=== PATIENT | female | born 1950 | race Caucasian/White ===

== ENCOUNTER 2019-10-03 18:13 | Emergency (ER) | payer MEDICARE, OTHER ==
[~2019-10-03] VITALS: Ht 167.6 cm; Wt 104.3 kg
--- NOTE | 2019-10-04 12:09 | EKG ---
[facility] [address] [facility] [place], [place] [address] Signed Normal sinus rhythm with sinus arrhythmia Septal infarct , age undetermined Abnormal ECG No previous ECGs available Confirmed by YANE TENORIO DO ([id number]) on 10/04/2019 12:08:55 PM Electronically Signed By: YANE TENORIO DO 10/04/19 1209 PATIENT NAME: JAYA MORTON IRAM Electrocardiogram DATE OF : 52 PHYSICIAN: YANE TENORIO DO REPORT #: [id number] REPORT IS CONFIDENTIAL AND NOT TO BE RELEASED WITHOUT AUTHORIZATION
== END 2019-10-03 21:18 | disposition short-term general hospital (02) ==
LOC: ED 18:13
DX: I21.4 Non-ST elevation (NSTEMI) myocardial infarction (principal); I10 Essential (primary) hypertension; E78.00 Pure hypercholesterolemia, unspecified; Z88.5 Allergy status to narcotic agent; Z88.1 Allergy status to other antibiotic agents
CPT/HCPCS: 71045; 80053; 83735; 84484; 85025; 93005; 93010; 96374; 96375; 99285-25; J1650

== ENCOUNTER 2019-10-08 04:16 | Observation (INO) | payer MEDICARE, OTHER ==
[~2019-10-08] VITALS: Ht 167.6 cm; Wt 103.9 kg
--- OUTSIDE RECORDS SUMMARY | ~2019-10-08 | XMS | Encounter Summary ---
Demographics + + + | Address | [address] | | | [place] [address] | + + + | Home Phone | | + + + | Preferred Language | Unknown | + + + | Marital Status | | + + + | Methodist Affiliation | 1077 | + + + | Race | Unknown | + + + | Ethnic Group | Unknown | + + + Author + + + | Author | [facility] | | | and [place] | + + + | Organization | [facility] | | | and [place] | + + + | Address | Unknown | + + + | Phone | Unavailable | + + + Support + + +---------+ + | Name | Relationship | Address | Phone | + + +---------+ + | David Harper | ECON | Unknown | | + + +---------+ + | Nusrat Bowles | ECON | Unknown | | + + +---------+ + Care Team Providers + +------+ + | Care Data Examination Clerk Name | Role | Phone | + +------+ + | Jacob Rodríguez DO | PCP | | + +------+ + Encounter Details +--------+--------+ + + + | Date | Type | Department | Care Team | Description | +--------+--------+ + + + | 10/02/ | Intake | [facility] | | N/A | | 2019 | | [place] [address] | | | | | | [place] | | | | | | [place] | | | | | | [phone] | | | | | | [phone] | | | +--------+--------+ + + + Social History + +-------+ +--------+------+ | Tobacco Use | Types | Packs/Day | Years | Date | | | | | Used | | + +-------+ +--------+------+ | Never Assessed | | | | | + +-------+ +--------+------+ + + + | Sex Assigned at | Date Recorded | | | | + + + | Not on file | | + + + + + + + | Job Start Date | Occupation | Industry | + + + + | Not on file | Not on file | Not on file | + + + + + + + + | Travel History | Travel Start | Travel End | + + + + + + | No recent travel history available. | + + documented as of this encounter Plan of Treatment +--------+---------+ + + + | Date | Type | Specialty | Care Team | Description | +--------+---------+ + + + | 11/07/ | Office | Cardiology | Lj Barker MD | | | 2020 | Visit | | [address] | | | | | | [place] | | | | | | [id number] | | | | | | | | +--------+---------+ + + + documented as of this encounter Visit Diagnoses Not on filedocumented in this encounter"
--- OUTSIDE RECORDS SUMMARY | ~2019-10-08 | XMS | Encounter Summary ---
Demographics + + + | Address | [address] | | | [place] [address] | + + + | Home Phone | | + + + | Preferred Language | Unknown | + + + | Marital Status | | + + + | Hoahaoism Affiliation | 1077 | + + + | Race | Unknown | + + + | Ethnic Group | Unknown | + + + Author + + + | Author | [facility] | | | and [place] | + + + | Organization | [facility] | | | and [place] | [...] Team Providers + +------+ + | Care Laborer Bituminous Paving Name | Role | Phone | + +------+ + | Jacob Rodríguez DO | PCP | | + +------+ + Encounter Details +--------+ + + + + | Date | Type | Department | Care Team | Description | +--------+ + + + + | 10/03/ | Imaging | [facility] | Provider, | | | 2020 | Exam | [facility] | [address] | | | | | IMAGING [address] | [address] | | | | | [place] | [place] [address] | | | | | [place] [address] | | | | | | [phone] | | | +--------+ + + + + Social History + +-------+ [...] | Lj Barker MD | | | 2019 | Visit | | [address] | | | | | | [place] | | | | | | [phone] | | | | | | | | +--------+---------+ + + + documented as of this encounter Procedures + +--------+ + + + | Procedure Name | Priori | Date/Time | Associated Diagnosis | Comments | | | ty | | | | + +--------+ + + + | XR CHEST 2 VIEWS | Routin | 10/07/2011 | | Results for this | | | e | 2:10 PM | | procedure are in the | | | | PDT | | results section. | + +--------+ + + + documented in this encounter Results XR Chest 2 Vws (10/07/2011 2:10 PM PDT) + + | Specimen | + + | | + + + + + | Narrative | Performed At | + + + | External films for comparison only | [facility] | | | | | No results will be in the chart. | | + + + + +---------+ + + | Performing | Address | City/State/Zipcode | Phone Number | | Organization | | | | + +---------+ + + | [facility] | | | | + +---------+ + + documented in this encounter Visit Diagnoses Not on filedocumented in this encounter"
--- OUTSIDE RECORDS SUMMARY | ~2019-10-08 | XMS | Encounter Summary ---
Demographics + + + | Address | [address] | | | [place] [address] | + + + | Home Phone | | + + + | Preferred Language | Unknown | + + + | Marital Status | | + + + | Buddhism Affiliation | 1077 | + + + | Race | Unknown | + + + | Ethnic Group | Unknown | + + + Author + + + | Author | [facility] | | | and Jasana | + + + | Organization | [facility] | | | and Jasana | [...] Team Providers + +------+ + | Care Business Technology Teacher Name | Role | Phone | + +------+ + | Jacob Rodríguez DO | PCP | | + +------+ + Reason for Visit Auth/Cert +--------+--------+ + + + + | Status | Reason | Specialty | Diagnoses / | Referred By | Referred To | | | | | Procedures | Contact | Contact | +--------+--------+ + + + + | | | | Diagnoses | | | | | | | NSTEMI | | | +--------+--------+ + + + + Encounter Details +--------+---------+ + + + | Date | Type | Department | Care Team | Description | +--------+---------+ + + + | 10/04/ | Surgery | [facility] | Lj Barker MD | CV [facility] ANGIO | | 2019 | | MED CTR CV INTRA OP | [address] | | | | | [address] | [place] | | | | | [place] | [phone] | | | | | [id number] | | | | | | [phone] | | | +--------+---------+ + + + Social History + +-------+ +--------+------+ | Tobacco Use | Types | Packs/Day | Years | Date | | | | | Used | | + +-------+ +--------+------+ | Never Smoker | | | | | + +-------+ +--------+------+ + +---+---+---+ | Smokeless Tobacco: | | | | | Never Used | | | | + +---+---+---+ + + +---------+ + | Alcohol Use | Drinks/Week | oz/Week | Comments | + + +---------+ + | Yes | | | rarely, only liquer. | | | | | | + + +---------+ + + + + | Sex Assigned at [...] + + documented as of this encounter Last Filed Vital Signs + + + + + | Vital Sign | Reading | Time Taken | Comments | + + + + + | Blood Pressure | 152/58 | 10/07/2019 11:11 AM | | | | | PDT | | + + + + + | Pulse | 60 | 10/07/2019 11:11 AM | | | | | PDT | | + + + + + | Temperature | 37.1 C (98.8 F) | 10/07/2019 11:11 AM | | | | | PDT | | + + + + + | Respiratory Rate | 15 | 10/07/2019 11:11 AM | | | | | PDT | | + + + + + | Oxygen Saturation | 96% | 10/07/2019 11:11 AM | | | | | PDT | | + + + + + | Inhaled Oxygen | - | - | | | Concentration | | | | + + + + + | Weight | 102.6 kg (226 lb 3.1 | 10/07/2019 4:07 AM | | | | oz) | PDT | | + + + + + | Height | 167.6 cm (5' 6") | 10/03/2019 10:37 PM | | | | | PDT | | + + + + + | Body Mass Index | 36.51 | 10/03/2019 10:37 PM | | | | | PDT | | + + + + + documented in this encounter Discharge Instructions Instructions Kayla Regan PharmD - . Apply heating pad(low setting) to left arm at least 1 hour 3 times daily; more if desired is OK 2. For temperature of 101 degrees return to ER or call Dr Fuentes 3. May call Dr Fuentes for questions at [phone] from 7 am to 7 pm until 10/09 at 7 pm fo r questions Medication Costs: Fill your medications at [facility], they have the lowest [place]ance [place] if insurance does not co eleanor the medications. amLODIPine -- $9 for 30-day supply atorvaSTATin --$15 for 30-day supply clopidogrel --$15 for 30-day supply labetalol --$20.49 for 30-day supply (with GoodRx coupon) nitroglycerin --$10.95 for 25 tablets (with GoodRx coupon) Aspirin 81 mg-- available [id number]; around $4 for 100 tablets Sodium chloride nasal spray--Equate ([facility] brand) available [id number], around $4 for one bottle documented in this encounter Medications at Time of Discharge + + + +---------+ + + | Medication | Sig | Dispensed | Refills | Start | End Date | | | | | | Date | | + + + +---------+ + + | amLODIPine | Take 1 tablet by | 30 | 0 | 10/08/19 | | | (NORVASC) 5 mg | mouth Daily. | tablet | | 20 | | | tablet | | | | | | + + + +---------+ + + | aspirin 81 mg | Chew and swallow 1 | 30 | 0 | 10/08/19 | | | chewable tablet | tablet Daily. | tablet | | 20 | | + + + +---------+ + + | atorvaSTATin | Take 1 tablet by | 30 | 0 | 10/07/19 | | | (LIPITOR) 40 mg | mouth nightly. | tablet | | 20 | | | tablet | | | | | | + + + +---------+ + + | clopidogrel | Take 1 tablet by | 90 | 0 | 10/07/19 | | | (PLAVIX) 75 mg | mouth Daily. | tablet | | 20 | | | tablet | | | | | | + + + +---------+ + + | labetalol | Take 1 tablet by | 60 | 0 | 10/07/19 | | | (NORMODYNE) 300 MG | mouth 2 times daily. | tablet | | 20 | | | tablet | | | | | | + + + +---------+ + + | nitroglycerin | Place 1 tablet under | 25 | 0 | 10/07/19 | | | (NITROSTAT) 0.4 mg | the tongue every 5 | tablet | | 20 | | | SL tablet | minutes as needed | | | | | | | for Chest pain. | | | | | + + + +---------+ + + | sodium chloride | 2 sprays by Each | | 0 | 10/07/19 | | | (OCEAN) 0.65% nasal | Nare route 4 times | | | 20 | | | spray | daily. | | | | | + + + +---------+ + + documented as of this encounter Progress Notes Kayla Regan PharmBeatrice - 10/07/2019 2:31 PM Josh Harper was admitted for NSTEMI and hypertensive emergency and discharged home today (10/07/2019) Taught AVS education to patient. Education was focused on new medications and/or changed me dications. I explained indication, how to take, possible side effects, when to contact physi shivam, and monitor parameters. The patient was reminded of follow-up appointment with ground support agent and encouraged to make a follow-up appointment with PCP. The patient verbalized understanding of the above and all questions were answered. Pharmaci st or PCP office will follow-up with patient in one to two business days. Patient was provid ed with a reconciled discharge medication list as part of their AVS instructions. Encouraged patient to share medication list with healthcare providers and keep list current. Kayla Regan PharmD 10/07/2019 2:30 PM Manoj Wesley M D - 10/06/2019 8:38 AM PDT [facility] Hospitalist Progress Note Hyun Harper is a 68 y.o. female ASSESSMENT and PLAN: Active Hospital Problems Hypertensive emergency Unclear as to whether myocardial ischemia history of not blood pressure as a result of bloo d pressure. known history of hypertension but no medications taken at time of admission. Urine unremarkable with no blood or protein. Patient still receiving PRN's of labetalol and will increase to 300 mg p.o. twice daily NSTEMI Patient presented with severe hypertension with systolic blood pressure of 220 with chest p ain starting yesterday morning. In the emergency room at [facility] she received 5 mg of IV metoprolol, 324 mg of aspirin, and a dose of Lovenox transferred here. On presentatio n she had a CTA which was negative for aortic dissection. Troponin has progressively risen and currently plateauing at 26. Patient was taken to the [facility] 10/04 with multivessel disease including RCA, circumflex, and first OM. Received PCI to the first OM and distal circumflex lesion with a stent placed in the mid circumflex artery and proximal RCA. She currently is pain-free and feeling impr jono. She is on heparin and Brilinta. She does report relatively frequent nosebleeds and h as not had one for some time but this a.m. had a little bleed. She denies other obvious blo od loss. She does have a normochromic normocytic anemia. Hyperglycemia Blood sugar suggestive of mild type 2 diabetes mellitus with blood sugars of 154-165. Will request a diabetic education with the plan of diabetic diet and metformin therapy. Will ch dora a HA1c. Blood sugars have been in the 130-160 range. Recommend metformin starting in 2 to 3 days. Asymptomatic urinary tract infection Currently does not require antibiotic therapy until organism is isolated. Still no growth. Normochromic, normocytic anemia Iron, B12, folate, and reticulocyte count sent. Stool Hemoccult will be obtained. She was advised that at a appropriate interval (at least 3 months given her recent stenting) she s hould undergo colonoscopy screening. SUBJECTIVE: Patient feeling better this a.m.. Denies chest pain or shortness of breath. VITALS: Temp: 37.3 C (99.1 F), Pulse: 72, Resp: 13, BP: 144/76, SpO2 96 % on room air at flow r ate 2L/min Temp Min: 36.1 C (97 F) Max: 37.3 C (99.1 F) Weight: 101.5 kg (223 lb 12.3 oz) Intake/Output Summary (Last 24 hours) at 10/06/2019 0838 Last data filed at 10/06/2019 0500 Gross per 24 hour Intake 2595 ml Output 1925 ml Net 670 ml PHYSICAL EXAM: General: Comfortable appearing Cardiovascular: Regular rate and rhythm without murmur/gallop Respiratory: Clear bilaterally Abdomen: Soft without. Bowel sounds hypoactive but present DIAGNOSTIC STUDIES: Available data and images were reviewed personally. Significant results and findings are a ddressed here or in the Assessment and Plan. Lab Results Component Value Date HGB 9.5 (L) 10/06/2019 HCT 28.8 (L) 10/06/2019 PLT 206 10/06/2019 WBC 8.5 10/06/2019 Lab Results Component Value Date NA 140 10/06/2019 K 4.0 10/06/2019 CL 108 (H) 10/06/2019 CO2 26 10/06/2019 CREA 1.12 (H) 10/06/2019 BUN 16 10/06/2019 Glucose, POC Date/Time Value Ref Range Status 10/06/2019 07:01 AM 142 (H) 70 - 109 mg/dL Final 10/05/2019 08:52 PM 156 (H) 70 - 109 mg/dL Final 10/05/2019 05:22 PM 132 (H) 70 - 109 mg/dL Final Glucose, POC Date/Time Value Ref Range Status 10/06/2019 07:01 AM 142 (H) 70 - 109 mg/dL Final 10/05/2019 08:52 PM 156 (H) 70 - 109 mg/dL Final 10/05/2019 05:22 PM 132 (H) 70 - 109 mg/dL Final No results found. Total time of approximately 30 minutes was spent with the patient and/or patient's family, and/or on the patient's floor/unit, of which more than 50% was spent counseling and/or coord ination the patient's care as outlined above. Manoj Fuentes MD 10/06/2019 8:38 AM [facility] Portions of this chart may have been created with [employer] voice recognition software. Occasi onal wrong-word or sound-alike substitutions may have occurred due to the inherent solitario itations of voice recognition software. Please read the chart carefully and recognize, using context, where these substitutions have occurred Manoj Wesley MD - 0 10/05/2019 7:34 AM PDT [facility] Hospitalist Progress Note Hyun Harper is a 68 y.o. female ASSESSMENT and PLAN: Active Hospital Problems Hypertensive emergency Unclear as to whether myocardial ischemia history of not blood pressure as a result of bloo d pressure. known history of hypertension but no medications taken at time of admission. Urine unremarkable with no blood or protein. Increase labetalol today to 200 mg twice daily. NSTEMI Patient presented with severe hypertension with systolic blood pressure of 220 with chest p ain starting yesterday morning. In the emergency room at [facility] she received 5 mg of IV metoprolol, 324 mg of aspirin, and a dose of Lovenox transferred here. On presentatio n she had a CTA which was negative for aortic dissection. Troponin has progressively risen and currently plateauing at 26. EKG did not show ST segment changes yesterday. Echo showed LVEF of 0.6 with some inferior basilar hypokinesis. Plan for heart catheterization today. We will give a 250 cc saline bolus this a.m. and sta rt 75 cc/h prior to procedure noting that her oral intake documented his been subpar since a dmission creatinine rising from 1.03-1.12. Hyperglycemia Blood sugar suggestive of mild type 2 diabetes mellitus with blood sugars of 154-165. Will request a diabetic education with the plan of diabetic diet and metformin therapy. Will ch dora a HA1c. Asymptomatic urinary tract infection Currently does not require antibiotic therapy until organism is isolated. SUBJECTIVE: Patient feeling better this a.m.. Denies chest pain or shortness of breath. She has some anxiousness about her procedure planned. Her oral intake overnight has been subpar and I am going to give some IV fluids prior to heart catheterization. VITALS: Temp: 36.4 C (97.5 F), Pulse: 73, Resp: 17, BP: 145/62, SpO2 97 % on room air at flow r ate L/min Temp Min: 36.3 C (97.4 F) Max: 37.6 C (99.7 F) Weight: 101.5 kg (223 lb 12.3 oz) Intake/Output Summary (Last 24 hours) at 10/05/2019 0734 Last data filed at 10/05/2019 0416 Gross per 24 hour Intake 774 ml Output 925 ml Net -151 ml PHYSICAL EXAM: General: Comfortable appearing Cardiovascular: Regular rate and rhythm without murmur/gallop Respiratory: Clear bilaterally Abdomen: Soft without. Bowel sounds hypoactive but present Extremities: without edema Neurological: nonfocal DIAGNOSTIC STUDIES: Available data and images were reviewed personally. Significant results and findings are a ddressed here or in the Assessment and Plan. Lab Results Component Value Date HGB 9.6 (L) 10/05/2019 HCT 28.8 (L) 10/05/2019 PLT 214 10/05/2019 WBC 9.6 10/05/2019 Lab Results Component Value Date NA 137 10/05/2019 K 4.1 10/05/2019 CL 104 10/05/2019 CO2 26 10/05/2019 CREA 1.12 (H) 10/05/2019 BUN 17 10/05/2019 Glucose, POC Date/Time Value Ref Range Status 10/04/2019 08:03 PM 163 (H) 70 - 109 mg/dL Final 10/04/2019 04:24 PM 154 (H) 70 - 109 mg/dL Final 10/04/2019 11:16 AM 160 (H) 70 - 109 mg/dL Final Glucose, POC Date/Time Value Ref Range Status 10/04/2019 08:03 PM 163 (H) 70 - 109 mg/dL Final 10/04/2019 04:24 PM 154 (H) 70 - 109 mg/dL Final 10/04/2019 11:16 AM 160 (H) 70 - 109 mg/dL Final Ct Angiogram Chest W Contrast Result Date: 10/04/2019 UNENHANCED AND ENHANCED CTA CHEST WITH MULTIPLANAR REFORMATIONS AND 3-D VASCULAR RECONSTRUC TIONS 10/04/2019 3:50 AM CLINICAL HISTORY: Hypertension and chest pain radiating to back, T horacic aortic aneurysm suspected, initial exam COMPARISON: None available TECHNIQUE: A xial images are performed through the chest both before and after the uneventful intravenous administration of 100 mL Omnipaque-350 contrast, with timing of the contrast bolus optimize d for opacification of the pulmonary arterial tree. Multiplanar reformations and 3-D vascula r reconstructions are also performed. FINDINGS: There is mild partially calcified plaque s cattered throughout the aorta, and coronary arterial calcification is also present. There i s minimal dilation of the ascending aorta to a diameter of 3.3 cm. No aortic aneurysm, sten osis or dissection is apparent. There is variant origin of the left vertebral artery direct ly from the arch, proximal to the left subclavian artery origin. Common origin of the brach iocephalic and left common carotid arteries is also noted. The great vessels appear widely patent in their imaged portions along with the imaged visceral abdominal aortic branches. W hile the study is not optimized for evaluation of the pulmonary arterial tree, no filling de fect is visible to suggest the presence of thromboembolic disease. The mediastinum is other wylie unremarkable. No pathologic lymph node enlargement is evident. There is no pleural or pericardial effusion or pneumothorax. Minimal dependent atelectasis is suggested in the lung s. No nodule, consolidation or airway abnormality is evident. Schmorl's nodes are present w ithin lower thoracic and upper lumbar vertebral endplates. There are degenerative changes i nvolving the imaged lower cervical spine. Vertebral height and alignment are maintained. A tiny calcified gallstone is suggested in the gallbladder fundus. No conclusive gallbladder wall thickening, adjacent inflammation or biliary ductal dilation is evident. There is loca lized heavy calcification in the left adrenal gland, likely related to previous trauma or in fection/inflammation. Imaged upper abdomen is otherwise unremarkable. 1. ATHEROSCLEROSIS AND CORONARY ARTERIAL CALCIFICATION WITHOUT AORTIC ANEURYSM, DISSECTION OR OTHER ACUTE INTRATHORACIC DISEASE. 2. CHOLELITHIASIS. Preliminary results of this study were reported by the [facility] radiologist on October 04, 2019 at 0404 hours. Dictate d and Signed by: Haris Lucero MD Electronically signed: 10/04/2019 8:13 AM Xr Chest 1 Vw Result Date: 10/04/2019 External films for comparison only No results will be in the chart. Total time of approximately 30 minutes was spent with the patient and/or patient's family, and/or on the patient's floor/unit, of which more than 50% was spent counseling and/or coord ination the patient's care as outlined above. Manoj Fuentes MD 10/05/2019 7:34 AM [facility] Portions of this chart may have been created with [employer] voice recognition software. Occasi onal wrong-word or sound-alike substitutions may have occurred due to the inherent solitario itations of voice recognition software. Please read the chart carefully and recognize, using context, where these substitutions have occurred Kayla Chen, Pharm D - 10/04/2019 3:58 PM PDT PHARMACY SERVICES: ADMISSION MEDICATION REVIEW Hyun Harper is a 68 y.o. female admitted on 10/03/2019. Patient is a reliable historian. Location of Patient when reviewed: MEDICAL FLOOR Patient s prior to admit medication and over the counter (OTC) medications/herbal supplem ents list obtained from: X Verbal interview with patient who was ABLE TO RECALL ALL name, strength, and directions Vaccines up to date? Influenza No Pneumococcal No Tdap No Shingles No Noted medications discrepancies or medication-related issues: Medication added: Medication: Prior to Admission Sig: Patient taking differently as: Ibuprofen 200 mg tab 200 mg by mouth every 6 hours as needed for pain 2 tabs by mouth ever y 2-3 hours. Patient states she took this for chest and back pain that radiated to her right arm on October 01 and only. She does not take this regularly. Recreational Substances, Tobacco & Alcohol use/frequency: X Alcohol: 1 shot of liquor every 3 months, 1 beer yearly Best possible MACHINE BILLER medication list after pharmacy review: PT REPORTED TAKING NOT TAKING Medication Sig Last Dose Dispense Doc. Provider ibuprofen (ADVIL, MOTRIN) 200 mg tablet Take 200 mg by mouth every 6 hours as needed for P ain. Taking Differently Historical Provider, Medication review performed and electronically signed by Magda Lucia, Reinforcement Maker 2019 3:50 PM Reviewed by Kayla Regan, PharmD 10/04/2019 3:58 PM arManoj lewis M D - 10/04/2019 7:28 AM PDT [facility] Hospitalist Progress Note Hyun Harper is a 68 y.o. female ASSESSMENT and PLAN: Active Hospital Problems Hypertensive emergency Unclear as to whether myocardial ischemia history of not blood pressure as a result of bloo d pressure. No baseline known with history of hypertension but no medications currently giv en. Check a urine and forego retinal exam with Covid. NSTEMI Patient presented with severe hypertension with systolic blood pressure of 220 with chest p ain starting yesterday morning. In the emergency room at [facility] she received 5 mg of IV metoprolol, 324 mg of aspirin, and a dose of Lovenox transferred here. On presentatio n she had a CTA which was negative for aortic dissection. Troponin has risen from 0.4 to 9. 4 on presentation here and this a.m. at 16.3. EKG with a troponin of [address] segm ent elevation. On assessment this morning the patient has a blood pressure of 170/60 with a heart rate of 77 on 80 mcg/min of nitroglycerin. No evidence of heart failure on exam with the patient re porting nausea ( typical when not eating by report) and some vague chest discomfort. Plan will be to add IV labetalol to NTG With goal of heart rate less than 70 and systolic blood pressure at least less than 150 consistently. Hyperglycemia Blood sugar this a.m. was [address]. [address] patient on 4 times daily glucoscans/average. SUBJECTIVE: Patient reports mild nausea and some vague discomfort but denies true chest pains/ tightnes s. She is n.p.o. and states that whenever her stomach is empty she has easy GI upset. VITALS: Temp: 36.4 C (97.5 F), Pulse: 64, Resp: 16, BP: 177/79, SpO2 95 % on room air at flow r ate L/min Temp Min: 36.4 C (97.5 F) Max: 37 C (98.6 F) Weight: 101.5 kg (223 lb 12.3 oz) Intake/Output Summary (Last 24 hours) at 10/04/2019 0728 Last data filed at 10/04/2019 0300 Gross per 24 hour Intake Output 375 ml Net -375 ml PHYSICAL EXAM: General: Appropriate female with generalized discomfort Cardiovascular: Regular rate and rhythm without murmur/gallop Respiratory: Clear bilaterally Abdomen: Soft with minimal midepigastric discomfort. Bowel sounds hypoactive but present Extremities: without edema Neurological: nonfocal DIAGNOSTIC STUDIES: Available data and images were reviewed personally. Significant results and findings are a ddressed here or in the Assessment and Plan. Lab Results Component Value Date HGB 10.5 (L) 10/04/2019 HCT 30.6 (L) 10/04/2019 PLT 237 10/04/2019 WBC 7.6 10/04/2019 Lab Results Component Value Date NA 138 10/04/2019 K 4.1 10/04/2019 CL 107 10/04/2019 CO2 25 10/04/2019 CREA 1.03 (H) 10/04/2019 BUN 15 10/04/2019 No results found for: POCGLU No results found for: POCGLU Ct Angiogram Chest W Contrast Result Date: 10/04/2019 CT ANGIOGRAPHY CHEST CLINICAL INFORMATION: Hypertension and chest pain, radiating to the b ack COMPARISON: CHEST TWO VIEWS (10/07/2011); CHEST TWO VIEWS (09/18/2011); PROCEDURE: Thin-sec tion images of the entire chest after the administration of 100 ml Omnipaque 350intravenous contrast. 3D MIP thin slab images and 2D multiplanar reconstructions performed. At least one of the following CT dose optimization techniques were used: Automated exposure control; Adj ustment of mA and/or kV according to patient size; Use of iterative reconstruction technique . FINDINGS: See below. Report sent:10/04/2019 4:04:35 AM Preliminary report: Study negative for pulmonary embolism or other acute process in the [facility] st. Signed by: Michel Raymond Robin Sign Date/Time: 10/04/2019 4:04 AM Total time of approximately 40 minutes was spent with the patient and/or patient's family, and/or on the patient's floor/unit, of which more than 50% was spent counseling and/or coord ination the patient's care as outlined above. Manoj Fuentes MD 10/04/2019 7:28 AM [facility] Portions of this chart may have been created with [employer] voice recognition software. Occasi onal wrong-word or sound-alike substitutions may have occurred due to the inherent solitario itations of voice recognition software. Please read the chart carefully and recognize, using context, where these substitutions have occurred documented in this enc ounter Plan of Treatment +--------+---------+ + + + | Date | Type | Specialty | Care Team | Description | +--------+---------+ + + + | 11/07/ | Office | Cardiology | Lj Barker MD | | 2019 | Visit | | [address] | | | | | | [place] | | | | | | [id number] | | | | | | | | +--------+---------+ + + + documented as of this encounter Procedures + +--------+ + + + | Procedure Name | Priori | Date/Time | Associated Diagnosis | Comments | | | ty | | | | + +--------+ + + + | POC GLUCOSE | Routin | 10/07/2019 | | Results for this | | | e | 11:37 AM | | procedure are in the | | | | PDT | | results section. | + +--------+ + + + | POC GLUCOSE | Routin | 10/07/2019 | | Results for this | | | e | 7:00 AM | | procedure are in the | | | | PDT | | results section. | + +--------+ + + + | PATH HEMATOLOGY | Routin | 10/07/2019 | | Results for this | | REQUEST | e | 3:52 AM | | procedure are in the | | | | PDT | | results section. | + +--------+ + + + | CBC NO DIFFERENTIAL | Routin | 10/07/2019 | | Results for this | | | e | 3:52 AM | | procedure are in the | | | | PDT | | results section. | + +--------+ + + + | LACTATE | Add-On | 10/07/2019 | | Results for this | | DEHYDROGENASE | | 3:52 AM | | procedure are in the | | | | PDT | | results section. | + +--------+ + + + | CK TOTAL | Add-On | 10/07/2019 | | Results for this | | | | 3:52 AM | | procedure are in the | | | | PDT | | results section. | + +--------+ + + + | BASIC METABOLIC | Routin | 10/07/2019 | | Results for this | | PANEL | e | 3:52 AM | | procedure are in the | | | | PDT | | results section. | + +--------+ + + + | POC GLUCOSE | Routin | 10/06/2019 | | Results for this | | | e | 8:38 PM | | procedure are in the | | | | PDT | | results section. | + +--------+ + + + | POC GLUCOSE | Routin | 10/06/2019 | | Results for this | | | e | 4:19 PM | | procedure are in the | | | | PDT | | results section. | + +--------+ + + + | POC GLUCOSE | Routin | 10/06/2019 | | Results for this | | | e | 12:01 PM | | procedure are in the | | | | PDT | | results section. | + +--------+ + + + | OCCULT BLOOD, STOOL, | Routin | 10/06/2019 | | Results for this | | SPECIMEN 1 | e | 10:13 AM | | procedure are in the | | | | PDT | | results section. | + +--------+ + + + | POC GLUCOSE | Routin | 10/06/2019 | | Results for this | | | e | 7:01 AM | | procedure are in the | | | | PDT | | results section. | + +--------+ + + + | VITAMIN B-12 | Add-On | 10/06/2019 | | Results for this | | | | 3:54 AM | | procedure are in the | | | | PDT | | results section. | + +--------+ + + + | IRON AND TRANSFERRIN | Add-On | 10/06/2019 | | Results for this | | | | 3:54 AM | | procedure are in the | | | | PDT | | results section. | + +--------+ + + + | RETIC COUNT | Add-On | 10/06/2019 | | Results for this | | | | 3:54 AM | | procedure are in the | | | | PDT | | results section. | + +--------+ + + + | CBC NO DIFFERENTIAL | Routin | 10/06/2019 | | Results for this | | | e | 3:54 AM | | procedure are in the | | | | PDT | | results section. | + +--------+ + + + | HEMOGLOBIN A1C | Add-On | 10/06/2019 | | Results for this | | | | 3:54 AM | | procedure are in the | | | | PDT | | results section. | + +--------+ + + + | FOLATE | Add-On | 10/06/2019 | | Results for this | | | | 3:54 AM | | procedure are in the | | | | PDT | | results section. | + +--------+ + + + | FERRITIN | Add-On | 10/06/2019 | | Results for this | | | | 3:54 AM | | procedure are in the | | | | PDT | | results section. | + +--------+ + + + | BASIC METABOLIC | Routin | 10/06/2019 | | Results for this | | PANEL | e | 3:54 AM | | procedure are in the | | | | PDT | | results section. | + +--------+ + + + | ECG 12 LEAD | Routin | 10/06/2019 | | Results for this | | | e | 12:30 AM | | procedure are in the | | | | PDT | | results section. | + +--------+ + + + | POC GLUCOSE | Routin | 10/05/2019 | | Results for this | | | e | 8:52 PM | | procedure are in the | | | | PDT | | results section. | + +--------+ + + + | POC GLUCOSE | Routin | 10/05/2019 | | Results for this | | | e | 5:22 PM | | procedure are in the | | | | PDT | | results section. | + +--------+ + + + | POC GLUCOSE | Routin | 10/05/2019 | | Results for this | | | e | 11:20 AM | | procedure are in the | | | | PDT | | results section. | + +--------+ + + + | CV CARDIAC PROCEDURE | Routin | 10/05/2019 | | Results for this | | | e | 10:42 AM | | procedure are in the | | | | PDT | | results section. | + +--------+ + + + | CV CARDIAC PROCEDURE | Routin | 10/05/2019 | | Results for this | | | e | 10:42 AM | | procedure are in the | | | | PDT | | results section. | + +--------+ + + + | CV CARDIAC PROCEDURE | Routin | 10/05/2019 | | Results for this | | | e | 10:42 AM | | procedure are in the | | | | PDT | | results section. | + +--------+ + + + | CV CARDIAC PROCEDURE | Routin | 10/05/2019 | | Results for this | | | e | 10:42 AM | | procedure are in the | | | | PDT | | results section. | + +--------+ + + + | CV CARDIAC PROCEDURE | Routin | 10/05/2019 | | Results for this | | | e | 10:42 AM | | procedure are in the | | | | PDT | | results section. | + +--------+ + + + | POC ACTIVATED | Routin | 10/05/2019 | | Results for this | | CLOTTING TIME ISTAT | e | 10:24 AM | | procedure are in the | | | | PDT | | results section. | + +--------+ + + + | POC ACTIVATED | Routin | 10/05/2019 | | Results for this | | CLOTTING TIME ISTAT | e | 9:45 AM | | procedure are in the | | | | PDT | | results section. | + +--------+ + + + | POC GLUCOSE | Routin | 10/05/2019 | | Results for this | | | e | 7:59 AM | | procedure are in the | | | | PDT | | results section. | + +--------+ + + + | PROTIME INR | Routin | 10/05/2019 | | Results for this | | | e | 7:53 AM | | procedure are in the | | | | PDT | | results section. | + +--------+ + + + | BASIC METABOLIC | Routin | 10/05/2019 | | Results for this | | PANEL | e | 7:53 AM | | procedure are in the | | | | PDT | | results section. | + +--------+ + + + | LIPID PANEL | Routin | 10/05/2019 | | Results for this | | | e | 4:09 AM | | procedure are in the | | | | PDT | | results section. | + +--------+ + + + | TROPONIN I | Routin | 10/05/2019 | | Results for this | | | e | 4:09 AM | | procedure are in the | | | | PDT | | results section. | + +--------+ + + + | CBC WITH | Routin | 10/05/2019 | | Results for this | | DIFFERENTIAL | e | 4:09 AM | | procedure are in the | | | | PDT | | results section. | + +--------+ + + + | BASIC METABOLIC | Routin | 10/05/2019 | | Results for this | | PANEL | e | 4:09 AM | | procedure are in the | | | | PDT | | results section. | + +--------+ + + + | POC GLUCOSE | Routin | 10/04/2019 | | Results for this | | | e | 8:03 PM | | procedure are in the | | | | PDT | | results section. | + +--------+ + + + | URINALYSIS WITH | Routin | 10/04/2019 | | Results for this | | MICROSCOPIC WITH | e | 7:37 PM | | procedure are in the | | CULTURE IF INDICATED | | PDT | | results section. | + +--------+ + + + | CULTURE, URINE | Routin | 10/04/2019 | | Results for this | | | e | 7:37 PM | | procedure are in the | | | | PDT | | results section. | + +--------+ + + + | TROPONIN I | Routin | 10/04/2019 | | Results for this | | | e | 6:40 PM | | procedure are in the | | | | PDT | | results section. | + +--------+ + + + | POC GLUCOSE | Routin | 10/04/2019 | | Results for this | | | e | 4:24 PM | | procedure are in the | | | | PDT | | results section. | + +--------+ + + + | ECHO COMPLETE W | Routin | 10/04/2019 | | Results for this | | CONTRAST | e | 12:41 PM | | procedure are in the | | | | PDT | | results section. | + +--------+ + + + | POC GLUCOSE | Routin | 10/04/2019 | | Results for this | | | e | 11:16 AM | | procedure are in the | | | | PDT | | results section. | + +--------+ + + + | POC GLUCOSE | Routin | 10/04/2019 | | Results for this | | | e | 8:46 AM | | procedure are in the | | | | PDT | | results section. | + +--------+ + + + | ECG 12 LEAD | Routin | 10/04/2019 | | Results for this | | | e | 7:39 AM | | procedure are in the | | | | PDT | | results section. | + +--------+ + + + | LIPID PANEL | Add-On | 10/04/2019 | | Results for this | | | | 4:09 AM | | procedure are in the | | | | PDT | | results section. | + +--------+ + + + | TROPONIN I | Routin | 10/04/2019 | | Results for this | | | e | 4:09 AM | | procedure are in the | | | | PDT | | results section. | + +--------+ + + + | CBC WITH | Routin | 10/04/2019 | | Results for this | | DIFFERENTIAL | e | 4:09 AM | | procedure are in the | | | | PDT | | results section. | + +--------+ + + + | BASIC METABOLIC | Routin | 10/04/2019 | | Results for this | | PANEL | e | 4:09 AM | | procedure are in the | | | | PDT | | results section. | + +--------+ + + + | CT ANGIOGRAM CHEST W | STAT | 10/04/2019 | | Results for this | | CONTRAST | | 3:52 AM | | procedure are in the | | | | PDT | | results section. | + +--------+ + + + | CORONAVIRUS | Routin | 10/04/2019 | | Results for this | | (COVID-19) NAAT | e | 1:48 AM | | procedure are in the | | | | PDT | | results section. | + +--------+ + + + | ECG 12 LEAD | STAT | 10/03/2019 | | Results for this | | | | 11:08 PM | | procedure are in the | | | | PDT | | results section. | + +--------+ + + + | CULTURE, MRSA | Routin | 10/03/2019 | | Results for this | | | e | 10:47 PM | | procedure are in the | | | | PDT | | results section. | + +--------+ + + + | TROPONIN I | Routin | 10/03/2019 | | Results for this | | | e | 10:44 PM | | procedure are in the | | | | PDT | | results section. | + +--------+ + + + | XR CHEST 1 VIEW | Routin | 10/03/2019 | | Results for this | | | e | 6:35 PM | | procedure are in the | | | | PDT | | results section. | + +--------+ + + + | XR CHEST 2 VIEWS | Routin | 10/07/2011 | | Results for this | | | e | 2:10 PM | | procedure are in the | | | | PDT | | results section. | + +--------+ + + + documented in this encounter Results POC Glucose (10/07/2019 11:37 AM PDT) + +---------+ + + + | Component | Value | Ref Range | Performed | Pathologist | | | | | At | Signature | + +---------+ + + + | Glucose, | 115 (H) | 70 - 109 mg/dL | [facility] | | | POC | | | [facility] | | | | | | [facility] | | | | | | CENTER - | | | | | | LABORATORY | | + +---------+ + + + + + | Specimen | + + | Blood | + + + + + + + | Performing | Address | City/State/Zipcode | Phone Number | | Organization | | | | + + + + + | [facility] | [address] | [place] | [phone] | | [facility] | | [address] | | | - LABORATORY | | | | + + + + + POC Glucose (10/07/2019 7:00 AM PDT) + +---------+ + + + | Component | Value | Ref Range | Performed | Pathologist | | | | | At | Signature | + +---------+ + + + | Glucose, | 134 (H) | 70 - 109 mg/dL | [facility] | | | POC | | | [facility] | | | | | | MEDICAL | | | | | | CENTER - | | | | | | LABORATORY | | + +---------+ + + + + + | Specimen | + + | Blood | + + + + + + + | Performing | Address | City/State/Zipcode | Phone Number | | Organization | | | | + + + + + | [facility] | [address] | [place] | [phone] | | [facility] | | [address] | | | - LABORATORY | | | | + + + + + Path Hematology Request (10/07/2019 3:52 AM PDT) + + + + + + | Component | Value | Ref Range | Performed | Pathologist | | | | | At | Signature | + + + + + + | Peripheral | Comment: Review of CBC | | [facility] | | | Smear | collected: 07 Oct 2019 @ | | [facility] | | | | [id number] agree with the | | MEDICAL | | | | automated cell count, | | CENTER - | | | | and the Tech's | | LABORATORY | | | | assessment.The slide | | | | | | stain is of good | | | | | | quality.The presence of | | | | | | mild anemia is | | | | | | confirmed. The features | | | | | | are most consistent with | | | | | | a chronic process | | | | | | rather than acute blood | | | | | | loss.There are no | | | | | | schistocytes or other | | | | | | evidence of peripheral | | | | | | destruction.There is a | | | | | | moderate reticulocyte | | | | | | response, given the | | | | | | degree of anemia. | | | | | | Morphologically there is | | | | | | no evidence of | | | | | | mechanical hemolysis, | | | | | | but it doesn't exclude a | | | | | | hemolytic process. | | | | | | Suggest a haptoglobin | | | | | | level to assess for | | | | | | hemolysis. Please | | | | | | correlate clinically. | | | | | | Parris Perdomo | | | | | | Date: 07 Oct 2019 | | | | | | Time: 1212 | | | | + + + + + + + + | Specimen | + + | Blood | + + + + + | Narrative | Performed At | + + + | | | + + + + + + + + | Performing | Address | City/State/Zipcode | Phone Number | | Organization | | | | + + + + + | [facility] | [address] | [place] | [phone] | | [facility] | | [address] | | | - LABORATORY | | | | + + + + + CK Total (10/07/2019 3:52 AM PDT) + +---------+ + + + | Component | Value | Ref Range | Performed | Pathologist | | | | | At | Signature | + +---------+ + + + | CK TOTAL | 278 (H) | 34 - 145 U/L | [facility] | | | | | | [facility] | | | | | | MEDICAL | | | | | | CENTER - | | | | | | LABORATORY | | + +---------+ + + + + + | Specimen | + + | Blood | + + + + + + + | Performing | Address | City/State/Zipcode | Phone Number | | Organization | | | | + + + + + | [facility] | [address] | [place] | [phone] | | [facility] | | [address] | | | - LABORATORY | | | | + + + + + Lactate Dehydrogenase (10/07/2019 3:52 AM PDT) + + + + + + | Component | Value | Ref Range | Performed | Pathologist | | | | | At | Signature | + + + + + + | LDH TOTAL | 529 (H)Comment: New | 120 - 246 U/L | [facility] | | | | method in use as of | | [facility] | | | | July 14, 2018. Check | | MEDICAL | | | | reference range for | | CENTER - | | | | changes.Some analytes | | LABORATORY | | | | show significant | | | | | | variation from the | | | | | | previous method.It may | | | | | | be necessary to set a | | | | | | new baseline for this | | | | | | analyte. | | | | + + + + + + + + | Specimen | + + | Blood | + + + + + + + | Performing | Address | City/State/Zipcode | Phone Number | | Organization | | | | + + + + + | [facility] | [address] | [place] | [phone] | | [facility] | | [address] | | | - LABORATORY | | | | + + + + + Basic Metabolic Panel (10/07/2019 3:52 AM PDT) + + + + + + | Component | Value | Ref Range | Performed | Pathologist | | | | | At | Signature | + + + + + + | Na | 140 | 136 - 145 | [facility] | | | | | mmol/L | [facility] | | | | | | MEDICAL | | | | | | CENTER - | | | | | | LABORATORY | | + + + + + + | K | 4.3 | 3.4 - 5.1 | [facility] | | | | | mmol/L | [facility] | | | | | | MEDICAL | | | | | | CENTER - | | | | | | LABORATORY | | + + + + + + | Cl | 108 (H) | 98 - 107 mmol/L | [facility] | | | | | | [facility] | | | | | | MEDICAL | | | | | | CENTER - | | | | | | LABORATORY | | + + + + + + | CO2 | 27 | 20 - 31 mmol/L | [facility] | | | | | | [facility] | | | | | | MEDICAL | | | | | | CENTER - | | | | | | LABORATORY | | + + + + + + | Anion Gap | 5 | 3 - 16 mmol/L | [facility] | | | | | | [facility] | | | | | | MEDICAL | | | | | | CENTER - | | | | | | LABORATORY | | + + + + + + | Glucose | 130 (H) | 60 - 106 mg/dL | [facility] | | | | | | [facility] | | | | | | MEDICAL | | | | | | CENTER - | | | | | | LABORATORY | | + + + + + + | BUN | 17 | 9 - 23 mg/dL | [facility] | | | | | | [facility] | | | | | | MEDICAL | | | | | | CENTER - | | | | | | LABORATORY | | + + + + + + | Creatinine | 1.15 (H) | 0.55 - 1.02 | [facility] | | | | | mg/dL | [facility] | | | | | | MEDICAL | | | | | | CENTER - | | | | | | LABORATORY | | + + + + + + | eGFR if not | 47 (L)Comment: | >=60 | [facility] | | | | GLOMERULAR FILTRATION | mL/min/1.73m2 | [facility] | | | MALTESE | RATE,ESTIMATED | | MEDICAL | | | | mL/min/1.64t2Xycz than | | CENTER - | | | | 60 Chronic kidney | | LABORATORY | | | | disease,if found over a | | | | | | 3-month period.Less than | | | | | | 15 Kidney failureFor | | | | | | | | | | | | Americans,multiply the | | | | | | calculated GFR by 1.21. | | | | | | | | | | + + + + + + | Calcium | 9.3 | 8.7 - 10.4 | [facility] | | | | | mg/dL | [facility] | | | | | | MEDICAL | | | | | | CENTER - | | | | | | LABORATORY | | + + + + + + | BUN/Creatin | 14.8 | | [facility] | | | ine Ratio | | | [facility] | | | | | | [facility]ICAL | | | | | | CENTER - | | | | | | LABORATORY | | + + + + + + + + | Specimen | + + | Blood | + + + + + + + | Performing | Address | City/State/Zipcode | Phone Number | | Organization | | | | + + + + + | [facility] | [address] | [place], [place] | [phone] | | [facility] | | [address] | | | - LABORATORY | | | | + + + + + CBC no Differential (10/07/2019 3:52 AM PDT) + + + + + + | Component | Value | Ref Range | Performed | Pathologist | | | | | At | Signature | + + + + + + | WBC | 8.4 | 4.0 - 11.0 K/uL | [facility] | | | | | | [facility] | | | | | | MEDICAL | | | | | | CENTER - | | | | | | LABORATORY | | + + + + + + | RBC | 2.98 (L) | 3.70 - 5.20 | [facility] | | | | | M/uL | [facility] | | | | | | MEDICAL | | | | | | CENTER - | | | | | | LABORATORY | | + + + + + + | Hemoglobin | 9.5 (L) | 11.5 - 16.0 | [facility] | | | | | g/dL | [facility] | | | | | | MEDICAL | | | | | | CENTER - | | | | | | LABORATORY | | + + + + + + | Hematocrit | 29.0 (L) | 34.0 - 47.0 % | [facility] | | | | | | [facility] | | | | | | MEDICAL | | | | | | CENTER - | | | | | | LABORATORY | | + + + + + + | MCV | 97.3 | 83.0 - 101.0 fL | [facility] | | | | | | [facility] | | | | | | MEDICAL | | | | | | CENTER - | | | | | | LABORATORY | | + + + + + + | MCH | 31.9 | 28.0 - 35.0 pg | [facility] | | | | | | [facility] | | | | | | MEDICAL | | | | | | CENTER - | | | | | | LABORATORY | | + + + + + + | MCHC | 32.8 | 32.0 - 36.0 | [facility] | | | | | g/dL | [facility] | | | | | | MEDICAL | | | | | | CENTER - | | | | | | LABORATORY | | + + + + + + | RDW-CV | 13.3 | <15.0 % | [facility] | | | | | | [facility] | | | | | | MEDICAL | | | | | | CENTER - | | | | | | LABORATORY | | + + + + + + | RDW-SD | 47.0 (H) | 35.1 - 46.3 fL | [facility] | | | | | | [facility] | | | | | | MEDICAL | | | | | | CENTER - | | | | | | LABORATORY | | + + + + + + | Platelet | 206 | 140 - 440 K/uL | [facility] | | | Count | | | [facility] | | | | | | MEDICAL | | | | | | CENTER - | | | | | | LABORATORY | | + + + + + + | MPV | 9.4 | 6.5 - 12.4 fL | [facility] | | | | | | [facility] | | | | | | MEDICAL | | | | | | CENTER - | | | | | | LABORATORY | | + + + + + + | % nRBC | 0 | 0 - 2 per 100 | [facility] | | | | | WBCs | [facility] | | | | | | MEDICAL | | | | | | CENTER - | | | | | | LABORATORY | | + + + + + + | Absolute | 0.00 | 0.00 - 0.01 | [facility] | | | nRBC | | K/uL | [facility] | | | | | | MEDICAL | | | | | | CENTER - | | | | | | LABORATORY | | + + + + + + + + | Specimen | + + | Blood | + + + + + + + | Performing | Address | City/State/Zipcode | Phone Number | | Organization | | | | + + + + + | [facility] | [address] | [place] | [phone] | | [facility] | | [address] | | | - LABORATORY | | | | + + + + + POC Glucose (10/06/2019 8:38 PM PDT) + +---------+ + + + | Component | Value | Ref Range | Performed | Pathologist | | | | | At | Signature | + +---------+ + + + | Glucose, | 155 (H) | 70 - 109 mg/dL | [facility] | | | POC | | | [facility] | | | | | | MEDICAL | | | | | | CENTER - | | | | | | LABORATORY | | + +---------+ + + + + + | Specimen | + + | Blood | + + + + + + + | Performing | Address | City/State/Zipcode | Phone Number | | Organization | | | | + + + + + | [facility] | [address] | [place] | [phone] | | [facility] | | [address] | | | - LABORATORY | | | | + + + + + POC Glucose (10/06/2019 4:19 PM PDT) + +---------+ + + + | Component | Value | Ref Range | Performed | Pathologist | | | | | At | Signature | + +---------+ + + + | Glucose, | 137 (H) | 70 - 109 mg/dL | [facility] | | | POC | | | [facility] | | | | | | MEDICAL | | | | | | CENTER - | | | | | | LABORATORY | | + +---------+ + + + + + | Specimen | + + | Blood | + + + + + + + | Performing | Address | City/State/Zipcode | Phone Number | | Organization | | | | + + + + + | [facility] | [address] | [place], [place] | [phone] | | [facility] | | [address] | | | - LABORATORY | | | | + + + + + POC Glucose (10/06/2019 12:01 PM PDT) + +---------+ + + + | Component | Value | Ref Range | Performed | Pathologist | | | | | At | Signature | + +---------+ + + + | Glucose, | 117 (H) | 70 - 109 mg/dL | [facility] | | | POC | | | [facility] | | | | | | MEDICAL | | | | | | CENTER - | | | | | | LABORATORY | | + +---------+ + + + + + | Specimen | + + | Blood | + + + + + + + | Performing | Address | City/State/Zipcode | Phone Number | | Organization | | | | + + + + + | [facility] | [address] | [place] | [phone] | | [facility] | | [address] | | | - LABORATORY | | | | + + + + + Occult Blood, Stool, Specimen 1 (10/06/2019 10:13 AM PDT) + + + + + + | Component | Value | Ref Range | Performed | Pathologist | | | | | At | Signature | + + + + + + | Occult | Negative | | [facility] | | | Blood in | | | [facility] | | | [facility]st | | | MEDICAL | | | Specimen, | | | CENTER - | | | Stool | | | LABORATORY | | + + + + + + + + | Specimen | + + | Stool - Stool | | specimen (specimen) | + + + + + + + | Performing | Address | City/State/Zipcode | Phone Number | | Organization | | | | + + + + + | [facility] | [address] | [place] | [phone] | | [facility] | | [address] | | | - LABORATORY | | | | + + + + + POC Glucose (10/06/2019 7:01 AM PDT) + +---------+ + + + | Component | Value | Ref Range | Performed | Pathologist | | | | | At | Signature | + +---------+ + + + | Glucose, | 142 (H) | 70 - 109 mg/dL | [facility] | | | POC | | | [facility] | | | | | | MEDICAL | | | | | | CENTER - | | | | | | LABORATORY | | + +---------+ + + + + + | Specimen | + + | Blood | + + + + + + + | Performing | Address | City/State/Zipcode | Phone Number | | Organization | | | | + + + + + | [facility] | [address] | [place] | [phone] | | [facility] | | [address] | | | - LABORATORY | | | | + + + + + Ferritin (10/06/2019 3:54 AM PDT) + +-------+ + + + | Component | Value | Ref Range | Performed | Pathologist | | | | | At | Signature | + +-------+ + + + | FERRITIN | 246 | 7 - 271 ng/mL | [facility] | | | | | | [facility] | | | | | | MEDICAL | | | | | | CENTER - | | | | | | LABORATORY | | + +-------+ + + + + + | Specimen | + + | Blood | + + + + + + + | Performing | Address | City/State/Zipcode | Phone Number | | Organization | | | | + + + + + | [facility] | [address] | [place] | [phone] | | [facility] | | [address] | | | - LABORATORY | | | | + + + + + Hemoglobin A1C (10/06/2019 3:54 AM PDT) + +-------+ + + + | Component | Value | Ref Range | Performed | Pathologist | | | | | At | Signature | + +-------+ + + + | Hemoglobin | 5.3 | 4.3 - 6.0 % | [facility] | | | A1c | | | [facility] | | | | | | MEDICAL | | | | | | CENTER - | | | | | | LABORATORY | | + +-------+ + + + | Estimated | 105 | mg/dL | [facility] | | | Average | | | [facility] | | | Glucose | | | MEDICAL | | | | | | CENTER - | | | | | | LABORATORY | | + +-------+ + + + + + | Specimen | + + | Blood | + + + + + + + | Performing | Address | City/State/Zipcode | Phone Number | | Organization | | | | + + + + + | [facility] | [address] | [place] | [phone] | | [facility] | | [address] | | | - LABORATORY | | | | + + + + + Retic Count (10/06/2019 3:54 AM PDT) + + + + + + | Component | Value | Ref Range | Performed | Pathologist | | | | | At | Signature | + + + + + + | % | 2.6 (H) | 0.5 - 1.5 % | [facility] | | | Reticulocyt | | | [facility] | | | e Count | | | MEDICAL | | | | | | CENTER - | | | | | | LABORATORY | | + + + + + + | Absolute | 0.0689 | 0.0164 - 0.0776 | [facility] | | | Reticulocyt | | M/uL | [facility] | | | e Count | | | MEDICAL | | | | | | CENTER - | | | | | | LABORATORY | | + + + + + + | Immature | 24.1 (H)Comment: Values | 2.3 - 15.9 % | [facility] | | | Reticulocyt | above normal range | | [facility] | | | e Fraction | indicate an increase in | | MEDICAL | | | | RBC production in the | | CENTER - | | | | bone marrow. | | LABORATORY | | + + + + + + | Reticulocyt | 32.2Comment: Values | 29.0 - 38.0 pg | [facility] | | | e | below 29 pg are an early | | [facility] | | | Hemoglobin | indicator of iron | | MEDICAL | | | Content | deficiency. | | CENTER - | | | | | | LABORATORY | | + + + + + + + + | Specimen | + + | Blood | + + + + + + + | Performing | Address | City/State/Zipcode | Phone Number | | Organization | | | | + + + + + | [facility] | [address] | [place] | [phone] | | [facility] | | [address] | | | - LABORATORY | | | | + + + + + Folate (10/06/2019 3:54 AM PDT) + +-------+ + + + | Component | Value | Ref Range | Performed | Pathologist | | | | | At | Signature | + +-------+ + + + | FOLATE | 13.9 | >5.4 ng/mL | [facility] | | | | | | [facility] | | | | | | MEDICAL | | | | | | CENTER - | | | | | | LABORATORY | | + +-------+ + + + + + | Specimen | + + | Blood | + + + + + + + | Performing | Address | City/State/Zipcode | Phone Number | | Organization | | | | + + + + + | [facility] | [address] | [place] | [phone] | | [facility] | | [address] | | | - LABORATORY | | | | + + + + + Vitamin B-12 (10/06/2019 3:54 AM PDT) + + + + + + | Component | Value | Ref Range | Performed | Pathologist | | | | | At | Signature | + + + + + + | VITAMIN | 506Comment: DEFICIENT: | 156 - 672 pg/mL | [facility] | | | B-12 | <145 | | [facility] | | | | pg/mLINDETERMINATE: | | MEDICAL | | | | 145-180 pg/mL | | CENTER - | | | | | | LABORATORY | | + + + + + + + + | Specimen | + + | Blood | + + + + + + + | Performing | Address | City/State/Zipcode | Phone Number | | Organization | | | | + + + + + | [facility] | [address] | [place] | [phone] | | [facility] | | [address] | | | - LABORATORY | | | | + + + + + Iron and Transferrin (10/06/2019 3:54 AM PDT) + + + + + + | Component | Value | Ref Range | Performed | Pathologist | | | | | At | Signature | + + + + + + | Iron | 18 (L) | 50 - 170 ug/dL | [facility] | | | | | | [facility] | | | | | | [facility] | | | | | [facility] - | | | | | | LABORATORY | | + + + + + + | TRANSFERRIN | 161.0 (L) | 250.0 - 380.0 | [facility] | | | | | mg/dL | [facility] | | | | | | [facility] | | | | | | CENTER - | | | | | | LABORATORY | | + + + + + + | TIBC | 225 (L) | 235 - 425 ug/dL | [facility] | | | | | | [facility] | | | | | | [facility] | | | | | | CENTER - | | | | | | LABORATORY | | + + + + + + | % | 8.0 (L) | 15.0 - 50.0 % | [facility] | | | SATURATION | | | [facility] | | | | | | [facility] | | | | | | CENTER - | | | | | | LABORATORY | | + + + + + + + + | Specimen | + + | Blood | + + + + + + + | Performing | Address | City/State/Zipcode | Phone Number | | Organization | | | | + + + + + | [facility] | [address] | [place], [place] | [phone] | | [facility] | | [address] | | | - LABORATORY | | | | + + + + + CBC no Differential (10/06/2019 3:54 AM PDT) + + + + + + | Component | Value | Ref Range | Performed | Pathologist | | | | | At | Signature | + + + + + + | WBC | 8.5 | 4.0 - 11.0 K/uL | [facility] | | | | | | [facility] | | | | | | [facility] | | | | | | CENTER - | | | | | | LABORATORY | | + + + + + + | RBC | 2.98 (L) | 3.70 - 5.20 | [facility] | | | | | M/uL | [facility] | | | | | | [facility] | | | | | | CENTER - | | | | | | LABORATORY | | + + + + + + | Hemoglobin | 9.5 (L) | 11.5 - 16.0 | [facility] | | | | | g/dL | [facility] | | | | | | [facility] | | | | | | CENTER - | | | | | | LABORATORY | | + + + + + + | Hematocrit | 28.8 (L) | 34.0 - 47.0 % | [facility] | | | | | | [facility] | | | | | | [facility] | | | | | | C[facility] - | | | | | | LABORATORY | | + + + + + + | MCV | 96.6 | 83.0 - 101.0 fL | [facility] | | | | | | [facility] | | | [facility] | | [facility] | | | | | | [facility] - | | | | | | LABORATORY | | + + + + + + | MCH | 31.9 | 28.0 - 35.0 pg | [facility] | | | | | | [facility] | | | | | | [facility] | | | | | | CENTER - | | | | | | LABORATORY | | + + + + + + | MCHC | 33.0 | 32.0 - 36.0 | [facility] | | | | | g/dL | [facility] | | | | | | [facility]ICAL | | | | | | CENTER - | | | | | | LABORATORY | | + + + + + + | RDW-CV | 13.2 | <15.0 % | [facility] | | | | | | [facility] | | | | | | [facility] | | | | | | CENTER - | | | | | | LABORATORY | | + + + + + + | RDW-SD | 46.4 (H) | 35.1 - 46.3 fL | [facility] | | | | | | [facility] | | | | | | [facility] | | | | | | CENTER - | | | | | | LABORATORY | | + + + + + + | Platelet | 206 | 140 - 440 K/uL | [facility] | | | Count | | | [facility] | | | | | | [facility] | | | | | | CENTER - | | | | | | LABORATORY | | + + + + + + | MPV | 9.3 | 6.5 - 12.4 fL | [facility] | | | | | | [facility] | | | | | | [facility] | | | | | | CENTER - | | | | | | LABORATORY | | + + + + + + | % nRBC | 0 | 0 - 2 per 100 | [facility] | | | | | WBCs | [facility] | | | | | | [facility] | | | | | | CENTER - | | | | | | LABORATORY | | + + + + + + | Absolute | 0.00 | 0.00 - 0.01 | [facility] | | | nRBC | | K/uL | [facility] | | | | | | [facility]ICAL | | | | | | CENTER - | | | | | | LABORATORY | | + + + + + + + + | Specimen | + + | Blood | + + + + + + + | Performing | Address | City/State/Zipcode | Phone Number | | Organization | | | | + + + + + | [facility] | [address] | [place] | [phone] | | [facility] | | [address] | | | - LABORATORY | | | | + + + + + Basic Metabolic Panel (10/06/2019 3:54 AM PDT) + + + + + + | Component | Value | Ref Range | Performed | Pathologist | | | | | At | Signature | + + + + + + | Na | 140 | 136 - 145 | [facility] | | | | | mmol/L | [facility] | | | | | | MEDICAL | | | | | | CENTER - | | | | | | LABORATORY | | + + + + + + | K | 4.0 | 3.4 - 5.1 | [facility] | | | | | mmol/L | [facility] | | | | | | MEDICAL | | | | | | CENTER - | | | | | | LABORATORY | | + + + + + + | Cl | 108 (H) | 98 - 107 mmol/L | [facility] | | | | | | [facility] | | | | | | MEDICAL | | | | | | CENTER - | | | | | | LABORATORY | | + + + + + + | CO2 | 26 | 20 - 31 mmol/L | [facility] | | | | | | [facility] | | | | | | MEDICAL | | | | | | CENTER - | | | | | | LABORATORY | | + + + + + + | Anion Gap | 6 | 3 - 16 mmol/L | [facility] | | | | | | [facility] | | | | | | MEDICAL | | | | | | CENTER - | | | | | | LABORATORY | | + + + + + + | Glucose | 132 (H) | 60 - 106 mg/dL | [facility] | | | | | | [facility] | | | | | | [facility]ICAL | | | | | | CENTER - | | | | | | LABORATORY | | + + + + + + | BUN | 16 | 9 - 23 mg/dL | [facility] | | | [facility] | | | | | | [facility] - | | | | | | LABORATORY | | + + + + + + | Creatinine | 1.12 (H) | 0.55 - 1.02 | [facility] | | | | | mg/dL | [facility] | | | | | | MEDICAL | | | | | | CENTER - | | | | | | LABORATORY | | + + + + + + | eGFR if not | 49 (L)Comment: | >=60 | [facility] | | | | GLOMERULAR FILTRATION | mL/min/1.73m2 | [facility] | | | MALTESE | RATE,ESTIMATED | | MEDICAL | | | | mL/min/1.37d8Wpgm than | | CENTER - | | | | 60 Chronic kidney | | LABORATORY | | | | disease,if found over a | | | | | | 3-month period.Less than | | | | | | 15 Kidney failureFor | | | | | | | | | | | | Americans,multiply the | | | | | | calculated GFR by 1.21. | | | | | | | | | | + + + + + + | Calcium | 9.0 | 8.7 - 10.4 | [facility] | | | | | mg/dL | [facility] | | | | | | MEDICAL | | | | | | CENTER - | | | | | | LABORATORY | | + + + + + + | BUN/Creatin | 14.3 | | [facility] | | | ine Ratio | | | [facility] | | | | | | MEDICAL | | | | | | CENTER - | | | | | | LABORATORY | | + + + + + + + + | Specimen | + + | Blood | + + + + + + + | Performing | Address | City/State/Zipcode | Phone Number | | Organization | | | | + + + + + | [facility] | [address] | [place] | [phone] | | [facility] | | [address] | | | - LABORATORY | | | | + + + + + ECG 12 lead (10/06/2019 12:30 AM PDT) + + + + + + | Component | Value | Ref Range | Performed | Pathologist | | | | | At | Signature | + + + + + + | VENTRICULAR | 71 | BPM | [facility] | | | RATE EKG | | | | | + + + + + + | ATRIAL RATE | 71 | BPM | [facility] | | + + + + + + | P-R | 186 | ms | [facility] | | | INTERVAL | | | | | + + + + + + | QRS | 88 | ms | [facility] | | | DURATION | | | | | + + + + + + | Q-T | 414 | ms | [facility] | | | INTERVAL | | | | | + + + + + + | Q-T | 449 | ms | [facility] | | | INTERVAL | | | | | | (CORRECTED) | | | | | + + + + + + | P WAVE AXIS | 45 | degrees | [facility] | | + + + + + + | QRS AXIS | 30 | degrees | [facility] | | + + + + + + | T AXIS | 5 | degrees | [facility] | | + + + + + + | INTERPRETAT | Normal sinus | | [facility] | | | ION TEXT | rhythmNonspecific T wave | | | | | | abnormality Inferior | | | | | | leadsWhen compared with | | | | | | ECG of 04-OCT-2019 | | | | | | 07:39,Nonspecific T wave | | | | | | abnormality now evident | | | | | | in Inferior leadsT | | | | | | waves are now upright in | | | | | | aVLConfirmed by JADON | | | | | | BINH ESQUIVEL ([id number]) on | | | | | | 10/06/2019 7:46:56 AM | | | | + + + + + + + + | Specimen | + + | | + + + + + | Narrative | Performed At | + + + | | | + + + + +---------+ + + | Performing | Address | City/State/Zipcode | Phone Number | | Organization | | | | + +---------+ + + | [facility] | | | | + +---------+ + + POC Glucose (10/05/2019 8:52 PM PDT) + +---------+ + + + | Component | Value | Ref Range | Performed | Pathologist | | | | | At | Signature | + +---------+ + + + | Glucose, | 156 (H) | 70 - 109 mg/dL | [facility] | | | POC | | | [facility] | | | | | | MEDICAL | | | | | | CENTER - | | | | | | LABORATORY | | + +---------+ + + + + + | Specimen | + + | Blood | + + + + + + + | Performing | Address | City/State/Zipcode | Phone Number | | Organization | | | | + + + + + | [facility] | [address] | [place] | [phone] | | [facility] | | [address] | | | - LABORATORY | | | | + + + + + POC Glucose (10/05/2019 5:22 PM PDT) + +---------+ + + + | Component | Value | Ref Range | Performed | Pathologist | | | | | At | Signature | + +---------+ + + + | Glucose, | 132 (H) | 70 - 109 mg/dL | [facility] | | | POC | | | [facility] | | | | | | MEDICAL | | | | | | CENTER - | | | | | | LABORATORY | | + +---------+ + + + + + | Specimen | + + | Blood | + + + + + + + | Performing | Address | City/State/Zipcode | Phone Number | | Organization | | | | + + + + + | [facility] | [address] | [place] | [phone] | | [facility] | | [address] | | | - LABORATORY | | | | + + + + + POC Glucose (10/05/2019 11:20 AM PDT) + +---------+ + + + | Component | Value | Ref Range | Performed | Pathologist | | | | | At | Signature | + +---------+ + + + | Glucose, | 139 (H) | 70 - 109 mg/dL | [facility] | | | POC | | | [facility] | | | | | | MEDICAL | | | | | | CENTER - | | | | | | LABORATORY | | + +---------+ + + + + + | Specimen | + + | Blood | + + + + + + + | Performing | Address | City/State/Zipcode | Phone Number | | Organization | | | | + + + + + | [facility] | [address] | [place] | [phone] | | [facility] | | [address] | | | - LABORATORY | | | | + + + + + CV CARDIAC PROCEDURE (10/05/2019 10:42 AM PDT) + +-------+ + + + | Component | Value | Ref Range | Performed | Pathologist | | | | | At | Signature | + +-------+ + + + | LVEF-LVGRAM | 50 | % | [facility] | | | CARDIAC | | | | | | CATH | | | | | + +-------+ + + + + + | Specimen | + + | | + + + + + | Narrative | Performed At | + + + | Presented with | [facility] | | an end STEMI. Patient brought the cardiac catheterization for | | | radial approach. Angiography demonstrated several lesions in the | | | proximal RCA and mild irregularity of the LAD. The circumflex had | | | total occlusion of the first OM in the mid segment and the | | | continuation had a high-grade stenosis in the midportion and distally. | | | Left ventriculogram showed inferior apical lateral hypokinesis with | | | ejection fraction of 50%. Interventions performed with stenting of | | | the RCA with a 3.0 by 32 Synergy postdilated to 3.5. The occluded OM | | | was treated with a 2.5 balloon with no stenting because of a | | | bifurcation with the superior branch intermittently seen. The mid | | | circumflex lesion was treated with a 2.5 x 12 Synergy stent and the | | | distal circumflex was treated only with 2.5 balloon angioplasty. | | | Patient had conscious sedation achieved with medications administered | | | by the Shipping Lead Person nurse under my supervision. Patient tolerated | | | procedure well and there were no complications. Band used for | | | hemostasis. For additional detail as to the procedures performed and | | | the equipment that was utilized, please refer to the Procedure Log. | | | | | | | | |For additional detail as to the procedures performed and the equipment | | |that was utilized, please refer to the Procedure Log. | | | | | | | | | | | | | | | | | | | | | | | | | | | | | | | | | | | | | | | | | | | | | | | | | | | | | + + + + +---------+ + + | Performing | Address | City/State/Zipcode | Phone Number | | Organization | | | | + +---------+ + + | [facility] | | | | + +---------+ + + POC ACT (10/05/2019 10:24 AM PDT) + +---------+ + + + | Component | Value | Ref Range | Performed | Pathologist | | | | | At | Signature | + +---------+ + + + | Activated | 221 (H) | 125 - 175 | [facility] | | | Clotting | | second(s) | [facility] | | | Time, POC | | | MEDICAL | | | | | | CENTER - | | | | | | LABORATORY | | + +---------+ + + + + + | Specimen | + + | | + + + + + + + | Performing | Address | City/State/Zipcode | Phone Number | | Organization | | | | + + + + + | [facility] | [address] | [place] | [phone] | | [facility] | | [address] | | | - LABORATORY | | | | + + + + + POC ACT (10/05/2019 9:45 AM PDT) + +---------+ + + + | Component | Value | Ref Range | Performed | Pathologist | | | | | At | Signature | + +---------+ + + + | Activated | 289 (H) | 125 - 175 | [facility] | | | Clotting | | second(s) | [facility] | | | Time, POC | | | MEDICAL | | | | | | CENTER - | | | | | | LABORATORY | | + +---------+ + + + + + | Specimen | + + | | + + + + + + + | Performing | Address | City/State/Zipcode | Phone Number | | Organization | | | | + + + + + | [facility] | [address] | [place] | [phone] | | [facility] | | [address] | | | - LABORATORY | | | | + + + + + POC Glucose (10/05/2019 7:59 AM PDT) + +---------+ + + + | Component | Value | Ref Range | Performed | Pathologist | | | | | At | Signature | + +---------+ + + + | Glucose, | 144 (H) | 70 - 109 mg/dL | [facility] | | | POC | | | [facility] | | | | | | MEDICAL | | | | | | CENTER - | | | | | | LABORATORY | | + +---------+ + + + + + | Specimen | + + | Blood | + + + + + + + | Performing | Address | City/State/Zipcode | Phone Number | | Organization | | | | + + + + + | [facility] | [address] | [place] | [phone] | | [facility] | | [address] | | | - LABORATORY | | | | + + + + + Basic Metabolic Panel (10/05/2019 7:53 AM PDT) + + + + + + | Component | Value | Ref Range | Performed | Pathologist | | | | | At | Signature | + + + + + + | Na | 136 | 136 - 145 | [facility] | | | | | mmol/L | [facility] | | | | | | MEDICAL | | | | | | CENTER - | | | | | | LABORATORY | | + + + + + + | K | 3.9 | 3.4 - 5.1 | [facility] | | | | | mmol/L | [facility] | | | | | | MEDICAL | | | | | | CENTER - | | | | | | LABORATORY | | + + + + + + | Cl | 103 | 98 - 107 mmol/L | [facility] | | | | | | [facility] | | | | | | MEDICAL | | | | | | CENTER - | | | | | | LABORATORY | | + + + + + + | CO2 | 27 | 20 - 31 mmol/L | [facility] | | | | | | [facility] | | | | | | MEDICAL | | | | | | CENTER - | | | | | | LABORATORY | | + + + + + + | Anion Gap | 6 | 3 - 16 mmol/L | [facility] | | | | | | [facility] | | | | | | MEDICAL | | | | | | CENTER - | | | | | | LABORATORY | | + + + + + + | Glucose | 139 (H) | 60 - 106 mg/dL | [facility] | | | | | | [facility] | | | | | [facility] | | | | | | CENTER - | | | | | | LABORATORY | | + + + + + + | BUN | 16 | 9 - 23 mg/dL | [facility] | | | | | | [facility] | | | | | | MEDICAL | | | | | | CENTER - | | | | | | LABORATORY | | + + + + + + | Creatinine | 1.08 (H) | 0.55 - 1.02 | [facility] | | | | | mg/dL | [facility] | | | | | | MEDICAL | | | | | | CENTER - | | | | | | LABORATORY | | + + + + + + | eGFR if not | 51 (L)Comment: | >=60 | [facility] | | | | GLOMERULAR FILTRATION | mL/min/1.73m2 | [facility] | | | MALTESE | RATE,ESTIMATED | | MEDICAL | | | | mL/min/1.56u9Eblb than | | CENTER - | | | | 60 Chronic kidney | | LABORATORY | | | | disease,if found over a | | | | | | 3-month period.Less than | | | | | | 15 Kidney failureFor | | | | | | | | | | | | Americans,multiply the | | | | | | calculated GFR by 1.21. | | | | | | | | | | + + + + + + | Calcium | 9.0 | 8.7 - 10.4 | [facility] | | | | | mg/dL | [facility] | | | | | | MEDICAL | | | | | | CENTER - | | | | | | LABORATORY | | + + + + + + | BUN/Creatin | 14.8 | | [facility] | | | ine Ratio | | | [facility] | | | | | | MEDICAL | | | | | | CENTER - | | | | | | LABORATORY | | + + + + + + + + | Specimen | + + | Blood | + + + + + + + | Performing | Address | City/State/Zipcode | Phone Number | | Organization | | | | + + + + + | [facility] | [address] | [place] | [phone] | | [facility] | | [address] | | | - LABORATORY | | | | + + + + + Ally PÉREZ (10/05/2019 7:53 AM PDT) + + + + + + | Component | Value | Ref Range | Performed | Pathologist | | | | | At | Signature | + + + + + + | Prothrombin | 14.3 (H) | 11.3 - 13.9 | [facility] | | | Time | | seconds | [facility] | | | | | | MEDICAL | | | | | | CENTER - | | | | | | LABORATORY | | + + + + + + | INR | 1.1Comment: Usual Oral | 0.9 - 1.1 | [facility] | | | | Anticoagulation Range: | | [facility] | | | | 2.0 - 3.0High | | MEDICAL | | | | Level Oral | | CENTER - | | | | Anticoagulation Range: | | LABORATORY | | | | 2.5 - 3.5 | | | | + + + + + + + + | Specimen | + + | Blood | + + + + + + + | Performing | Address | City/State/Zipcode | Phone Number | | Organization | | | | + + + + + | [facility] | [address] | [place] | [phone] | | [facility] | | [address] | | | - LABORATORY | | | | + + + + + Troponin I (10/05/2019 4:09 AM PDT) + + + + + + | Component | Value | Ref Range | Performed | Pathologist | | | | | At | Signature | + + + + + + | Troponin I | 26.41 ()Comment: | <0.06 ng/mL | [facility] | | | | Comment:Reference | | [facility] | | | | Ranges: 0.00-0.06 = | | MEDICAL | | | | NORMAL >0.06 = | | CENTER - | | | | SUSPICIOUS FOR | | LABORATORY | | | | MYOCARDIAL DAMAGE NOTE: | | | | | | Values greater than | | | | | | 0.78 ng/mL have been | | | | | | shown to be strongly | | | | | | associated with acute | | | | | | myocardial infarction. | | | | | | The [employer] | | | | | | Cardiology (ACC) | | | | | | recommends a decision | | | | | | limit of 0.06 ng/mL for | | | | | | this assay. Results | | | | | | greater than 0.06 can | | | | | | reflect a pre-infarct | | | | | | acute coronary syndrome, | | | | | | but can also reflect | | | | | | myocardial necrosis or | | | | | | injury that is not due | | | | | | to coronary artery | | | | | | disease. Some of these | | | | | | causes are sepsis, | | | | | | hypocolemia, atrial | | | | | | fibrillation, heart | | | | | | failure, pulmonary | | | | | | embolism, myocarditis, | | | | | | myocardial contusion, | | | | | | and renal failure. The | | | | | | diagnosis of myocardial | | | | | | infarction should be | | | | | | based on a combination | | | | | | of the patient's | | | | | | clinical presentation | | | | | | and the clinical | | | | | | laboratory test results | | | | | | (especially serial | | | | | | troponin levels). | | | | | | Consistent with previous | | | | | | results. | | | | + + + + + + + + | Specimen | + + | Blood | + + + + + + + | Performing | Address | City/State/Zipcode | Phone Number | | Organization | | | | + + + + + | [facility] | [address] | [place], [place] | [phone] | | [facility] | | [address] | | | - LABORATORY | | | | + + + + + CBC with Differential (10/05/2019 4:09 AM PDT) + + + + + + | Component | Value | Ref Range | Performed | Pathologist | | | | | At | Signature | + + + + + + | WBC | 9.6 | 4.0 - 11.0 K/uL | [facility] | | | | | | [facility] | | | | | | MEDICAL | | | | | | CENTER - | | | | | | LABORATORY | | + + + + + + | RBC | 2.93 (L) | 3.70 - 5.20 | [facility] | | | | | M/uL | [facility] | | | | | | MEDICAL | | | | | | CENTER - | | | | | | LABORATORY | | + + + + + + | Hemoglobin | 9.6 (L) | 11.5 - 16.0 | [facility] | | | | | g/dL | [facility] | | | | | | MEDICAL | | | | | | CENTER - | | | | | | LABORATORY | | + + + + + + | Hematocrit | 28.8 (L) | 34.0 - 47.0 % | [facility] | | | | | | [facility] | | | | | | MEDICAL | | | | | | CENTER - | | | | | | LABORATORY | | + + + + + + | MCV | 98.3 | 83.0 - 101.0 fL | [facility] | | | | | | [facility] | | | | | | MEDICAL | | | | | | CENTER - | | | | | | LABORATORY | | + + + + + + | MCH | 32.8 | 28.0 - 35.0 pg | [facility] | | | | | | [facility] | | | | | | MEDICAL | | | | | | CENTER - | | | | | | LABORATORY | | + + + + + + | MCHC | 33.3 | 32.0 - 36.0 | [facility] | | | | | g/dL | [facility] | | | | | | MEDICAL | | | | | | CENTER - | | | | | | LABORATORY | | + + + + + + | RDW-CV | 13.4 | <15.0 % | [facility] | | | | | | [facility] | | | | | | MEDICAL | | | | | | CENTER - | | | | | | LABORATORY | | + + + + + + | RDW-SD | 47.2 (H) | 35.1 - 46.3 fL | [facility] | | | | | | [facility] | | | | | | MEDICAL | | | | | | CENTER - | | | | | | LABORATORY | | + + + + + + | Platelet | 214 | 140 - 440 K/uL | [facility] | | | Count | | | [facility] | | | | | | MEDICAL | | | | | | CENTER - | | | | | | LABORATORY | | + + + + + + | MPV | 9.2 | 6.5 - 12.4 fL | [facility] | | | | | | [facility] | | | | | | MEDICAL | | | | | | CENTER - | | | | | | LABORATORY | | + + + + + + | % | 77.1 | 45.0 - 82.0 % | [facility] | | | Neutrophils | | | [facility] | [facility] | [facility] | | | | | | [facility] - | | | | | | LABORATORY | | + + + + + + | % | 11.7 (L) | 20.0 - 45.0 % | [facility] | | | Lymphocytes | | | [facility] | | | | | | MEDICAL | | | | | | CENTER - | | | | | | LABORATORY | | + + + + + + | % Monocytes | 10.5 | 4.0 - 12.0 % | [facility] | | | | | | [facility] | | | | | | MEDICAL | | | | | | CENTER - | | | | | | LABORATORY | | + + + + + + | % | 0.1 | 0.0 - 5.0 % | [facility] | | | Eosinophils | | | [facility] | | | | | | MEDICAL | | | | | | CENTER - | | | | | | LABORATORY | | + + + + + + | % Basophils | 0.2 | 0.0 - 1.0 % | [facility] | | | | | | [facility] | | | | | | [facility] | | | | | | [facility] - | | | | | | LABORATORY | | + + + + + + | % Immature | 0.4 | 0.0 - 0.4 % | [facility] | | | Granulocyte | | | [facility] | | | s | | | [facility]ICAL | | | | | | CENTER - | | | | | | LABORATORY | | + + + + + + | Absolute | 7.38 | 1.80 - 8.50 | [facility] | | | Neutrophils | | K/uL | [facility] | | | | | | [facility] | | | | | | [facility] - | | | | | | LABORATORY | | + + + + + + | Absolute | 1.12 | 0.60 - 3.20 | [facility] | | | Lymphocytes | | K/uL | [facility] | | | | | | [facility] | | | | | | [facility] - | | | | | | LABORATORY | | + + + + + + | Absolute | 1.01 (H) | 0.00 - 1.00 | [facility] | | | Monocytes | | K/uL | [facility] | | | | | | [facility] | | | | | | [facility] - | | | | | | LABORATORY | | + + + + + + | Absolute | 0.01 | 0.00 - 0.40 | [facility] | | | Eosinophils | | K/uL | [facility] | | | | | | [facility] | | | | | | CENTER - | | | | | | LABORATORY | | + + + + + + | Absolute | 0.02 | 0.00 - 0.10 | [facility] | | | Basophils | | K/uL | [facility] | | | | | | [facility] | | | | | | CENTER - | | | | | | LABORATORY | | + + + + + + | Absolute | 0.04 (H) | 0.00 - 0.03 | [facility] | | | Immature | | K/uL | [facility] | | | Granul[facility] | | | MEDICAL | | | s | | | CENTER - | | | | | | LABORATORY | | + + + + + + | % nRBC | 0 | 0 - 2 per 100 | [facility] | | | | | WBCs | [facility] | | | | | | [facility] | | | | | | [facility] - | | | | | | LABORATORY | | + + + + + + | Absolute | 0.00 | 0.00 - 0.01 | [facility] | | | nRBC | | K/uL | [facility] | | | | | | [facility]ICAL | | | | | | CENTER - | | | | | | LABORATORY | | + + + + + + + + | Specimen | + + | Blood | + + + + + + + | Performing | Address | City/State/Zipcode | Phone Number | | Organization | | | | + + + + + | [facility] | [address] | [place] | [phone] | | [facility] | | [id number] | | | - LABORATORY | | | | + + + + + Basic Metabolic Panel (10/05/2019 4:09 AM PDT) + + + + + + | Component | Value | Ref Range | Performed | Pathologist | | | | | At | Signature | + + + + + + | Na | 137 | 136 - 145 | [facility] | | | | | mmol/L | [facility] | | | | | | [facility]ICAL | | | | | | CENTER - | | | | | | LABORATORY | | + + + + + + | K | 4.1 | 3.4 - 5.1 | [facility] | | | | | mmol/L | [facility] | | | | | | [facility] | | | | | | CENTER - | | | | | | LABORATORY | | + + + + + + | Cl | 104 | 98 - 107 mmol/L | [facility] | | | | | | [facility] | | [facility] | | | [facility] | | | | | | [facility] - | | | | | | LABORATORY | | + + + + + + | CO2 | 26 | 20 - 31 mmol/L | [facility] | | | | | | [facility] | | | | | | [facility] | | | | | | [facility] - | | | | | | LABORATORY | | + + + + + + | Anion Gap | 7 | 3 - 16 mmol/L | [facility] | | | | | | [facility] | | | | | | [facility] | | | | | | [facility] - | | | | | | LABORATORY | | + + + + + + | Glucose | 155 (H) | 60 - 106 mg/dL | [facility] | | | | | | [facility] | | | | | | [facility] | | | | | | [facility] - | | | | | | LABORATORY | | + + + + + + | BUN | 17 | 9 - 23 mg/dL | [facility] | | | | | | [facility] | | | | | | MEDICAL | | | | | | CENTER - | | | | | | LABORATORY | | + + + + + + | Creatinine | 1.12 (H) | 0.55 - 1.02 | [facility] | | | | | mg/dL | [facility] | | | | | | MEDICAL | | | | | | CENTER - | | | | | | LABORATORY | | + + + + + + | eGFR if not | 49 (L)Comment: | >=60 | [facility] | | | | GLOMERULAR FILTRATION | mL/min/1.73m2 | [facility] | | | MALTESE | RATE,ESTIMATED | | MEDICAL | | | | mL/min/1.65q4Okmg than | | CENTER - | | | | 60 Chronic kidney | | LABORATORY | | | | disease,if found over a | | | | | | 3-month period.Less than | | | | | | 15 Kidney failureFor | | | | | | | | | | | | Americans,multiply the | | | | | | calculated GFR by 1.21. | | | | | | | | | | + + + + + + | Calcium | 8.9 | 8.7 - 10.4 | [facility] | | | | | mg/dL | [facility] | | | | | | MEDICAL | | | | | | CENTER - | | | | | | LABORATORY | | + + + + + + | BUN/Creatin | 15.2 | | [facility] | | | ine Ratio | | | [facility] | | | | | | MEDICAL | | | | | | CENTER - | | | | | | LABORATORY | | + + + + + + + + | Specimen | + + | Blood | + + + + + + + | Performing | Address | City/State/Zipcode | Phone Number | | Organization | | | | + + + + + | [facility] | [address] | [place] | [phone] | | [facility] | | [address] | | | - LABORATORY | | | | + + + + + Lipid Panel (10/05/2019 4:09 AM PDT) + +-------+ + + + | Component | Value | Ref Range | Performed | Pathologist | | | | | At | Signature | + +-------+ + + + | Triglycerid | 74 | <=150 mg/dL | [facility] | | | es | | | [facility] | | | | | | MEDICAL | | | | | | CENTER - | | | | | | LABORATORY | | + +-------+ + + + | Cholesterol | 181 | <=200 mg/dL | [facility] | | | | | | [facility] | | | | | | MEDICAL | | | | | | CENTER - | | | | | | LABORATORY | | + +-------+ + + + | HDL | 41 | 40 - 60 mg/dL | [facility] | | | | | | [facility] | | | | | | MEDICAL | | | | | | CENTER - | | | | | | LABORATORY | | + +-------+ + + + | Chol/HDL | 4.4 | | [facility] | | | Ratio | | | [facility] | | | | | | MEDICAL | | | | | | CENTER - | | | | | | LABORATORY | | + +-------+ + + + | LDL, | 125 | <=130 mg/dL | [facility] | | | Calculated | | | [facility] | | | | | | MEDICAL | | | | | | CENTER - | | | | | | LABORATORY | | + +-------+ + + + + + | Specimen | + + | Blood | + + + + + + + | Performing | Address | City/State/Zipcode | Phone Number | | Organization | | | | + + + + + | [facility] | [address] | [place], [place] | [phone] | | [facility] | | [address] | | | - LABORATORY | | | | + + + + + POC Glucose (10/04/2019 8:03 PM PDT) + +---------+ + + + | Component | Value | Ref Range | Performed | Pathologist | | | | | At | Signature | + +---------+ + + + | Glucose, | 163 (H) | 70 - 109 mg/dL | [facility] | | | POC | | | [facility] | | | | | | MEDICAL | | | | | | CENTER - | | | | | | LABORATORY | | + +---------+ + + + + + | Specimen | + + | Blood | + + + + + + + | Performing | Address | City/State/Zipcode | Phone Number | | Organization | | | | + + + + + | [facility] | [address] | [place] | [phone] | | [facility] | | [address] | | | - LABORATORY | | | | + + + + + Culture, Urine (10/04/2019 7:37 PM PDT) + + + + + + | Component | Value | Ref Range | Performed | Pathologist | | | | | At | Signature | + + + + + + | Culture | 100,000 CFU/ml Mixed | | [facility] | | | | Gram Positive | | [facility] | | | | FloraComment: Suggests | | MEDICAL | | | | contamination with | | CENTER - | | | | urogenital or skin | | LABORATORY | | | | miroslava.No further work-up | | | | | | to follow. | | | | + + + + + + + + | Specimen | + + | Urine - Urine | | specimen obtained by | | clean catch | | procedure (specimen) | + + + + + + + | Performing | Address | City/State/Zipcode | Phone Number | | Organization | | | | + + + + + | [facility] | [address] | [place] | [phone] | | [facility] | | [address] | | | - LABORATORY | | | | + + + + + Urinalysis with Microscopic with Culture if Indicated (10/04/2019 7:37 PM PDT) + + + + + + | Component | Value | Ref Range | Performed | Pathologist | | | | | At | Signature | + + + + + + | Color, | Yellow | Light Yellow, | [facility] | | | Urine | | Yellow, Straw | [facility] | | | | | | MEDICAL | | | | | | CENTER - | | | | | | LABORATORY | | + + + + + + | Clarity | Clear | Clear | [facility] | | | | | | [facility] | | | | | | MEDICAL | | | | | | CENTER - | | | | | | LABORATORY | | + + + + + + | pH, Urine | 5.0 | 5.0 - 8.0 | [facility] | | | | | | [facility] | | | | | | MEDICAL | | | | | | CENTER - | | | | | | LABORATORY | | + + + + + + | Specific | 1.041 (H) | 1.001 - 1.030 | [facility] | | | [place], | | | [facility] | | | Urine | | | MEDICAL | | | | | | CENTER - | | | | | | LABORATORY | | + + + + + + | Protein, | Negative | Negative | [facility] | | | Urine | | | [facility] | | | | | | MEDICAL | | | | | | CENTER - | | | | | | LABORATORY | | + + + + + + | Blood, | Negative | Negative | [facility] | | | Urine | | | [facility] | | | | | | MEDICAL | | | | | | CENTER - | | | | | | LABORATORY | | + + + + + + | Glucose, | Negative | Negative | [facility] | | | Urine | | | [facility] | | | | | | MEDICAL | | | | | | CENTER - | | | | | | LABORATORY | | + + + + + + | Ketones, | Negative | Negative | [facility] | | | Urine | | | [facility] | | | | | | MEDICAL | | | | | | CENTER - | | | | | | LABORATORY | | + + + + + + | Bilirubin, | Negative | Negative | [facility] | | | Urine | | | [facility] | | | | | | MEDICAL | | | | | | CENTER - | | | | | | LABORATORY | | + + + + + + | Nitrite, | Negative | Negative | [facility] | | | Urine | | | [facility] | | | | | | MEDICAL | | | | | | CENTER - | | | | | | LABORATORY | | + + + + + + | Leukocyte | Large (A) | Negative | [facility] | | | Esterase, | | | [facility] | | | Urine | | | MEDICAL | | | | | | CENTER - | | | | | | LABORATORY | | + + + + + + | Urobilinoge | 2.0 mg/dL (A) | 0.2 mg/dL, 1.0 | [facility] | | | n, Urine | | mg/dL, Negative | [facility] | | | | | | MEDICAL | | | | | | CENTER - | | | | | | LABORATORY | | + + + + + + | White Blood | 50-100 (A) | 0 - 2 /HPF | [facility] | | | Cells, | | | [facility] | | | Urine | | | MEDICAL | | | | | | CENTER - | | | | | | LABORATORY | | + + + + + + | Red Blood | 2-5 (A) | 0 - 2 /HPF | [facility] | | | Cells, | | | [facility] | | | Urine | | | MEDICAL | | | | | | CENTER - | | | | | | LABORATORY | | + + + + + + | Squamous | 10-15 (A) | 0 - 2 /LPF | [facility] | | | Epithelial | | | [facility] | | | Cells, | | | MEDICAL | | | Urine | | | CENTER - | | | | | | LABORATORY | | + + + + + + | Bacteria, | 1+ (A) | Negative /HPF | [facility] | | | Urine | | | [facility] | | | | | | MEDICAL | | | | | | CENTER - | | | | | | LABORATORY | | + + + + + + | Mucus, | Present (A) | Negative /LPF | [facility] | | | Urine | | | [facility] | | | | | | MEDICAL | | | | | | CENTER - | | | | | | LABORATORY | | + + + + + + | Budding | Few (A) | Negative /HPF | [facility] | | | Yeast, | | | [facility] | | | Urine | | | MEDICAL | | | | | | CENTER - | | | | | | LABORATORY | | + + + + + + | Urine | Urine Culture Set Up | | [facility] | | | Comment | | | [facility] | | | | | | MEDICAL | | | | | | CENTER - | | | | | | LABORATORY | | + + + + + + + + | Specimen | + + | Urine - Urine | | specimen obtained by | | clean catch | | procedure (specimen) | + + + + + + + | Performing | Address | City/State/Zipcode | Phone Number | | Organization | | | | + + + + + | [facility] | [address] | [place] | [phone] | | [facility] | | [address] | | | - LABORATORY | | | | + + + + + Troponin I (10/04/2019 6:40 PM PDT) + + + + + + | Component | Value | Ref Range | Performed | Pathologist | | | | | At | Signature | + + + + + + | Troponin I | 24.64 ()Comment: | <0.06 ng/mL | [facility] | | | | Comment:Reference | | [facility] | | | | Ranges: 0.00-0.06 = | | MEDICAL | | | | NORMAL >0.06 = | | CENTER - | | | | SUSPICIOUS FOR | | LABORATORY | | | | MYOCARDIAL DAMAGE NOTE: | | | | | | Values greater than | | | | | | 0.78 ng/mL have been | | | | | | shown to be strongly | | | | | | associated with acute | | | | | | myocardial infarction. | | | | | | The [employer] | | | | | | [employer]iology ([employer]) | | | | | | recommends a decision | | | | | | limit of 0.06 ng/mL for | | | | | | this assay. Results | | | | | | greater than 0.06 can | | | | | | reflect a pre-infarct | | | | | | acute coronary syndrome, | | | | | | but can also reflect | | | | | | myocardial necrosis or | | | | | | injury that is not due | | | | | | to coronary artery | | | | | | disease. Some of these | | | | | | causes are sepsis, | | | | | | hypocolemia, atrial | | | | | | fibrillation, heart | | | | | | failure, pulmonary | | | | | | embolism, myocarditis, | | | | | | myocardial contusion, | | | | | | and renal failure. The | | | | | | diagnosis of myocardial | | | | | | infarction should be | | | | | | based on a combination | | | | | | of the patient's | | | | | | clinical presentation | | | | | | and the clinical | | | | | | laboratory test results | | | | | | (especially serial | | | | | | troponin levels). | | | | | | Critical Result called | | | | | | to and read back by | | | | | | Sujatha Vargas RN on | | | | | | 10/04/2019 at 7:28 PM by | | | | | | Romina Zambrano MT | | | | + + + + + + + + | Specimen | + + | Blood | + + + + + + + | Performing | Address | City/State/Zipcode | Phone Number | | Organization | | | | + + + + + | [facility] | [address] | [place] | [phone] | | [facility] | | [address] | | | - LABORATORY | | | | + + + + + POC Glucose (10/04/2019 4:24 PM PDT) + +---------+ + + + | Component | Value | Ref Range | Performed | Pathologist | | | | | At | Signature | + +---------+ + + + | Glucose, | 154 (H) | 70 - 109 mg/dL | [facility] | | | POC | | | [facility] | | | | | | MEDICAL | | | | | | CENTER - | | | | | | LABORATORY | | + +---------+ + + + + + | Specimen | + + | Blood | + + + + + + + | Performing | Address | City/State/Zipcode | Phone Number | | Organization | | | | + + + + + | [facility] | [address] | [place] | [phone] | | [facility] | | [address] | | | - LABORATORY | | | | + + + + + ECHO Complete w Contrast (10/04/2019 12:41 PM PDT) + +--------+ + + + | Component | Value | Ref Range | Performed | Pathologist | | | | | At | Signature | + +--------+ + + + | Inferior | 2.13 | cm | [facility] | | | Vena Cava | | | | | | Diameter at | | | | | | Expiration | | | | | + +--------+ + + + | LVIDd | 4.47 | cm | [facility] | | + +--------+ + + + | FS | 34 | % | [facility] | | + +--------+ + + + | LA volume | 107.64 | mL | [facility] | | + +--------+ + + + | Ascending | 3.07 | cm | [facility] | | | aorta | | | | | + +--------+ + + + | MV Area by | 2.46 | cm2 | [facility] | | | P 1/2 | | | | | | method | | | | | + +--------+ + + + | LVOT | 2.04 | cm | [facility] | | | diameter | | | | | + +--------+ + + + | LVOT peak | 97.78 | cm/s | [facility] | | | lia | | | | | + +--------+ + + + | AV peak lia | 148 | cm/s | [facility] | | + +--------+ + + + | AV peak | 8.76 | mmHg | [facility] | | | gradient | | | | | + +--------+ + + + | MV Pressure | 89.49 | msec | [facility] | | | 1/2 time | | | | | + +--------+ + + + | LA Volume | 51 | mL/m2 | [facility] | | | Index | | | | | + +--------+ + + + | AV LVOT | 3.82 | mmHg | [facility] | | | Peak | | | | | | Gradient | | | | | + +--------+ + + + | TR Peak | 12 | mmHg | [facility] | | | Gradient | | | | | + +--------+ + + + | RV Free | 14 | cm/s | [facility] | | | Wall Peak | | | | | | S' | | | | | + +--------+ + + + | TR Velocity | 176 | cm/s | [facility] | | + +--------+ + + + | LV | 8.2 | cm | [facility] | | | Diastolic | | | | | | Length 4C | | | | | + +--------+ + + + | LV Systolic | 15.19 | cm2 | [facility] | | | Area PSAX | | | | | + +--------+ + + + | RV | 3.07 | cm | [facility] | | | Diastolic | | | | | | Basal | | | | | | Diameter | | | | | + +--------+ + + + | LV | 65 | % | [facility] | | | Zayas's | | | | | | Biplane EF | | | | | + +--------+ + + + | LV ED | 124.94 | ml | [facility] | | | Volume | | | | | | (Zayas's) | | | | | + +--------+ + + + | LV ED | 59 | ml/m2 | [facility] | | | Volume | | | | | | Index | | | | | + +--------+ + + + | LV ES | 38.24 | ml | [facility] | | | Volume | | | | | + +--------+ + + + | MV E' | 6.75 | cm/s | [facility] | | | Lateral | | | | | | Velocity | | | | | + +--------+ + + + | MV E' | 6.26 | cm/s | [facility] | | | Septal | | | | | | Velocity | | | | | + +--------+ + + + | MV | 251.9 | cm/s2 | [facility] | | | Deceleratio | | | | | | n [place] | | | | | + +--------+ + + + | MV | 308.59 | msec | [facility] | | | Deceleratio | | | | | | n Time | | | | | + +--------+ + + + | MV E/A | 0.82 | | [facility] | | | Ratio | | | | | + +--------+ + + + | MV Peak | 94.84 | cm/s | [facility] | | | A-Wave | | | | | + +--------+ + + + | MV Peak | 77.73 | cm/s | [facility] | | | E-Wave | | | | | + +--------+ + + + | RA Area | 16 | cm2 | [facility] | | + +--------+ + + + | LA/Aorta | 1.35 | | [facility] | | | Ratio | | | | | + +--------+ + + + | LA Area | 27.56 | cm2 | [facility] | | + +--------+ + + + | LA Systolic | 16.39 | mmHg | [facility] | | | Pressure | | | | | + +--------+ + + + | MV E/E | 12.42 | | [facility] | | | SEPTAL | | | | | + +--------+ + + + | MV E/E | 11.52 | | [facility] | | | LATERAL | | | | | + +--------+ + + + | LV ES | 18 | ml/m2 | [facility] | | | Volume | | | | | | Index | | | | | + +--------+ + + + | LV Area | 31.49 | cm2 | [facility] | | | Diastolic | | | | | + +--------+ + + + | Vitals | 61 | | [facility] | | | Heart Rate | | | | | | Rest | | | | | + +--------+ + + + | Vitals BP | 155 | | [facility] | | | Systolic | | | | | + +--------+ + + + | Vitals BP | 71 | | [facility] | | | Diastolic | | | | | + +--------+ + + + | Vitals | 167.6 | | [facility] | | | Height | | | | | + +--------+ + + + | Vitals | 102.20 | | [facility] | | | Weight | | | | | + +--------+ + + + | Vitals BSA | 2.10 | | [facility] | | + +--------+ + + + | Vitals BMI | 36.37 | | [facility] | | + +--------+ + + + | Aortic Root | 2.94 | cm | [facility] | | | Diameter | | | | | + +--------+ + + + | IVS | 1.33 | cm | [facility] | | | Diastolic | | | | | | Thickness | | | | | | MM | | | | | + +--------+ + + + | LVPW | 1.12 | cm | [facility] | | | Diastolic | | | | | | Thickness | | | | | | MM | | | | | + +--------+ + + + | IVS | 1.3 | cm | [facility] | | | Systolic | | | | | | Thickness | | | | | | MM | | | | | + +--------+ + + + | LV Systolic | 2.93 | cm | [facility] | | | Diameter | | | | | | MM | | | | | + +--------+ + + + | LVPW | 1.28 | cm | [facility] | | | Systolic | | | | | | Thickness | | | | | | MM | | | | | + +--------+ + + + | LA Systolic | 3.96 | cm | [facility] | | | Diameter | | | | | | MM | | | | | + +--------+ + + + | TAPSE | 3 | cm | [facility] | | + +--------+ + + + | LVEF-TTE | 60 | % | [facility] | | | TRANSTHORAC | | | | | | IC ECHO | | | | | + +--------+ + + + + + | Specimen | + + | | + + + + + | Narrative | Performed At | + + + | Summary: | [facility] | | | | | 1. Ventricular size and function. Ejection fraction 60% | | | 2. Inferior basilar hypokinesis. | | | 3. Normal aortic and mitral valve. | | | 4. Normal left atrium | | | 5. Normal right heart valves and chambers. | | | 6. Echo with mild wall motion abnormalities noted. | | + + + + +---------+ + + | Performing | Address | City/State/Zipcode | Phone Number | | Organization | | | | + +---------+ + + | [facility] | | | | + +---------+ + + POC Glucose (10/04/2019 11:16 AM PDT) + +---------+ + + + | Component | Value | Ref Range | Performed | Pathologist | | | | | At | Signature | + +---------+ + + + | Glucose, | 160 (H) | 70 - 109 mg/dL | [facility] | | | POC | | | [facility] | | | | | | MEDICAL | | | | | | CENTER - | | | | | | LABORATORY | | + +---------+ + + + + + | Specimen | + + | Blood | + + + + + + + | Performing | Address | City/State/Zipcode | Phone Number | | Organization | | | | + + + + + | [facility] | [address] | [place] | [phone] | | [facility] | | [address] | | | - LABORATORY | | | | + + + + + POC Glucose (10/04/2019 8:46 AM PDT) + +---------+ + + + | Component | Value | Ref Range | Performed | Pathologist | | | | | At | Signature | + +---------+ + + + | Glucose, | 165 (H) | 70 - 109 mg/dL | [facility] | | | POC | | | [facility] | | | | | | MEDICAL | | | | | | CENTER - | | | | | | LABORATORY | | + +---------+ + + + + + | Specimen | + + | Blood | + + + + + + + | Performing | Address | City/State/Zipcode | Phone Number | | Organization | | | | + + + + + | [facility] | [address] | [place] | [phone] | | [facility] | | [address] | | | - LABORATORY | | | | + + + + + ECG 12 lead (10/04/2019 7:39 AM PDT) + + + + + + | Component | Value | Ref Range | Performed | Pathologist | | | | | At | Signature | + + + + + + | VENTRICULAR | 63 | BPM | [facility] | | | RATE EKG | | | | | + + + + + + | ATRIAL RATE | 63 | BPM | [facility] | | + + + + + + | P-R | 192 | ms | [facility] | | | INTERVAL | | | | | + + + + + + | QRS | 80 | ms | [facility] | | | DURATION | | | | | + + + + + + | Q-T | 442 | ms | [facility] | | | INTERVAL | | | | | + + + + + + | Q-T | 452 | ms | [facility] | | | INTERVAL | | | | | | (CORRECTED) | | | | | + + + + + + | P WAVE AXIS | 42 | degrees | [facility] | | + + + + + + | QRS AXIS | 40 | degrees | [facility] | | + + + + + + | T AXIS | 65 | degrees | [facility] | | + + + + + + | INTERPRETAT | Normal sinus | | [facility] | | | ION TEXT | rhythmNormal ECGWhen | | | | | | compared with ECG of | | | | | | 03-OCT-2019 23:08,No | | | | | | significant change was | | | | | | foundConfirmed by | | | | | | BINH DIOP MD ([id number]) | | | | | | on 10/05/2019 6:01:32 AM | | | | + + + + + + + + | Specimen | + + | | + + + + + | Narrative | Performed At | + + + | | | + + + + +---------+ + + | Performing | Address | City/State/Zipcode | Phone Number | | Organization | | | | + +---------+ + + | [facility] | | | | + +---------+ + + Lipid Panel (10/04/2019 4:09 AM PDT) + +---------+ + + + | Component | Value | Ref Range | Performed | Pathologist | | | | | At | Signature | + +---------+ + + + | Triglycerid | 62 | <=150 mg/dL | [facility] | | | es | | | [facility] | | | | | | MEDICAL | | | | | | CENTER - | | | | | | LABORATORY | | + +---------+ + + + | Cholesterol | 197 | <=200 mg/dL | [facility] | | | | | | [facility] | | | | | | MEDICAL | | | | | | CENTER - | | | | | | LABORATORY | | + +---------+ + + + | HDL | 45 | 40 - 60 mg/dL | [facility] | | | | | | [facility] | | | | | | MEDICAL | | | | | | CENTER - | | | | | | LABORATORY | | + +---------+ + + + | Chol/HDL | 4.4 | | [facility] | | | Ratio | | | [facility] | | | | | | MEDICAL | | | | | | CENTER - | | | | | | LABORATORY | | + +---------+ + + + | LDL, | 140 (H) | <=130 mg/dL | [facility] | | | Calculated | | | [facility] | | | | | | MEDICAL | | | | | | CENTER - | | | | | | LABORATORY | | + +---------+ + + + + + | Specimen | + + | Blood | + + + + + + + | Performing | Address | City/State/Zipcode | Phone Number | | Organization | | | | + + + + + | [facility] | [address] | [place] | [phone] | | [facility] | | [address] | | | - LABORATORY | | | | + + + + + CBC with Differential (10/04/2019 4:09 AM PDT) + + + + + + | Component | Value | Ref Range | Performed | Pathologist | | | | | At | Signature | + + + + + + | WBC | 7.6 | 4.0 - 11.0 K/uL | [facility] | | | | | | [facility] | | | | | | MEDICAL | | | | | | CENTER - | | | | | | LABORATORY | | + + + + + + | RBC | 3.24 (L) | 3.70 - 5.20 | [facility] | | | | | M/uL | [facility] | | | | | | MEDICAL | | | | | | CENTER - | | | | | | LABORATORY | | + + + + + + | Hemoglobin | 10.5 (L) | 11.5 - 16.0 | [facility] | | | | | g/dL | [facility] | | | | | | MEDICAL | | | | | | CENTER - | | | | | | LABORATORY | | + + + + + + | Hematocrit | 30.6 (L) | 34.0 - 47.0 % | [facility] | | | | | | [facility] | | | | | | MEDICAL | | | | | | CENTER - | | | | | | LABORATORY | | + + + + + + | MCV | 94.4 | 83.0 - 101.0 fL | [facility] | | | | | | [facility] | | | | | | MEDICAL | | | | | | CENTER - | | | | | | LABORATORY | | + + + + + + | MCH | 32.4 | 28.0 - 35.0 pg | [facility] | | | | | | [facility] | | | | | | MEDICAL | | | | | | CENTER - | | | | | | LABORATORY | | + + + + + + | MCHC | 34.3 | 32.0 - 36.0 | [facility] | | | | | g/dL | [facility] | | | | | | MEDICAL | | | | | | CENTER - | | | | | | LABORATORY | | + + + + + + | RDW-CV | 13.2 | <15.0 % | [facility] | | | | | | [facility] | | | | | | MEDICAL | | | | | | CENTER - | | | | | | LABORATORY | | + + + + + + | RDW-SD | 45.4 | 35.1 - 46.3 fL | [facility] | | | | | | [facility] | | | | | | MEDICAL | | | | | | CENTER - | | | | | | LABORATORY | | + + + + + + | Platelet | 237 | 140 - 440 K/uL | [facility] | | | Count | | | [facility] | | | | | | [facility] | | | | | | [facility] - | | | | | | LABORATORY | | + + + + + + | MPV | 8.9 | 6.5 - 12.4 fL | [facility] | | | | | | [facility] | | | | | | [facility] | | | | [facility] - | | | | | | LAB[facility]ATORY | | + + + + + + | % | 82.1 (H) | 45.0 - 82.0 % | [facility] | | | Neutrophils | | | [facility] | | | | | | [facility] | | | | | | [facility] - | | | | | | LABORATORY | | + + + + + + | % | 11.9 (L) | 20.0 - 45.0 % | [facility] | | | Lymphocytes | | | [facility] | | | | | | [facility] | | | | | | [facility] - | | | | | | LABORATORY | | + + + + + + | % Monocytes | 5.2 | 4.0 - 12.0 % | [facility] | | | | | | [facility] | | | | | | [facility] | | | | | | [facility] - | | | | | | LAB[facility]ATORY | | + + + + + + | % | 0.0 | 0.0 - 5.0 % | [facility] | | | Eosinophils | | | [facility] | | | | | | [facility] | | | | | | [facility] - | | | | | | LABORATORY | | + + + + + + | % Basophils | 0.4 | 0.0 - 1.0 % | [facility] | | | | | | [facility] | | | | | | [facility] | | | | | | [facility] - | | | | | | LAB[facility]ATORY | | + + + + + + | % Immature | 0.4 | 0.0 - 0.4 % | [facility] | | | Granulocyte | | | [facility] | | | s | | | [facility] | | | | | | [facility] - | | | | | | LABORATORY | | + + + + + + | Absolute | 6.25 | 1.80 - 8.50 | [facility] | | | Neutrophils | | K/uL | [facility] | | | | | | [facility] | | | | | | [facility] - | | | | | | LABORATORY | | + + + + + + | Absolute | 0.91 | 0.60 - 3.20 | [facility] | | | Lymphocytes | | K/uL | [facility] | | | | | | [facility] | | | | | | [facility] - | | | | | | LABORATORY | | + + + + + + | Absolute | 0.40 | 0.00 - 1.00 | [facility] | | | Monocytes | | K/uL | [facility] | | | | | | [facility] | | | | | | [facility] - | | | | | | LABORATORY | | + + + + + + | Absolute | 0.00 | 0.00 - 0.40 | [facility] | | | Eosinophils | | K/uL | [facility] | | | | | | [facility] | | | | | | [facility] - | | | | | | LABORATORY | | + + + + + + | Absolute | 0.03 | 0.00 - 0.10 | [facility] | | | Basophils | | K/uL | [facility] | | | | | | [facility] | | | | | | [facility] - | | | | | | LABORATORY | | + + + + + + | Absolute | 0.03 | 0.00 - 0.03 | [facility] | | | Immature | | K/uL | [facility] | | | Granulocyte | | | MEDICAL | | | s | | | CENTER - | | | | | | LABORATORY | | + + + + + + | % nRBC | 0 | 0 - 2 per 100 | [facility] | | | | | WBCs | [facility] | | | | | | [facility] | | | | | | [facility] - | | | | | | LABORATORY | | + + + + + + | Absolute | 0.00 | 0.00 - 0.01 | [facility] | | | nRBC | | K/uL | [facility] | | | | | | [facility] | | | | | | [facility] - | | | | | | LABORATORY | | + + + + + + + + | Specimen | + + | Blood | + + + + + + + | Performing | Address | City/State/Zipcode | Phone Number | | Organization | | | | + + + + + | [facility] | [address] | [place] | [phone] | | [facility] | | [address] | | | - LABORATORY | | | | + + + + + Basic Metabolic Panel (10/04/2019 4:09 AM PDT) + + + + + + | Component | Value | Ref Range | Performed | Pathologist | | | | | At | Signature | + + + + + + | Na | 138 | 136 - 145 | [facility] | | | | | mmol/L | [facility] | | | | | | [facility] | | | | | | CENTER - | | | | | | LABORATORY | | + + + + + + | K | 4.1 | 3.4 - 5.1 | [facility] | | | | | mmol/L | [facility] | | | | | | [facility] | | [facility] | | | [facility] - | | | | | | LABORATORY | | + + + + + + | Cl | 107 | 98 - 107 mmol/L | [facility] | | | | | | [facility] | | | | | | [facility] | | | | | | [facility] - | | | | | | LABORATORY | | + + + + + + | CO2 | 25 | 20 - 31 mmol/L | [facility] | | | | | | [facility] | | | [facility] | [facility] | | | | | | [facility] - | | | | | | LABORATORY | | + + + + + + | Anion Gap | 6 | 3 - 16 mmol/L | [facility] | | | | | | [facility] | [facility] | [facility] | [facility] | | | | | | [facility] - | | | | | | LABORATORY | | + + + + + + | Glucose | 200 (H) | 60 - 106 mg/dL | [facility] | | | | | | [facility] | | [facility] | [facility] | | | | | | [facility] - | | | | | | LABORATORY | | + + + + + + | BUN | 15 | 9 - 23 mg/dL | [facility] | | | | | | [facility] | [facility] | [facility] | | | | | | [facility] - | | | | | | LABORATORY | | + + + + + + | Creatinine | 1.03 (H) | 0.55 - 1.02 | [facility] | | | | | mg/dL | [facility] | | | | | | [facility] | | | | | | CENTER - | | | | | | LABORATORY | | + + + + + + | eGFR if not | 53 (L)Comment: | >=60 | [facility] | | | | GLOMERULAR FILTRATION | mL/min/1.73m2 | [facility] | | | MALTESE | RATE,ESTIMATED | | MEDICAL | | | | mL/min/1.60s8Leol than | | CENTER - | | | | 60 Chronic kidney | | LABORATORY | | | | disease,if found over a | | | | | | 3-month period.Less than | | | | | | 15 Kidney failureFor | | | | | | | | | | | | Americans,multiply the | | | | | | calculated GFR by 1.21. | | | | | | | | | | + + + + + + | Calcium | 8.8 | 8.7 - 10.4 | [facility] | | | | | mg/dL | [facility] | | | | | | MEDICAL | | | | | | CENTER - | | | | | | LABORATORY | | + + + + + + | BUN/Creatin | 14.6 | | [facility] | | | ine Ratio | | | [facility] | [facility] | [facility] | | | | | | CENTER - | | | | | | LABORATORY | | + + + + + + + + | Specimen | + + | Blood | + + + + + + + | Performing | Address | City/State/Zipcode | Phone Number | | Organization | | | | + + + + + | [facility] | [address] | [place] | [phone] | | [facility] | | [address] | | | - LABORATORY | | | | + + + + + Troponin I (10/04/2019 4:09 AM PDT) + + + + + + | Component | Value | Ref Range | Performed | Pathologist | | | | | At | Signature | + + + + + + | Troponin I | 16.27 ()Comment: | <0.06 ng/mL | [facility] | | | | Comment:Reference | | [facility] | | | | Ranges: 0.00-0.06 = | | MEDICAL | | | | NORMAL >0.06 = | | CENTER - | | | | SUSPICIOUS FOR | | LABORATORY | | | | MYOCARDIAL DAMAGE NOTE: | | | | | | Values greater than | | | | | | 0.78 ng/mL have been | | | | | | shown to be strongly | | | | | | associated with acute | | | | | | myocardial infarction. | | | | | | The [employer] | | | | | | Cardiology (ACC) | | | | | | recommends a decision | | | | | | limit of 0.06 ng/mL for | | | | | | this assay. Results | | | | | | greater than 0.06 can | | | | | | reflect a pre-infarct | | | | | | acute coronary syndrome, | | | | | | but can also reflect | | | | | | myocardial necrosis or | | | | | | injury that is not due | | | | | | to coronary artery | | | | | | disease. Some of these | | | | | | causes are sepsis, | | | | | | hypocolemia, atrial | | | | | | fibrillation, heart | | | | | | failure, pulmonary | | | | | | embolism, myocarditis, | | | | | | myocardial contusion, | | | | | | and renal failure. The | | | | | | diagnosis of myocardial | | | | | | infarction should be | | | | | | based on a combination | | | | | | of the patient's | | | | | | clinical presentation | | | | | | and the clinical | | | | | | laboratory test results | | | | | | (especially serial | | | | | | troponin levels). | | | | | | Critical Result called | | | | | | to and read back by | | | | | | Gail Macedo RN on | | | | | | 10/04/2019 at 4:45 AM by | | | | | | Jacob Avelar | | | | + + + + + + + + | Specimen | + + | Blood | + + + + + + + | Performing | Address | City/State/Zipcode | Phone Number | | Organization | | | | + + + + + | [facility] | [address] | [place] | [phone] | | [facility] | | [address] | | | - LABORATORY | | | | + + + + + CT Angiogram Chest W Contrast (10/04/2019 3:52 AM PDT) + + | Specimen | + + | | + + + + + | Impressions | Performed At | + + + | 1. ATHEROSCLEROSIS AND CORONARY ARTERIAL CALCIFICATION WITHOUT | [facility] | | AORTIC ANEURYSM, DISSECTION OR OTHER ACUTE INTRATHORACIC DISEASE. | | | 2. CHOLELITHIASIS. Preliminary results of this study were | | | reported by the [facility]ologist on October 04, 2019 at | | | 0404 hours. Dictated and Signed by: Haris Lucero MD | | | Electronically signed: 10/04/2019 8:13 AM | | + + + + + + | Narrative | Performed At | + + + | UNENHANCED AND ENHANCED CTA CHEST WITH MULTIPLANAR REFORMATIONS AND | [facility] | | 3-D VASCULAR RECONSTRUCTIONS 10/04/2019 3:50 AM CLINICAL HISTORY: | | | Hypertension and chest pain radiating to back, Thoracic aortic | | | aneurysm suspected, initial exam COMPARISON: None available | | | TECHNIQUE: Axial images are performed through the chest both | | | before and after the uneventful intravenous administration of 100 mL | | | Omnipaque-350 contrast, with timing of the contrast bolus optimized | | | for opacification of the pulmonary arterial tree. Multiplanar | | | reformations and 3-D vascular reconstructions are also performed. | | | FINDINGS: There is mild partially calcified plaque scattered | | | throughout the aorta, and coronary arterial calcification is also | | | present. There is minimal dilation of the ascending aorta to a | | | diameter of 3.3 cm. No aortic aneurysm, stenosis or dissection is | | | apparent. There is variant origin of the left vertebral artery | | | directly from the arch, proximal to the left subclavian artery | | | origin. Common origin of the brachiocephalic and left common carotid | | | arteries is also noted. The great vessels appear widely patent in | | | their imaged portions along with the imaged visceral abdominal aortic | | | branches. While the study is not optimized for evaluation of the | | | pulmonary arterial tree, no filling defect is visible to suggest the | | | presence of thromboembolic disease. The mediastinum is otherwise | | | unremarkable. No pathologic lymph node enlargement is evident. | | | There is no pleural or pericardial effusion or pneumothorax. | | | Minimal dependent atelectasis is suggested in the lungs. No nodule, | | | consolidation or airway abnormality is evident. Schmorl's nodes | | | are present within lower thoracic and upper lumbar vertebral | | | endplates. There are degenerative changes involving the imaged lower | | | cervical spine. Vertebral height and alignment are maintained. A | | | tiny calcified gallstone is suggested in the gallbladder fundus. | | | No conclusive gallbladder wall thickening, adjacent inflammation or | | | biliary ductal dilation is evident. There is localized heavy | | | calcification in the left adrenal gland, likely related to previous | | | trauma or infection/inflammation. Imaged upper abdomen is otherwise | | | unremarkable. | | + + + + + | Procedure Note | + + | Tr, Rad Results In - 10/04/2019 8:16 AM PDT UNENHANCED AND ENHANCED CTA CHEST WITH | | MULTIPLANAR REFORMATIONS AND 3-D VASCULARRECONSTRUCTIONS 10/04/2019 3:50 AM CLINICAL | | HISTORY: Hypertension and chest pain radiating to back, Thoracicaortic aneurysm | | suspected, initial exam COMPARISON: None available TECHNIQUE: Axial images are | | performed through the chest both before and afterthe uneventful intravenous | | administration of 100 mL Omnipaque-350 contrast, withtiming of the contrast bolus | | optimized for opacification of the pulmonaryarterial tree. Multiplanar reformations and | | 3-D vascular reconstructions arealso performed. FINDINGS: There is mild partially | | calcified plaque scattered throughout theaorta, and coronary arterial calcification is | | also present. There is minimaldilation of the ascending aorta to a diameter of 3.3 cm. | | No aortic aneurysm,stenosis or dissection is apparent. There is variant origin of the | | leftvertebral artery directly from the arch, proximal to the left subclavian | | arteryorigin. Common origin of the brachiocephalic and left common carotid arteriesis | | also noted. The great vessels appear widely patent in their imaged portionsalong with | | the imaged visceral abdominal aortic branches. While the study isnot optimized for | | evaluation of the pulmonary arterial tree, no filling defectis visible to suggest the | | presence of thromboembolic disease. The mediastinumis otherwise unremarkable. No | | pathologic lymph node enlargement is evident. There is no pleural or pericardial | | effusion or pneumothorax.Minimal dependent atelectasis is suggested in the lungs. No | | nodule,consolidation or airway abnormality is evident.Schmorl's nodes are present within | | lower thoracic and upper lumbar vertebralendplates. There are degenerative changes | | involving the imaged lower cervicalspine. Vertebral height and alignment are | | maintained. A tiny calcifiedgallstone is suggested in the gallbladder fundus. No | | conclusive gallbladderwall thickening, adjacent inflammation or biliary ductal dilation | | is evident. There is localized heavy calcification in the left adrenal gland, likely | | relatedto previous trauma or infection/inflammation. Imaged upper abdomen is | | otherwiseunremarkable. IMPRESSION: 1. ATHEROSCLEROSIS AND CORONARY ARTERIAL | | CALCIFICATION WITHOUT AORTIC ANEURYSM,DISSECTION OR OTHER ACUTE INTRATHORACIC DISEASE.2. | | CHOLELITHIASIS.Preliminary results of this study were reported by the [facility] | | Imagingradiologist on October 04, 2019 at 0404 hours.Dictated and Signed by: Haris Lucero MD | | Electronically signed: 10/04/2019 8:13 AM | |endplates. There are degenerative changes involving the imaged lower cervical | |spine. Vertebral height and alignment are maintained. A tiny calcified | |gallstone is suggested in the gallbladder fundus. No conclusive gallbladder | |wall thickening, adjacent inflammation or biliary ductal dilation is evident. | |There is localized heavy calcification in the left adrenal gland, likely related | |to previous trauma or infection/inflammation. Imaged upper abdomen is otherwise | |unremarkable. | | | |IMPRESSION: | |1. ATHEROSCLEROSIS AND CORONARY ARTERIAL CALCIFICATION WITHOUT AORTIC ANEURYSM, | |DISSECTION OR OTHER ACUTE INTRATHORACIC DISEASE. | | | |2. CHOLELITHIASIS. | | | |Preliminary results of this study were reported by the [facility] | |radiologist on October 04, 2019 at 0404 hours. | | | |Dictated and Signed by: Haris Lucero MD | | Electronically signed: 10/04/2019 8:13 AM | + + + +---------+ + + | Performing | Address | City/State/Zipcode | Phone Number | | Organization | | | | + +---------+ + + | [facility] | | | | + +---------+ + + Coronavirus (COVID-19) NAAT (10/04/2019 1:48 AM PDT) + + + + + + | Component | Value | Ref Range | Performed | Pathologist | | | | | At | Signature | + + + + + + | SARS | NegativeComment: Result | Negative | [facility] | | | coronavirus | called to and read back | | [facility] | | | 2 NAAT | by Gail Macedo on | | MEDICAL | | | | 10/04/2019 at 2:11 AM by | | CENTER - | | | | Jacob Ireland. | | LABORATORY | | | | SARS-CoV-2, RNA | | | | | | (COVID-19) EUA This | | | | | | assay has been cleared | | | | | | for use under an FDA | | | | | | Emergency Use | | | | | | Authorization. This test | | | | | | is used for clinical | | | | | | purposes. It should not | | | | | | be regarded as | | | | | | investigational or for | | | | | | research. This | | | | | | laboratory is certified | | | | | | under the Clinical | | | | | | Laboratory Improvement | | | | | | Amendments (CLIA) as | | | | | | qualified to perform | | | | | | high and moderate | | | | | | complexity testing. | | | | | | Other authorized testing | | | | | | locations include | | | | | | patient care settings | | | | | | using the ID Now | | | | | | Instrument. This test | | | | | | has been validated in | | | | | | accordance with the | | | | | | FDA's Guidance Document | | | | | | "Policy for Diagnostics | | | | | | Testing in Laboratories | | | | | | Certified to Perform | | | | | | High and Moderate | | | | | | Complexity Testing and | | | | | | patient care testing | | | | | | areas where ID NOW is | | | | | | being used, under CLIA | | | | | | prior to Emergency Use | | | | | | Authorization for | | | | | | Coronavirus Disease-2019 | | | | | | during the Public | | | | | | Health Emergency" issued | | | | | | on August 01, 2019. FDA | | | | | | independent review of | | | | | | this validation is | | | | | | pending. This test is | | | | | | only authorized for the | | | | | | duration of time the | | | | | | declaration that | | | | | | circumstances exist | | | | | | justifying the | | | | | | authorization of the | | | | | | emergency use of in | | | | | | vitro diagnostic tests | | | | | | for detection of | | | | | | SARS-CoV-2 virus and/or | | | | | | diagnosis of COVID-19 | | | | | | infection under section | | | | | | 564(b)(1) of the Act, 21 | | | | | | U.S.C. 360bbb-3(b)(1), | | | | | | unless the authorization | | | | | | is terminated or | | | | | | revoked sooner. | | | | + + + + + + + + | Specimen | + + | Tissue - Entire | | nasopharynx (body | | structure) | + + + + + + + | Performing | Address | City/State/Zipcode | Phone Number | | Organization | | | | + + + + + | [facility] | [address] | [place] | [phone] | | [facility] | | [address] | | | - LABORATORY | | | | + + + + + ECG 12 lead (10/03/2019 11:08 PM PDT) + + + + + + | Component | Value | Ref Range | Performed | Pathologist | | | | | At | Signature | + + + + + + | VENTRICULAR | 65 | BPM | [facility] | | | RATE EKG | | | | | + + + + + + | ATRIAL RATE | 65 | BPM | [facility] | | + + + + + + | P-R | 188 | ms | [facility] | | | INTERVAL | | | | | + + + + + + | QRS | 82 | ms | [facility] | | | DURATION | | | | | + + + + + + | Q-T | 436 | ms | [facility] | | | INTERVAL | | | | | + + + + + + | Q-T | 453 | ms | [facility] | | | INTERVAL | | | | | | (CORRECTED) | | | | | + + + + + + | P WAVE AXIS | 44 | degrees | [facility] | | + + + + + + | QRS AXIS | 36 | degrees | [facility] | | + + + + + + | T AXIS | 61 | degrees | [facility] | | + + + + + + | INTERPRETAT | Normal sinus | | [facility] | | | ION TEXT | rhythmNormal ECGNo | | | | | | previous ECGs | | | | | | availableConfirmed by | | | | | | BINH DIOP MD ([id number]) | | | | | | on 10/04/2019 6:45:00 AM | | | | + + + + + + + + | Specimen | + + | | + + + + + | Narrative | Performed At | + + + | | | + + + + +---------+ + + | Performing | Address | City/State/Zipcode | Phone Number | | Organization | | | | + +---------+ + + | [facility] | | | | + +---------+ + + Culture, MRSA (10/03/2019 10:47 PM PDT) + + + + + + | Component | Value | Ref Range | Performed | Pathologist | | | | | At | Signature | + + + + + + | Culture | Negative for MRSA by | | [facility] | | | | chromogenic agar method. | | [facility] | | | | | | MEDICAL | | | | | | CENTER - | | | | | | LABORATORY | | + + + + + + + + | Specimen | + + | Tissue - Both | | anterior nares (body | | structure) | + + + + + + + | Performing | Address | City/State/Zipcode | Phone Number | | Organization | | | | + + + + + | [facility] | [address] | [place] | [phone] | | [facility] | | [address] | | | - LABORATORY | | | | + + + + + Troponin I (10/03/2019 10:44 PM PDT) + + + + + + | Component | Value | Ref Range | Performed | Pathologist | | | | | At | Signature | + + + + + + | Troponin I | 9.40 ()Comment: | <0.06 ng/mL | [facility] | | | | Comment:Reference | | [facility] | | | | Ranges: 0.00-0.06 = | | MEDICAL | | | | NORMAL >0.06 = | | CENTER - | | | | SUSPICIOUS FOR | | LABORATORY | | | | MYOCARDIAL DAMAGE NOTE: | | | | | | Values greater than | | | | | | 0.78 ng/mL have been | | | | | | shown to be strongly | | | | | | associated with acute | | | | | | myocardial infarction. | | | | | | The [employer] | | | | | | Cardiology ([employer]) | | | | | | recommends a decision | | | | | | limit of 0.06 ng/mL for | | | | | | this assay. Results | | | | | | greater than 0.06 can | | | | | | reflect a pre-infarct | | | | | | acute coronary syndrome, | | | | | | but can also reflect | | | | | | myocardial necrosis or | | | | | | injury that is not due | | | | | | to coronary artery | | | | | | disease. Some of these | | | | | | causes are sepsis, | | | | | | hypocolemia, atrial | | | | | | fibrillation, heart | | | | | | failure, pulmonary | | | | | | embolism, myocarditis, | | | | | | myocardial contusion, | | | | | | and renal failure. The | | | | | | diagnosis of myocardial | | | | | | infarction should be | | | | | | based on a combination | | | | | | of the patient's | | | | | | clinical presentation | | | | | | and the clinical | | | | | | laboratory test results | | | | | | (especially serial | | | | | | troponin levels). | | | | | | Critical Result called | | | | | | to and read back by Gail | | | | | | Hellen on 10/03/2019 at | | | | | | 11:29 PM by Jacob Tavares | | | | | | Shu. | | | | + + + + + + + + | Specimen | + + | Blood | + + + + + + + | Performing | Address | City/State/Zipcode | Phone Number | | Organization | | | | + + + + + | [facility] | [address] | [place] | [phone] | | [facility] | | [address] | | | - LABORATORY | | | | + + + + + XR Chest 1 Vw (10/03/2019 6:35 PM PDT) + + | Specimen | [...] | | | + +---------+ + + XR Chest 2 Vws (10/07/2011 2:10 PM [...] + documented in this encounter Visit Diagnoses + + | Diagnosis | + + | NSTEMI (non-ST elevated myocardial infarction) (HCC) Acute myocardial infarction, | | subendocardial infarction, episode of care unspecified | + + documented in this encounter Administered Medications + +--------+ +--------+------+------+ | Medication Order | MAR | Action | Dose | Rate | Site | | | Action | Date | | | | + +--------+ +--------+------+------+ | acetaminophen (TYLENOL) tablet | Given | 10/05/19 | 650 mg | | | | 650 mg 650 mg, Oral, EVERY 4 | | 20 11:56 | | | | | HOURS PRN, Pain, or fever >= 38.6 | | AM PDT | | | | | C (101.5 F), Starting Mon | | | | | | | 10/03/19 at 2229 | | | | | | + +--------+ +--------+------+------+ +---+---+ | | | +---+---+ + +-------+ +------+---+---+ | amLODIPine (NORVASC) tablet 5 | Given | 10/07/19 | 5 mg | | | | mg 5 mg, Oral, DAILY, First dose | | 20 8:38 | | | | | on Tracee 10/06/19 at 1600 | | AM PDT | | | | + +-------+ +------+---+---+ +-------+ +------+---+---+ | Given | 10/06/19 | 5 mg | | | | | 20 4:15 | | | | | | PM PDT | | | | +-------+ +------+---+---+ +---+---+ | | | +---+---+ + +-------+ +-------+---+---+ | aspirin chewable tablet 81 mg | Given | 10/07/19 | 81 mg | | | | 81 mg, Oral, DAILY, First dose on | | 20 8:38 | | | | | 10/04/19 at 0900 | | AM PDT | | | | + +-------+ +-------+---+---+ +-------+ +-------+---+---+ | Given | 10/06/19 | 81 mg | | | | | 20 9:41 | | | | | | AM PDT | | | | +-------+ +-------+---+---+ | Given | 10/05/19 | 81 mg | | | | | 20 7:53 | | | | | | AM PDT | | | | +-------+ +-------+---+---+ +---+---+ | | | +---+---+ + +-------+ +-------+---+---+ | atorvaSTATin (LIPITOR) tablet | Given | 10/06/19 | 40 mg | | | | 40 mg 40 mg, Oral, NIGHTLY, | | 20 8:39 | | | | | First dose on Thu10/04/19 at 2100 | | PM PDT | | | | + +-------+ +-------+---+---+ +-------+ +-------+---+---+ | Given | 10/05/19 | 40 mg | | | | | 20 8:52 | | | | | | PM PDT | | | | +-------+ +-------+---+---+ | Given | 10/04/19 | 40 mg | | | | | 20 8:05 | | | | | | PM PDT | | | | +-------+ +-------+---+---+ + +---+ | | | + +---+ | dextrose 50% injection 12.5-25 | | | g 12.5-25 g, Intravenous, PRN, | | | Low Blood Sugar, Starting Tue | | | 10/04/19 at 0807, For blood | | | glucose 50-69 mg/dl - give 12.5 g | | | For blood glucose less than 50 | | | mg/dl - give 25 g, | | + +---+ | | | + +---+ + +-------+ +---------+---+---+ | eptifibatide (INTEGRILIN) 2 | Given | 10/05/19 | 18,450 | | | | mg/mL injection ONCE PRN, | | 20 10:26 | mcg | | | | Starting 10/05/19 at 1016, | | AM PDT | | | | | Intra-op | | | | | | + +-------+ +---------+---+---+ +-------+ +---------+---+---+ | Given | 10/05/19 | 18,450 | | | | | 20 10:16 | mcg | | | | | AM PDT | | | | +-------+ +---------+---+---+ +---+---+ | | | +---+---+ + +-------+ +--------+---+---+ | fentaNYL (PF) injection ONCE | Given | 10/05/19 | 25 mcg | | | | PRN, Starting 10/05/19 at | | 20 10:07 | | | | | 0932, Intra-op | | AM PDT | | | | + +-------+ +--------+---+---+ +-------+ +--------+---+---+ | Given | 10/05/19 | 25 mcg | | | | | 20 9:32 | | | | | | AM PDT | | | | +-------+ +--------+---+---+ +---+---+ | | | +---+---+ + +---------+ +--------+-------+---+ | ferric gluconate (FERRLECIT) | New Bag | 10/06/19 | 125 mg | 110 | | | 125 mg in sodium chloride 0.9% | | 20 9:08 | | mL/hr | | | 100 mL IVPB 125 mg, Intravenous, | | PM PDT | | | | | Administer over 1 Hours, DAILY, | | | | | | | First dose on [facility] 10/06/19 at | | | | | | | 2100, For 5 doses | | | | | | + +---------+ +--------+-------+---+ +---+---+ | | | +---+---+ + +-------+ +--------+---+---+ | heparin 1,000 units/mL | Given | 10/05/19 | 5,000 | | | | injection ONCE PRN, Starting Wed | | 20 9:32 | Units | | | | 10/05/19 at 0920, Intra-op | | AM PDT | | | | + +-------+ +--------+---+---+ +-------+ +--------+---+---+ | Given | 10/05/19 | 5,000 | | | | | 20 9:20 | Units | | | | | AM PDT | | | | +-------+ +--------+---+---+ +---+---+ | | | +---+---+ + +-------+ +---------+---+ + | insulin lispro (humaLOG | Given | 10/04/19 | 2 Units | | Arm-Left | | KWIKPEN) injection (pen) 0-12 | | 20 4:25 | | | Upper | | Units 0-12 Units, Subcutaneous, | | PM PDT | | | | | 4 TIMES DAILY WITH MEALS & | | | | | | | NIGHTLY, First dose on Thu | | | | | | | 10/04/19 at 0830, CORRECTION | | | | | | | SCALE: Blood Glucose (BG) < | | | | | | | 150: None BG | | | | | | | 150-200: DAY: 2 units. NIGHT: | | | | | | | 0 units BG 201-250: DAY: 4 | | | | | | | units. NIGHT: 2 units BG | | | | | | | 251-300: DAY: 6 units. NIGHT: | | | | | | | 4 units BG 301-350: DAY: 8 | | | | | | | units. NIGHT: 6 units BG | | | | | | | 351-400: DAY: 10 units. NIGHT: 8 | | | | | | | units BG > 400 : DAY: 12 | | | | | | | units. NIGHT: 10 units | | | | | | | AND CALL PROVIDER | | | | | | | , Use DAY DOSE for doses | | | | | | | scheduled: AC, NPO, Daytime | | | | | | | [phone] Use NIGHT DOSE for | | | | | | | doses scheduled: HS, | | | | | | | Nighttime [phone] If the BG is | | | | | | | not checked before the patient | | | | | | | starts eating, do not give | | | | | | | correction insulin., | | | | | | + +-------+ +---------+---+ + +-------+ +---------+---+ + | Given | 10/04/19 | 2 Units | | Arm-Righ | | | 20 11:21 | | | t Upper | | | AM PDT | | | | +-------+ +---------+---+ + +---+---+ | | | +---+---+ + +-------+ +---------+---+---+ | iohexol (OMNIPAQUE 350) 350 | Given | 10/05/19 | 185 mLs | | | | mg/mL injection ONCE PRN, | | 20 10:30 | | | | | Starting 10/05/19 at 1030, | | AM PDT | | | | | Intra-op | | | | | | + +-------+ +---------+---+---+ +---+---+ | | | +---+---+ + +-------+ +--------+---+---+ | labetalol (NORMODYNE) tablet | Given | 10/07/19 | 300 mg | | | | 300 mg 300 mg, Oral, 2 TIMES | | 20 8:38 | | | | | DAILY, First dose (after last | | AM PDT | | | | | modification) on [facility] 10/06/19 at | | | | | | | 0900 | | | | | | + +-------+ +--------+---+---+ +-------+ +--------+---+---+ | Given | 10/06/19 | 300 mg | | | | | 20 8:38 | | | | | | PM PDT | | | | +-------+ +--------+---+---+ | Given | 10/06/19 | 300 mg | | | | | 20 9:40 | | | | | | AM PDT | | | | +-------+ +--------+---+---+ +---+---+ | | | +---+---+ + +-------+ +-------+---+---+ | labetalol (TRANDATE) 5 mg/mL | Given | 10/05/19 | 20 mg | | | | injection 10-20 mg 10-20 mg, | | 20 9:24 | | | | | Intravenous, EVERY 15 MIN PRN, | | PM PDT | | | | | SBP>150 or DBP>90, Starting Tue | | | | | | | 5/19/20 at 0723 | | | | | | + +-------+ +-------+---+---+ +-------+ +-------+---+---+ | Given | 05/20/20 | 20 mg | | | | | 20 6:03 | | | | | | PM PDT | | | | +-------+ +-------+---+---+ | Given | //20 | 20 mg | | | | | 20 5:24 | | | | | | PM PDT | | | | +-------+ +-------+---+---+ +---+---+ | | | +---+---+ + +-------+ +------+---+---+ | lidocaine buffered 0.9% | Given | 20 | 1 mL | | | | injection ONCE PRN, Starting Wed | | 20 9:16 | | | | | 20/20 at 0916, Intra-op | | AM PDT | | | | + +-------+ +------+---+---+ +---+---+ | | | +---+---+ + +-------+ +--------+---+---+ | midazolam (VERSED) 1 mg/mL | Given | 10/05/19 | 0.5 mg | | | | injection ONCE PRN, Starting Wed | | 20 10:24 | | | | | 10/05/19 at 0904, Intra-op | | AM PDT | | | | + +-------+ +--------+---+---+ +-------+ +--------+---+---+ | Given | 10/05/19 | 0.5 mg | | | | | 20 10:06 | | | | | | AM PDT | | | | +-------+ +--------+---+---+ | Given | 10/05/19 | 0.5 mg | | | | | 20 9:41 | | | | | | AM PDT | | | | +-------+ +--------+---+---+ +---+---+ | | | +---+---+ + +-------+ +-------+---+---+ | niCARdipine in saline (CARDENE) | Given | 20 | 3 mLs | | | | 100 mcg/mL syringe ONCE PRN, | | 20 10:22 | | | | | Starting 10/05/19 at 0918, | | AM PDT | | | | | Intra-op | | | | | | + +-------+ +-------+---+---+ +-------+ +-------+---+---+ | Given | 10/05/19 | 3 mLs | | | | | 20 9:54 | | | | | | AM PDT | | | | +-------+ +-------+---+---+ | Given | 10/05/19 | 2 mLs | | | | | 20 9:18 | | | | | | AM PDT | | | | +-------+ +-------+---+---+ +---+---+ | | | +---+---+ + +-------+ +---------+---+---+ | nitroglycerin 100 mcg/mL | Given | 10/05/19 | 300 mcg | | | | syringe ONCE PRN, Starting Wed | | 20 10:26 | | | | | 10/05/19 at 0919, Intra-op | | AM PDT | | | | + +-------+ +---------+---+---+ +-------+ +---------+---+---+ | Given | 10/05/19 | 300 mcg | | | | | 20 10:22 | | | | | | AM PDT | | | | +-------+ +---------+---+---+ | Given | 10/05/19 | 300 mcg | | | | | 20 9:55 | | | | | | AM PDT | | | | +-------+ +---------+---+---+ +---+---+ | | | +---+---+ + +-------+ +------+---+---+ | ondansetron (ZOFRAN) injection | Given | 10/04/19 | 4 mg | | | | 4 mg 4 mg, Intravenous, EVERY 4 | | 20 7:25 | | | | | HOURS PRN, Nausea, Vomiting, | | AM PDT | | | | | Starting 10/04/19 at 0720 | | | | | | + +-------+ +------+---+---+ +---+---+ | | | +---+---+ + +-------+ +------+---+---+ | ondansetron (ZOFRAN) injection | Given | 10/05/19 | 4 mg | | | | ONCE PRN, Starting 10/05/19 | | 20 9:00 | | | | | at 0900, Intra-op | | AM PDT | | | | + +-------+ +------+---+---+ +---+---+ | | | +---+---+ + +-------+ +-------+---+---+ | pantoprazole (PROTONIX) | Given | 10/07/19 | 40 mg | | | | injection 40 mg 40 mg, | | 20 8:38 | | | | | Intravenous, DAILY, First dose on | | AM PDT | | | | | 10/04/19 at 0900, Indication: | | | | | | | Stress ulcer prophylaxis (ICU | | | | | | | only), Indication - Stress Ulcer | | | | | | | Prophylaxis: Other | | | | | | + +-------+ +-------+---+---+ +-------+ +-------+---+---+ | Given | 10/06/19 | 40 mg | | | | | 20 9:41 | | | | | | AM PDT | | | | +-------+ +-------+---+---+ | Given | 10/05/19 | 40 mg | | | | | 20 7:53 | | | | | | AM PDT | | | | +-------+ +-------+---+---+ +---+---+ | | | +---+---+ + +-------+ + +---+---+ | sodium chloride (OCEAN) 0.65% | Given | 10/07/19 | 2 sprays | | | | nasal spray 2 spray 2 spray, | | 20 8:38 | | | | | Each Nare, 4 TIMES DAILY, First | | AM PDT | | | | | dose on [facility] 10/06/19 at 0900 | | | | | | + +-------+ + +---+---+ +-------+ + +---+---+ | Given | 10/06/19 | 2 sprays | | | | | 20 8:41 | | | | | | PM PDT | | | | +-------+ + +---+---+ | Given | 10/06/19 | 2 sprays | | | | | 20 12:03 | | | | | | PM PDT | | | | +-------+ + +---+---+ +---+---+ | | | +---+---+ + +-------+ +--------+---+---+ | ticagrelor (BRILINTA) tablet | Given | 10/05/19 | 180 mg | | | | ONCE PRN, Starting 10/05/19 at | | 20 10:34 | | | | | 1034, Intra-op | | AM PDT | | | | + +-------+ +--------+---+---+ +---+---+ | | | +---+---+ documented in this encounter
--- OUTSIDE RECORDS SUMMARY | ~2019-10-08 | XMS | Encounter Summary ---
Demographics + + + | Address | [address] | | | [place] [address] | + + + | Home Phone | | + + + | Preferred Language | Unknown | + + + | Marital Status | | + + + | Muslim Affiliation | 1077 | + + + | Race | Unknown | + + + | Ethnic Group | Unknown | + + + Author + + + | Author | [facility] | | | and Jasana | + + + | Organization | [facility] | | | and Jasana [...] Team Providers + +------+ + | Care Clinical Analyst Name | Role | Phone | + [...] + + | 10/04/ | Surgery | [facility] | Lj Barker MD | CV COR ANGIO | | 2019 | | MED CTR CV INTRA OP | [address] | | | | | [address] | [place] | | | | | [place] | [id number] | | | | | [address] | | | | | | [phone] | | | +--------+---------+ + + + [...] May call Dr Fuentes for questions at [phone] from 7 am to 7 pm until 10/09 at 7 pm fo r questions Medication Costs: Fill your medications at [facility], they have the lowest lance carolina if insurance does not co eleanor the medications. amLODIPine -- $9 for 30-day supply atorvaSTATin --$15 for 30-day supply clopidogrel --$15 for 30-day supply labetalol --$20.49 for 30-day supply (with GoodRx coupon) nitroglycerin --$10.95 for 25 tablets (with GoodRx coupon) Aspirin 81 mg-- available [id number]; around $4 for 100 tablets Sodium chloride nasal spray--Equate ([facility] brand) available dlrr-eou-ujvozep, around $4 for one bottle documented in [...] patient was reminded of follow-up appointment with clinical research scientist and encouraged to make a follow-up appointment [...] M D - 10/06/2019 8:38 AM PDT [facility] Hospitalist Progress Note Hyun Harper [...] yesterday morning. In the emergency room at [facility] she received 5 mg of IV metoprolol, 324 mg of aspirin, and a dose of Lovenox transferred here. On presentatio n she had a CTA which was negative for aortic dissection. Troponin has progressively risen and currently plateauing at 26. Patient was taken to the [facility] 10/04 with multivessel disease including RCA, circumflex, [...] above. Manoj Fuentes MD 10/06/2019 8:38 AM [facility] Portions of this chart may have been created with [employer] voice recognition software. Occasi onal wrong-word or sound-alike substitutions may have occurred due to the inherent solitario itations of voice recognition software. Please read the chart carefully and recognize, using context, where these substitutions have occurred Manoj Wesley MD - 0 10/05/2019 7:34 AM PDT [facility]G Hospitalist Progress Note Hyun Harper [...] yesterday morning. In the emergency room at [facility] she received 5 mg of IV [...] above. Manoj Fuentes MD 10/05/2019 7:34 AM [facility] Portions of this chart may have been created with [employer] voice recognition software. Occasi onal wrong-word or [...] 3 months, 1 beer yearly Best possible [employer] medication list after pharmacy review: PT REPORTED TAKING NOT TAKING Medication Sig Last Dose Dispense Doc. Provider ibuprofen (ADVIL, MOTRIN) 200 mg tablet Take 200 mg by mouth every 6 hours as needed for P ain. Taking Differently Historical Provider, Medication review performed and electronically signed by Magda Lucia, Assistant Curator 2019 3:50 PM Reviewed by Kayla Regan, PharmD 10/04/2019 3:58 PM arManoj lewis M D - 10/04/2019 7:28 AM PDT [facility] Hospitalist Progress Note Hyun Harper [...] yesterday morning. In the emergency room at [facility] she received 5 mg of IV [...] embolism or other acute process in the [facility] st. Signed by: Michel Raymond Robin Sign Date/Time: 10/04/2019 4:04 AM Total time of approximately 40 minutes was spent with the patient and/or patient's family, and/or on the patient's floor/unit, of which more than 50% was spent counseling and/or coord ination the patient's care as outlined above. Manoj Fuentes MD 10/04/2019 7:28 AM [facility] Portions of this chart may have been created with [employer] voice recognition software. Occasi onal wrong-word or [...] [place] | | | | | | [id number] | | | | | | | [...] ST. | [address] | [place] | [phone] | | [facility] | | [address] | | | - LABORATORY | | [...] [address] | [place] | [phone] | | [facility] | | [address] | | | - LABORATORY | | [...] [address] | [place] | [phone] | | [facility] | | [address] | | | - LABORATORY | | [...] + | [facility] | [address] | [place] | [phone] | | [facility] | | [address] | | | - LABORATORY | | [...] New | 120 - 246 U/L | [facility] | | | | method in use [...] + | [facility] | [address] | [place] | [phone] | | [facility] | | [address] | | | - LABORATORY | | [...] | mL/min/1.73m2 | [facility] | | | CROATIAN | RATE,ESTIMATED | | MEDICAL | | | | mL/min/1.72p4Bmcs than | | CENTER - | | [...] ST. | [address] | [place], [place] | [phone] | | [facility] | | [address] | | | - LABORATORY | | [...] [address] | [place] | [phone] | | [facility] | | [address] | | | - LABORATORY | | [...] + | [facility] | [address] | [place] | [phone] | | [facility] | | [address] | | | - LABORATORY | | [...] | | POC | | | [facility] | | | | | [...] ST. | [address] | [place], [place] | [phone] | | [facility] | | [address] | | | - LABORATORY | | [...] [address] | [place] | [phone] | | [facility] | | [address] | | | - LABORATORY | | [...] + | [facility] | [address] | [place] | [phone] | | [facility] | | [address] | | | - LABORATORY | | [...] [address] | [place] | [phone] | | [facility] | | [address] | | | - LABORATORY | | [...] [address] | [place] | [phone] | | [facility] | | [address] | | | - LABORATORY | | [...] + | [facility] | [address] | [place] | [phone] | | [facility] | | [address] | | | - LABORATORY | | [...] [address] | [place] | [phone] | | [facility] | | [address] | | | - LABORATORY | | [...] [address] | [place] | [phone] | | [facility] | | [address] | | | - LABORATORY | | [...] + | [facility] | [address] | [place] | [phone] | | [facility] | | [address] | | | - LABORATORY | | [...] ST. | [address] | [place], [place] | [phone] | | [facility] | | [address] | | | - LABORATORY | | [...] [address] | [place] | [phone] | | [facility] | | [address] | | | - LABORATORY | | [...] 1.12 (H) | 0.55 - 1.02 | [facility] | | | | | mg/dL | [...] mL/min/1.73m2 | [facility] | | | CROATIAN | RATE,ESTIMATED | | MEDICAL | | | | mL/min/1.24u2Xtil than | | CENTER - | | [...] + | [facility] | [address] | [place] | [phone] | | [facility] | | [address] | | | - LABORATORY | | [...] | | | | | BINH ESQUIVEL ([address]) on | | | | | | [...] [address] | [place] | [phone] | | [facility] | | [address] | | | - LABORATORY | | [...] [address] | [place] | [phone] | | [facility] | | [address] | | | - LABORATORY | | [...] [address] | [place] | [phone] | | [facility] | | [address] | | | - LABORATORY | | [...] medications administered | | | by the [facility] nurse under my supervision. Patient tolerated | [...] [address] | [place] | [phone] | | [facility] | | [address] | | | - LABORATORY | | [...] [address] | [place] | [phone] | | [facility] | | [address] | | | - LABORATORY | | [...] + | [facility] | [address] | [place] | [phone] | | [facility] | | [address] | | | - LABORATORY | | [...] mL/min/1.73m2 | [facility] | | | CROATIAN | RATE,ESTIMATED | | MEDICAL | | | | mL/min/1.43w4Hsgo than | | CENTER - | | [...] | | ine Ratio | | | [facility] | | | | | | MEDICAL [...] [address] | [place] | [phone] | | [facility] | | [address] | | | - LABORATORY | | [...] + | [facility] | [address] | [place] | [phone] | | [facility] | | [address] | | | - LABORATORY | | [...] | | | | | | [employer] | | | | | [...] + | [facility] | [address] | [place], [place] | [phone] | | [facility] | | [address] | | | - LABORATORY | | [...] [address] | [place] | [phone] | | [facility] | | [address] | | | - LABORATORY | | [...] 1.12 (H) | 0.55 - 1.02 | [facility] | | | | | mg/dL | [...] mL/min/1.73m2 | [facility] | | | CROATIAN | RATE,ESTIMATED | | MEDICAL | | | | mL/min/1.58b3Mlww than | | CENTER - | | [...] + | [facility] | [address] | [place] | [phone] | | [facility] | | [address] | | | - LABORATORY | | [...] ST. | [address] | [place], [place] | [phone] | | [facility] | | [address] | | | - LABORATORY | | [...] [address] | [place] | [phone] | | [facility] | | [address] | | | - LABORATORY | | [...] [address] | [place] | [phone] | | [facility] | | [address] | | | - LABORATORY | | [...] - 1.030 | [facility] | | | [place], | | | [facility] | | [...] [address] | [place] | [phone] | | [facility] | | [address] | | | - LABORATORY | | [...] | | | | | | [employer] | | | | | [...] [address] | [place] | [phone] | | [facility] | | [address] | | | - LABORATORY | | [...] + | [facility] | [address] | [place] | [phone] | | [facility] | | [address] | | | - LABORATORY | | [...] | | | | | | n [place] | | | | | + +--------+ [...] [address] | [place] | [phone] | | [facility] | | [address] | | | - LABORATORY | | [...] [address] | [place] | [phone] | | [facility] | | [address] | | | - LABORATORY | | [...] | | | | BINH DIOP MD ([id number]) | | | | | | on [...] [address] | [place] | [phone] | | [facility] | | [address] | | | - LABORATORY | | [...] [facility] | | | | | | [facility] | | | | | | MEDICAL | | | | | | CENTER - | | | | | | LABORATORY | | + + + + + + | RBC | 3.24 (L) | 3.70 - 5.20 | [facility] | | | | | M/uL | [facility] | | | | | | MEDICAL [...] + | [facility] | [address] | [place] | [phone] | | [facility] | | [address] | | | - LABORATORY | | [...] mL/min/1.73m2 | [facility] | | | CROATIAN | RATE,ESTIMATED | | MEDICAL | | | | mL/min/1.46j8Kfrd than | | CENTER - | | [...] [address] | [place] | [phone] | | [facility] | | [address] | | | - LABORATORY | | [...] | | | | | | [employer] | | | | | [...] [address] | [place] | [phone] | | [facility] | | [address] | | | - LABORATORY | | [...] were | | | [facility] on October 04, 2019 [...] of this study were reported by the [facility] | | Imagingradiologist on October 04, 2019 [...] of this study were reported by the [facility] | |radiologist on October 04, [...] [address] | [place] | [phone] | | [facility] | | [address] | | | - LABORATORY | | [...] | | | | BINH DIOP MD ([id number]) | | | | | | on [...] [address] | [place] | [phone] | | [facility] | | [address] | | | - LABORATORY | | [...] | | | | | | [employer] | | | | | [...] [address] | [place] | [phone] | | [facility] | | [address] | | | - LABORATORY | | [...] | | | | First dose on [facility] 10/06/19 at | | | | | [...] | | | | | | | 4743-6538 Use NIGHT DOSE for | | | | | | | doses scheduled: HS, | | | | | | | Nighttime 6584-2809 If the BG is | | | [...] | | | | | modification) on [facility] 10/06/19 at | | | | | [...] | | | | | dose on [facility] 10/06/19 at 0900 | | | | [...]
--- OUTSIDE RECORDS SUMMARY | ~2019-10-08 | XMS | Clinical Summary ---
Demographics + + + | Address | [address] | | | [place] [address] | + + + | Home Phone | | + + + | Preferred Language | Unknown | + + + | Marital Status | | + + + | Mandaeism Affiliation | 1077 | + + + | Race | Unknown | + + + | Ethnic Group | Unknown | + + + Author + + + | Author | and [facility] | | | and Jasana | + + + | Organization | and [facility] | | | and Jasana | [...] Team Providers + +------+ + | Care Communication Coordinator Name | Role | Phone | + +------+ + | Jacob Rodríguez DO | PCP | | + +------+ + Allergies + + + + + + | Active Allergy | Reactions | Severity | Noted | Comments | | | | | Date | | + + + + + + | Codeine | Nausea And Vomiting | | 10/03/19 | | | | | | 20 | | + + + + + + | Erythromycin | Nausea And Vomiting | | 10/03/19 | | | | | | 20 | | + + + + + + | Adhesive & Tape | Rash | Low | 10/03/19 | | | | | | 20 | | + + + + + + Medications + + + +---------+------+------+-------+ | Medication | Sig | Dispensed | Refills | Star | End | Statu | | | | | | t | Date | s | | | | | | Date | | | + + + +---------+------+------+-------+ | amLODIPine | Take 1 tablet by | 30 | 0 | 05/2 | | Activ | | (NORVASC) 5 mg | mouth Daily. | tablet | | 3/20 | | e | | tablet | | | | 20 | | | + + + +---------+------+------+-------+ | aspirin 81 mg | Chew and swallow 1 | 30 | 0 | 05/2 | | Activ | | chewable tablet | tablet Daily. | tablet | | 3/20 | | e | | | | | | 20 | | | + + + +---------+------+------+-------+ | atorvaSTATin | Take 1 tablet by | 30 | 0 | 05/2 | | Activ | | (LIPITOR) 40 mg | mouth nightly. | tablet | | 2/20 | | e | | tablet | | | | 20 | | | + + + +---------+------+------+-------+ | clopidogrel | Take 1 tablet by | 90 | 0 | 05/2 | | Activ | | (PLAVIX) 75 mg | mouth Daily. | tablet | | 2/20 | | e | | tablet | | | | 20 | | | + + + +---------+------+------+-------+ | labetalol | Take 1 tablet by | 60 | 0 | 05/2 | | Activ | | (NORMODYNE) 300 MG | mouth 2 times daily. | tablet | | 2/20 | | e | | tablet | | | | 20 | | | + + + +---------+------+------+-------+ | nitroglycerin | Place 1 tablet under | 25 | 0 | 05/2 | | Activ | | (NITROSTAT) 0.4 mg | the tongue every 5 | tablet | | 2/20 | | e | | SL tablet | minutes as needed | | | 20 | | | | | for Chest pain. | | | | | | + + + +---------+------+------+-------+ | sodium chloride | 2 sprays by Each | | 0 | 05/2 | | Activ | | (OCEAN) 0.65% nasal | Nare route 4 times | | | 2/20 | | e | | spray | daily. | | | 20 | | | + + + +---------+------+------+-------+ | ibuprofen (ADVIL, | Take 200 mg by mouth | | 0 | | 05/2 | Disco | | MOTRIN) 200 mg | every 6 hours as | | | | 2/20 | ntinu | | tablet | needed for Pain. | | | | 20 | ed | + + + +---------+------+------+-------+ Active Problems + + + | Problem | Noted Date | + + + | Hypertensive emergency | 10/03/2019 | + + + Encounters +--------+ + + + + | Date | Type | Specialty | Care Team | Description | +--------+ + + + + | 10/04/ | Surgery | Radiology | Lj Barker MD | CV COR ANGIO | | 2019 | | | | | +--------+ + + + + | 10/03/ | Imaging | Radiology | Provider, | | | 2019 | Exam | | MD Zeb | | +--------+ + + + + | 10/02/ | Hospital | Critical Care | Tal Bailey MD | Hypertensive | | 2019 - | Encounter | Medicine | Manoj Fuentes MD | emergency; NSTEMI | | | | | | (non-ST elevated | | 10/06/ | | | | myocardial | | 2019 | | | | infarction) (HCC) | +--------+ + + + + | 10/02/ | Intake | | | N/A | | 2019 | | | | | +--------+ + + + + from Last 3 Months Immunizations + + + + | Name | Administration Dates | Next Due | + + + + | INFLUENZA TRIV | 03/19/2011 | | | W/PRES(PED/ADOL/ADUL | | | | T),MULTIDOSE | | | + + + + | INFLUENZA, [id number], | 05/05/2009 | | | UNSPECIFIED | | | + + + + | INFLUENZA, | 02/13/2009 | | | UNSPECIFIED | | | | FORMULATION | | | + + + + Social History + [...] recent travel history available. | + + Last Filed Vital Signs + + + [...] | | + + + + + Plan of Treatment +--------+---------+ + + + | Date | Type | Specialty | Care Team | Description | +--------+---------+ + + + | 11/07/ | Office | Cardiology | Lj Barker MD | | | 2019 | Visit | | [address] | | | | | | [place] | | | | | | [address] | | | | | | | | +--------+---------+ + + + + + + + + | Health Maintenance | Due Date | Last Done | Comments | + + + + + | Hepatitis C | | | | | Screening | 2 | | | + + + + + | Vaccine: | | | | | Dtap/Tdap/Td (1 - | 3 | | | | Tdap) | | | | + + + + + | Breast Cancer | | | | | Screening | 7 | | | + + + + + | Vaccine: Zoster (1 | | | | | of 2) | 0 | | | + + + + + | Vaccine: | | | | | Pneumococcal 65+ (1 | 7 | | | | of 2 - PCV13) | | | | + + + + + | Adult Annual | | | | | Wellness Visit | 0 | | | + + + + + | Vaccine: Influenza | | 03/19/2011, 05/05/2009, | | | (Season Ended) | 0 | 02/13/2009 | | + + + + + | Colorectal Cancer | | 10/06/2019 | | | Screening (FIT) | 1 | | | + + + + + Implants + +-------+------+ +--------+--------+--------+ | Implanted | Type | Area | Manufacture | Device | Shelf | Model | | | | | r | | Expira | / | | | | | | Identi | tion | Serial | | | | | | fier | Date | / Lot | + +-------+------+ +--------+--------+--------+ | Stent Carroll Synergy Mr 2.5 X 8 | Stent | | [place] | [id number] | 10/28/ | [id number] | | - [id number]: Qty: 1 | | | SCIENTIFIC | [id number] | 2019 | [id number] | | on 10/05/2019 by Lj Barker | | | PATO - BSCI | 72 | | 50 / | | MD Miguel at [facility] | | | | | | /[id number] | | [facility] | | | | | | 767 | + +-------+------+ +--------+--------+--------+ + + | Description:cx | + + + +-------+---+ +--------+--------+--------+ | Stent Carroll Synergy Mr 3.0 X 32 | Stent | | [place] | [id number] | 12/27/ | [id number] | | - [id number]: Qty: | | | SCIENTIFIC | [id number] | 2019 | [id number] | | 1 on 10/05/2019 by Mj, | | | PATO - BSCI | 50 | | 00 / | | Lj Rivera MD at [facility] | | | | | | /[id number] | | [facility] | | | | | | 921 | | CENTER | | | | | | | + +-------+---+ +--------+--------+--------+ + + | Description:rca | + + Procedures + +--------+ + + + | [...] section. | + +--------+ + + + from Last 3 Months Results POC Glucose (10/07/2019 11:37 AM PDT)Only the most recent of 14 results within the time per iod is included. + +---------+ + + + | Component [...] [address] | [place] | [phone] | | [facility] | | [address] | | | - LABORATORY | | [...] + | [facility] | [address] | [place], [place] | [phone] | | [facility] | | [address] | | | - LABORATORY | | | | + + + + + CBC no Differential (10/07/2019 3:52 AM PDT)Only the most recent of 2 results within the period is included. + + + + + + | [...] | | | | | M/uL | [facility] | | | | [...] | 0.00 | 0.00 - 0.01 | [facility] | | | nRBC | | K/uL [...] [address] | [place] | [phone] | | [facility] | | [address] | | | - LABORATORY | | [...] New | 120 - 246 U/L | [place] | | | | method in use as of | | [facility] | | | | July 14, 2018. [...] + + | [facility] | [address] | [place] | [phone] | | [facility] | | [address] | | | - LABORATORY | | | | + + + + + CK Total (10/07/2019 3:52 AM PDT) + +---------+ + + + | Component | Value | Ref Range | Performed | Pathologist | | | | | At | Signature | + +---------+ + + + | CK TOTAL | 278 (H) | 34 - 145 U/L | [facility] | | | | | [...] [address] | [place] | [phone] | | [facility] | | [address] | | | - LABORATORY | | | | + + + + + Basic Metabolic Panel (10/07/2019 3:52 AM PDT)Only the most recent of 5 results within the time period is included. + + + + + + | Component | Value | Ref Range | Performed | Pathologist | | | | | At | Signature | + + + + + + | Na | 140 | 136 - 145 | [facility] | | | | | mmol/L | [facility] | | | | | | MEDICAL [...] 17 | 9 - 23 mg/dL | [facility] | | | | | | [facility] | | | | | | MEDICAL | | | | | | CENTER - | | | | | | LABORATORY | | + + + + + + | Creatinine | 1.15 (H) | 0.55 - 1.02 | [place] | | | | | mg/dL | [facility] | | | | | | MEDICAL | | | | | | CENTER - | | | | | | LABORATORY | | + + + + + + | eGFR if not | 47 (L)Comment: | >=60 | [facility] | | | | GLOMERULAR FILTRATION | mL/min/1.73m2 | [facility] | | | [place] | RATE,ESTIMATED | | MEDICAL | | | | mL/min/1.78r3Ohdx than | | CENTER - | | [...] | ine Ratio | | | [facility] | [...] + | [facility] | [address] | [place] | [phone] | | [facility] | | [address] | | | - LABORATORY | | [...] ST. | [address] | [place] | [phone] | | [facility] | | [address] | | | - LABORATORY | | | | + + + + + Vitamin B-12 10/06/2019 3:54 AM PDT) + + + + [...] [address] | [place] | [phone] | | [facility] | | [address] | | | - LABORATORY | | [...] + | [facility] | [address] | [place] | [phone] | | [facility] | | [address] | | | - LABORATORY | | [...] | Reticulocyt | | M/uL | [facility] | | | e Count | | | MEDICAL | | | | | | CENTER - | | | | | | LABORATORY | | + + + + + + | Immature | 24.1 (H)Comment: Values | 2.3 - 15.9 % | [facility] | | | Reticulocyt | above normal range | | [facility] | | | e Fraction | indicate [...] [address] | [place] | [phone] | | [facility] | | [address] | | | - LABORATORY | | [...] [address] | [place] | [phone] | | [facility] | | [address] | | | - LABORATORY | | | | + + + + + Folate (10/06/2019 3:54 AM PDT) + +-------+ + + + | Component | Value | Ref Range | Performed | Pathologist | | | | | At | Signature | + +-------+ + + + | FOLATE | 13.9 | >5.4 ng/mL | [facility] | | | | | | ST. [...] [address] | [place] | [phone] | | [facility] | | [address] | | | - LABORATORY | | | | + + + + + Ferritin (10/06/2019 3:54 AM PDT) + +-------+ + + + | Component | Value | Ref Range | Performed | Pathologist | | | | | At | Signature | + +-------+ + + + | FERRITIN | 246 | 7 - 271 ng/mL | [facility] | | | | | [...] ST. | [address] | [place] | [phone] | | [facility] | | [address] | | | - LABORATORY | | | | + + + + + ECG 12 lead (10/06/2019 12:30 AM PDT)Only the most recent of 3 results within the time deisi od is included. + + + + + + | [...] | | | | | BINH ESQUIVEL ([address]) on | | | | | | [...] | | | + +---------+ + + CV CARDIAC PROCEDURE (10/05/2019 10:42 [...] medications administered | | | by the Software Testing Specialist nurse under my supervision. Patient tolerated | [...] + + POC ACT (10/05/2019 10:24 AM PDT)Only the most recent of 2 results within the time period i s included. + +---------+ + + + | Component | Value | Ref Range | Performed | Pathologist | | | | | At | Signature | + +---------+ + + + | Activated | 221 (H) | 125 - 175 | [facility] | | | Clotting | | second(s) | [facility] | | | Time, POC | | [...] [address] | [place] | [phone] | | [facility] | | [address] | | | - LABORATORY | | | | + + + + + Protime INR (10/05/2019 7:53 AM PDT) + + + + + + | Component | Value | Ref Range | Performed | Pathologist | | | | | At | Signature | + + + + + + | Prothrombin | 14.3 (H) | 11.3 - 13.9 | [facility] | | | Time | | seconds | [facility] | | | | [...] [address] | [place] | [phone] | | [facility] | | [address] | | | - LABORATORY | | | | + + + + + Lipid Panel (10/05/2019 4:09 AM PDT)Only the most recent of 2 results within the time deisi od is included. + +-------+ + + + | Component | Value | Ref Range | Performed | Pathologist | | | | | At | Signature | + +-------+ + + + | Triglycerid | 74 | <=150 mg/dL | [facility] | | [...] LDL, | 125 | <=130 mg/dL | [facility] | | | Calculated | | | [...] [address] | [place] | [phone] | | [facility] | | [address] | | | - LABORATORY | | | | + + + + + Troponin I (10/05/2019 4:09 AM PDT)Only the most recent of 4 results within the time perio d is included. + + + + + + | Component | Value | Ref Range | Performed | Pathologist | | | | | At | Signature | + + + + + + | Troponin I | 26.41 ()Comment: | <0.06 ng/mL | [facility] | [...] | | | | | | [employer] | | | | | [...] + + | Performing | Address | City[facility]State[facility] | Phone Number | | Organization | | | | + + + + + | [facility] | [address] | [place] | [phone] | | [facility] | | [address] | | | - LABORATORY | | | | + + + + + CBC with Differential (10/05/2019 4:09 AM PDT)Only the most recent of 2 results within the time period is included. + + + + + + | [...] [address] | [place] | [phone] | | [facility] | | [address] | | | - LABORATORY | | [...] - 1.030 | [facility] | | | [place], | | | [facility] | | [...] | | | Comment | | | [facility] | | [...] [address] | [place] | [phone] | | [facility] | | [address] | | | - LABORATORY | | [...] | | | Gram Positive | | [facility] | | | | FloraComment: Suggests | [...] ST. | [address] | [place], [place] | [phone] | | [facility] | | [address] | | | - LABORATORY | | [...] | | | | | | n [place] | | | | | + +--------+ [...] | | | + +---------+ + + CT Angiogram Chest W Contrast [...] were | | | [facility], [facility] at [...] this study were reported by the [facility] | | Imagingradiologist on October 04, 2019 [...] study were reported by the [facility] | |radiologist on October 04, 2019 [...] to and read back | | [facility] | | | 2 NAAT | by [...] + | [facility] | [address] | [place] | [phone] | | [facility] | | [address] | | | - LABORATORY | | | | + + + + + Culture, MRSA (10/03/2019 10:47 PM PDT) + + + + + + | Component | Value | Ref Range | Performed | Pathologist | | | | | At | Signature | + + + + + + | Culture | Negative for MRSA by | | [facility] | | | | chromogenic agar method. | | [facility] | | | [...] [address] | [place] | [phone] | | [facility] | | [address] | | | - LABORATORY | | [...] | | | + +---------+ + + from Last 3 Months Insurance + +--------+ +--------+ +---------+--------+ | Payer | Benefi | Subscriber | Effect | Phone | Address | Type | | | t Plan | ID | richie | | | | | | / | | Dates | | | | | | Group | | | | | | + +--------+ +--------+ +---------+--------+ | MEDICARE | MEDICA | [id number] | 11/16/19 | [phone] | | Medica | | | RE | | 17-Pre | 5 | | re | | | PART A | | sent | | | | | | AND B | | | | | | + +--------+ +--------+ +---------+--------+ | [employer] | M[employer]UAL | [id number] | 11/16/19 | [phone] | | Indemn | | | AND | | 17-Pre | 0 | | ity | | | [place] | | sent | | | | | | [place] | | | | | | | | MDCR | | | | | | | | SUPPL | | | | | | + +--------+ +--------+ +---------+--------+ + +--------+ +--------+ + + | Guarantor Name | Accoun | Relation to | Date | Phone | Billing Address | | | t Type | Patient | of | | | | | | | | | | + +--------+ +--------+ + + | Hyun Harper | Person | Self [birth year] | [address] | | | al/Fam | | 1951 | [phone] | [place] [address] | | | madelyn | | | 9 (Home) | | + +--------+ +--------+ + + Advance Directives + + + + + | Type | Date Recorded | Patient | Explanation | | | | Reception | | + + + + + | Power of | | | | | Car Pincher | | | | + + + + + | Advance | 10/04/2019 3:28 | | | | Directive | PM | | | + + + + + + + + + + | Code Status | Date | Date | Comments | | | Activated | Inactivated | | + + + + + | Full Code | 10/03/2019 | 10/07/2019 | | | | 10:29 PM | 3:28 PM | | + + + + +
--- OUTSIDE RECORDS SUMMARY | ~2019-10-08 | XMS | Encounter Summary ---
Demographics + + + | Address | [address] | | | [place] [address] | + + + | Home Phone | | + + + | Preferred Language | Unknown | + + + | Marital Status | | + + + | Congregational Affiliation | 1077 | + + + | Race | Unknown | + + + | Ethnic Group | Unknown | + + + Author + + + | Author | [facility] | | | and Jasana | + + + | Organization | [facility] | | | and Jasana [...] Team Providers + +------+ + | Care Sleeping Car Conductor Name | Role | Phone | + [...] | | | PAULO [address]AR [address] | [place] [address] | | | | | [place] [address] | | | | | | [phone] | | | +--------+ + + + [...] | | | | | | [place] | | | | | | [address] | | | | | | | [...]
--- OUTSIDE RECORDS SUMMARY | ~2019-10-08 | XMS | Encounter Summary ---
Demographics + + + | Address | [address] | | | [place] [address] | + + + | Home Phone | | + + + | Preferred Language | Unknown | + + + | Marital Status | | + + + | Catholic Affiliation | 1077 | + + + | Race | Unknown | + + + | Ethnic Group | Unknown | + + + Author + + + | Author | [facility] | | | and Jasana | + + + | Organization | [facility] | | | and Jasana [...] Team Providers + +------+ + | Care General Operations Agent Name | Role | Phone | + [...] +--------+--------+ + + + + Encounter Details +--------+ + + + + | Date | Type | Department | Care Team | Description | +--------+ + + + + | 10/02/ | Hospital | [facility] | Tal Bailey MD | Hypertensive | | 2020 - | Encounter | MED CTR ICU [address] | [address] | emergency; NSTEMI | | | | [place], | [place] | (non-ST elevated | | 10/06/ | | [place] [address] | [address] | myocardial | | 2019 | | [phone] | | infarction) (HCC) | | | | | Manoj Fuentes MD | | | | | | [address] | | | | | | [place], [place] | | | | | | [address] | | | | | | | | +--------+ + [...] in this encounter Discharge Instructions Instructions Kayla Regan, PharmD - . Apply heating pad(low setting) to left arm at least 1 hour 3 times daily; more if desired is OK 2. For temperature of 101 degrees return to ER or call Dr Feuntes 3. May call Dr Fuentes for questions at [phone] from 7 am to 7 pm until 10/09 at 7 pm fo r questions Medication Costs: Fill your medications at [facility] they have the lowest lance carolina if insurance does not co eleanor the medications. amLODIPine -- $9 for 30-day supply atorvaSTATin --$15 for 30-day supply clopidogrel --$15 for 30-day supply labetalol --$20.49 for 30-day supply (with GoodRx coupon) nitroglycerin --$10.95 for 25 tablets (with GoodRx coupon) Aspirin 81 mg-- available fxdc-lpy-duwhyzs; around $4 for 100 tablets Sodium chloride nasal spray--Equate ([facility] brand) available [id number]-[id number], around $4 for one bottle documented in [...] tablet by | 90 | 0 | 05/22/20 | | | (PLAVIX) 75 mg | [...] as of this encounter Progress Notes Kayla Regan, PharmD - 10/07/2019 2:31 PM PDTHyun Harper was admitted for NSTEMI and hypertensive emergency and discharged home today (10/07/2019) Taught AVS education to patient. Education was focused on new medications and/or changed me dications. I explained indication, how to take, possible side effects, when to contact physi shivam, and monitor parameters. The patient was reminded of follow-up appointment with methods specialist engineer and encouraged to make a follow-up appointment [...] healthcare providers and keep list current. Kayla Regan, PharmBeatrice 10/07/2019 2:30 PM Manoj Wesley M D - 10/06/2019 8:38 AM PDT [facility] Hospitalist Progress Note Hyun Harper is [...] yesterday morning. In the emergency room at [facility] she received 5 mg of IV metoprolol, 324 mg of aspirin, and a dose of Lovenox transferred here. On presentatio n she had a CTA which was negative for aortic dissection. Troponin has progressively risen and currently plateauing at 26. Patient was taken to the Press Supervisor 10/04 with multivessel disease including RCA, circumflex, [...] above. Manoj Fuentes MD 10/06/2019 8:38 AM [facility] Portions of this chart may have been created with Webcollage voice recognition software. Occasi onal wrong-word or sound-alike substitutions may have occurred due to the inherent solitario itations of voice recognition software. Please read the chart carefully and recognize, using context, where these substitutions have occurred arManoj lewis MD - 0 10/05/2019 7:34 AM PDT [facility] Hospitalist Progress Note Hyun Harper is [...] yesterday morning. In the emergency room at [facility] she received 5 mg of IV metoprolol, [...] Intake/Output Summary (Last 24 hours) at 10/05/2019 1177 Last data filed at 10/05/2019 0416 Gross [...] above. Manoj Fuentes MD 10/05/2019 7:34 AM [facility] Portions of this chart may have been created with [employer]coll[employer] voice recognition software. Occasi onal wrong-word or [...] 3 months, 1 beer yearly Best possible [employer] medication list after pharmacy review: PT REPORTED TAKING NOT TAKING Medication Sig Last Dose Dispense Doc. Provider ibuprofen (ADVIL, MOTRIN) 200 mg tablet Take 200 mg by mouth every 6 hours as needed for P ain. Taking Differently Historical Provider, Medication review performed and electronically signed by Magda Lucia, Statement Distribution Clerk 2019 3:50 PM Reviewed by Kayla Regan, PharmD 10/04/2019 3:58 PM Manoj Wesley M D - 10/04/2019 7:28 AM PDT [facility] Hospitalist Progress Note Hyun Harper is [...] yesterday morning. In the emergency room at [facility] she received 5 mg of IV metoprolol, [...] embolism or other acute process in the [facility]. Signed by: Michel Raymond Robin Sign Date/Time: 10/04/2019 4:04 AM Total time of approximately 40 minutes was spent with the patient and/or patient's family, and/or on the patient's floor/unit, of which more than 50% was spent counseling and/or coord ination the patient's care as outlined above. Manoj Fuentes MD 10/04/2019 7:28 AM [facility] Portions of this chart may have been created with Webcollage voice recognition software. Occasi onal wrong-word or [...] | +--------+---------+ + + + | 11/07/ Office | Cardiology | Lj Barker MD | | | 2019 | Visit | | [address] | | | | | | [place] | | | | | | [address] | | | | | | | [...] | | POC | | | [facility] | | | | | | [...] [address] | [place] | [phone] | | [facility] | | [address] | | | - LABORATORY | | [...] + | [facility] | [address] | [place] | [phone] | | [facility] | | [address] | | | - LABORATORY | | [...] collected: 07 Oct 2019 @ | | [facility] | | | | [id number] agree with [...] clinically. | | | | | | Conor Pathologist | | | | | | Date: [...] [address] | [place] | [phone] | | [facility] | | [address] | | | - LABORATORY | | [...] [address] | [place] | [phone] | | [facility] | | [address] | | | - LABORATORY | | [...] New | 120 - 246 U/L | [facility] [employer] | | | | method in use as of | | [facility] | | | | July 14, [...] + | [facility] | [address] | [place] | [phone] | | [facility] | | [address] | | | - LABORATORY | | [...] | | | | | mmol/L | [facility] | | | | | | [...] 17 | 9 - 23 mg/dL | [facility] | | | | | [facility] | | | | | | MEDICAL | | | | | | CENTER - | | | | | | LABORATORY | | + + + + + + | Creatinine | 1.15 (H) | 0.55 - 1.02 | [facility] | | | | | mg/dL | [facility] | | | | | | MEDICAL | | | | | | CENTER - | | | | | | LABORATORY | | + + + + + + | eGFR if not | 47 (L)Comment: | >=60 | [facility] | | | | GLOMERULAR FILTRATION | mL/min/1.73m2 | [facility] | | | [place] | RATE,ESTIMATED | | MEDICAL | | | | mL/min/1.79z7Xnjl than | | CENTER - | | [...] [address] | [place] | [phone] | | [facility] | | [address] | | | - LABORATORY | | [...] + | [facility] | [address] | [place] | [phone] | | [facility] | | [address] | | | - LABORATORY | | | | + + + + + POC Glucose (10/06/2019 8:38 PM PDT) + +---------+ + + + | Component | Value | Ref Range | Performed | Pathologist | | | | | At | Signature | + +---------+ + + + | Glucose, | 155 (H) | 70 - 109 mg/dL | [facility] | | | POC | | | [...] + | [facility] | [address] | [place] | [phone] | | [facility] | | [address] | | | - LABORATORY | | [...] | | POC | | | [facility] | | | | | | [...] [address] | [place] | [phone] | | [facility] | | [address] | | | - LABORATORY | | [...] + | [facility] | [address] | [place] | [phone] | | [facility] | | [address] | | | - LABORATORY | | [...] | | Blood in | | | [facility] | | | 1st | | | [...] + | [facility] | [address] | [place] | [phone] | | [facility] | | [address] | | | - LABORATORY | | [...] | | | POC | | | [facility] | | | | | [...] [address] | [place] | [phone] | | [facility] | | [address] | | | - LABORATORY | | [...] [address] | [place] | [phone] | | [facility] | | [address] | | | - LABORATORY | | [...] | | | A1c | | | [facility] | | | | | | MEDICAL | | | | | | CENTER - | | | | | | LABORATORY | | + +-------+ + + + | Estimated | 105 | mg/dL | [facility] | | | Average | | | [facility] | | | Glucose | | [...] [address] | [place] | [phone] | | [facility] | | [address] | | | - LABORATORY | | [...] 29 pg are an early | | [facility] | | | Hemoglobin | indicator [...] [address] | [place] | [phone] | | [facility] | | [address] | | | - LABORATORY | | | | + + + + + Folate (10/06/2019 3:54 AM PDT) + +-------+ + + + | Component | Value | Ref Range | Performed | Pathologist | | | | | At | Signature | + +-------+ + + + | FOLATE | 13.9 | >5.4 ng/mL | [facility] | | | | [...] + | [facility] | [address] | [place] | [phone] | | [facility] | | [address] | | | - LABORATORY | | [...] ST. | [address] | [place] | [phone] | | [facility] | | [address] | | | - LABORATORY | | [...] [address] | [place] | [phone] | | [facility] | | [address] | | | - LABORATORY | | [...] [facility] | | | | | | . [facility] | | | | | | [...] + | [facility] | [address] | [place] | [phone] | | [facility] | | [address] | | | - LABORATORY | | [...] | mL/min/1.73m2 | [facility] | | | [place] | RATE,ESTIMATED | | MEDICAL | | | | mL/min/1.94f5Pkpe than | | CENTER - | | [...] [address] | [place] | [phone] | | [facility] | | [address] | | | - LABORATORY | | [...] | | | | | BINH ESQUIVEL ([address]) on | | | | | | [...] [address] | [place] | [phone] | | [facility] | | [address] | | | - LABORATORY | | [...] [address] | [place] | [phone] | | [facility] | | [address] | | | - LABORATORY | | [...] [address] | [place] | [phone] | | [facility] | | [address] | | | - LABORATORY | | [...] medications administered | | | by the Press Supervisor nurse under my supervision. Patient tolerated | [...] | | Clotting | | second(s) | [facility] | | | Time, POC | [...] ST. | [address] | [place] | [phone] | | [facility] | | [address] | | | - LABORATORY | | | | + + + + + POC ACT (10/05/2019 9:45 AM PDT) + +---------+ + + + | Component | Value | Ref Range | Performed | Pathologist | | | | | At | Signature | + +---------+ + + + | Activated | 289 (H) | 125 - 175 | [facility] | | | Clotting | | second(s) | [facility] | | | Time, POC | [...] [address] | [place] | [phone] | | [facility] | | [address] | | | - LABORATORY | | [...] + | [facility] | [address] | [place] | [phone] | | [facility] | | [address] | | | - LABORATORY | | [...] | | | | mmol/L | [facility] | | | | [...] not | 51 (L)Comment: | >=60 | [facility] | | | | GLOMERULAR FILTRATION | mL/min/1.73m2 | [facility] | | | [place] | RATE,ESTIMATED | | MEDICAL | | | | mL/min/1.57b5Jtvz than | | CENTER - | | [...] [address] | [place] | [phone] | | [facility] | | [address] | | | - LABORATORY | | [...] | Time | | seconds | [facility] | | | | | | [...] [address] | [place] | [phone] | | [facility] | | [address] | | | - LABORATORY | | [...] | | | | | | [employer] | | | | | [...] ST. | [address] | [place], [place] | [phone] | | [facility] | | [address] | | | - LABORATORY | | [...] | | | Granulocyte | | | [facility] | | | s | | | MEDICAL | | | | | | CENTER - | | | | | | LABORATORY | | + + + + + + | Absolute | 7.38 | 1.80 - 8.50 | [facility] | | | Neutrophils | | K/uL | [facility] | [...] | | | | | WBCs | [facility] | | | | [...] + | [facility] | [address] | [place] | [phone] | | [facility] | | [address] | | | - LABORATORY | | [...] (H) | 60 - 106 mg/dL | [facility] | | | | [...] mL/min/1.73m2 | [facility] | | | [place] | RATE,ESTIMATED | | MEDICAL | | | | mL/min/1.69h3Iebk than | | CENTER - | | [...] | 8.9 | 8.7 - 10.4 | [facility] | | | | | mg/dL | [facility] | | | | | | MEDICAL | | | | | | CENTER - | | | | | | LABORATORY | | + + + + + + | BUN/Creatin | 15.2 | | [facility] | | | ine Ratio | | [...] ST. | [address] | [place], [place] | [phone] | | [facility] | | [address] | | | - LABORATORY | | [...] | | es | | | [facility] | | [...] | | Calculated | | | [facility] | | | | | | MEDICAL | | | | | | CENTER - | | | | | | LABORATORY | | + +-------+ + + + + + | Specimen | + + | Blood | + + + + + + + | Performing | Address | City/State/[facility] | Phone Number | | Organization | | | | + + + + + | [facility] | [address] | [place] | [phone] | | [facility] | | [address] | | | - LABORATORY | | [...] | | POC | | | [facility] | | | | | | [...] [address] | [place] | [phone] | | [facility] | | [address] | | | - LABORATORY | | | | + + + + + Culture, Urine (10/04/2019 7:37 PM PDT) + + + + + + | Component | Value | Ref Range | Performed | Pathologist | | | | | At | Signature | + + + + + + | Culture | 100,000 CFU/ml Mixed | | [facility] | | | | Gram Positive | | [facility] | | | | FloraComment: Suggests | [...] ST. | [address] | [place], [place] | [phone] | | [facility] | | [address] | | | - LABORATORY | | [...] - 1.030 | [facility] | | | [place], | | | [facility] | | [...] [address] | [place] | [phone] | | [facility] | | [address] | | | - LABORATORY | | [...] | | | | Comment:Reference | | [facility] | | | | Ranges: 0.00-0.06 = [...] | | | | | | [employer] | | | | | [...] + | [facility] | [address] | [place] | [phone] | | [facility] | | [address] | | | - LABORATORY | | [...] [address] | [place] | [phone] | | [facility] | | [address] | | | - LABORATORY | | [...] | | | | | | [place] | | | | | + +--------+ [...] | | POC | | | [facility] | | | | | | [...] [address] | [place] | [phone] | | [facility] | | [address] | | | - LABORATORY | | [...] + | [facility] | [address] | [place] | [phone] | | [facility] | | [address] | | | - LABORATORY | | [...] | | | | BINH DIOP MD ([address]) | | | | | | on [...] | | es | | | [facility] | | | | | | MEDICAL | | | | | | CENTER - | | | | | | LABORATORY | | + +---------+ + + + | Cholesterol | 197 | <=200 mg/dL | [facility] | | [...] | 140 (H) | <=130 mg/dL | [facility] | | [...] + | [facility] | [address] | [place] | [phone] | | [facility] | | [address] | | | - LABORATORY | | | | + + + + + CBC with Differential (10/04/2019 4:09 AM PDT) + + + + + + | Component | Value | Ref Range | Performed | Pathologist | | | | | At | Signature | + + + + + + | WBC | 7.6 | 4.0 - 11.0 K/uL | [facility] | | | | | | [facility] | | | | | | MEDICAL | | | | | | CENTER - | | | | | | LABORATORY | | + + + + + + | RBC | 3.24 (L) | 3.70 - 5.20 | [facility] | | | | | M/uL | [facility] | | | | | | MEDICAL [...] [address] | [place] | [phone] | | [facility] | | [address] | | | - LABORATORY | | [...] | | | | mmol/L | [facility] | | | | | | [...] 1.03 (H) | 0.55 - 1.02 | [facility] | | | | | mg/dL | [...] mL/min/1.73m2 | [facility] | | | [place] | RATE,ESTIMATED | | MEDICAL | | | | mL/min/1.38e4Pexi than | | CENTER - | | [...] | | | | | mg/dL | [facility] | | | | [...] ST. | [address] | [place], [place] | [phone] | | [facility] | | [address] | | | - LABORATORY | | | | + + + + + Troponin I (10/04/2019 4:09 AM PDT) + + + + + + | Component | Value | Ref Range | Performed | Pathologist | | | | | At | Signature | + + + + + + | Troponin I | 16.27 ()Comment: | <0.06 ng/mL | [facility] | | | | Comment:Reference | | [...] | | | | | | [employer] | | | | | [...] | | | | | | [place]. | | | | + + + + + + + + | Specimen | + + | Blood | + + + + + + + | Performing | Address | City/State/Zipcode | Phone Number | | Organization | | | | + + + + + | [facility] | [address] | [place] | [phone] | | [facility] | | [address] | | | - LABORATORY | | [...] were | | | reported by the [facility] Imaging radiologist on October 04, 2019 at [...] of this study were reported by the [facility] | | Imagingradiologist on October 04, 2019 [...] of this study were reported by the [facility] | |radiologist on October 04, 2019 [...] CENTER - | | | | Jacob Avelar | | LABORATORY | | | | [...] | | | | | | Coronavirus Disease-2018 | | | | | | during [...] [address] | [place] | [phone] | | [facility] | | [address] | | | - LABORATORY | | [...] | | | | BINH DIOP MD ([address]) | | | | | | on [...] [address] | [place] | [phone] | | [facility] | | [address] | | | - LABORATORY | | [...] | | | | Comment:Reference | | [facility] | | | | Ranges: 0.00-0.06 = [...] | | | | | | [employer] | | | | | [...] + | [facility] | [address] | [place] | [phone] | | [facility] | | [address] | | | - LABORATORY | | [...] + | Diagnosis | + + | Hypertensive emergency - Primary Unspecified essential hypertension | + + | NSTEMI (non-ST elevated [...] | | +---+---+ + +-------+ +--------+---+---+ | clopidogrel (PLAVIX) tablet 300 | Given | 10/07/19 | 300 mg | | | | mg 300 mg, Oral, ONCE, Fri | | 20 12:28 | | | | | 10/07/19 at 1115, For 1 dose | | PM PDT | | | | + +-------+ +--------+---+---+ + +---+ | | | + +---+ [...] | | | + +---+ + +-------+ +------+---+---+ | diazePAM (VALIUM) tablet 5 mg | Given | 10/05/19 | 5 mg | | | | 5 mg, Oral, DIRECTOR SUPPLY, Starting Wed | | 20 7:53 | | | | | 10/05/19 at 0729, For 1 dose, | | AM PDT | | | | | Pre-op | | | | | | + +-------+ +------+---+---+ +---+---+ | | | +---+---+ + +---------+ [...] | | | | First dose on [facility] 10/06/19 at | | | | [...] | | | | | | | [phone] Use NIGHT DOSE for | | | | | | | doses scheduled: HS, | | | | | | | Nighttime 6937-1692 If the BG is | | | [...] iohexol (OMNIPAQUE 350) 350 | Given | 10/04/19 | 100 mLs | | | | mg/mL injection 100 mL 100 mL, | | 20 3:51 | | | | | Intravenous, ONCE PRN, Other, | | AM PDT | | | | | Starting Thu10/04/19 at 0351, For | | | | | | | 1 dose, Cat Scanner | | | | | | + +-------+ +---------+---+---+ +---+---+ | | | +---+---+ + +-------+ +--------+---+---+ | labetalol (NORMODYNE) tablet | Given | 10/04/19 | 100 mg | | | | 100 mg 100 mg, Oral, 2 TIMES | | 20 8:04 | | | | | DAILY, First dose on Thu10/04/19 | | PM PDT | | | | | at 1315 | | | | | | + +-------+ +--------+---+---+ +-------+ +--------+---+---+ | Given | 10/04/19 | 100 mg | | | | | 20 2:09 | | | | | | PM PDT | | | | +-------+ +--------+---+---+ +---+---+ | | | +---+---+ + +-------+ +--------+---+---+ | labetalol (NORMODYNE) tablet | Given | 10/05/19 | 200 mg | | | | 200 mg 200 mg, Oral, 2 TIMES | | 20 11:15 | | | | | DAILY, First dose (after last | | PM PDT | | | | | modification) on [facility] 10/05/19 at | | | | | | | 0900 | | | | | | + +-------+ +--------+---+---+ +-------+ +--------+---+---+ | Given | 10/05/19 | 200 mg | | | | | 20 6:38 | | | | | | PM [...] | | | | | modification) on [facility] 10/06/19 at | | | | [...] | | | | | 10/04/19 at 0723 | | | | | | + +-------+ +-------+---+---+ +-------+ +-------+---+---+ | Given | 10/05/19 | 20 mg | | | | | 20 6:03 | | | | | | PM PDT | | | | +-------+ +-------+---+---+ | Given | 10/05/19 | 20 mg | | | | | 20 5:24 | | | | | | PM PDT | | | | +-------+ +-------+---+---+ + +---+ | | | + +---+ | labetalol (TRANDATE) 5 mg/mL | | | injection Starting 10/04/19 | | | at 0728, For 1 dose, Hellen, | | | Gail: kimberly edwards, | | + +---+ | | | + +---+ + + + +---------+ +---+ | nitroglycerin in dextrose 200 | Rate/Dos | 10/04/19 | 90 | 27 mL/hr | | | mcg/mL infusion 0-200 mcg/min | e Change | 20 7:13 | mcg/min | | | | (0-60 mL/hr), at 0-60 mL/hr, | | AM PDT | | | | | Intravenous, TITRATED, Starting | | | | | | | 10/03/19 at 2345, Titration | | | | | | | Instruction: See below, Goal: SBP | | | | | | | less than 160, Initial dose: 5 | | | | | | | mcg/min, Increase rate by: 5 | | | | | | | mcg/min every 5 minutes until 20 | | | | | | | mcg/min achieved, then increase | | | | | | | by 10 mcg/min every 5 minutes., | | | | | | | Decrease rate by: 10 mcg/min | | | | | | | every 5 minutes., *: Titrate drug | | | | | | | per order as tolerated. | | | | | | | Titration may vary based on the | | | | | | | patient | | | | | | | | | | | | | | s critical condition. | | | | | | + + + +---------+ +---+ + + +---------+ +---+ | Rate/Dose Change | 10/04/19 | 80 | 24 mL/hr | | | | 20 5:00 | mcg/min | | | | | AM PDT | | | | + + +---------+ +---+ | Rate/Dose Change | 10/04/19 | 70 | 21 mL/hr | | | | 20 4:00 | mcg/min | | | | | AM PDT | | | | + + +---------+ +---+ +---+---+ | | | +---+---+ + + + +---------+ +---+ | nitroglycerin in dextrose 200 | Rate/Dos | 10/04/ | 50 | 15 mL/hr | | | mcg/mL infusion 0-200 mcg/min | e Change | 20 4:55 | mcg/min | | | | (0-60 mL/hr), at 0-60 mL/hr, | | AM PDT | | | | | Intravenous, TITRATED, Starting | | | | | | | 10/04/19 at 0800, Titration | | | | | | | Instruction: See below, Goal: | | | | | | | Other, Other goal: SBP<150, | | | | | | | Initial dose: 5 mcg/min, Increase | | | | | | | rate by: 5 mcg/min every 5 | | | | | | | minutes until 20 mcg/min | | | | | | | achieved, then increase by 10 | | | | | | | mcg/min every 5 minutes., | | | | | | | Decrease rate by: 10 mcg/min | | | | | | | every 5 minutes., *: Titrate drug | | | | | | | per order as tolerated. | | | | | | | Titration may vary based on the | | | | | | | patient | | | | | | | | | | | | | | s critical condition. | | | | | | + + + +---------+ +---+ + + +---------+ +---+ | Rate/Dose Change | 10/04/ | 60 | 18 mL/hr | | | | 20 3:12 | mcg/min | | | | | AM PDT | | | | + + +---------+ +---+ | Rate/Dose Change | 10/05/19 | 70 | 21 mL/hr | | | | 20 12:01 | mcg/min | | | | | AM PDT | | | | + + +---------+ +---+ + +---+ | | | + +---+ | ondansetron (ZOFRAN) 2 mg/mL | | | injection Starting 10/04/19 | | | at 0720, For 1 dose, Hellen, | | | Gail: kimberly edwards, | | + +---+ | | | + +---+ + +-------+ +------+---+---+ | ondansetron (ZOFRAN) injection | Given | 10/04/19 | 4 mg | | | | 4 mg 4 mg, Intravenous, EVERY 4 | | 20 7:25 | | | | | HOURS PRN, Nausea, Vomiting, | | AM PDT | | | | | Starting Tu10/04/19 at 0720 | | | | | [...] | | +---+---+ + +-------+ +-------+---+---+ | perflutren lipid microspheres | Given | 10/04/19 | 2 mLs | | | | (DEFINITY) injection 2 mL 2 mL, | | 20 12:41 | | | | | Intravenous, ONCE PRN, Other, | | PM PDT | | | | | Starting 10/04/19 at 1241, For | | | | | | | 1 dose, Echo | | | | | | + +-------+ +-------+---+---+ +---+---+ | | | +---+---+ + +-------+ + +---+---+ | sodium chloride (OCEAN) 0.65% | Given | 10/07/19 | 2 sprays | | | | nasal spray 2 spray 2 spray, | | 20 8:38 | | | | | Each Nare, 4 TIMES DAILY, First | | AM PDT | | | | | dose on [facility] 10/06/19 at 0900 | | | [...] +---+---+ +---+---+ | | | +---+---+ + +---------+ +---------+-------+---+ | sodium chloride 0.9% (NS) bolus | New Bag | 10/05/19 | 250 mLs | 250 | | | 250 mL 250 mL, Intravenous, | | 20 7:55 | | mL/hr | | | Administer over 1 Hours, ONCE, | | AM PDT | | | | | 10/05/19 at 0800, For 1 dose | | | | | | + +---------+ +---------+-------+---+ +---+---+ | | | +---+---+ + +---------+ +---------+--------+---+ | sodium chloride 0.9% (NS) bolus | New Bag | 10/05/19 | 615 mLs | 102.5 | | | 615 mL 615 mL (6 mL/kg | | 20 11:16 | | mL/hr | | | 102.5 kg), Intravenous, | | AM PDT | | | | | Administer over 6 Hours, ONCE, | | | | | | | 10/05/19 at 1130, For 1 dose, | | | | | | | 1 ml/kg/hr x 6 hours, | | | | | | | Post-op/Phase II | | | | | | + +---------+ +---------+--------+---+ +---+---+ | | | +---+---+ + +-------+ +-------+---+---+ | ticagrelor (BRILINTA) tablet 90 | Given | 10/07/19 | 90 mg | | | | mg 90 mg, Oral, 2 TIMES DAILY, | | 20 8:38 | | | | | First dose on Thu10/05/19 at | | AM PDT | | | | | 2315, Start about 12 hours after | | | | | | | loading dose., Post-op/Phase II | | | | | | + +-------+ +-------+---+---+ +-------+ +-------+---+---+ | Given | 10/06/19 | 90 mg | | | | | 20 8:39 | | | | | | PM PDT | | | | +-------+ +-------+---+---+ | Given | 10/06/19 | 90 mg | | | | | 20 9:41 | | | | | | AM PDT | | | | +-------+ +-------+---+---+ +---+---+ | | | +---+---+ documented in this encounter
--- OUTSIDE RECORDS SUMMARY | ~2019-10-08 | XMS | Encounter Summary ---
Demographics + + + | Address | [address] | | | [place] [address] | + + + | Home Phone | | + + + | Preferred Language | Unknown | + + + | Marital Status | | + + + | Quaker Affiliation | 1077 | + + + | Race | Unknown | + + + | Ethnic Group | Unknown | + + + Author + + + | Author | [facility] | | | and Jasana | + + + | Organization | [facility] | | | and [...] Team Providers + +------+ + | Care Assistant Business Manager Name | Role | Phone | + +------+ + | Jacob Rodríguez DO | PCP | | + +------+ + Encounter Details +--------+--------+ + + + | Date | Type | Department | Care Team | Description | +--------+--------+ + + + | 10/02/ | Intake | [facility] | | N/A | | 2019 | | [place] [address] | | | | | | Renan Solis | | | | | | [place] | | | | | | [id number] | | | | | | [phone] | | | +--------+--------+ + + + [...] AHN | | | | | | [id number] | | | | | | | | +--------+---------+ + + + documented as of this encounter Visit Diagnoses Not on filedocumented in this encounter"
--- OUTSIDE RECORDS SUMMARY | ~2019-10-08 | XMS | Clinical Summary ---
Demographics + + + | Address | [address] | | | [place] [address] | + + + | Home Phone | | + + + | Preferred Language | Unknown | + + + | Marital Status | | + + + | Hoahaoism Affiliation | 1077 | + + + | Race | Unknown | + + + | Ethnic Group | Unknown | + + + Author + + + | Author | [facility] | | | and Jasana | + + + | Organization | [facility] | | | and Jasana [...] Team Providers + +------+ + | Care Material Planner Name | Role | Phone | + [...] | + + + + | INFLUENZA, [id number], | 05/05/2009 | | | UNSPECIFIED | [...] [place] | | | | | | [address] | | | | | | | [...] 8 | Stent | | [place] | [id number] | 10/28/ | [id number] | | - [id number]: Qty: 1 | | | SCIENTIFIC | [id number] | 2019 | [id number] | | on 10/05/2019 by Lj Barker | | | PATO - BSCI | 72 | | 50 / | | MD Miguel at [facility] | | | | | | /[id number] | | [facility] | | | | | | 767 | + +-------+------+ +--------+--------+--------+ + + | Description:cx | + + + +-------+---+ +--------+--------+--------+ | Stent Carroll Synergy Mr 3.0 X 32 | Stent | | [place] | 112125 | 12/27/ | [id number] | | - [id number]: Qty: | | | SCIENTIFIC | [id number] | 2019 | [id number] | | 1 on 10/05/2019 by Mj, | | | PATO - BSCI | 50 | | 00 / | | Lj Rivera MD at [facility] | | | | | | /[id number] | | [facility] | | | | | | 9[address] [...] [address] | [place] | [phone] | | [facility] | | [address] | | | - LABORATORY | | [...] + | [facility] | [address] | [place], [place] | [phone] | | [facility] | | [address] | | | - LABORATORY | | [...] [address] | [place] | [phone] | | [facility] | | [address] | | | - LABORATORY | | [...] New | 120 - 246 U/L | [place] | | | | method in use as of | | [facility] | | | | July 14, 2018. [...] [address] | [place] | [phone] | | [facility] | | [address] | | | - LABORATORY | | [...] [address] | [place] | [phone] | | [facility] | | [address] | | | - LABORATORY | | [...] 1.15 (H) | 0.55 - 1.02 | [place] | | | | | mg/dL | [facility] | | | | | | MEDICAL | | | | | | CENTER - | | | | | | LABORATORY | | + + + + + + | eGFR if not | 47 (L)Comment: | >=60 | [facility] | | | | GLOMERULAR FILTRATION | mL/min/1.73m2 | [facility] | | | [place] | RATE,ESTIMATED | | MEDICAL | | | | mL/min/1.49z9Jvro than | | CENTER - | | [...] + | [facility] | [address] | [place] | [phone] | | [facility] | | [address] | | | - LABORATORY | | [...] ST. | [address] | [place] | [phone] | | [facility] | | [address] | | | - LABORATORY | | [...] [address] | [place] | [phone] | | [facility] | | [address] | | | - LABORATORY | | [...] + | [facility] | [address] | [place] | [phone] | | [facility] | | [address] | | | - LABORATORY | | [...] | Reticulocyt | | M/uL | [facility] | | | e Count | | | MEDICAL | | | | | | CENTER - | | | | | | LABORATORY | | + + + + + + | Immature | 24.1 (H)Comment: Values | 2.3 - 15.9 % | [facility] | | | Reticulocyt | above normal range | | [facility] | | | e Fraction | indicate [...] [address] | [place] | [phone] | | [facility] | | [address] | | | - LABORATORY | | [...] [address] | [place] | [phone] | | [facility] | | [address] | | | - LABORATORY | | [...] [address] | [place] | [phone] | | [facility] | | [address] | | | - LABORATORY | | [...] ST. | [address] | [place] | [phone] | | [facility] | | [address] | | | - LABORATORY | | [...] | | | | | BINH ESQUIVEL (43185) on | | | | | | [...] medications administered | | | by the Mine Development Engineer nurse under my supervision. Patient tolerated | [...] [address] | [place] | [phone] | | [facility] | | [address] | | | - LABORATORY | | [...] [address] | [place] | [phone] | | [facility] | | [address] | | | - LABORATORY | | [...] [address] | [place] | [phone] | | [facility] | | [address] | | | - LABORATORY | | [...] | | | | | | [employer] | | | | | [...] + + | Performing | Address | City/State/[facility] | Phone Number | | Organization | | | | + + + + + | [facility] | [address] | [place] | [phone] | | [facility] | | [address] | | | - LABORATORY | | [...] [address] | [place] | [phone] | | [facility] | | [address] | | | - LABORATORY | | [...] - 1.030 | [facility] | | | [place], | | | [facility] | | [...] [address] | [place] | [phone] | | [facility] | | [address] | | | - LABORATORY | | [...] | | | Gram Positive | | [facility] | | | | FloraComment: Suggests | [...] ST. | [address] | [place], [place] | [phone] | | [facility] | | [address] | | | - LABORATORY | | [...] | | | | | | n [place] | | | | | + +--------+ [...] [address] | [place] | [phone] | | [facility] | | [address] | | | - LABORATORY | | [...] [address] | [place] | [phone] | | [facility] | | [address] | | | - LABORATORY | | [...] +--------+ +---------+--------+ | MEDICARE | MEDICA | [id number] | 11/16/19 | [phone] | | Medica | | | RE | | 17-Pre | 5 | | re | | | PART A | | sent | | | | | | AND B | | | | | | + +--------+ +--------+ +---------+--------+ | [employer] | MUTUAL | [id number] | 11/16/19 | [phone] | | Indemn | | | AND | | 17-Pre | 0 | | ity | | | UNITED | | sent | | | | | | [place] | | | | | | | [...] | 1951 | [phone] | [place] [address] | | | madelyn | | | 9 (Home) | | + +--------+ +--------+ + + Advance Directives + + + + + | Type | Date Recorded | Patient | Explanation | | | | Emergency Management Program Specialist | | + + + + + | Power of | | | | | Coffee Bar Attendant | | | | + + + [...]
--- OUTSIDE RECORDS SUMMARY | ~2019-10-08 | XMS | Encounter Summary ---
Demographics + + + | Address | [address] | | | [place] [address] | + + + | Home Phone | | + + + | Preferred Language | Unknown | + + + | Marital Status | | + + + | Latter-Day Affiliation | 1077 | + + + | Race | Unknown | + + + | Ethnic Group | Unknown | + + + Author + + + | Author | [facility] | | | and Jasana | + + + | Organization | [facility] | | | and [...] Team Providers + +------+ + | Care Colorist Formulator Name | Role | Phone | + [...] + + | 10/02/ | Hospital | [facility] | Tal Bailey MD | Hypertensive | | 2020 - | Encounter | MED CTR ICU [address] | [address] | emergency; NSTEMI | | | | [place], | [place] | (non-ST elevated | | 10/06/ | | [place] [address] | [address] | myocardial | | 2019 | | [phone] | | infarction) (HCC) | | | | | Manoj Fuentes MD | | | | | | [address] | | | | | | [place], [place] | | | | | | [address] | | | | | | | [...] May call Dr Fuentes for questions at [phone] from 7 am to 7 pm until 10/09 at 7 pm fo r questions Medication Costs: Fill your medications at [facility], they have the lowest lance [place]ol[place] if insurance does not co eleanor the medications. amLODIPine -- $9 for 30-day supply atorvaSTATin --$15 for 30-day supply clopidogrel --$15 for 30-day supply labetalol --$20.49 for 30-day supply (with GoodRx coupon) nitroglycerin --$10.95 for 25 tablets (with GoodRx coupon) Aspirin 81 mg-- available [id number]; around $4 for 100 tablets Sodium chloride nasal spray--Equate ([facility] brand) available [id number]-[id number], around $4 for one bottle documented in [...] patient was reminded of follow-up appointment with micromatic hone operator and encouraged to make a follow-up appointment [...] M D - 10/06/2019 8:38 AM PDT [facility] Hospitalist Progress Note Hyun Harper [...] yesterday morning. In the emergency room at [facility] she received 5 mg of IV metoprolol, 324 mg of aspirin, and a dose of Lovenox transferred here. On presentatio n she had a CTA which was negative for aortic dissection. Troponin has progressively risen and currently plateauing at 26. Patient was taken to the Social Work Administrator 10/04 with multivessel disease including RCA, circumflex, [...] above. Manoj Fuentes MD 10/06/2019 8:38 AM [facility] Portions of this chart may have been created with Duable Chinese voice recognition software. Occasi onal wrong-word or sound-alike substitutions may have occurred due to the inherent solitario itations of voice recognition software. Please read the chart carefully and recognize, using context, where these substitutions have occurred arManoj lewis MD - 0 10/05/2019 7:34 AM PDT [facility] PMG Hospitalist Progress Note Hyun Harper [...] yesterday morning. In the emergency room at [facility] she received 5 mg of IV metoprolol, [...] Intake/Output Summary (Last 24 hours) at 10/05/2019 0870 Last data filed at 10/05/2019 0416 Gross [...] above. Manoj Fuentes MD 10/05/2019 7:34 AM [facility] Portions of this chart may have been created with Duable Chinese voice recognition software. Occasi onal wrong-word or sound-alike substitutions may have occurred due to the inherent soiltario itations of voice recognition software. 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 Provider ibuprofen (ADVIL, MOTRIN) 200 mg tablet Take 200 mg by mouth every 6 hours as needed for P ain. Taking Differently Historical Provider, Medication review performed and electronically signed by Magda Lucia, Director Of Acquisitions 2019 3:50 PM Reviewed by Kayla Regan, PharmD 10/04/2019 3:58 PM Manoj Wesley M D - 10/04/2019 7:28 AM PDT [facility] PMG Hospitalist Progress Note Hyun Harper [...] yesterday morning. In the emergency room at [facility] she received 5 mg of IV metoprolol, [...] embolism or other acute process in the [facility]. Signed by: Michel Raymond Robin Sign Date/Time: 10/04/2019 4:04 AM Total time of approximately 40 minutes was spent with the patient and/or patient's family, and/or on the patient's floor/unit, of which more than 50% was spent counseling and/or coord ination the patient's care as outlined above. Manoj Fuentes MD 10/04/2019 7:28 AM [facility] Portions of this chart may have been created with Duable Chinese voice recognition software. Occasi onal wrong-word or [...] | | | | | [place] | | | | | | [address] | | | | | | | [...] | | POC | | | [facility] | | | | | [...] [address] | [place] | [phone] | | [facility] | | [address] | | | - LABORATORY | | [...] + | [facility] | [address] | [place] | [phone] | | [facility] | | [address] | | | - LABORATORY | | [...] collected: 07 Oct 2019 @ | | [facility] | | | | [address]I agree with [...] [address] | [place] | [phone] | | [facility] | | [address] | | | - LABORATORY | | [...] [address] | [place] | [phone] | | [facility] | | [address] | | | - LABORATORY | | [...] New | 120 - 246 U/L | [facility] | | | | method in use [...] + | [facility] | [address] | [place] | [phone] | | [facility] | | [address] | | | - LABORATORY | | [...] mL/min/1.73m2 | [facility] | | | [place] | RATE,ESTIMATED | | MEDICAL | | | | mL/min/1.68f7Ypsb than | | CENTER - | | [...] [address] | [place] | [phone] | | [facility] | | [address] | | | - LABORATORY | | [...] + | [facility] | [address] | [place] | [phone] | | [facility] | | [address] | | | - LABORATORY | | [...] + | [facility] | [address] | [place] | [phone] | | [facility] | | [address] | | | - LABORATORY | | [...] | | POC | | | [facility] | | | | | [...] [address] | [place] | [phone] | | [facility] | | [address] | | | - LABORATORY | | [...] + | [facility] | [address] | [place] | [phone] | | [facility] | | [address] | | | - LABORATORY | | [...] | | Blood in | | | [facility] | | | 1st | | | [...] + | [facility] | [address] | [place] | [phone] | | [facility] | | [address] | | | - LABORATORY | | [...] | | | POC | | | [facility] | | | | | | MEDICAL [...] [address] | [place] | [phone] | | [facility] | | [address] | | | - LABORATORY | | [...] [address] | [place] | [phone] | | [facility] | | [address] | | | - LABORATORY | | [...] [address] | [place] | [phone] | | [facility] | | [address] | | | - LABORATORY | | [...] [address] | [place] | [phone] | | [facility] | | [address] | | | - LABORATORY | | [...] + | [facility] | [address] | [place] | [phone] | | [facility] | | [address] | | | - LABORATORY | | [...] ST. | [address] | [place] | [phone] | | [facility] | | [address] | | | - LABORATORY | | [...] [address] | [place] | [phone] | | [facility] | | [address] | | | - LABORATORY | | [...] + | [facility] | [address] | [place] | [phone] | | [facility] | | [address] | | | - LABORATORY | | [...] | mL/min/1.73m2 | [facility] | | | [place] | RATE,ESTIMATED | | MEDICAL | | | | mL/min/1.72u4Xsdy than | | CENTER - | | [...] [address] | [place] | [phone] | | [facility] | | [address] | | | - LABORATORY | | [...] | | | | | BINH ESQUIVEL ([address]) on | | | | | | [...] [address] | [place] | [phone] | | [facility] | | [address] | | | - LABORATORY | | [...] [address] | [place] | [phone] | | [facility] | | [address] | | | - LABORATORY | | [...] [address] | [place] | [phone] | | [facility] | | [address] | | | - LABORATORY | | [...] medications administered | | | by the Social Work Administrator nurse under my supervision. Patient tolerated | [...] ST. | [address] | [place] | [phone] | | [facility] | | [address] | | | - LABORATORY | | [...] [address] | [place] | [phone] | | [facility] | | [address] | | | - LABORATORY | | [...] + | [facility] | [address] | [place] | [phone] | | [facility] | | [address] | | | - LABORATORY | | [...] | mL/min/1.73m2 | [facility] | | | [place] | RATE,ESTIMATED | | MEDICAL | | | | mL/min/1.85q7Wsej than | | CENTER - | | [...] [address] | [place] | [phone] | | [facility] | | [address] | | | - LABORATORY | | [...] [address] | [place] | [phone] | | [facility] | | [address] | | | - LABORATORY | | [...] | | | | | | [employer] | | | | | [...] ST. | [address] | [place], [place] | [phone] | | [facility] | | [address] | | | - LABORATORY | | [...] + | [facility] | [address] | [place] | [phone] | | [facility] | | [address] | | | - LABORATORY | | [...] mL/min/1.73m2 | [facility] | | | [place] | RATE,ESTIMATED | | MEDICAL | | | | mL/min/1.55p5Uwzw than | | CENTER - | | [...] ST. | [address] | [place], [place] | [phone] | | [facility] | | [address] | | | - LABORATORY | | [...] + + | Performing | Address | City/State/[facility] | Phone Number | | Organization | | | | + + + + + | [facility] | [address] | [place] | [phone] | | [facility] | | [address] | | | - LABORATORY | | [...] [address] | [place] | [phone] | | [facility] | | [address] | | | - LABORATORY | | [...] | | | Gram Positive | | [facility] | | | | FloraComment: Suggests [...] ST. | [address] | [place], [place] | [phone] | | [facility] | | [address] | | | - LABORATORY | | [...] - 1.030 | [facility] | | | [place], | | | [facility] | | [...] [address] | [place] | [phone] | | [facility] | | [address] | | | - LABORATORY | | [...] | | | | Comment:Reference | | [facility] | | | | Ranges: 0.00-0.06 = [...] | | | | | | [employer] | | | | | [...] + | [facility] | [address] | [place] | [phone] | | [facility] | | [address] | | | - LABORATORY | | [...] [address] | [place] | [phone] | | [facility] | | [address] | | | - LABORATORY | | [...] Volume | | | | | | (Zaays's) | | | | | + +--------+ [...] | | | | | | n [place] | | | | | + +--------+ [...] [address] | [place] | [phone] | | [facility] | | [address] | | | - LABORATORY | | [...] + | [facility] | [address] | [place] | [phone] | | [facility] | | [address] | | | - LABORATORY | | [...] | | | | BINH DIOP MD ([id number]) | | | | | | on [...] + | [facility] | [address] | [place] | [phone] | | [facility] | | [address] | | | - LABORATORY | | [...] [address] | [place] | [phone] | | [facility] | | [address] | | | - LABORATORY | | [...] 0.55 - 1.02 | [facility] | | | | | mg/dL | [...] mL/min/1.73m2 | [facility] | | | [place] | RATE,ESTIMATED | | MEDICAL | | | | mL/min/1.76y4Fgos than | | CENTER - | | [...] ST. | [address] | [place], [place] | [phone] | | [facility] | | [address] | | | - LABORATORY | | | | + + + + + Troponin I (10/04/2019 4:09 AM PDT) + + + + + + | Component | Value | Ref Range | Performed | Pathologist | | | | | At | Signature | + + + + + + | Troponin I | 16.27 ()Comment: | <0.06 ng/mL | [facility] | | | | Comment:Reference | | [...] | | | | | | [employer] | | | | | [...] [address] | [place] | [phone] | | [facility] | | [address] | | | - LABORATORY | | [...] were | | | reported by the [facility] Imaging radiologist on October 04, 2019 at [...] of this study were [facility] | | Imagingradiologist on October 04, 2019 [...] of this study were reported by the [facility] | |radiologist on October 04, [...] [address] | [place] | [phone] | | [facility] | | [address] | | | - LABORATORY | | [...] | | | | BINH DIOP MD ([id number]) | | | | | | on [...] [address] | [place] | [phone] | | [facility] | | [address] | | | - LABORATORY | | [...] | | | | Comment:Reference | | [facility] | | | | Ranges: 0.00-0.06 = [...] | | | | | | [employer] | | | | | [...] + | [facility] | [address] | [place] | [phone] | | [facility] | | [address] | | | - LABORATORY | | [...] | | | | 5 mg, Oral, PROPOSAL DIRECTOR, Starting Wed | | 20 7:53 | [...] | | | | First dose on [facility] 10/06/19 at | | | | [...] | | | | | | | [id number] Use NIGHT DOSE for | | | | | | | doses scheduled: HS, | | | | | | | Nighttime [id number] If the BG is | | | [...] | | | | | modification) on [facility] 10/05/19 at | | | | [...] | | | | | modification) on [facility] 10/06/19 at | | | | [...] | | | | | dose on [facility] 10/06/19 at 0900 | | | [...]
--- OUTSIDE RECORDS SUMMARY | ~2019-10-08 | XMS | Encounter Summary ---
Demographics + + + | Address | [address] | | | [place] [address] | + + + | Home Phone | | + + + | Preferred Language | Unknown | + + + | Marital Status | | + + + | Hinduism Affiliation | 1077 | + + + | Race | Unknown | + + + | Ethnic Group | Unknown | + + + Author + + + | Author | [facility] | | | and Jasana | + + + | Organization | [facility] | | | and Jasana [...] Team Providers + +------+ + | Care Registrar [employer] Name | Role | Phone | + [...] + + | 10/02/ | Hospital | [facility] | Tal Bailey MD | Hypertensive | | 2020 - | Encounter | MED CTR ICU [address] | emergency; NSTEMI | | | | [place], | [place] | (non-ST elevated | | 10/06/ | | [place] [address] | [address] | myocardial | | 2019 | | [phone] | | infarction) (HCC) | | | | | Manoj Fuentes MD | | | | | | [address] | | | | | | [place], [place] | | | | | | [address] | | | | | | | [...] May call Dr Fuentes for questions at [phone] from 7 am to 7 pm until 10/09 at 7 pm fo r questions Medication Costs: Fill your medications at [facility], they have the lowest lance carolina if insurance does not co eleanor the medications. 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 In the emergency room at [facility] she received 5 mg of IV metoprolol, 324 mg of aspirin, and a dose of Lovenox transferred here. On presentatio n she had a CTA which was negative for aortic dissection. Troponin has progressively risen and currently plateauing at 26. Patient was taken to the [facility] 10/04 with multivessel disease including RCA, circumflex, [...] above. Manoj Fuentes MD 10/06/2019 8:38 AM [facility] Portions of this chart may have been created with ANPI voice recognition software. Occasi onal wrong-word or sound-alike substitutions may have occurred due to the inherent solitario itations of voice recognition software. Please read the chart carefully and recognize, using context, where these substitutions have occurred arManoj lewis MD - 0 10/05/2019 7:34 AM PDT [facility] PMG Hospitalist Progress Note Hyun Harper [...] yesterday morning. In the emergency room at [facility] she received 5 mg of IV [...] Intake/Output Summary (Last 24 hours) at 10/05/2019 1206 Last data filed at 10/05/2019 0416 Gross [...] above. Manoj Fuentes MD 10/05/2019 7:34 AM [facility] Portions of this chart may have been created with ANPI voice recognition software. Occasi onal wrong-word or [...] 3 months, 1 beer yearly Best possible [facility] medication list after pharmacy review: PT REPORTED TAKING NOT TAKING Medication Sig Last Dose Dispense Doc. Provider ibuprofen (ADVIL, MOTRIN) 200 mg tablet Take 200 mg by mouth every 6 hours as needed for P ain. Taking Differently Historical Provider, Medication review performed and electronically signed by Magda Lucia, Vocational Rehabilitation Teacher 2019 3:50 PM Reviewed by Kayla Regan, PharmD 10/04/2019 3:58 PM Manoj Wesley M D - 10/04/2019 7:28 AM PDT [facility] PMG Hospitalist Progress Note Hyun Harper [...] yesterday morning. In the emergency room at [facility] she received 5 mg of IV [...] embolism or other acute process in the [facility] st. Signed by: Michel Raymond Robin Sign Date/Time: 10/04/2019 4:04 AM Total time of approximately 40 minutes was spent with the patient and/or patient's family, and/or on the patient's floor/unit, of which more than 50% was spent counseling and/or coord ination the patient's care as outlined above. Manoj Fuentes MD 10/04/2019 7:28 AM [facility] Portions of this chart may have been created with ANPI voice recognition software. Occasi onal wrong-word or [...] | | | | | [place] | | | | | | [address] | | | | | | | [...] | POC | | | [facility] | | | | | | [...] [address] | [place] | [phone] | | [facility] | | [address] | | | - LABORATORY | | [...] + | [facility] | [address] | [place] | [phone] | | [facility] | | [address] | | | - LABORATORY | | [...] collected: 07 Oct 2019 @ | | [facility] | | | | [id number] [...] [address] | [place] | [phone] | | [facility] | | [address] | | | - LABORATORY | | [...] [address] | [place] | [phone] | | [facility] | | [address] | | | - LABORATORY | | [...] New | 120 - 246 U/L | [place] | | | | method in use [...] + | [facility] | [address] | [place] | [phone] | | [facility] | | [address] | | | - LABORATORY | | [...] mL/min/1.73m2 | [facility] | | | [place] | RATE,ESTIMATED | | MEDICAL | | | | mL/min/1.95p1Zsqz than | | CENTER - | | [...] [address] | [place] | [phone] | | [facility] | | [address] | | | - LABORATORY | | [...] + | [facility] | [address] | [place] | [phone] | | [facility] | | [address] | | | - LABORATORY | | [...] + | [facility] | [address] | [place] | [phone] | | [facility] | | [address] | | | - LABORATORY | | [...] | POC | | | [facility] | | | | | | [...] [address] | [place] | [phone] | | [facility] | | [address] | | | - LABORATORY | | [...] + | [facility] | [address] | [place] | [phone] | | [facility] | | [address] | | | - LABORATORY | | [...] | | Blood in | | | [facility] | | | 1st | [...] + | [facility] | [address] | [place] | [phone] | | [facility] | | [address] | | | - LABORATORY | | [...] | | | POC | | | [facility] | | | | | [...] [address] | [place] | [phone] | | [facility] | | [address] | | | - LABORATORY | | [...] [address] | [place] | [phone] | | [facility] | | [address] | | | - LABORATORY | | [...] [address] | [place] | [phone] | | [facility] | | [address] | | | - LABORATORY | | [...] [address] | [place] | [phone] | | [facility] | | [address] | | | - LABORATORY | | [...] + | [facility] | [address] | [place] | [phone] | | [facility] | | [address] | | | - LABORATORY | | [...] ST. | [address] | [place] | [phone] | | [facility] | | [address] | | | - LABORATORY | | [...] [address] | [place] | [phone] | | [facility] | | [address] | | | - LABORATORY | | [...] + | [facility] | [address] | [place] | [phone] | | [facility] | | [address] | | | - LABORATORY | | [...] | mL/min/1.73m2 | [facility] | | | [place] | RATE,ESTIMATED | | MEDICAL | | | | mL/min/1.74w0Gfer than | | CENTER - | | [...] [address] | [place] | [phone] | | [facility] | | [address] | | | - LABORATORY | | [...] | | | | | BINH ESQUIVEL ([id number]) on | | | | | | [...] [address] | [place] | [phone] | | [facility] | | [address] | | | - LABORATORY | | [...] [address] | [place] | [phone] | | [facility] | | [address] | | | - LABORATORY | | [...] [address] | [place] | [phone] | | [facility] | | [address] | | | - LABORATORY | | [...] medications administered | | | by the Coin Purse [facility] nurse under my supervision. Patient tolerated | [...] ST. | [address] | [place] | [phone] | | [facility] | | [address] | | | - LABORATORY | | [...] [address] | [place] | [phone] | | [facility] | | [address] | | | - LABORATORY | | [...] + | [facility] | [address] | [place] | [phone] | | [facility] | | [address] | | | - LABORATORY | | [...] | mL/min/1.73m2 | [facility] | | | [place] | RATE,ESTIMATED | | MEDICAL | | | | mL/min/1.21v2Fysx than | | CENTER - | | [...] [address] | [place] | [phone] | | [facility] | | [address] | | | - LABORATORY | | [...] [address] | [place] | [phone] | | [facility] | | [address] | | | - LABORATORY | | [...] | | | | | | [employer] | | | | | [...] ST. | [address] | [place], [place] | [phone] | | [facility] | | [address] | | | - LABORATORY | | [...] | | Lymphocytes | | | [facility] | | | | | | MEDICAL [...] + | [facility] | [address] | [place] | [phone] | | [facility] | | [address] | | | - LABORATORY | | [...] mL/min/1.73m2 | [facility] | | | [place] | RATE,ESTIMATED | | MEDICAL | | | | mL/min/1.54g4Nqse than | | CENTER - | | [...] ST. | [address] | [place], [place] | [phone] | | [facility] | | [address] | | | - LABORATORY | | [...] + + | Performing | Address | City/State/[facility] | Phone Number | | Organization | | | | + + + + + | [facility] | [address] | [place] | [phone] | | [facility] | | [address] | | | - LABORATORY | | [...] [address] | [place] | [phone] | | [facility] | | [address] | | | - LABORATORY | | [...] | | | Gram Positive | | [facility] | | | | FloraComment: Suggests [...] ST. | [address] | [place], [place] | [phone] | | [facility] | | [address] | | | - LABORATORY | | [...] - 1.030 | [facility] | | | [place], | | | [facility] | | [...] [address] | [place] | [phone] | | [facility] | | [address] | | | - LABORATORY | | [...] | | | | Comment:Reference | | [facility] | | | | Ranges: [...] | | | | | | [employer] | | | | | [...] + | [facility] | [address] | [place] | [phone] | | [facility] | | [address] | | | - LABORATORY | | [...] [address] | [place] | [phone] | | [facility] | | [address] | | | - LABORATORY | | [...] | | | | | | n Foster | | | | | + +--------+ [...] [address] | [place] | [phone] | | [facility] | | [address] | | | - LABORATORY | | [...] + | [facility] | [address] | [place] | [phone] | | [facility] | | [address] | | | - LABORATORY | | [...] | | | | BINH DIOP MD ([id number]) | | | | | | on [...] + | [facility] | [address] | [place] | [phone] | | [facility] | | [address] | | | - LABORATORY | | [...] [address] | [place] | [phone] | | [facility] | | [address] | | | - LABORATORY | | [...] 1.03 (H) | 0.55 - 1.02 | [facility] | | | | | mg/dL | [...] mL/min/1.73m2 | [facility] | | | [place] | RATE,ESTIMATED | | MEDICAL | | | | mL/min/1.14b1Pdny than | | CENTER - | | [...] ST. | [address] | [place], [place] | [phone] | | [facility] | | [address] | | | - LABORATORY | | | | + + + + + Troponin I (10/04/2019 4:09 AM PDT) + + + + + + | Component | Value | Ref Range | Performed | Pathologist | | | | | At | Signature | + + + + + + | Troponin I | 16.27 ()Comment: | <0.06 ng/mL | [place] | | | | Comment:Reference | | [...] | | | | | | [employer] | | | | | [...] [address] | [place] | [phone] | | [facility] | | [address] | | | - LABORATORY | | [...] were | | | reported by the [facility] Imaging radiologist on October 04, 2019 [...] of this study were [facility] | | Imagingradiologist on October 04, 2019 [...] of this study were reported by the [facility] | |radiologist on October 04, 2019 [...] | CENTER - | | | | aJcob Avelar | | LABORATORY | | | [...] [address] | [place] | [phone] | | [facility] | | [address] | | | - LABORATORY | | [...] | | | | BINH DIOP MD ([id number]) | | | | | | on [...] [address] | [place] | [phone] | | [facility] | | [address] | | | - LABORATORY | | [...] | | | | Comment:Reference | | [facility] | | | | Ranges: [...] | | | | | | [employer] | | | | | [...] + | [facility] | [address] | [place] | [phone] | | [facility] | | [address] | | | - LABORATORY | | [...] | | | | 5 mg, Oral, RUBBER TUBING BACKER, Starting Wed | | 20 7:53 | [...] | | | | First dose on [facility] 10/06/19 at | | | | [...] | | | | | | | 1801-4214 Use NIGHT DOSE for | | | | | | | doses scheduled: HS, | | | | | | | Nighttime 4837-3607 If the BG is | | | [...] | | | | | modification) on [facility] 10/05/19 at | | | | [...] | | | | | modification) on [facility] 10/06/19 at | | | | [...] | | | | | dose on [facility] 10/06/19 at 0900 | | | [...]
--- OUTSIDE RECORDS SUMMARY | ~2019-10-08 | XMS | Encounter Summary ---
Demographics + + + | Address | [address] | | | [place] [address] | + + + | Home Phone | | + + + | Preferred Language | Unknown | + + + | Marital Status | | + + + | Orthodox Affiliation | 1077 | + + + | Race | Unknown | + + + | Ethnic Group | Unknown | + + + Author + + + | Author | [facility] | | | and Jasana | + + + | Organization | [facility] | | | and Jasana [...] Team Providers + +------+ + | Care [employer] Architect Name | Role | Phone | + [...] | | | [address] | [place] [address] | | | | | [place] [address] | | | | | | [phone] | | | +--------+ + + + [...] [place] | | | | | | [address] | | | | | | | [...]
--- OUTSIDE RECORDS SUMMARY | ~2019-10-08 | XMS | Encounter Summary ---
Demographics + + + | Address | [address] | | | [place] [address] | + + + | Home Phone | | + + + | Preferred Language | Unknown | + + + | Marital Status | | + + + | Catholic Affiliation | 1077 | + + + | Race | Unknown | + + + | Ethnic Group | Unknown | + + + Author + + + | Author | [facility] | | | and Jasana | + + + | Organization | [facility] | | | and [...] Team Providers + +------+ + | Care Proposal Coordinator Name | Role | Phone | + +------+ + | Jacob Rodríguez DO | PCP | | + +------+ + Encounter Details +--------+--------+ + + + | Date | Type | Department | Care Team | Description | +--------+--------+ + + + | 10/02/ | Intake | [facility] | | N/A | | 2019 | | [place] [address] | | | | | | Renan Solis | | | | | | [place] | | | | | | [address] | | | | | | [phone] | | | +--------+--------+ + + + [...] [facility] | | | | | | [id number] | | | | | | | | +--------+---------+ + + + documented as of this encounter Visit Diagnoses Not on filedocumented in this encounter"
--- OUTSIDE RECORDS SUMMARY | ~2019-10-08 | XMS | Encounter Summary ---
Demographics + + + | Address | [address] | | | [place] [address] | + + + | Home Phone | | + + + | Preferred Language | Unknown | + + + | Marital Status | | + + + | Zoroastrian Affiliation | 1077 | + + + | Race | Unknown | + + + | Ethnic Group | Unknown | + + + Author + + + | Author | [facility] | | | and Jasana | + + + | Organization | [facility] | | | and Jasana [...] Team Providers + +------+ + | Care Solid Waste Disposal Manager Name | Role | Phone | [...] + + | 10/04/ | Surgery | [facility] | Lj Barker MD | CV COR ANGIO | | 2019 | | MED CTR CV INTRA OP | [address] | | | | | [address] | [place] | | | | | [place] | [id number] | | | | | [address] | | | | | | [phone] | | | +--------+---------+ + + + [...] May call Dr Fuentes for questions at [phone] from 7 am to 7 pm until 10/09 at 7 pm fo r questions Medication Costs: Fill your medications at [facility], they have the lowest lance carolina if insurance does not co eleanor the medications. amLODIPine -- $9 for 30-day supply atorvaSTATin --$15 for 30-day supply clopidogrel --$15 for 30-day supply labetalol --$20.49 for 30-day supply (with GoodRx coupon) nitroglycerin --$10.95 for 25 tablets (with GoodRx coupon) Aspirin 81 mg-- available gsqw-xnb-knkspmb; around $4 for 100 tablets Sodium chloride nasal spray--Equate ([facility] brand) available wfwy-eoy-ilzycaj, around $4 for one bottle documented in [...] patient was reminded of follow-up appointment with jewelry casting model maker and encouraged to make a follow-up appointment [...] M D - 10/06/2019 8:38 AM PDT [facility] Hospitalist Progress Note Hyun Harper [...] yesterday morning. In the emergency room at [facility] she received 5 mg of IV metoprolol, 324 mg of aspirin, and a dose of Lovenox transferred here. On presentatio n she had a CTA which was negative for aortic dissection. Troponin has progressively risen and currently plateauing at 26. Patient was taken to the [facility] 10/04 with multivessel disease including RCA, circumflex, [...] above. Manoj Fuentes MD 10/06/2019 8:38 AM [facility] Portions of this chart may have been created with Jobulous voice recognition software. Occasi onal wrong-word or sound-alike substitutions may have occurred due to the inherent solitario itations of voice recognition software. Please read the chart carefully and recognize, using context, where these substitutions have occurred Manoj Wesley MD - 0 10/05/2019 7:34 AM PDT [facility] Hospitalist Progress Note Hyun Harper [...] yesterday morning. In the emergency room at [facility] she received 5 mg of IV metoprolol, [...] above. Manoj Fuentes MD 10/05/2019 7:34 AM [facility] Portions of this chart may have been created with Jobulous voice recognition software. 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 Provider ibuprofen (ADVIL, MOTRIN) 200 mg tablet Take 200 mg by mouth every 6 hours as needed for P ain. Taking Differently Historical Provider, Medication review performed and electronically signed by Magda Lucia, Fabrication Engineer 2019 3:50 PM Reviewed by Kayla Regan, PharmD 10/04/2019 3:58 PM arManoj lewis M D - 10/04/2019 7:28 AM PDT [facility] Hospitalist Progress Note Hyun Harper [...] yesterday morning. In the emergency room at [facility] she received 5 mg of IV metoprolol, [...] embolism or other acute process in the [facility] st. Signed by: Michel Raymond Robin Sign Date/Time: 10/04/2019 4:04 AM Total time of approximately 40 minutes was spent with the patient and/or patient's family, and/or on the patient's floor/unit, of which more than 50% was spent counseling and/or coord ination the patient's care as outlined above. Manoj Fuentes MD 10/04/2019 7:28 AM [facility] Portions of this chart may have been created with Jobulous voice recognition software. Occasi onal wrong-word or [...] [place] | | | | | | [id number] | | | | | | | [...] ST. | [address] | [place] | [phone] | | [facility] | | [address] | | | - LABORATORY | | [...] [address] | [place] | [phone] | | [facility] | | [address] | | | - LABORATORY | | [...] [address] | [place] | [phone] | | [facility] | | [address] | | | - LABORATORY | | [...] + | [facility] | [address] | [place] | [phone] | | [facility] | | [address] | | | - LABORATORY | | [...] New | 120 - 246 U/L | [facility] | | | | method in use [...] + | [facility] | [address] | [place] | [phone] | | [facility] | | [address] | | | - LABORATORY | | [...] | mL/min/1.73m2 | [facility] | | | BRAZILIAN | RATE,ESTIMATED | | MEDICAL | | | | mL/min/1.84v6Carx than | | CENTER - | | [...] ST. | [address] | [place], [place] | [phone] | | [facility] | | [address] | | | - LABORATORY | | [...] [address] | [place] | [phone] | | [facility] | | [address] | | | - LABORATORY | | [...] + | [facility] | [address] | [place] | [phone] | | [facility] | | [address] | | | - LABORATORY | | [...] | | POC | | | [facility] | | | | | | MEDICAL [...] ST. | [address] | [place], [place] | [phone] | | [facility] | | [address] | | | - LABORATORY | | [...] [address] | [place] | [phone] | | [facility] | | [address] | | | - LABORATORY | | [...] + | [facility] | [address] | [place] | [phone] | | [facility] | | [address] | | | - LABORATORY | | [...] [address] | [place] | [phone] | | [facility] | | [address] | | | - LABORATORY | | [...] [address] | [place] | [phone] | | [facility] | | [address] | | | - LABORATORY | | [...] + | [facility] | [address] | [place] | [phone] | | [facility] | | [address] | | | - LABORATORY | | [...] [address] | [place] | [phone] | | [facility] | | [address] | | | - LABORATORY | | [...] [address] | [place] | [phone] | | [facility] | | [address] | | | - LABORATORY | | [...] + | [facility] | [address] | [place] | [phone] | | [facility] | | [address] | | | - LABORATORY | | [...] ST. | [address] | [place], [place] | [phone] | | [facility] | | [address] | | | - LABORATORY | | [...] [address] | [place] | [phone] | | [facility] | | [address] | | | - LABORATORY | | [...] (H) | 0.55 - 1.02 | [facility] | | | | | mg/dL | [...] mL/min/1.73m2 | [facility] | | | BRAZILIAN | RATE,ESTIMATED | | MEDICAL | | | | mL/min/1.62a2Kcye than | | CENTER - | | [...] + | [address] [facility] | [address] | [place] | [phone] | | [facility] | | [address] | | | - LABORATORY | | [...] | | | | | BINH ESQUIVEL ([id number]) on | | | | | | [...] [address] | [place] | [phone] | | [facility] | | [address] | | | - LABORATORY | | [...] [address] | [place] | [phone] | | [facility] | | [address] | | | - LABORATORY | | [...] [address] | [place] | [phone] | | [facility] | | [address] | | | - LABORATORY | | [...] medications administered | | | by the [facility] nurse under my supervision. Patient tolerated | [...] [address] | [place] | [phone] | | [facility] | | [address] | | | - LABORATORY | | [...] [address] | [place] | [phone] | | [facility] | | [address] | | | - LABORATORY | | [...] + | [facility] | [address] | [place] | [phone] | | [facility] | | [address] | | | - LABORATORY | | [...] mL/min/1.73m2 | [facility] | | | BRAZILIAN | RATE,ESTIMATED | | MEDICAL | | | | mL/min/1.53s0Bdtz than | | CENTER - | | [...] | | ine Ratio | | | [facility] | | | | | [...] [address] | [place] | [phone] | | [facility] | | [address] | | | - LABORATORY | | [...] + | [facility] | [address] | [place] | [phone] | | [facility] | | [address] | | | - LABORATORY | | [...] | | | | | | [employer] | | | | | [...] + | [address] | [address] | [place], [place] | [phone] | | [facility] | | [address] | | | - LABORATORY | | [...] | | | | | | [facility] | | | | [...] [address] | [place] | [phone] | | [facility] | | [address] | | | - LABORATORY | | [...] 1.12 (H) | 0.55 - 1.02 | [facility] | | | | | mg/dL | [...] mL/min/1.73m2 | [facility] | | | BRAZILIAN | RATE,ESTIMATED | | MEDICAL | | | | mL/min/1.03h2Zwye than | | CENTER - | | [...] + | [facility] | [address] | [place] | [phone] | | [facility] | | [address] | | | - LABORATORY | | [...] ST. | [address] | [place], [place] | [phone] | | [facility] | | [address] | | | - LABORATORY | | [...] [address] | [place] | [phone] | | [facility] | | [address] | | | - LABORATORY | | [...] [address] | [place] | [phone] | | [facility] | | [address] | | | - LABORATORY | | [...] - 1.030 | [facility] | | | [place], | | | [facility] | | [...] [address] | [place] | [phone] | | [facility] | | [address] | | | - LABORATORY | | [...] | | | | | | [employer] | | | | | [...] [address] | [place] | [phone] | | [facility] | | [address] | | | - LABORATORY | | [...] + | [facility] [facility] | [address] | [place] | [phone] | | [facility] | | [address] | | | - LABORATORY | | [...] | | | | | | n Steele | | | | | + +--------+ [...] [address] | [place] | [phone] | | [facility] | | [address] | | | - LABORATORY | | [...] [address] | [place] | [phone] | | [facility] | | [address] | | | - LABORATORY | | [...] | | | | BINH DIOP MD ([id number]) | | | | | | on [...] [address] | [place] | [phone] | | [facility] | | [address] | | | - LABORATORY | | [...] [facility] | | | | | | [facility] | | | | | | MEDICAL | | | | | | CENTER - | | | | | | LABORATORY | | + + + + + + | RBC | 3.24 (L) | 3.70 - 5.20 | [facility] | | | | | M/uL | [facility] | | | | | [...] + | [address] | [address] | [place] | [phone] | | [facility] | | [address] | | | - LABORATORY | | [...] mL/min/1.73m2 | [facility] | | | BRAZILIAN | RATE,ESTIMATED | | MEDICAL | | | | mL/min/1.81r9Xdwp than | | CENTER - | | [...] [address] | [place] | [phone] | | [facility] | | [address] | | | - LABORATORY | | [...] | | | | | | [employer] | | | | | [...] [address] | [place] | [phone] | | [facility] | | [address] | | | - LABORATORY | | [...] were | | | [facility] on October 04, 2019 at [...] study were reported by the [facility] | | Imagingradiologist on October 04, 2019 [...] of this study were reported by the [facility] | |radiologist on October 04, 2019 [...] [address] | [place] | [phone] | | [facility] | | [address] | | | - LABORATORY | | [...] | | | | BINH DIOP MD ([id number]) | | | | | | on [...] [address] | [place] | [phone] | | [facility] | | [address] | | | - LABORATORY | | [...] | | | | | | [employer] | | | | | [...] [address] | [place] | [phone] | | [facility] | | [address] | | | - LABORATORY | | [...] | | | | First dose on [facility] 10/06/19 at | | | | [...] | | | | | | | 1043-8423 Use NIGHT DOSE for | | | | | | | doses scheduled: HS, | | | | | | | Nighttime 5113-8547 If the BG is | | | [...] | | | | | modification) on [facility] 10/06/19 at | | | | [...] | | | | | dose on [facility] 10/06/19 at 0900 | | | [...]
--- OUTSIDE RECORDS SUMMARY | ~2019-10-08 | XMS | Clinical Summary ---
Demographics + + + | Address | [address] | | | [place] [address] | + + + | Home Phone | | + + + | Preferred Language | Unknown | + + + | Marital Status | | + + + | Episcopal Affiliation | 1077 | + + + | Race | Unknown | + + + | Ethnic Group | Unknown | + + + Author + + + | Author | [facility] | | | and Jasana | + + + | Organization | [facility] | | | and [...] Team Providers + +------+ + | Care Field Application Engineer Name | Role | Phone | + [...] | + + + + | INFLUENZA, [id number], | 05/05/2009 | | | UNSPECIFIED | [...] [place] | | | | | | [address] | | | | | | | [...] 8 | Stent | | [place] | [id number] | 10/28/ | [id number] | | - [id number]: Qty: 1 | | | SCIENTIFIC | [id number] | 2019 | [id number] | | on 10/05/2019 by Lj Barker | | | PATO - BSCI | 72 | | 50 / | | MD Miguel at [facility] | | | | | | /[id number] | | [facility] | | | | | | 767 | + +-------+------+ +--------+--------+--------+ + + | Description:cx | + + + +-------+---+ +--------+--------+--------+ | Stent [employer] Mr 3.0 X 32 | Stent | | [place] | [id number] | 12/27/ | [id number] | | - [id number]: Qty: | | | SCIENTIFIC | [id number] | 2019 | [id number] | | 1 on 10/05/2019 by Mj, | | | PATO - BSCI | 50 | | 00 / | | Lj Rivera MD at [facility] | | | | | | /[id number] | | [facility] | | | | | | 921 [...] [address] | [place] | [phone] | | [facility] | | [address] | | | - LABORATORY | | [...] 07 Oct 2019 @ | | [facility] | | | | [id number] agree with [...] + | [facility] | [address] | [place], [place] | [phone] | | [facility] | | [address] | | | - LABORATORY | | [...] [address] | [place] | [phone] | | [facility] | | [address] | | | - LABORATORY | | [...] New | 120 - 246 U/L | [facility] | | | | method in use as of | | [facility] | | | | July [...] [address] | [place] | [phone] | | [facility] | | [address] | | | - LABORATORY | | [...] [address] | [place] | [phone] | | [facility] | | [address] | | | - LABORATORY | | [...] 1.15 (H) | 0.55 - 1.02 | [facility] | | | | | mg/dL | [facility] | | | | | | MEDICAL | | | | | | CENTER - | | | | | | LABORATORY | | + + + + + + | eGFR if not | 47 (L)Comment: | >=60 | [facility] | | | | GLOMERULAR FILTRATION | mL/min/1.73m2 | [facility] | | | SERBIAN | RATE,ESTIMATED | | MEDICAL | | | | mL/min/1.37s2Vlnp than | | CENTER - | | [...] + | [facility] | [address] | [place] | [phone] | | [facility] | | [address] | | | - LABORATORY | | [...] ST. | [address] | [place] | [phone] | | [facility] | | [address] | | | - LABORATORY | | [...] [address] | [place] | [phone] | | [facility] | | [address] | | | - LABORATORY | | [...] + | [facility] | [address] | [place] | [phone] | | [facility] | | [address] | | | - LABORATORY | | [...] | Reticulocyt | | M/uL | [facility] | | | e Count | | | MEDICAL | | | | | | CENTER - | | | | | | LABORATORY | | + + + + + + | Immature | 24.1 (H)Comment: Values | 2.3 - 15.9 % | [facility] | | | Reticulocyt | above normal range | | [facility] | | | e Fraction [...] [address] | [place] | [phone] | | [facility] | | [address] | | | - LABORATORY | | [...] [address] | [place] | [phone] | | [facility] | | [address] | | | - LABORATORY | | [...] [address] | [place] | [phone] | | [facility] | | [address] | | | - LABORATORY | | [...] ST. | [address] | [place] | [phone] | | [facility] | | [address] | | | - LABORATORY | | [...] | | | | | BINH ESQUIVEL ([id number]) on | | | | | | [...] medications administered | | | by the Sales Service Promoter nurse under my supervision. Patient tolerated | [...] [address] | [place] | [phone] | | [facility] | | [address] | | | - LABORATORY | | [...] [address] | [place] | [phone] | | [facility] | | [address] | | | - LABORATORY | | [...] | | Ratio | | | [facility] | | [...] [address] | [place] | [phone] | | [facility] | | [address] | | | - LABORATORY | | [...] | | | | | | [employer] | | | | | [...] + | [facility] | [address] | [place] | [phone] | | [facility] | | [address] | | | - LABORATORY | | [...] | | | | | | [facility] | | | | [...] [address] | [place] | [phone] | | [facility] | | [address] | | | - LABORATORY | | [...] - 1.030 | [facility] | | | [place], | | | [facility] | | [...] [address] | [place] | [phone] | | [facility] | | [address] | | | - LABORATORY | | [...] | | | Gram Positive | | [facility] | | | | FloraComment: Suggests | [...] ST. | [address] | [place], [place] | [phone] | | [facility] | | [address] | | | - LABORATORY | | [...] | | | | | | n Roberts | | | | | + +--------+ [...] | | | reported by the [facility] Imaging radiologist on October 04, 2019 at [...] [address] | [place] | [phone] | | [facility] | | [address] | | | - LABORATORY | | [...] [address] | [place] | [phone] | | [facility] | | [address] | | | - LABORATORY | | [...] +--------+ +---------+--------+ | MEDICARE | MEDICA | [id number] | 11/16/19 | [phone] | | Medica | | | RE | | 17-Pre | 5 | | re | | | PART A | | sent | | | | | | AND B | | | | | | + +--------+ +--------+ +---------+--------+ | [employer] | M[employer]UAL | [id number] | 11/16/19 | [phone] | | Indemn | | | AND | | 17-Pre | 0 | | ity | | | UNITED | | sent | | | | | | [employer] [place] | | | | | | | [...] | 1951 | [phone] | [place] [address] | | | madelyn | | | 9 (Home) | | + +--------+ +--------+ + + Advance Directives + + + + + | Type | Date Recorded | Patient | Explanation | | | | Recreation Supervisor | | + + + + + | Power of | | | | | Dump Operator | | | | + + + [...]
--- OUTSIDE RECORDS SUMMARY | ~2019-10-08 | XMS | Encounter Summary ---
Demographics + + + | Address | [address] | | | [place] [address] | + + + | Home Phone | | + + + | Preferred Language | Unknown | + + + | Marital Status | | + + + | Holiness Affiliation | 1077 | + + + | Race | Unknown | + + + | Ethnic Group | Unknown | + + + Author + + + | Author | [facility] | | | and Jasana | + + + | Organization | [facility] | | | and Jasana [...] Team Providers + +------+ + | Care Tile Applicator Name | Role | Phone | + [...] VILLATORO | | | | | [address] | [place] [address] | | | | | [place] [address] | | | | | | [phone] | | | +--------+ + + + [...] [place] | | | | | | [address] | | | | | | | [...]
--- OUTSIDE RECORDS SUMMARY | ~2019-10-08 | XMS | Encounter Summary ---
Demographics + + + | Address | [address] | | | [place] [address] | + + + | Home Phone | | + + + | Preferred Language | Unknown | + + + | Marital Status | | + + + | Episcopalian Affiliation | 1077 | + + + | Race | Unknown | + + + | Ethnic Group | Unknown | + + + Author + + + | Author | [facility] | | | and Jasana | + + + | Organization | [facility] | | | and Jsa[place] | + + + | Address | [...] Team Providers + +------+ + | Care Door To Door Lead Generation Name | Role | Phone | + [...] | | | [address] | [place] [address] | | | | | [place] [address] | | | | | | [phone] | | | +--------+ + + + [...] [place] | | | | | | [address] | | | | | | | [...]
--- OUTSIDE RECORDS SUMMARY | ~2019-10-08 | XMS | Encounter Summary ---
Demographics + + + | Address | [address] | | | [place] [address] | + + + | Home Phone | | + + + | Preferred Language | Unknown | + + + | Marital Status | | + + + | Rastafari Affiliation | 1077 | + + + | Race | Unknown | + + + | Ethnic Group | Unknown | + + + Author + + + | Author | [facility] | | | and Jasana | + + + | Organization | [facility] | | | and [...] Team Providers + +------+ + | Care Set Up And Charger Name | Role | Phone | + [...] | | | [address] | [place] [address] | | | | | [place] [address] | | | | | | [phone] | | | +--------+ + + + [...] [place] | | | | | | [address] | | | | | | | [...]
--- OUTSIDE RECORDS SUMMARY | 2019-10-08 04:18 | XMS ---
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 John has no Care Guidelines for this patient. [facility] NOTE: Visits indicate total known visits. ED/C VISIT TRACKING (12 MO.) [facility] COMPLAINT: - VOMITING,DIZZINESS 10/03/2019 18:14 [facility] [place] TYPE: Emergency COMPLAINT: - CHEST PAIN DIAGNOSES: - Pure hypercholesterolemia, unspecified - Allergy status to other antibiotic agents status - Chest pain, unspecified - Essential (primary) hypertension - Allergy status to narcotic agent status - Non-ST elevation (NSTEMI) myocardial infarction INPATIENT VISIT TRACKING (12 MO.) 10/03/2019 22:17 [place] [facility] TYPE: Intensive Care DIAGNOSES: - Non-ST elevation (NSTEMI) myocardial infarction - Hypertensive emergency [email or web address]
[2019-10-08] MEDS ORDERED: LIPITOR40 MG PO (04:33)
[2019-10-08] MEDS ORDERED: LABETALOL HCL300 MG PO (04:34)
[2019-10-08] MEDS ORDERED: NORVASC5 MG PO (04:34)
[2019-10-08] MEDS ORDERED: CLOPIDOGREL75 MG PO (04:34)
[2019-10-08] MEDS ORDERED: NITROGLYCERIN0.4 MG SL (04:35)
[2019-10-08] MEDS ORDERED: ASPIRIN81 MG PO (04:36)
--- NOTE | 2019-10-08 06:47 | EKG ---
[facility] [address] [facility] [place], [place] [address] Signed Normal sinus rhythm Normal ECG When compared with ECG of 03-OCT-2019 18:22, No significant change was found Confirmed by JAYA AMAYA MD ([id number]) on 10/08/2019 6:47:24 AM Electronically Signed By: JAYA AMAYA MD 10/08/19 0647 PATIENT NAME: JAYA MORTON IRAM Electrocardiogram DATE OF : 52 PHYSICIAN: JAYA AMAYA MD REPORT #: [id number] REPORT IS CONFIDENTIAL AND NOT TO BE RELEASED WITHOUT AUTHORIZATION
--- NOTE | 2019-10-08 08:40 | NUR ---
PT TO ROOM 127 FROM ER. PT IS ALERT AND ORIENTED X4. PT DENIES PAIN, NAUSEA, AND SOB AT THIS TIME. PT IS DROWSY WHEN NOT STIMULATED. ANSWERS QUESTIONS APPROPRIATLY. IV SITE IS INTACT IN RT HAND, FLUSHES EASILY, PT DENIES PAIN WITH FLUSH, NO REDNESS OR SWELLING NOTED. PT HAS CALL LIGHT WITHIN REACH. VITALS ARE WNL EXCEPT FOR ELEVATED BP 180/64 (92), MD IS AWARE, THIS HAS BEEN CONSISTANT WITH VITALS IN ER. PT REMAINS ON ROOM AIR.
--- NOTE | 2019-10-08 09:45 | NUR ---
PT ON BEDPAN PER HER REQUEST, PT REPORTS NOT FEELING READY TO ATTEMPT TO STAND AT THE BEDSIDE. PT ABLE TO VOID GOOD AMOUNT OF DE URINE, SOME SPILLED ONTO CHERRY PAD.
--- NOTE | 2019-10-08 09:58 | NUR ---
PT GIVEN 650 MG PO TYLENOL FOR 5/10 HEADACHE. PT ABLE TO SWALLOW PILLS EASILY. CALL LIGHT IS WITHIN REACH. PT EDUCATED ON HOW TO USE CALL LIGHT AND TV REMOTE. PT REMAINS ALERT AND ORIENTED X4.
--- NOTE | 2019-10-08 10:28 | NUR ---
CALLED PT'S DAUGHTER, CYNDY SIMS, TO UPDATE ON PT STATUS. ALL QUESTIONS ANSWERED. PT'S FAMILY REPORTS THEY WILL DROP OFF SOME PERSONAL BELONGINGS AT THE [facility] LATER TODAY.
--- NOTE | 2019-10-08 10:37 | NUR ---
CALLED MD TO UPDATE ON PT LOW HR IN 40'S AT TIMES, MD IS AWARE AND EXPECTS IT TO CONTINUE DUE TO CARDIAC MEDS, NO NEW ORDERS AT THIS TIME, WILL CONTINUE TO MONITER.
--- NOTE | 2019-10-08 11:09 | NUR ---
pt able to swallow pills easily. updated by ultrasound teck to keep pt npo for time being, except for sips and meds. pt denies any other needs at this time.
--- NOTE | 2019-10-08 12:18 | NUR ---
PT MOSTLY SLEEPING, WAKES EASILY WHEN SPOKEN TO. PT DENIES NAUSEA AND SOB, PT REPORTS "I STILL FEEL KIND OF DIZZY". PT PLACED ON 1L O2 VIA OXYMASK DUE TO DESAT DURING SLEEP, POSSIBLE UNDIAGNOSED SLEEP APNEA.
--- NOTE | 2019-10-08 12:20 | NUR ---
PT REPORTS HEADACHE HAS RESOLVED.
--- NOTE | 2019-10-08 13:15 | NUR ---
PT ONE PERSON ASSIST UP TO THE BEDSIDE COMMODE, HAS CALL LIGHT WITHIN REACH, REQUESTS SOME PRIVACY, RN OUTSIDE THE ROOM DOOR.
--- NOTE | 2019-10-08 13:35 | NUR ---
PT BACK TO BED FROM COMMODE WITH MINIMAL ONE PERSON ASSIST, PT ABLE TO VOID LARGE AMOUNT OF URINE AND HAVE LARGE BM. PT REPORTS DECREASE IN DIZZINESS. PT DENIES PAIN, SOB, AND NAUSEA AT THIS TIME.
--- NOTE | 2019-10-08 16:17 | NUR ---
iv site is intact, no redness or swelling noted, pt denies pain at the site, fluids infuse easily. pt is awake, alert, and oriented x4. vitals continue as before, slight elevation in bp, md is aware.
--- NOTE | 2019-10-08 17:22 | NUR ---
pt sitting up in bed eating clear liquid tray. pt is alert and oriented x4, pt denies pain, nausea, and sob. pt reports improvement with dizziness. pt denies any numbness in bilat hands and feet.
--- NOTE | 2019-10-08 18:55 | NUR ---
pt up and ambulated to the bathroom with one person standby assist. pt able to earle activity if she walks slowly. pt able to void good amount. then ambulates back to bed. pt remains alert and oriented x4.
--- NOTE | 2019-10-08 20:00 | NUR ---
HR IN THE VERY LOW 50'S. BP'S ARE ELEVATED. TROUBLE HEARING S2 BEAT WITH STETOSCOPE. TEMP 99.2 F AT THIS TIME. PT DENIES NAUSEA AT THIS TIME BUT STILL HAS SOME DIZZINESS IF SHE TURNES HER HEAD TOO FAST. ALL LOBES ARE CLEAR, ABD SOUNDS PRESENT, RIGHT RADIAL PULSE NOT PALPABLE, LEFT RADIAL PULSE AND PEDIS PULSES +2. NO PERIPHERAL EDEMA NOTED. WILL CALL MD AMAYA ABOUT LABETOLOL 100MG PO DOSE FOR 2100 DUE TO LOW HR.
--- NOTE | 2019-10-08 20:41 | NUR ---
MD AMAYA WAS CALLED ABOUT 2100 LABETOLOL ORDER. RECEIVED ORDER TO DECREASE DOSE FROM 100MG TO 50MG BID. WILL CONTINUE TO MONITOR.
--- NOTE | 2019-10-08 22:10 | NUR ---
PT AT THIS TIME IS SLEEPING. HR IN THE 50'S. BP BETTER BUT STILL ELEVATED. NO NEW CONCERNS NOTED.
--- NOTE | 2019-10-08 23:31 | NUR ---
ASSISTED PT TO BATHROOM. PT IS STILL VERY UNSTEADY ON HER FEET. PT HAD ONE LARGE VOID. PT DENIES NAUSEA AND PAIN AT THIS TIME. LOBES ARE CLEAR, HR IS NORMAL SR AT THIS TIME AND BP'S HAVE DECREASED SOME. TEMP IS WDL ALSO AT THIS TIME. NO OTHER CHANGES WERE NOTED WITH SECOND ASSESSMENT. WILL CONTINUE TO MONITOR
--- NOTE | 2019-10-09 01:51 | NUR ---
PT IS SLEEPING AT THIS TIME. BP IS RISING AGAIN, HR AT 60 FOR THE MOST PART. WILL CONTINUE TO MONITOR.
--- NOTE | 2019-10-09 03:21 | NUR ---
BP'S ARE RISING. HR IN THE LOW 60'S. PT HAS BEEN SLEEPING. IT HAS BEEN NOTED THAT PT DOES HAVE A MOIST COUGH PRESENT. RR AND O2 SATS WDL SO FAR.
--- NOTE | 2019-10-09 03:51 | NUR ---
SBP STILL IN THE 170'S, HR IN THE MID TO UPPER 50'S AT THIS TIME. UPPER LOBES ARE CLEAR BUT PT HAS SOME COARSNESS PRESENT IN THE BASES. PT DENIES SOB, PAIN, CHEST PAIN ETC. S1 AND S2 NOTED. NO PERIPHERAL EDEMA NOTED. PT HAD ANOTHER LARGE VOID. WILL CONTINUE TO MONITOR.
--- NOTE | 2019-10-09 05:24 | NUR ---
PT IS SLEEPING AT THIS TIME. BP STILL ELEVATED IN THE 170'S.
--- NOTE | 2019-10-09 06:00 | NUR ---
ASSISTED PT TO BATHROOM AGAIN. MAY BE IN PART WHY SBP IS >180. URINE OUTPUT HAS BEEN ADEQUATE THIS SHIFT. PT STILL HAS A NOW MORE PERSISTANT COUGH PRESENT. COARSNESS WAS NOTED EARLIER. HR WLD FOR THE MOST PART. NO OTHER CHANGES NOTED. WILL CONTINUE TO MONITOR.
--- NOTE | 2019-10-09 06:34 | NUR ---
MD AMAYA WAS CALLED AT 0630 AND IT WAS AGREED TO GIVE LABATALOL 50MG PO EARLY.
--- NOTE | 2019-10-09 07:50 | NUR ---
PT IS AWAKE AND ALERT X4. PT DENIES NAUSEA AND SOB. PT REPORTS 5/10 HEADACHE AT THIS TIME. PT IV SITE IS INTACT, NO REDNESS OR SWELLING NOTED, FLUIDS INFUSING EASILY. PT VITALS REMAIN CONSISTANT WITH ELEVATED BP, IS AWARE, ALL OTHERS ARE WNL. PT HAS BREAKFAST TRAY IN FRONT OF HER PREPAIRING TO EAT.
--- NOTE | 2019-10-09 08:12 | NUR ---
PT GIVEN 650 MG PO TYLENOL FOR 5/10 HEADACHE.
[2019-10-09] MEDS ORDERED: LABETALOL HCL100 MG PO (08:15)
[2019-10-09] MEDS ORDERED: PANTOPRAZOLE SO40 MG PO (08:15)
--- NOTE | 2019-10-09 09:29 | NUR ---
IV SITE IS INTACT, NO REDENESS OR SWELLING NOTED, PT DENIES PAIN AT THE SITE, FLUSHES EASILY. PT ABLE TO EAT 90% OF HER BREAKFAST, TAKES PO PILLS EASILY. PT DENIES NAUSEA, SOB, AND PAIN AT THIS TIME. PT REMAINS ALERT AND ORIENTED X4
--- NOTE | 2019-10-09 09:50 | NUR ---
PT UP AND AMBULATED TO THE BATHROOM WITH ONE PERSON STANDBY ASSIST. PT DA ACTIVITY WELL, REPORTS SOME SLIGHT DIZZINESS, USES HAND RAILS. PT IS ABLE TO SAFELY AMBULATE, HOWEVER STATES SHE IS NOT TO HER NORMAL LEVEL OF BALANCE.
--- NOTE | 2019-10-09 11:37 | NUR ---
PT UP AMBULATING IN THE [place] WITH ONE PERSON STAND BY ASSIST AND WALKER. PT ABLE TO WALK 2 LAPS OF THE [place] IN ICU. PT REPORTS SLIGHT DIZZINESS DURING AMBULATION, HOWEVER A LARGE IMPROVEMENT FROM ADMISSION. PT ALSO REPORTS THAT IF SHE MOVES HER HEAD TO QUICKLY HER DIZZINESS INCREASES. AFTER TWO LAPS PT LAYS DOWN IN BED TO REST BEFORE LUNCH. DISCUSSED SAFETY PLAN FOR HOME OF AVOIDING GOING TO UPSTAIRS BEDROOM, AND RATHER STAYING ON THE MAIN FLOOR OF THE HOME IF SHE HAS DIZZINESS, PT AGREES TO THIS RELUCTANTLY. THIS PLAN HAS ALSO BEEN DISCUSSED WITH PT'S AND DAUGHTER VIA PHONE THIS MORNING, THEY ARE BOTH IN AGREMENT.
--- NOTE | 2019-10-09 13:10 | NUR ---
SALINE LOCK REMOVED FROM RT HAND, TIP OF CATH INTACT, NO REDNESS OR SWELLING. PT DENIES PAIN, NAUSEA, AND SOB. PT ALERT AND ORIENTED X4.
--- NOTE | 2019-10-09 23:13 | NUR ---
Nurse in CCU recommended that I stop in to see pt while I was doing rounds. Pt appeared to be in good spirits and expressed excitement about the possibility of getting to go home today. She expressed some feelings of lonliness. This lonliness was mostly related to a difficulty engaging with people in the community and the pt expressed that she has family in her home and that she is not lonely there. While I could not offer answers to her situation, I did have the opportunity to pray with the pt. who expressed gratitude.
== END 2019-10-09 13:15 | disposition home or self-care (01) ==
LOC: ED 04:16 → CCU 04:17
PROVIDERS: ADMIT Internal Medicine
DX: R42 Dizziness and giddiness (principal); I10 Essential (primary) hypertension; R00.1 Bradycardia, unspecified; R11.2 Nausea with vomiting, unspecified; E11.9 Type 2 diabetes mellitus without complications; E78.5 Hyperlipidemia, unspecified; I25.10 Atherosclerotic heart disease of native coronary artery without angina pectoris; D64.9 Anemia, unspecified; Z95.5 Presence of coronary angioplasty implant and graft; Z88.5 Allergy status to narcotic agent; Z88.1 Allergy status to other antibiotic agents; Z79.899 Other long term (current) drug therapy; Z79.82 Long term (current) use of aspirin
CPT/HCPCS: 36415; 70450; 71045; 76705; 80048; 80053; 83735; 84484; 85025; 93005; 93010; 96361; 96374; 96375; 96376; 99285-25; C9113; G0378; J2405; J2550; J7030; J7121

== ENCOUNTER 2019-11-17 02:29 | Emergency (ER) | payer MEDICARE, OTHER ==
[~2019-11-17] VITALS: Ht 167.6 cm; Wt 97.1 kg
--- OUTSIDE RECORDS SUMMARY | ~2019-11-17 | XMS | Encounter Summary ---
Demographics + + + | Address | [address] | | | [place] [address] | + + + | Home Phone | | + + + | Preferred Language | Unknown | + + + | Marital Status | | + + + | Episcopalian Affiliation | 1077 | + + + | Race | Unknown | + + + | Ethnic Group | Unknown | + + + Author + + + | Author | [facility] | | | and [place]as[place] | + + + | Organization | [facility] | | | and [place] | + + + | Address | Unknown | + + + | Phone | Unavailable | + + + Support + + +---------+ + | Name | Relationship | Address | Phone | + + +---------+ + | David Harper | ECON | Unknown | | + + +---------+ + | Nusrat Wilbur | ECON | Unknown | | + + +---------+ + Care Team Providers + +------+ + | Care Utility Bill Complaints Investigator Name | Role | Phone | + [...] | | | [address] | [place] [address] | | | | | [place] [address] | | | | | | [phone] | | | +--------+ + + + [...] on file | | + + + documented as of this encounter Plan of Treatment +--------+---------+ + + + | Date | Type | Specialty | Care Team | Description | +--------+---------+ + + + | 11/30/ | Office | Cardiology | Lj Barker MD | | | 2019 | Visit | | [address] | | | | | | [place] | | | | | | [id number] | | | | | | | [...] documented in this encounter Results XR Chest 1 Vw (10/03/2019 6:35 PM [...]
--- OUTSIDE RECORDS SUMMARY | ~2019-11-17 | XMS | Encounter Summary ---
Demographics + + + | Address | [address] | | | [place] [address] | + + + | Home Phone | | + + + | Preferred Language | Unknown | + + + | Marital Status | | + + + | Restoration Affiliation | 1077 | + + + | Race | Unknown | + + + | Ethnic Group | Unknown | + + + Author + + + | Author | [facility] | | | and [place]asana | + + + | Organization | [facility] | | | and Jasana [...] Team Providers + +------+ + | Care M1A1 Tank Crewman Name | Role | Phone | + +------+ + | Jacob Rodríguez DO | PCP | | + +------+ + Reason for Visit + +--------+ + | Reason | Onset | Comments | | | Date | | + +--------+ + | Follow-up | 10/16/ | | | | 2020 | | + +--------+ + Encounter Details +--------+ + + + + | Date | Type | Department | Care Team | Description | +--------+ + + + + | 10/16/ | Telephone | [facility] | Keely Grover RN | Follow-up | | 2019 | | [facility] | | | | | | [address] | | | | | | [place] | | | | | | [phone] | | | | | | [phone] | | | +--------+ + + + [...] + + documented as of this encounter Miscellaneous Notes Telephone Encounter - Keely Grover RN - 10/17/2019 1:45 PM PDTRN made follow up phone c all to patient post PCI. Call made to ensure cardiac rehab referral has been made, 30 day fo llow up appointment has been scheduled, as well as ensuring that the patient was able to ambika l prescription after discharge. Patient did not answer, unable to leave message, voicemail n ot set up. Will attempt again. Keely Smart RN documented in this enc ounter Plan of Treatment +--------+---------+ + + + | Date | Type | Specialty | Care Team | Description | +--------+---------+ + + + | 11/30/ | Office | Cardiology | Lj Barker MD | | | 2019 | Visit | | [address] | | | | | | [place] | | | | | | [phone] | | | | | | | | +--------+---------+ + + + documented as of this encounter Visit Diagnoses Not on filedocumented in this encounter"
--- OUTSIDE RECORDS SUMMARY | ~2019-11-17 | XMS | Encounter Summary ---
Demographics + + + | Address | [address] | | | [place] [address] | + + + | Home Phone | | + + + | Preferred Language | Unknown | + + + | Marital Status | | + + + | Uatsdin Affiliation | 1077 | + + + | Race | Unknown | + + + | Ethnic Group | Unknown | + + + Author + + + | Author | [facility] | | | and [place] | + + + | Organization | [facility] | | [...] Team Providers + +------+ + | Care Store Protection Specialist Name | Role | Phone | + [...] | | | [address] | [place] [address] | | | | | [place] [address] | | | | | | [phone] | | | +--------+ + + + [...] | 11/30/ | Office | Cardiology | jL Barker MD | | | 2019 | Visit | | [address] | | | | | | [place] | | | | | | [phone] | | | | | | | [...]
--- OUTSIDE RECORDS SUMMARY | ~2019-11-17 | XMS | Clinical Summary ---
Demographics + + + | Address | [address] | | | [place] [address] | + + + | Home Phone | | + + + | Preferred Language | Unknown | + + + | Marital Status | | + + + | Rastafarian Affiliation | 1077 | + + + | Race | Unknown | + + + | Ethnic Group | Unknown | + + + Author + + + | Author | [facility] | | | and Jasana | + + + | Organization | [facility] | | | and [...] Team Providers + +------+ + | Care Foundry Helper Name | Role | Phone | + [...] + + + +---------+------+------+-------+ | labetalol | TAKE 1 2 (ONE HALF) | | 0 | 05/2 | | Activ | | (NORMODYNE) 100 mg | TABLET BY MOUTH | | | 4/20 | | e | | tablet | TWICE DAILY | | | 20 | | | + + + +---------+------+------+-------+ | pantoprazole | TAKE 1 TABLET BY | | 0 | 06/1 | | Activ | | (PROTONIX) 40 mg | MOUTH ONCE DAILY | | | 5/20 | | e | | tablet | | | | 20 | | | + + + +---------+------+------+-------+ | amLODIPine | Take 1 tablet (5 mg | 30 | 5 | 06/2 | | Activ | | (NORVASC) 5 mg | total) by mouth | tablet | | 3/20 | | e | | tablet | Daily | | | 20 | | | + + + +---------+------+------+-------+ | amLODIPine | Take 1 tablet by | 30 | 0 | 05/2 | 06/2 | Disco | | (NORVASC) 5 mg | mouth Daily. | tablet | | 3/20 | 3/20 | ntinu | | tablet | | | | 20 | 20 | ed | | | | | | | | (Ther | | | | | | | | apy | | | | | | | | compl | | | | | | | | eted) | + + + +---------+------+------+-------+ | labetalol | Take 1 tablet by | 60 | 0 | 05/2 | 06/2 | Disco | | (NORMODYNE) 300 MG | mouth 2 times daily. | tablet | | 2/20 | 3/20 | ntinu | | tablet | | | | 20 | 20 | ed | | | | | | | | (Ther | | | | | | | | apy | | | | | | | | compl | | | | | | | | eted) | + + + +---------+------+------+-------+ Active Problems + + + | Problem | Noted Date | + + + | Hypertensive emergency | 10/03/2019 | + + + Encounters +--------+ + + + + | Date | Type | Specialty | Care Team | Description | +--------+ + + + + | 11/07/ | Hospital | Radiology | August Licea | Shortness of breath; | | 2019 | Encounter | | MD Oren | Cough | +--------+ + + + + | 11/07/ | Office | Cardiology | August Licea | Shortness of breath | | 2019 | Visit | | MD Oren | (Primary Dx); Cough | +--------+ + + + + | 10/17/ | Telephone | Cardiology | Keely Grover RN | Follow-up | 2019 | | | | | +--------+ + + + + | 10/16/ | Telephone | Cardiology | Keely Grover RN | Follow-up | 2019 | | | | | +--------+ + + + + | 10/04/ | Surgery | Cardiology | Lj Barker MD | CV COR ANGIO | | 2019 | | | | | +--------+ + + + + | 10/03/ | Imaging | Radiology | Provider, | | 2019 | Exam | | [...] | 2019 | | | | infarction) ([facility]); | | | | | | Hypertension, | | | | | | 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, | | | | | | without CHF | +--------+ + + + + from Last 3 Months Immunizations + + + + | Name | Administration Dates | Next Due | + + + + | INFLUENZA TRIV | 03/19/2011 | | | W/PRES(PED/ADOL/ADUL | | | | T),MULTIDOSE | | | + + + + | INFLUENZA, [id number], | 05/05/2009 | | | UNSPECIFIED | [...] on file | | + + + Last Filed Vital Signs + + + + + | Vital Sign | Reading | Time Taken | Comments | + + + + + | Blood Pressure | 138/68 | 11/08/2019 10:21 AM | | | | | PDT | | + + + + + | Pulse | 64 | 11/08/2019 10:21 AM | | | | | PDT | | + + + + + | Temperature | 37.1 C (98.8 F) | 10/07/2019 11:11 AM | | | | | PDT | | + + + + + | Respiratory Rate | 18 | 11/08/2019 10:21 AM | | | | | PDT | | + + + + + | Oxygen Saturation | 96% | 10/07/2019 11:11 AM | | | | | PDT | | + + + + + | Inhaled Oxygen | - | - | | | Concentration | | | | + + + + + | Weight | 93.9 kg (207 lb) | 11/08/2019 10:21 AM | | | | | PDT | | + + + + + | Height | 167.6 cm (5' 6") | 11/08/2019 10:21 AM | | | | | PDT | | + + + + + | Body Mass Index | 33.41 | 11/08/2019 10:21 AM | | | | | PDT | | + + + + + Plan of Treatment +--------+---------+ + + + | Date | Type | Specialty | Care Team | Description | +--------+---------+ + + + | 11/30/ Office | Cardiology | Lj Barker MD | | | 2019 | Visit | | [address] | | | | | | [place] | | | | | | [address] | | | | | | | | +--------+---------+ + + + + + + + + | Health Maintenance | Due Date | Last | Comments | | | | Done | | + + + + + | Hepatitis C | | | | | Screening | 2 | | | + + + + + | Vaccine: | | | | | Dtap/Tdap/Td (1 - | 1 | | | | Tdap) | | [...] | 7 | | | | of 1 - PPSV23) | | | | + + + + + | Adult Annual | | | | | Wellness Visit | 0 | | | + + + + + | Vaccine: Influenza | | 03/19/20 | | | (Season Ended) | 0 | 11, | | | | | 05/05/20 | | | | | 09, | | | | | 02/14/20 | | | | | 09 | | + + + + + | Colorectal Cancer | | 10/06/19 | | | Screening (FIT) | 1 | 20 | | + + + [...] 8 | Stent | | [place] | [id number] | 10/28/ | [id number] | | - [id number]: Qty: 1 | | | SCIENTIFIC | [id number] | 2019 | [id number] | | on 10/05/2019 by Lj Barker | | | PATO - BSCI | 72 | | 50 / | | MD Miguel at [facility] | | | | | | /[id number] | | [facility] | | | | | | 767 | + +-------+------+ +--------+--------+--------+ + + | Description:cx | + + + +-------+---+ +--------+--------+--------+ | Stent [place] Synergy Mr 3.0 X 32 | Stent | | [place] | [id number] | 12/27/ | [id number] | | - [id number]: Qty: | | | SCIENTIFIC | [id number] | 2019 | [id number] | | 1 on 10/05/2019 by Mj, | | | PATO - BSCI | 50 | | 00 / | | Lj Rivera MD at [facility] | | | | | | /[id number] | | [facility] | | | | | | 921 | | CENTER | | | | | | | + +-------+---+ +--------+--------+--------+ + + | Description:rca | + + Procedures + +--------+ + + + | Procedure Name | Priori | Date/Time | Associated Diagnosis | Comments | | | ty | | | | + +--------+ + + + | B TYPE NATRIURETIC | Routin | 11/08/2019 | Shortness of | Results for this | | PEPTIDE | e | 11:53 AM | breath Cough | procedure are in the | | | | PDT | | results section. | + +--------+ + + + | CBC WITH | Routin | 11/08/2019 | Shortness of | Results for this | | DIFFERENTIAL | e | 11:53 AM | breath Cough | procedure are in the | | | | PDT | | results section. | + +--------+ + + + | XR CHEST PA AND | Routin | 11/08/2019 | Shortness of | Results for this | | LATERAL | e | 11:49 AM | breath Cough | procedure are in the | | | | PDT | | results section. | + +--------+ + + + | ECG - EXTERNAL SCAN | | 10/14/2019 | | Results for this | | | | 12:00 AM | | procedure are in the | | | | PDT | | results section. | + +--------+ + + + | LABS - EXTERNAL SCAN | | 10/14/2019 | | Results for this | | | | 12:00 AM | | procedure are in the | | | | PDT | | results section. | + +--------+ + + + | IMAGING REPORT - | | 10/14/2019 | | Results for this | | EXTERNAL SCAN | | 12:00 AM | | procedure are in the [...] + + from Last 3 Months Results CBC with Differential (11/08/2019 11:53 AM PDT)Only the most recent of 3 results within the time period is included. + + + + + + | Component | Value | Ref Range | Performed | Pathologist | | | | | At | Signature | + + + + + + | WBC | 5.0 | 4.0 - 11.0 K/uL | [facility] | | | | | | [facility] | | | | | | [facility] - | | | | | | LABORATORY | | + + + + + + | RBC | 4.04 | 3.70 - 5.20 | [facility] | | | | | M/uL | [facility] | | | | | | MEDICAL | | | | | | CENTER - | | | | | | LABORATORY | | + + + + + + | Hemoglobin | 12.8 | 11.5 - 16.0 | [facility] | | | | | g/dL | [facility] | | | | | | MEDICAL | | | | | | CENTER - | | | | | | LABORATORY | | + + + + + + | Hematocrit | 37.2 | 34.0 - 47.0 % | [facility] | | [facility] | [facility] | | | | | | [facility] | | | | | | C[facility] - | | | | | | LABORATORY | | + + + + + + | MCV | 92.1 | 83.0 - 101.0 fL | [facility] | | [facility] | [facility] | | | | | | [facility] | | | | | | C[facility] - | | | | | | LABORATORY | | + + + + + + | MCH | 31.7 | 28.0 - 35.0 pg | [facility] | | [facility] | [facility] | | | | | | [facility] | | | | | | C[facility] - | | | | | | LABORATORY | | + + + + + + | MCHC | 34.4 | 32.0 - 36.0 | [facility] | | | | | g/dL | [facility] | | | | | | [facility]ICAL | | | | | | CENTER - | | | | | | LABORATORY | | + + + + + + | RDW-CV | 14.3 | <15.0 % | [facility] | | | | | | [facility] | | | | | | C[facility] - | | | | | | LABORATORY | | + + + + + + | RDW-SD | 47.8 (H) | 35.1 - 46.3 fL | [facility] | | [facility] | [facility] | | | | | | [facility] - | | | | | | LABORATORY | | + + + + + + | Platelet | 288 | 140 - 440 K/uL | [facility] [...] + + + + | % | 65.1 | 45.0 - 82.0 % | [facility] | | | Neutrophils | | | [facility] | | | | | | MEDICAL | | | | | | CENTER - | | | | | | LABORATORY | | + + + + + + | % | 20.4 | 20.0 - 45.0 % | [facility] | | | Lymphocytes | | | [facility] | | | | | | MEDICAL | | | | | | CENTER - | | | | | | LABORATORY | | + + + + + + | % Monocytes | 9.7 | 4.0 - 12.0 % | [facility] | | | | | | [facility] | | | | | | [facility]ICAL | | | | | | C[facility] - | | | | | | LABORATORY | | + + + + + + | % | 3.6 | 0.0 - 5.0 % | [facility] | | | Eosinophils | | | [facility] | | | | | | MEDICAL | | | | | | CENTER - | | | | | | LABORATORY | | + + + + + + | % Basophils | 1.0 | 0.0 - 1.0 % | [facility] | | | | | | [facility] | [facility] | | | | | | [facility] - | | | | | | LABORATORY | | + + + + + + | % Immature | 0.2 | 0.0 - 0.4 % | [facility] | | | Granulocyte | | | [facility] | | | s | | | MEDICAL | | | | | | CENTER - | | | | | | LABORATORY | | + + + + + + | Absolute | 3.22 | 1.80 - 8.50 | [facility] | | | Neutrophils | | K/uL | [facility] | [facility] | | | | | | [facility] - | | | | | | LABORATORY | | + + + + + + | Absolute | 1.01 | 0.60 - 3.20 | [facility] | | | Lymphocytes | | K/uL | [facility] | | | | | | MEDICAL | | | | | | CENTER - | | | | | | LABORATORY | | + + + + + + | Absolute | 0.48 | 0.00 - 1.00 | [facility] | | | Monocytes | | K/uL | [facility] | | | | | | MEDICAL | | | | | | CENTER - | | | | | | LABORATORY | | + + + + + + | Absolute | 0.18 | 0.00 - 0.40 | [facility] | | | Eosinophils | | K/uL | [facility] | | | | | | MEDICAL | | | | | | CENTER - | | | | | | LABORATORY | | + + + + + + | Absolute | 0.05 | 0.00 - 0.10 | [facility] | | | Basophils | | K/uL | [facility] | | | | | | MEDICAL | | | | | | CENTER - | | | | | | LABORATORY | | + + + + + + | Absolute | 0.01 | 0.00 - 0.03 | [facility] | | | Immature | | K/uL | [facility] | | | Granulocyte | | | MEDICAL | | | s | | | CENTER - | | | | | | LABORATORY | | + + + + + + | % nRBC | 0 | 0 - 2 per 100 | [facility] | | | | | WBCs | [facility] | | | | [...] [address] | [place] | [phone] | | [facility] | | [address] | | | - LABORATORY | | | | + + + + + B Type Natriuretic Peptide (11/08/2019 11:53 AM PDT) + + + + + + | Component | Value | Ref Range | Performed | Pathologist | | | | | At | Signature | + + + + + + | BNP | 117 (H)Comment: New | <100 pg/mL | [facility] | | | | method in use as of | | [facility] | | | | July 14, 2018. [...] [address] | [place] | [phone] | | [facility] | | [address] | | | - LABORATORY | | | | + + + + + XR Chest PA and Lateral (11/08/2019 11:49 AM PDT) + + | Specimen | + + | | + + + + + | Impressions | Performed At | + + + | No acute findings. Electronically signed by Chong Aragon MD | [facility] | | 11/08/2019 1:30 PM | | + + + + + + | Narrative | Performed At | + + + | XR CHEST PA AND LATERAL 11/08/2019 11:49 AM HISTORY: cough. | [facility] | | COMPARISON: Multiple priors. Findings: Heart size is within | | | normal limits. Aorta is normal. Mediastinum demonstrates no acute | | | findings. Central pulmonary vasculature is normal. The bilateral | | | lungs are clear with no evidence for pleural effusion or | | | pneumothorax. There is minimal spondylosis. | | + + + + + | Procedure Note | + + | Tr, Rad Results In - 11/08/2019 1:34 PM PDT XR CHEST PA AND LATERAL 11/08/2019 11:49 | | AMHISTORY: cough.COMPARISON: Multiple priors.Findings:Heart size is within normal | | limits. Aorta is normal. Mediastinumdemonstrates no acute findings. Central pulmonary | | vasculature isnormal. The bilateral lungs are clear with no evidence for pleuraleffusion | | or pneumothorax. There is minimal spondylosis.IMPRESSION: No acute | | findings.Electronically signed by Chong Aragon MD 11/08/2019 1:30 PM | |Findings: | |Heart size is within normal limits. Aorta is normal. Mediastinum | |demonstrates no acute findings. Central pulmonary vasculature is | |normal. The bilateral lungs are clear with no evidence for pleural | |effusion or pneumothorax. There is minimal spondylosis. | | | |IMPRESSION: | |No acute findings. | | | |Electronically signed by Chong Aragon MD 11/08/2019 1:30 PM | + + + +---------+ + + | Performing | Address | City/State/Zipcode | Phone Number | | Organization | | | | + +---------+ + + | [facility] | | | | + +---------+ + + IMAGING REPORT - EXTERNAL SCAN (10/14/2019 12:00 AM PDT) + + + | Narrative | Performed At | + + + | Ordered by an | | | unspecified provider. | | + + + LABS - EXTERNAL SCAN (10/14/2019 12:00 AM PDT) + + + | Narrative | Performed At | + + + | Ordered by an | | | unspecified provider. | | + + + ECG - EXTERNAL SCAN (10/14/2019 12:00 AM PDT) + + + | Narrative | Performed At | + + + | Ordered by an | | | unspecified provider. | | + + + POC Glucose (10/07/2019 11:37 AM PDT)Only the [...] [address] | [place] | [phone] | | [facility] | | [address] | | | - LABORATORY | | [...] + | [facility] [facility] | [address] | [place] | [phone] | | [facility] | | [address] | | | - LABORATORY | | [...] | | | | | g/dL | [facility] | | | | | [...] | | | Count | | | [facility] | | [...] | | nRBC | | K/uL | [facility] | | | | | [...] [address] | [place] | [phone] | | [facility] | | [address] | | | - LABORATORY | | [...] New | 120 - 246 U/L | [facility] | | | | method in use as of | | [facility] | | | | July 14, [...] [address] | [place] | [phone] | | [facility] | | [address] | | | - LABORATORY | | [...] [facility] | | | | | | [facility] | | [...] [address] | [place] | [phone] | | [facility] | | [address] | | | - LABORATORY | | [...] 17 | 9 - 23 mg/dL | [facility] | | | | | | [facility] | | | | | | MEDICAL | | | | | | CENTER - | | | | | | LABORATORY | | + + + + + + | Creatinine | 1.15 (H) | 0.55 - 1.02 | [facility] | | | | | mg/dL | [facility] | | | | | | MEDICAL | | | | | | CENTER - | | | | | | LABORATORY | | + + + + + + | eGFR if not | 47 (L)Comment: | >=60 | [facility] | | | | GLOMERULAR FILTRATION | mL/min/1.73m2 | [facility] | | | HAITIAN | RATE,ESTIMATED | | MEDICAL | | | | mL/min/1.34r7Ohog than | | CENTER - | | [...] | ine Ratio | | | [facility] | | [...] [address] | [place] | [phone] | | [facility] | | [address] | | | - LABORATORY | | [...] | | Blood in | | | [facility] | | | 1st | | | [...] ST. | [address] | [place], [place] | [phone] | | [facility] | | [address] | | | - LABORATORY | | [...] + | [facility] | [address] | [place] | [phone] | | [facility] | | [address] | | | - LABORATORY | | [...] + | [facility] | [address] | [place] | [phone] | | [facility] | | [address] | | | - LABORATORY | | [...] | | Reticulocyt | | | [facility] | | | e Count | | | MEDICAL | | | | | | CENTER - | | | | | | LABORATORY | | + + + + + + | Absolute | 0.0689 | 0.0164 - 0.0776 | [facility] | | | Reticulocyt | | M/uL | [facility] | | | e Count | | | MEDICAL | | | | | | CENTER - | | | | | | LABORATORY | | + + + + + + | Immature | 24.1 (H)Comment: Values | 2.3 - 15.9 % | [facility] | | | Reticulocyt | above normal range | | [facility] | | | e Fraction | [...] + | [facility] | [address] | [place] | [phone] | | [facility] | | [address] | | | - LABORATORY | | [...] + | [facility] | [address] | [place] | [phone] | | [facility] | | [address] | | | - LABORATORY | | [...] [facility] | | | | | | [facility] | | [...] [address] | [place] | [phone] | | [facility] | | [address] | | | - LABORATORY | | [...] ST. | [address] | [place], [place] | [phone] | | [facility] | | [address] | | | - LABORATORY | | [...] | | | | | BINH ESQUIVEL ([address]) on | | | | | | [...] medications administered | | | by the Chief Catalyst Operator nurse under my supervision. Patient tolerated | [...] | Clotting | | second(s) | [facility] | | | Time, POC | [...] [address] | [place] | [phone] | | [facility] | | [address] | | | - LABORATORY | | [...] + | [facility] | [address] | [place] | [phone] | | [facility] | | [address] | | | - LABORATORY | | [...] | | | Ratio | | | [facility] | | | | | | MEDICAL | | | | | | CENTER - | | | | | | LABORATORY | | + +-------+ + + + | LDL, | 125 | <=130 mg/dL | [facility] | | | Calculated | | | [facility] | | [...] [address] | [place] | [phone] | | [facility] | | [address] | | | - LABORATORY | | [...] | | | | | | [employer] | | | | | [...] + + | Performing | Address | City/State/[facility] Cent[facility] | Phone Number | | Organization | | | | + + + + + | [facility] | [address] | [place] | [phone] | | [facility] | | [address] | | | - LABORATORY | | [...] - 1.030 | [facility] | | | [place], | | | [facility] | | [...] + | [facility] | [address] | [place] | [phone] | | [facility] | | [address] | | | - LABORATORY | | [...] + | [facility] | [address] | [place] | [phone] | | [facility] | | [address] | | | - LABORATORY | | [...] | | | | | | n [place] | | | | | + +--------+ [...] were | | | [facility] on October 04, [...] this study were reported by the [facility] | | Imagingradiologist on October 04, [...] + + + + + + | SARS-CoV-2, | NegativeComment: Result | Negative | [facility] | | | NAAT | called to and read back | | [facility] | | | (COVID-19) | by Gail Macedo on | | [...] [address] | [place] | [phone] | | [facility] | | [address] | | | - LABORATORY | | [...] | chromogenic agar method. | | [facility] | | | [...] + | [facility] [facility] | [address] | [place], [place] | [phone] | | [facility] | | [address] | | | - LABORATORY | | [...] +--------+ +---------+--------+ | MEDICARE | MEDICA | [id number] | 11/16/19 | [phone] | | Medica | | | RE | | 17-Pre | 5 | | re | | | PART A | | sent | | | | | | AND B | | | | | | + +--------+ +--------+ +---------+--------+ | [employer] | MUTUAL | [id number] | 11/16/19 | [phone] | | Indemn | | | AND | | 17-Pre | 0 | | ity | | | UNITED | | sent | | | | | | [employer] | | | | | | | [...] Person | Self | [birth year] | | ADARSH Tang 2009 | | | al/Fam | | 1951 | [phone] | [place] [address] | | | madelyn | | | 9 (Home) | | + +--------+ +--------+ + + Advance Directives + + + + + | Type | Date Recorded | Patient | Explanation | | | | Animal Sitter | | + + + + + | Power of | | | | | Outboard Motor Tester | | | | + + + [...]
--- OUTSIDE RECORDS SUMMARY | ~2019-11-17 | XMS | Encounter Summary ---
Demographics + + + | Address | [address] | | | [place] [address] | + + + | Home Phone | | + + + | Preferred Language | Unknown | + + + | Marital Status | | + + + | Jehovah'S Witness Affiliation | 1077 | + + + | Race | Unknown | + + + | Ethnic Group | Unknown | + + + Author + + + | Author | [facility] | | | and Jasana | + + + | Organization | [facility] | | | and Jasana [...] Team Providers + +------+ + | Care Software Technician Name | Role | Phone | + +------+ + | Jacob Rodríguez DO | PCP | | + +------+ + Encounter Details +--------+ + + + + | Date | Type | Department | Care Team | Description | +--------+ + + + + | 11/07/ | Hospital | [facility] | Vinayak August | Shortness of breath; | | 2019 | Encounter | [facility] | MD [place]ren [address] | Cough | | | | [address] [place] | [address] [place] | | | | | [place], [place] | [place] [address] | | | | | [address] | [phone] | | | | | [phone] | | | +--------+ + + + [...] + + documented as of this encounter Medications at Time of Discharge + + + +---------+ + + | Medication | Sig | Dispensed | Refills | Start | End Date | | | | | | Date | | + + + +---------+ + + | amLODIPine | Take 1 tablet (5 mg | 30 | 5 | 11/08/19 | | | (NORVASC) 5 mg | total) by mouth | tablet | | 20 | | | tablet | Daily | | | | | + + [...] + +---------+ + + | labetalol | TAKE 1 2 (ONE HALF) | | 0 | // | | | (NORMODYNE) 100 mg | TABLET BY MOUTH | | | 20 | | | tablet | TWICE DAILY | | | | | + + + +---------+ + + | nitroglycerin | Place 1 tablet under | 25 | 0 | /20 | | | (NITROSTAT) 0.4 mg | the tongue every 5 | tablet | | 20 | | | SL tablet | minutes as needed | | | | | | | for Chest pain. | | | | | + + + +---------+ + + | pantoprazole | TAKE 1 TABLET BY | | 0 | /20 | | | (PROTONIX) 40 mg | MOUTH ONCE DAILY | | | 20 | | | tablet | | | | | | + + + +---------+ + + | sodium chloride | 2 sprays by Each | | 0 | 10/07/19 | | | ([facility]) 0.65% nasal | Nare route 4 times [...] 2020 | Visit | | [address] | | | | | | [place] | | | | | | [address] | | | | | | | [...] documented in this encounter Results XR Chest PA and Lateral (11/08/2019 11:49 [...] + | Diagnosis | + + | Shortness of breath | + + | Cough | + + documented in this encounter"
--- OUTSIDE RECORDS SUMMARY | ~2019-11-17 | XMS | Encounter Summary ---
Demographics + + + | Address | [address] | | | [place] [address] | + + + | Home Phone | | + + + | Preferred Language | Unknown | + + + | Marital Status | | + + + | Yazdanism Affiliation | [id number] | + + + | Race | Unknown | + + + | Ethnic Group | Unknown | + + + Author + + + | Author | [facility] | | | and Jasana | + + + | Organization | [facility] | | | and Jasana | + + + | Address | Unknown | + + + | Phone | Unavailable | + + + Support + + +---------+ + | Name | Relationship | Address | Phone | + + +---------+ + | David Morton | ECON | Unknown | | + + +---------+ + | Nusrat Bowles | ECON | Unknown | | + + +---------+ + Care Team Providers + +------+ + | Care Pourer Buggy Ladle Name | Role | Phone | + [...] + + | 10/02/ | Hospital | [facility] | Tal Bailey MD | Hypertensive | | 2019 - | Encounter | MED CTR ICU [address] | emergency; NSTEMI | | | | [place], | [place], [place] | (non-ST elevated | | 10/06/ | | [place] [address] | [id number] | myocardial | | 2019 | | [phone] | | infarction) ([facility]); | | | | | Manoj Fuentes MD | Hypertension, | | | | | [address] | accelerated with | | | | | [place], [place] | heart disease, | | | | | [id number] | without CHF | | | | | | | [...] + + documented in this encounter Discharge Summaries Manoj Fuentes MD - 10/07/2019 12:07 PM PDT [facility] DISCHARGE SUMMARY Pt. Name/Age/: Jaya Morton 68 y.o. 1950 Date of Admission: 10/03/2019 Date of Discharge: 10/07/2019 Admitting Physician: Tal Bailey MD Primary Care Provider: Jacob Rodríguez DO Discharging Physician: Manoj Fuentes MD DISCHARGE DIAGNOSES: 1. NSTEMI with PCI with mid circumflex artery stenting, proximal RCA stenting, and angiopl asty to the first OM and distal AV groove circumflex lesion 2. Hypertensive urgency on presentation to [facility] treated with a single do se of IV metoprolol and initiation of nitroglycerin infusion 3. Essential hypertension, not on active therapy at presentation 4. Left upper extremity superficial thrombophlebitis noted on the day of discharge treated with recommendation for hot packs and return assessment for any temperature of 101 degrees. 5. Normochromic normocytic anemia; Hemoccult negative this admission 6. Elevated blood sugars thought secondary to physiologic stress versus mild type 2 diabet es mellitus. Recommendations for diet given with plan for metformin should dietary changes fail. Blood sugars this admission of 130 -160 with glycosylated hemoglobin of 5.3. DISCHARGE MEDICATIONS: Discharge Medications New Medications Details amLODIPine 5 mg tablet Take 1 tablet by mouth Daily. aka: NORVASC Start: October 08, 2019 aspirin 81 mg chewable tablet Chew and swallow 1 tablet Daily. Start: October 08, 2019 atorvaSTATin 40 mg tablet Take 1 tablet by mouth nightly. aka: LIPITOR clopidogrel 75 mg tablet Take 1 tablet by mouth Daily. aka: PLAVIX labetalol 300 MG tablet Take 1 tablet by mouth 2 times daily. aka: NORMODYNE nitroglycerin 0.[address] 1 tablet under the tongue every 5 minutes as needed for Chest pain. aka: NITROSTAT sodium chloride 0.65% nasal spray 2 sprays by Each Nare route 4 times daily. aka: OCEAN Discontinued Medications ibuprofen 200 mg tablet aka: ADVIL, MOTRIN DISCHARGE INSTRUCTIONS: Follow-up Information Floyd Bailey MD. Go on 10/17/2019. Specialty: Medical Oncology Why: Main admitting at [facility], check in at 1045 Contact information: [address] [facility] [address] [place] [address] Lj Barker MD. Specialties: Interventional Cardiology, Cardiology Why: 11/07, at 11:30 am(check in 15 minutes early) Contact information: [address] [facility] [facility] [id number] RESULTS: TTE Conclusion Summary: 1. Ventricular size and function. Ejection fraction 60% 2. Inferior basilar hypokinesis. 3. Normal aortic and mitral valve. 4. Normal left atrium 5. Normal right heart valves and chambers. 6. Echo with mild wall motion abnormalities noted. Results for JAYA MORTON ( ) as of 10/14/2019 14:04 Ref. Range 10/03/2019 22:44 10/04/2019 04:09 10/04/2019 18:40 10/05/2019 04:09 Troponin I Latest Ref Range: <0.06 ng/mL 9.40 (HH) 16.27 (HH) 24.64 (HH) 26.41 (HH) Results for JAYA MORTON ( ) as of 10/14/2019 14:04 Ref. Range 10/07/2019 03:52 WBC Latest Ref Range: 4.0 - 11.0 K/uL 8.4 RBC COUNT Latest Ref Range: 3.70 - 5.20 M/uL 2.98 (L) Total Hemoglobin Latest Ref Range: 11.5 - 16.0 g/dL 9.5 (L) Hematocrit Latest Ref Range: 34.0 - 47.0 % 29.0 (L) MCV Latest Ref Range: 83.0 - 101.0 fL 97.3 MCH Latest Ref Range: 28.0 - 35.0 pg 31.9 MCHC Latest Ref Range: 32.0 - 36.0 g/dL 32.8 RDW-CV Latest Ref Range: <15.0 % 13.3 RDW-SD Latest Ref Range: 35.1 - 46.3 fL 47.0 (H) Platelet Count Latest Ref Range: 140 - 440 K/uL 206 Results for JYAA MORTON ( ) as of 10/14/2019 14:04 Ref. Range 10/07/2019 03:52 Na Latest Ref Range: 136 - 145 mmol/L 140 K Latest Ref Range: 3.4 - 5.1 mmol/L 4.3 Chloride Latest Ref Range: 98 - 107 mmol/L 108 (H) Carbon dioxide Latest Ref Range: 20 - 31 mmol/L 27 Anion Gap Latest Ref Range: 3 - 16 mmol/L 5 Glucose Latest Ref Range: 60 - 106 mg/dL 130 (H) BUN Latest Ref Range: 9 - 23 mg/dL 17 Creatinine Latest Ref Range: 0.55 - 1.02 mg/dL 1.15 (H) BUN/Creatinine Ratio Unknown 14.8 EGFR IF NOT Latest Ref Range: >=60 mL/min/1.73m2 47 (L) Calcium Latest Ref Range: 8.7 - 10.4 mg/dL 9.3 LDH TOTAL Latest Ref Range: 120 - 246 U/L 529 (H) Results for JAYA MORTON ( ) as of 10/14/2019 14:04 Ref. Range 10/07/2019 03:52 CK, Total Latest Ref Range: 34 - 145 U/L 278 (H) Results for JAYA MORTON ( ) as of 10/14/2019 14:04 Ref. Range 10/06/2019 03:54 FERRITIN Latest Ref Range: 7 - 271 ng/mL 246 Folate Latest Ref Range: >5.4 ng/mL 13.9 Iron Latest Ref Range: 50 - 170 ug/dL 18 (L) TIBC Latest Ref Range: 235 - 425 ug/dL 225 (L) % SATURATION Latest Ref Range: 15.0 - 50.0 % 8.0 (L) Transferrin Latest Ref Range: 250.0 - 380.0 mg/dL 161.0 (L) Vitamin B12 Latest Ref Range: 156 - 672 pg/mL 506 Hemoglobin A1c Latest Ref Range: 4.3 - 6.0 % 5.3 Estimated Average Glucose Latest Units: mg/dL 105 Please refer to the H&P for full details. In short This 68 y/o presented with chest pain with troponin elevation associated with severe hypertension at [facility] with a chronic h /o hypertension on no active therapy. A single dose of IV metoprolol was given with initiati on of a NTG drip and on transfer her pain ws improved with a BP of 167/76. No changes of LVH were seen on her EKG or echo. The patient was seen by Dr Barker and with evidence of NSTEMI was taken to the central lab technician where multivessel disease was found and 2 vessel stenting and angioplasty performed. BP was treated with labetalol and amlodipine and diabetic education occurred with the patie nt thought most likely to have prediabetes vs very mild type 2 disease. She was also found to be anemic but hemoccult negative this admission with a negative ass essment thusfar(LDH elevated but possibly secondary to [place]-no reticulocytosis or smear abnorm alities to suggest hemolysis). Outpatient assessment of her anemia by Dr Bailey at [facility] and follow up with Dr Barker has been arranged. Note that on the day of discharge supe rficial phlebitis was noted at a left arm IV site and treatment and follow up instructions were given to the patient. PHYSICAL EXAM: Temp: 37.1 C (98.8 F), Pulse: 60, Resp: 15, BP: 152/58, SpO2 96 % on room air at flow r ate 2L/min Temp Min: 36.6 C (97.9 F) Max: 37.7 C (99.9 F) Weight: 101.5 kg (223 lb 12.3 oz) Patient seen and examined by me on discharge day Greater than 30 minutes were spent on discharge and coordination of post-hospital care. Electronically signed by: Manoj Fuentes MD, 10/07/2019 12:22 PM [facility] Portions of this chart may have been created with [email or web address] voice recognition software. Occasi onal wrong-word or sound-alike substitutions may have occurred due to the inherent solitario itations of voice recognition software. Please read the chart carefully and recognize, using context, where these substitutions have occurred documented in this encounter Discharge Instructions Instructions Kayla Regan, PharmD - . Apply heating pad(low setting) to left arm at least 1 hour 3 times daily; more if desired is OK 2. For temperature of 101 degrees return to ER or call Dr Fuentes 3. May call Dr Fuentes for questions at [phone] from 7 am to 7 pm until 10/09 at 7 pm fo r questions Medication Costs: Fill your medications at [facility], they have the lowest [place] if insurance does not co eleanor the medications. amLODIPine -- $9 for 30-day supply atorvaSTATin --$15 for 30-day supply clopidogrel --$15 for 30-day supply labetalol --$20.49 for 30-day supply (with GoodRx coupon) nitroglycerin --$10.95 for 25 tablets (with GoodRx coupon) Aspirin 81 mg-- available [id number]; around $4 for 100 tablets Sodium chloride nasal spray--Equate ([employer] brand) available [id number], around $4 for one bottle documented in this encounter Medications at Time of Discharge + + + +---------+ + + | Medication | Sig | Dispensed | Refills | Start | End Date | | | | | | Date | | + + + +---------+ + + | aspirin 81 mg | Chew and swallow 1 | 30 | 0 | / | | | chewable tablet | tablet Daily. | tablet | | 20 | | + + + +---------+ + + | atorvaSTATin | Take 1 tablet by | 30 | 0 | / | | | (LIPITOR) 40 mg | mouth nightly. | tablet | | 20 | | | tablet | | | | | | + + + +---------+ + + | clopidogrel | Take 1 tablet by | 90 | 0 | / | | | (PLAVIX) 75 mg | [...] Daily. | tablet | | 20 | 0 | | tablet | | | | | | + + + +---------+ + + | labetalol | Take 1 tablet by | 60 | 0 | 10/07/19 | | | (NORMODYNE) 300 MG | mouth 2 times daily. | tablet | | 20 | 0 | | tablet | | | | | | + + + +---------+ + + documented as of this encounter Progress Notes Kayla Regan PharmD - 10/07/2019 2:31 PM PDTJaya Morton was admitted for NSTEMI and hypertensive emergency and discharged home today (10/07/2019) Taught AVS education to patient. Education was focused on new medications and/or changed me dications. I explained indication, how to take, possible side effects, when to contact physi shivam, and monitor parameters. The patient was reminded of follow-up appointment with biology faculty member and encouraged to make a follow-up appointment [...] M D - 10/06/2019 8:38 AM PDT [facility] PMG Hospitalist Progress Note Jaya Morton is a 68 y.o. female ASSESSMENT and [...] In the emergency room at [facility] she received 5 mg of IV metoprolol, 324 mg of aspirin, and a dose of Lovenox transferred here. On presentatio n she had a CTA which was negative for aortic dissection. Troponin has progressively risen and currently plateauing at 26. Patient was taken to the [facility] Operator 10/04 with multivessel disease including RCA, circumflex, [...] above. Manoj Fuentes MD 10/06/2019 8:38 AM [facility] Portions of this chart may have been created with [email or web address] voice recognition software. Occasi onal wrong-word or sound-alike substitutions may have occurred due to the inherent solitario itations of voice recognition software. Please read the chart carefully and recognize, using context, where these substitutions have occurred Manoj Wesley MD - 0 10/05/2019 7:34 AM PDT [facility] PMG Hospitalist Progress Note Jaya Morton is a 68 y.o. female ASSESSMENT and [...] In the emergency room at [facility] she received 5 mg of IV metoprolol, [...] above. Manoj Fuentes MD 10/05/2019 7:34 AM [facility] Portions of this chart may have been created with [email or web address] voice recognition software. Occasi onal wrong-word or sound-alike substitutions may have occurred due to the inherent solitario itations of voice recognition software. Please read the chart carefully and recognize, using context, where these substitutions have occurred Kayla Chen Pharm D - 10/04/2019 3:58 PM PDT PHARMACY SERVICES: ADMISSION MEDICATION REVIEW Jaya Morton is a 68 y.o. 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 Provider ibuprofen (ADVIL, MOTRIN) 200 mg tablet Take 200 mg by mouth every 6 hours as needed for P ain. Taking Differently Historical Provider, Medication review performed and electronically signed by Magda Lucia, [facility] 2019 3:50 PM Reviewed by Kayla Regan PharmD 10/04/2019 3:58 PM Manoj Wesley M D - 10/04/2019 7:28 AM PDT [facility] PMG Hospitalist Progress Note Jaya Morton is a 68 y.o. female ASSESSMENT and [...] In the emergency room at [facility] she received 5 mg of IV metoprolol, [...] embolism or other acute process in the [facility] st. Signed by: Michel Raymond Robin Sign Date/Time: 10/04/2019 4:04 AM Total time of approximately 40 minutes was spent with the patient and/or patient's family, and/or on the patient's floor/unit, of which more than 50% was spent counseling and/or coord ination the patient's care as outlined above. Manoj Fuentes MD 10/04/2019 7:28 AM [facility] Portions of this chart may have been created with [email or web address] voice recognition software. Occasi onal wrong-word or sound-alike substitutions may have occurred due to the inherent solitario itations of voice recognition software. Please read the chart carefully and recognize, using context, where these substitutions have occurred documented in this enc ounter H&P Notes Mazyck, Tal, MD - 10/03/2019 9:37 PM PDT [facility] HISTORY AND PHYSICAL Pt. Name/Age/: Jaya Morton 68 y.o. 1950 Date of admission: 10/03/2019 Admitting Physician: Tal Bailey MD Primary Care Provider: No primary care provider on file. CHIEF COMPLAINT: Chest pain HISTORY OF PRESENT ILLNESS: This is a 68 y.o. female past medical history significant for hypertension who presents wit h chest pain. Patient states that symptoms started today in the morning. Patient noticed t hat she had right-sided chest pain. She describes the pain as pressure. Patient states clotilde t the pain radiated down her chest into her right arm. Pain was associated with nausea and shortness of breath. Patient states she took some Advil which eased the pain. Patient late r noticed that episode of pain in the afternoon at rest. Patient does not take medications for blood pressure. At Outside hospital ED. Patient was given aspirin, nitroglycerin, she was later started on nitroglycerin gtt. and heparin gtt. PAST MEDICAL and SURGICAL HISTORY: Past Medical History: Diagnosis Date Never smoked cigarettes History reviewed. No pertinent surgical history. FAMILY HISTORY: Mother (dec) CAD Father (dec) cancer o flung SOCIAL HISTORY: + juliana No etoh REVIEW OF SYSTEMS: All systems were reviewed and were negative unless otherwise stated in HPI HOME MEDICATIONS: No current outpatient medications on file prior to encounter. Takes [id number] Advil as necessary ALLERGIES: Allergies Allergen Reactions Codeine Nausea And Vomiting Erythromycin Nausea And Vomiting Tape [Adhesive & Tape] Rash VITAL SIGNS: Temp: 37 C (98.6 F), Pulse: 68, Resp: 14, BP: 167/76, SpO2 94 % on room air at flow rat e L/min Temp Min: 37 C (98.6 F) Max: 37 C (98.6 F) Weight: 101.5 kg (223 lb 12.3 oz) PHYSICAL EXAMINATION: Gen Ranjit - alert, cooperative and no distress Head - Normocephalic, without obvious abnormality, atraumatic Eyes - PERRL, conjunctiva/corneas clear, EOM's intact both eyes ENT - mucous membranes moist Neck - supple Lungs - CTA bilat Heart - normal rate, rhythm w/o m/r/g Abdomen - obese Normoactive bowel sounds, non-tender non-distended Extremities - no peripheral edema, no clubbing or cyanosis Skin - dry skin Neurologic - Alert and oriented x 3. CN II-XII intact. strength- 5/5 throughout Refl exes 2+ bilateral biceps,s, & patellar Sensory- no deficits DIAGNOSTIC STUDIES: Available data and images were reviewed personally. Significant results and findings are a ddressed here or in the Assessment and Plan. No results found for: HGB, HCT, LABPLAT, PLT, WBC No results found for: NA, K, CL, CO2, CREA, BUN, MG, PHOS, CRP, ESR, BNP No results found for: POCGLU No results found. OSH labs 136| 103|15 <122 4.0 |25 | .76 12.9 8.4>---------<284 36.2 EKG: Reviewed independently by me. The tracing shows NSR, Poor r wave progression. CXR- no cardiopulmonary disease ASSESSMENT and PLAN: Active Hospital Problems Diagnosis Hypertensive emergency Resolved Hospital Problems No resolved problems to display. Hypertensive emergency: Patient on nitroglycerin gtt. Will trend troponins to rule out acu te coronary syndrome. Patient has not been taking blood pressure medications. She does hav e risk factors for ischemic heart disease with age, uncontrolled hypertension. Pt received lovenox at OSH. Will trend troponins. check lipids in a.m. Ct of chest to assess for ao rtic dissection. Hep-Lock IV. Check electrolytes daily. Will give patient cardiac diet DVT Prophylaxis Heparin gtt Code Status Full Code CMS Documentation I certify that this admission will likely be greater than 2 midnights and posthospital disc harge will be to home Total of 79 minutes were required to complete the admission process. Electronically signed by: Tal Bailey MD 10/04/2019 2:48 AM [facility] documented in this enc ounter Consult Notes Lj Barker MD - 10/06/2019 4:13 PM PDT Hospital Day: 4 DATE/TIME: 10/06/2019 4:13 PM 68 y.o. year old female multivessel angioplasty. Presentation with uncontrolled hypertensi ve emergency with elevated troponin prompting evaluation. Doing well without chest pains an d feels that she can breathe better. CURRENT MEDICATIONS amLODIPine 5 mg Oral Daily aspirin 81 mg Oral Daily atorvaSTATin 40 mg Oral Nightly ferric gluconate 125 mg Intravenous Daily insulin lispro 0-12 Units Subcutaneous 4x Daily WC and HS labetalol 300 mg Oral BID pantoprazole 40 mg Intravenous Daily sodium chloride 2 spray Each Nare 4x Daily ticagrelor 90 mg Oral BID I personally reviewed the above medications. OBJECTIVE: Temp: 36.6 C (97.9 F) BP: 171/71 Pulse: 65 Resp: 17 SpO2: 98 % on Min/Max Temp past 24 hours:Temp Av.8 C (98.2 F) Min: 36.5 C (97.7 F) Max: 3 7.3 C (99.1 F) Intake/Output Summary (Last 24 hours) at 10/06/2019 1613 Last data filed at 10/06/2019 0915 Gross per 24 hour Intake 1035 ml Output 925 ml Net 110 ml Wt. Admission: Weight: 101.5 kg (223 lb 12.3 oz) Wt. Current: Weight: 103.2 kg (227 lb 8.2 oz) General: alert, appears stated age and cooperative Heart: Regular rate and rhythm or S1S2 present Lungs: clear Abdomen: abdomen is soft without significant tenderness, masses, organomegaly or guarding Recent Results (from the past 24 hour(s)) POC Glucose Result Value Ref Range Glucose, POC 132 (H) 70 - 109 mg/dL POC Glucose Result Value Ref Range Glucose, POC 156 (H) 70 - 109 mg/dL ECG 12 lead Result Value Ref Range VENTRICULAR RATE EKG 71 BPM ATRIAL RATE 71 BPM P-R INTERVAL 186 ms QRS DURATION 88 ms Q-T INTERVAL 414 ms Q-T INTERVAL (CORRECTED) 449 ms P WAVE AXIS 45 degrees QRS AXIS 30 degrees T AXIS 5 degrees INTERPRETATION TEXT Normal sinus rhythm Nonspecific T wave abnormality Inferior leads When compared with ECG of 04-OCT-2019 07:39, Nonspecific T wave abnormality now evident in Inferior leads T waves are now upright in aVL Confirmed by DIOPBINH ANNA MD ([id number]) on 10/06/2019 7:46:56 AM Basic Metabolic Panel Result Value Ref Range Na 140 136 - 145 mmol/L K 4.0 3.4 - 5.1 mmol/L Cl 108 (H) 98 - 107 mmol/L CO2 26 20 - 31 mmol/L Anion Gap 6 3 - 16 mmol/L Glucose 132 (H) 60 - 106 mg/dL BUN 16 9 - 23 mg/dL Creatinine 1.12 (H) 0.55 - 1.02 mg/dL eGFR if not 49 (L) >=60 mL/min/1.73m2 Calcium 9.0 8.7 - 10.4 mg/dL BUN/Creatinine Ratio 14.3 CBC no Differential Result Value Ref Range WBC 8.5 4.0 - 11.0 K/uL RBC 2.98 (L) 3.70 - 5.20 M/uL Hemoglobin 9.5 (L) 11.5 - 16.0 g/dL Hematocrit 28.8 (L) 34.0 - 47.0 % MCV 96.6 83.0 - 101.0 fL MCH 31.9 28.0 - 35.0 pg MCHC 33.0 32.0 - 36.0 g/dL RDW-CV 13.2 <15.0 % RDW-SD 46.4 (H) 35.1 - 46.3 fL Platelet Count 206 140 - 440 K/uL MPV 9.3 6.5 - 12.4 fL % nRBC 0 0 - 2 per 100 WBCs Absolute nRBC 0.00 0.00 - 0.01 K/uL Iron and Transferrin Result Value Ref Range Iron 18 (L) 50 - 170 ug/dL TRANSFERRIN 161.0 (L) 250.0 - 380.0 mg/dL TIBC 225 (L) 235 - 425 ug/dL % SATURATION 8.0 (L) 15.0 - 50.0 % Vitamin B-12 Result Value Ref Range VITAMIN B-12 506 156 - 672 pg/mL Folate Result Value Ref Range FOLATE 13.9 >5.4 ng/mL Retic Count Result Value Ref Range % Reticulocyte Count 2.6 (H) 0.5 - 1.5 % Absolute Reticulocyte Count 0.0689 0.0164 - 0.0776 M/uL Immature Reticulocyte Fraction 24.1 (H) 2.3 - 15.9 % Reticulocyte Hemoglobin Content 32.2 29.0 - 38.0 pg Hemoglobin A1C Result Value Ref Range Hemoglobin A1c 5.3 4.3 - 6.0 % Estimated Average Glucose 105 mg/dL Ferritin Result Value Ref Range FERRITIN 246 7 - 271 ng/mL POC Glucose Result Value Ref Range Glucose, POC 142 (H) 70 - 109 mg/dL Occult Blood, Stool, Specimen 1 Result Value Ref Range Occult Blood in 1st Specimen, Stool Negative POC Glucose Result Value Ref Range Glucose, POC 117 (H) 70 - 109 mg/dL Recent Labs Lab 10/05/19 0409 10/04/19 1840 10/04/19 0409 10/03/19 2244 TROPONIN 26.41* 24.64* 16.27* 9.40* ASSESSMENT AND PLAN: 1. Patient stable intervention with marked elevation of troponin presumably due to occlusio n of her OM. Circumflex and RCA with balloon angioplasty of all OM 2 because of bifurcation anatomy. Hematocrit did drop from level was over at her outside hospital with none to comp are here. Work-up for GI bleed. If she can tolerate it, aspirin Brilinta is ideal for her and we can stop the aspirin potentially if there is continued bleeding and anemia issues., I think that for her, we potentially can consider a 3 months patient of [facility] Electronically Signed by: Lj Barker MD [facility] 10/06/2019 4:13 PM [facility] Kristina Stockton RN - 10/06/2019 9:44 AM PDTAssociated Order(s): IP CONSULT TO DIABETES SPECIALISTI met with Ash wyatt today at the bedside to discuss what is diabetes, what complications increased blood s ugars can lead to, medication, carb counting, starting diet change, and monitoring blood sug ars. We discussed if she is wanting to achieve weight loss that a 45 gram per meal or 3 ser ving of carbohydrates per meal is a good goal. With the option to go up to 60 grams if need ed. She denies being active with only occasional walks in the [place]. She demonstrated unde rstanding quickly of carb counting and said she has been on many diets. She able to verbali ze the difference of starchy vs. Non-starchy vegetables. Protein and fats. I also trained Jaya on how to use our meter and gave her a sample with the suggestion of checking her fasting blood sugar 2-3 times per week until she has her follow up with her PC P. She will need a meter ordered at discharge. She is open to coming back for diabetes education as an outpatient I will request a referra l. ee, Lj Rivera MD - 10/04/2019 2:41 PM PDT PATIENT NAME: Jaya Morton : 1950: AGE: 68 y.o. ADMISSION DATE: 10/03/2019 HOSPITAL DAY NUMBER: 1 PRIMARY CARE: Jacob Rodríguez DO REFERRING PROVIDER: CONSULTING PROVIDER: Lj Barker MD CARDIOLOGY CONSULTATION DATE OF CONSULTATION: 10/04/19 REASON FOR CONSULT: Elevated troponins HISTORY OF PRESENT ILLNESS: Jaya Morton is a 68 y.o. female admitted with hypertensive crisis. Patient was sent fro an outside hospital which with elevated blood pressure. She is transferred and has had he r blood pressure control. Her troponins were elevated to 16. In addition to hypertension patient does have symptoms of right-sided chest pains. Is a pr essure-like sensation radiating to the right arm and associated with nausea and some shortne ss of breath. Advil history pain. Patient notes that discomfort recurring. Patient without any significant EKG changes. There is a history of heart disease with moth er having coronary disease. There isno history of smoking dyslipidemi history of smoking am d no documented diabetes or hypertension although the latter to be suspected. PAST MEDICAL HISTORY Past Medical History: Diagnosis Date Never smoked cigarettes PAST SURGICAL HISTORY History reviewed. No pertinent surgical history. FAMILY HISTORY History reviewed. No pertinent family history. SOCIAL HISTORY Social History Socioeconomic History Marital status: Spouse name: Not on file Number of children: Not on file Years of education: Not on file Highest education level: Not on file Occupational History Not on file Social Needs Financial resource strain: Not on file Food insecurity: Worry: Not on file Inability: Not on file Transportation needs: Medical: Not on file Non-medical: Not on file Tobacco Use Smoking status: Not on file Substance and Sexual Activity Alcohol use: Not on file Drug use: Not on file Sexual activity: Not on file Lifestyle Physical activity: Days per week: Not on file Minutes per session: Not on file Stress: Not on file Relationships Social connections: Talks on phone: Not on file Gets together: Not on file Attends mormon service: Not on file Active member of club or organization: Not on file Attends meetings of clubs or organizations: Not on file Relationship status: Not on file Intimate partner violence: Fear of current or ex partner: Not on file Emotionally abused: Not on file Physically abused: Not on file Forced sexual activity: Not on file Other Topics Concern Not on file Social History Narrative Not on file MEDICATIONS: Current Facility-Administered Medications Medication Dose Route Frequency Provider Last Rate Last Dose acetaminophen (TYLENOL) tablet 650 mg 650 mg Oral Q4H PRN Tal Bailey MD aspirin chewable tablet 81 mg 81 mg Oral Daily Manoj Fuentes MD 81 mg at 10/04/19 0 800 atorvaSTATin (LIPITOR) tablet 40 mg 40 mg Oral Nightly Manoj Fuentes MD dextrose 50% injection 12.5-25 g 12.5-25 g Intravenous PRN Manoj Fuentes MD And dextrose 10% (D10W) infusion Intravenous Continuous PRN Manoj Fuentes MD insulin lispro (humaLOG KWIKPEN) injection (pen) 0-12 Units 0-12 Units Subcutaneous 4x Daily WC and HS Manoj Fuentes MD 2 Units at 10/04/19 1121 labetalol (NORMODYNE) tablet 100 mg 100 mg Oral BID Manoj Fuentes MD 100 mg at 09/15 02/04 1409 labetalol (TRANDATE) 5 mg/mL injection 10-20 mg 10-20 mg Intravenous Q15 Min PRN Manoj Fuentes MD 20 mg at 10/04/19 1418 nitroglycerin in dextrose 200 mcg/mL infusion 0-200 mcg/min Intravenous Titrated Manoj Fuentes MD 27 mL/hr at 10/04/19 1224 90 mcg/min at 10/04/19 1224 ondansetron (ZOFRAN ODT) disintegrating tablet 4 mg 4 mg Oral Q6H PRN Norah Mcfadden ondansetron (ZOFRAN) injection 4 mg 4 mg Intravenous Q4H PRN Manoj Fuentes MD 4 mg at 10/04/19 0725 pantoprazole (PROTONIX) injection 40 mg 40 mg Intravenous Daily Manoj Fuentes MD 40 mg at 10/04/19 0847 [facility] list of outpatient meds: No medications prior to admission. ALLERGIES Allergies Allergen Reactions Codeine Nausea And Vomiting Erythromycin Nausea And Vomiting Tape [Adhesive & Tape] Rash REVIEW OF SYSTEMS General No weight change, fatigue Eyes No drainage or change in vision, ENT No pain, ear drainage or change in hearing Respiratory See present illness. Cardiovascular: See present illness GI No abdominal pain, no bloody stool, nausea, vomiting No painful urination. No previous renal failure Musculoskeletal No deformity or amputation. Neurological No history of stroke, seizure or neuromuscular disease Psychiatric No previous admissions for psyche issues Endocrine Diabetes: Elevated glucose in the hospital but no documented history of diabetes Heme/onc No previous anemia or cancer. PHYSICAL EXAM Vital signs: Vitals: 10/04/19 1418 BP: 171/77 Pulse: 70 Resp: Temp: Admit Weight: Weight: 101.5 kg (223 lb 12.3 oz) Current weight: Weight: 102.2 kg (225 l b 5 oz) Body mass index is 36.37 kg/m. General appearance: Recent healthy female no distress Chest: Clear Cardiovascular: Heart sounds distant due to large breasts Gastrointestinal Abdomen: soft, non-tender, normal bowel sounds, no organomegaly nor masses. Mental Status/Neurological Grossly oriented. No obvious motor or cranial nerve deficits. Affect/Mood: appropriate. Extremities No edema Skin: Unremarkable LABS: Admission on 10/03/2019 Component Date Value Ref Range Status Na 10/04/2019 138 136 - 145 mmol/L Final K 10/04/2019 4.1 3.4 - 5.1 mmol/L Final Cl 10/04/2019 107 98 - 107 mmol/L Final CO2 10/04/2019 25 20 - 31 mmol/L Final Anion Gap 10/04/2019 6 3 - 16 mmol/L Final Glucose 10/04/2019 200* 60 - 106 mg/dL Final BUN 10/04/2019 15 9 - 23 mg/dL Final Creatinine 10/04/2019 1.03* 0.55 - 1.02 mg/dL Final eGFR if not 10/04/2019 53* >=60 mL/min/1.73m2 Final GLOMERULAR FILTRATION RATE,ESTIMATED mL/min/1.73m2 Less than 60 Chronic kidney disease,if found over a 3-month period. Less than 15 Kidney failure For Americans,multiply the calculated GFR by 1.21. Calcium 10/04/2019 8.8 8.7 - 10.4 mg/dL Final BUN/Creatinine Ratio 10/04/2019 14.6 Final WBC 10/04/2019 7.6 4.0 - 11.0 K/uL Final RBC 10/04/2019 3.24* 3.70 - 5.20 M/uL Final Hemoglobin 10/04/2019 10.5* 11.5 - 16.0 g/dL Final Hematocrit 10/04/2019 30.6* 34.0 - 47.0 % Final MCV 10/04/2019 94.4 83.0 - 101.0 fL Final MCH 10/04/2019 32.4 28.0 - 35.0 pg Final MCHC 10/04/2019 34.3 32.0 - 36.0 g/dL Final RDW-CV 10/04/2019 13.2 <15.0 % Final RDW-SD 10/04/2019 45.4 35.1 - 46.3 fL Final Platelet Count 10/04/2019 237 140 - 440 K/uL Final MPV 10/04/2019 8.9 6.5 - 12.4 fL Final % Neutrophils 10/04/2019 82.1* 45.0 - 82.0 % Final % Lymphocytes 10/04/2019 11.9* 20.0 - 45.0 % Final % Monocytes 10/04/2019 5.2 4.0 - 12.0 % Final % Eosinophils 10/04/2019 0.0 0.0 - 5.0 % Final % Basophils 10/04/2019 0.4 0.0 - 1.0 % Final % Immature Granulocytes 10/04/2019 0.4 0.0 - 0.4 % Final Absolute Neutrophils 10/04/2019 6.25 1.80 - 8.50 K/uL Final Absolute Lymphocytes 10/04/2019 0.91 0.60 - 3.20 K/uL Final Absolute Monocytes 10/04/2019 0.40 0.00 - 1.00 K/uL Final Absolute Eosinophils 10/04/2019 0.00 0.00 - 0.40 K/uL Final Absolute Basophils 10/04/2019 0.03 0.00 - 0.10 K/uL Final Absolute Immature Granulocytes 10/04/2019 0.03 0.00 - 0.03 K/uL Final % nRBC 10/04/2019 0 0 - 2 per 100 WBCs Final Absolute nRBC 10/04/2019 0.00 0.00 - 0.01 K/uL Final Troponin I 10/03/2019 9.40* <0.06 ng/mL Final Comment: Reference Ranges: 0.00-0.06 = NORMAL >0.06 = SUSPICIOUS FOR MYOCARDIAL DAMAGE NOTE: Values greater than 0.78 ng/mL have been shown to be strongly associated with acute m yocardial infarction. The [place] [employer] (ACC) recommends a decision limit of 0.06 ng/mL for this assay. Results greater than 0.06 can reflect a pre-infarct acute coronary syndrome, but c an also reflect myocardial necrosis or injury that is not due to coronary artery disease. Some of these causes aresepsis, hypocolemia, atrial fibrillation, heart failure, pulmonary embolism, myocarditis, myocardial contusion, and renal failure. The diagnosis of myocardi al infarction should be based on a combination of the patient's clinical presentation and th e clinical laboratory test results (especially serial troponin levels). Critical Result called to and read back by Gail Macedo on 10/03/2019 at 11:29 PM by Jacob Ireland. Troponin I 10/04/2019 16.27* <0.06 ng/mL Final Comment: Reference Ranges: 0.00-0.06 = NORMAL >0.06 = SUSPICIOUS FOR MYOCARDIAL DAMAGE NOTE: Values greater than 0.78 ng/mL have been shown to be strongly associated with acute m yocardial infarction. The [place] [employer] (ACC) recommends a decision limit of 0.06 ng/mL for this assay. Results greater than 0.06 can reflect a pre-infarct acute coronary syndrome, but c an also reflect myocardial necrosis or injury that is not due to coronary artery disease. Some of these causes aresepsis, hypocolemia, atrial fibrillation, heart failure, pulmonary embolism, myocarditis, myocardial contusion, and renal failure. The diagnosis of myocardi al infarction should be based on a combination of the patient's clinical presentation and th e clinical laboratory test results (especially serial troponin levels). Critical Result called to and read back by Gail Macedo RN on 10/04/2019 at 4:45 AM by Patricia Ireland. VENTRICULAR RATE EKG 10/03/2019 65 BPM Final ATRIAL RATE 10/03/2019 65 BPM Final P-R INTERVAL 10/03/2019 188 ms Final QRS DURATION 10/03/2019 82 ms Final Q-T INTERVAL 10/03/2019 436 ms Final Q-T INTERVAL (CORRECTED) 10/03/2019 453 ms Final P WAVE AXIS 10/03/2019 44 degrees Final QRS AXIS 10/03/2019 36 degrees Final T AXIS 10/03/2019 61 degrees Final INTERPRETATION TEXT 10/03/2019 Final Value:Normal sinus rhythm Normal ECG No previous ECGs available Confirmed by BINH DIOP MD ([id number]) on 10/04/2019 6:45:00 AM SARS coronavirus 2 NAAT 10/04/2019 Negative Negative Final Comment: Result called to and read back by Gail Macedo on 10/04/2019 at 2:11 AM by Juma Ireland. SARS-CoV-2, RNA (COVID-19) EUA This assay has been cleared for use under an FDA Emergency Use Authorization. This test is used for clinical purposes. It should not be regarded as investigational or for research. [facility] laboratory is certified under the Clinical Laboratory Improvement Amendments (CLIA) as qu alified to perform high and moderate complexity testing. Other authorized testing locations include patient care settings using the ID Now Instrument. This test has been validated in accordance with the FDA's Guidance Document "Policy for [facility] Testing in Laboratories Certified to Perform High and Moderate Complexity Testing a nd patient care testing areas where ID NOW is being used, under CLIA prior to Emergency Use Authorization for Coronavirus Disease-2019 during the Public Health Emergency" issued on Jul. FDA independent review of this validation is pending. This test is only authorized for the duration of time the [facility] at circumstances exist justifying the authorization of the emergency use of in vitro diagnos tic tests for detection of SARS-CoV-2 virus and/or diagnosis of COVID-19 infection under sec tion 564(b)(1) of the Act, 21 U.S.C. 360bbb-3(b)(1), unless the authorization is terminated or revoked sooner. INTERPRETATION TEXT 10/04/2019 Not Confirmed Preliminary Triglycerides 10/04/2019 62 <=150 mg/dL Final Cholesterol 10/04/2019 197 <=200 mg/dL Final HDL 10/04/2019 45 40 - 60 mg/dL Final Chol/HDL Ratio 10/04/2019 4.4 Final LDL, Calculated 10/04/2019 140* <=130 mg/dL Final Glucose, POC 10/04/2019 165* 70 - 109 mg/dL Final Glucose, POC 10/04/2019 160* 70 - 109 mg/dL Final Inferior Vena Cava Diameter at Exp* 10/04/2019 2.13 cm In process LVIDd 10/04/2019 4.47 cm In process FS 10/04/2019 34 % In process LA volume 10/04/2019 107.64 mL In process Ascending aorta 10/04/2019 3.07 cm In process MV Area by P 1/2 method 10/04/2019 2.46 cm2 In process LVOT diameter 10/04/2019 2.04 cm In process LVOT peak lia 10/04/2019 97.78 cm/s In process AV peak lia 10/04/2019 148 cm/s In process AV peak gradient 10/04/2019 8.76 mmHg In process MV Pressure 1/2 time 10/04/2019 89.49 msec In process LA Volume Index 10/04/2019 51 mL/m2 In process AV LVOT Peak Gradient 10/04/2019 3.82 mmHg In process TR Peak Gradient 10/04/2019 12 mmHg In process RV Free Wall Peak S' 10/04/2019 14 cm/s In process TR Velocity 10/04/2019 176 cm/s In process LV Diastolic Length 4C 10/04/2019 8.2 cm In process LV Systolic Area PSAX 10/04/2019 15.19 cm2 In process RV Diastolic Basal Diameter 10/04/2019 3.07 cm In process LV Zayas's Biplane EF 10/04/2019 65 % In process LV ED Volume (Zayas's) 10/04/2019 124.94 ml In process LV ED Volume Index 10/04/2019 59 ml/m2 In process LV ES Volume 10/04/2019 38.24 ml In process MV E' Lateral Velocity 10/04/2019 6.75 cm/s In process MV E' Septal Velocity 10/04/2019 6.26 cm/s In process MV Deceleration [place] 10/04/2019 251.9 cm/s2 In process MV Deceleration Time 10/04/2019 308.59 msec In process MV E/A Ratio 10/04/2019 0.82 In process MV Peak A-Wave 10/04/2019 94.84 cm/s In process MV Peak E-Wave 10/04/2019 77.73 cm/s In process RA Area 10/04/2019 16 cm2 In process LA/Aorta Ratio 10/04/2019 1.35 In process LA Area 10/04/2019 27.56 cm2 In process LA Systolic Pressure 10/04/2019 16.39 mmHg In process MV E/E SEPTAL 10/04/2019 12.42 In process MV E/E LATERAL 10/04/2019 11.52 In process LV ES Volume Index 10/04/2019 18 ml/m2 In process LV Area Diastolic 10/04/2019 31.49 cm2 In process Vitals Heart Rate Rest 10/04/2019 61 In process Vitals BP Systolic 10/04/2019 155 In process Vitals BP Diastolic 10/04/2019 71 In process Vitals Height 10/04/2019 167.6 In process Vitals Weight 10/04/2019 102.20 In process Vitals BSA 10/04/2019 2.10 In process Vitals BMI 10/04/2019 36.37 In process Aortic Root Diameter 10/04/2019 2.94 cm In process IVS Diastolic Thickness MM 10/04/2019 1.33 cm In process LVPW Diastolic Thickness MM 10/04/2019 1.12 cm In process IVS Systolic Thickness MM 10/04/2019 1.3 cm In process LV Systolic Diameter MM 10/04/2019 2.93 cm In process LVPW Systolic Thickness MM 10/04/2019 1.28 cm In process LA Systolic Diameter MM 10/04/2019 3.96 cm In process TAPSE 10/04/2019 3 cm In process Recent Labs Lab 10/04/19 0409 10/03/19 2244 TROPONIN 16.27* 9.40* IMAGING: Ct Angiogram Chest W Contrast Result Date: [...] of this study were reported by the [facility] Imaging radiologist on October 04, 2019 at 0404 hours. Dictate d and Signed by: Haris Lucero MD Electronically signed: 10/04/2019 8:13 AM ECG: Normal Echo shows base of mid hypokinesis. DIAGNOSES AND ASSESSMENTS: 1. Patient with chest pains associated with elevated troponin. She also presents with situ ational stress from her grandsons visit to his father and uncontrolled hypertension. PLAN OR RECOMMENDATIONS: Patient will undergo heart catheterization in the morning. Risk benefits have been disc ussed. She is fully aware of the need to be compliant with medications if stenting should b e required. I appreciate the opportunity of participating in the care of this patient. Lj Barker MD, [facility], 10/04/2019 2:41 PM documented in this enco unter Miscellaneous Notes Plan of [place] - Karla Heller, KEILY - 10/07/2019 1:20 PM PDTProject Red teaching done b y pharmacists. Discharge instructions reviewed. Discharged to home with family.Electronica lly signed by Karla Heller RN at 10/07/2019 1:21 PM PDTPlan of Janina Stringer RN - 10/07/2019 10:17 AM PDT Problem: Discharge Planning Goal: Patient's discharge needs will be identified in a timely manner Outcome: Ongoing, progressing Goal: Patient will be discharged in a safe manner Outcome: Ongoing, progressing Dr. Fuentes is planning to discharge Jaya this afternoon. She is in the process of estab lishing with Dr. Rodríguez. Their office will call and schedule her the first week of October. Dr. Fuentes requests that an appointment be made with Dr. Hall in [place] in [address] [place] [address] to follow-up her unexplained anemia. An appointment has been made for October 17, 2019 at 10 45. Chart notes and labs faxed to Dr. Ocasio office with fax confirmation received. Also Dr. Barker would like her to discharge on Brilinta to protect her new cardiac stents. Br ilinta prescription faxed to [facility] for cost analysis. Plan: Home today, spouse will pick her up.Electronically signed by: Janina Aguilar RN 10/06 10:25 AM Called [facility] and they did not have her [place] supplement listed. They state her cost for Brilinta will be $461.00 per month. Checked on the Provider site for [place] [facility] [place] [facility] and her supplement does not have any drug coverage. Dr. Fuentes notified of the cost.Elec tronically signed by: Janina Aguilar RN 10/07/2019 10:52 AM lan of Malorie Cordoba Chaplain - 10/06/2019 2:59 PM PDT Spiritual Care Jaya Morton is a 68 y.o. female who is admitted for NSTEMI. Carousel Attendant visit was part of routine rounding. Spiritual Evaluation: The patient was resting in a bed in the ICU and welcomed a follow-up visit after surgery. She has made some decisions about how she will cope when she is discharged; one of them is kenzie young to seek counseling. She recognizes that emotional distress because of family challenge s has affected her health. Spirituality is important to her and she has a strong josh in G od and his ability to change lives, including her own. She expressed some regret about past decisions. Spiritual Interventions: The inspector experimental assembly attended, witnessed patient's story, explored decision-making and meaning and offered prayer. Spiritual Outcomes: The patient has been reflective and has made the decision to receive counseling. She expre ssed feelings of loneliness. Spiritual Goals/Follow-up: Follow up as needed. 3:0 2 PM PDTPlan of Kristina Caldwell RN - 10/06/2019 10:40 AM PDTSee inpatient consult lan of Adilene Mirza RN - 10/05/2019 3:13 PM PDTCynthia is A/Ox4. She had chest discomfort this m orning that she rated at a 0-1/10. She was on a nitro gtt at 50mcg prior to going to cath la b. She received 2 stents in the central lab technician. 1 in RCA and 1 in circumflex. R radial artery acce ssed. Hematoma at site on arrival back to unit. Area marked and it is now stable. Site painf ul so tylenol administered with good effect. Air incrementally let out of TR band. CMS intac t. Guaze with tegaderm covering site now that hemostasis has been achieved. Labetalol 20mg a dministered x3 to keep SBP<150. HR sinus with frequent PVCs post cath. Spoke with diabetes alexa ducator today--will be following up tomorrow. Family updated on patient status with jamar morgan. Frequent rounding, needs addressed, no falls. eICU Note - Adilene Rose RN - 10/05/2019 11:04 AM PDTPt back to unit from central lab technician. R radial TR band in place. I discovered hematoma proximal to pu ncture site. Pressure held and TR band moved with central lab technician nurse. Area marked. CMS intact, s kin cool. Will continue to monitor site.Electronically signed by Adilene Rose RN at 11:06 AM PDTBrief Op Note - jL Barker MD - 10/05/2019 11:01 AM PDT BRIEF OPERATIVE NOTE [facility] Pt. Name/Age/: Jaya Morton 68 y.o. 1950 Med. Record Number: [id number] Date of admission: 10/03/2019 Date of Operation/Procedure: 10/05/2019 Preoperative Diagnosis: Chest Pain Postoperative Diagnosis: Surgeon: Lj Barker MD Video Production Intern: None Anesthesia Provider(s): No anesthesia staff entered. Anesthesia Type: Anesthesia type not filed in the log. Procedure(s): CV COR ANGIO CV LHC CV Stent CV PTCA Only Operative Findings: Total occlusion of first OM, high-grade stenosis x2 of AV groove's dist al circumflex, high-grade proximal RCA lesion and mild LAD stenosis. Mild inferior apical h ypokinesis ejection fraction 50%. PCI of first OM and distal AV groove circumflex lesion wi th 2 5 balloon. 2.5 Synergy stent in mid circumflex artery. 3.0 x 32 Synergy stent proxima l RCA dilated to 3.5. Wound Closure: TR band Evidence of infection: No infection noted. Estimated Blood Loss: 20 cc IV Fluids: refer to anesthesia record Blood Transfusion: None Drains: none Specimen (s): * No specimens in log * Implants: Implant Name Type Inv. Item Serial No. Shell Sorter Lot No. [id number] No. Used STENT JOHN SYNERGY MR 2.5 X 8 - [id number] Stent STENT JOHN SYNERGY MR 2.5 X 8 [facility] - BSCI [id number] N/A 1 STENT JOHN SYNERGY MR 3.0 X 32 - [id number] Stent STENT JOHN SYNERGY MR 3.0 X 32 [facility] [id number] N/A 1 Counts: Instrument, sponge, and needle counts were correct prior to closure and at the con clusion of the case. Complications: None Disposition: The patient was taken to Critical Care Immediate Post-Operative Condition: Stable Electronically signed by: Lj Barker MD, 10/05/2019, 11:01 AM lan of Fabienne Stringer RN - 10/05/2019 5:54 AM PDTCynthia progressed well through the night, I was able to titrate Nitro gtt down to 50 mcg/min with help of PRN labetalol pushes. Prepping for AM cath, pt expresses quite a bit of anxiety. Provided education and encouraged questions. Troponin continues to rise; n ow 26, creat 1.12, and GFR down to 49. No reports of chest pain but does state it remains so re to the touch. VSS on room air, will continue to monitor. lan of Sujatha Phan RN - 10/04/2019 6 :12 PM PDTA&O X 4. Hypertensive with SBP 160's-170's at times. Nitro gtt 110 mcg/min for SBP < 140. Labetalol push PRN and started on oral dose. No futher C/O of CP or nausea. NPO at m idnight for heart cath in AM. 2+ pulses. All skin intact. SBA to BSC R/T nitro gtt. Non-skid footwear when OOB. No falls this shift. Electronically signed by Sujatha Vargas RN at 6:17 PM PDTPlan of Malorie Cordoba Chaplain - 10/04/2019 3:52 PM PDT S piritual Care Jaya Morton is a 68 y.o. female who is admitted for NSTEMI. Carousel Attendant visit is in response to an advance care spiritual care consult request. Spiritual Evaluation: The patient requested assistance with an advance directive. She welcomes spiritual care an d prayer support as she josh with this hospitalization. She believes that her stress and a nxiety concerning difficult family dynamics with her grandson has caused this physical distr ess. She relies on prayer, speaking in tongues to help her to cope with the stress of the s ituation. She has an [employer] background and is connected with the buddhism in [facility] on. She recognizes a need to submit this challenge to God and feels that she struggles with her human desire to control the outcome. Her son and daughter are supportive to her. Spiritual Interventions: The inspector experimental assembly attended, offered care, provided an Advance Directive for the patient to compl ete and notarize later, explored anxiety and coping mechanisms, processed decision-making an d offered prayer. Spiritual Outcomes: The patient relies on her josh and prayer and humor to cope. She sees the changes she john ires yet struggles to release control. Spiritual Goals/Follow-up: Follow up as needed with spiritual and emotional support. lan of Care - Keysha Vazquez RN - 10/04/2019 11: 29 AM PDT Problem: Discharge Planning Goal: Patient's discharge needs will be identified in a timely manner Outcome: Ongoing, progressing Goal: Patient will be discharged in a safe manner Outcome: Ongoing, progressing Note: Per patient, her heart cath has been postponed until tomorrow. This CM met with patient this AM to discuss her d/c plan. She reports that she lives independently with her spouse, Damion, her daughter, and her 2 gran alissa in [place]. Either her daughter or Damion will be transporting her back home at discharge. She reports that she was transported here via ground ambulance for her CP and NSTEMI care n eeds and was directly admitted to ICU unit. This bid writer gave admitting copy of her insurance cards this AM to place in chart. Let patient know that admitting will also be coming up to have her sign her IP consent from Medicare. She states that she drives, uses no home 02 or CPAP, and no DME for her mobility needs. She does not currently have a PCP since her MD retired, who worked at the [facility] office, and she has not seen one in a long time. She states that she had seen Dr. Armenta in [place] twice but that has been a long time a go as well. She states that she does not take any meds. She states that her spouse has been working with his PCP, Dr. Rodríguez, at the [facility] to g et her established there. This bid writer called and spoke with Hannah, intake office, and she stated that Dr. Rodríguez is taking new patient's but due to COVID rules, the soonest he could see her would be October 16. She requested that her med list be faxed there attn: Dr. Rodríguez. Faxed the info to the [facility], f# [phone], stating that patient does not take any me ds. Fax transmission confirmed and placed in ghost chart. Let patient know this above info which she appreciated. Jaya was told that they would get ahold of her once he reviewed the info faxed. Dispo: Home when medically stable possibly in a couple of days. Spouse or daughter will be transporting her back to [place]. CM to f/u with patient for any further potential needs after her heart cath completed. Electronically signed by: Keysha Vazquez RN 10/04/2019 11:46 AM lan of Care - Diane Lozada Chaplain - 10/04/2019 8:44 AM PDT Spiritual Care Jaya Morton is a 68 y.o. female who is admitted for NSTEMI. Carousel Attendant visit was in response to a patient's spiritual care consult request. Spiritual Evaluation: The patient was resting in a bed in the ICU and welcomed a spiritual care visit. She appre ciates spiritual care when she is at a hospital and prefers to be at [facility] whe re all of the caregivers may pray with her. This is the first time she has an experienced a n episode like this. He and family are supportive and contact her by phone. 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 Spiritual Interventions: The inspector experimental assembly attended, offered care, witnessed patient's story, explored meaning and offere d prayer. Spiritual Outcomes: The patient appreciates and is comforted by spiritual care and takes comfort in prayer and the promise of the Holy Spirit with her. Spiritual Goals/Follow-up: Follow up with spiritual support as needed. lan of Care - Gail Macedo RN - 10/04/2019 4:55 AM PDTTr heike from [place], arrived to ICU at 2300 yesterday. C/o chest pressure. 3/10. Nitro g tt restarted. Nitro gtt currently at 70 mcg/min. On arrival SBP 220. Current BP 164/74. She states her chest pain is much better. Last troponin 16.37. Up to bedside commode to void. C T chest done this morning. documented in this encounter Plan of Treatment +--------+---------+ + + + | Date | Type | Specialty | Care Team | Description | +--------+---------+ + + + | 11/30/ | Office | Cardiology | Lj Barker MD | | 2019 | Visit | | [address] [facility] | | | | | | [place] | | | | | | [phone] | | | | | | | [...] + + documented in this encounter Results LABS - EXTERNAL SCAN (10/14/2019 12:00 AM PDT) + + + | Narrative | Performed At | + + + | Ordered by an | | | unspecified provider. | | + + + IMAGING REPORT - EXTERNAL SCAN [...] + + POC Glucose (10/07/2019 11:37 AM PDT) + [...] [address] | [place] | [phone] | | [facility] | | [address] | | | - LABORATORY | | [...] + | [facility] | [address] | [place] | [phone] | | [facility] | | [address] | | | - LABORATORY | | [...] [address] | [place] | [phone] | | [facility] | | [address] | | | - LABORATORY | | | | + + + + + CK Total (10/07/2019 3:52 AM PDT) + +---------+ + + + | Component | Value | Ref Range | Performed | Pathologist | | | | | At | Signature | + +---------+ + + + | CK TOTAL | 278 (H) | 34 - 145 U/L | [facility] | | | | | [...] + | [facility] | [address] | [place] | [phone] | | [facility] | | [address] | | | - LABORATORY | | [...] New | 120 - 246 U/L | [facility] | | | | method in use as of | | [facility] | | | | July [...] [address] | [place] | [phone] | | [facility] | | [address] | | | - LABORATORY | | [...] 1.15 (H) | 0.55 - 1.02 | [facility] | | | | | mg/dL | [facility] | | | | | | MEDICAL | | | | | | CENTER - | | | | | | LABORATORY | | + + + + + + | eGFR if not | 47 (L)Comment: | >=60 | [facility] | | | | GLOMERULAR FILTRATION | mL/min/1.73m2 | [facility] | | | [place] | RATE,ESTIMATED | | MEDICAL | | | | mL/min/1.72e5Ipuf than | | CENTER - | | [...] | 9.3 | 8.7 - 10.4 | [facility] | | | | | mg/dL | [facility] | | | | [...] [address] | [place] | [phone] | | [facility] | | [address] | | | - LABORATORY | | | | + + + + + CBC no Differential (10/07/2019 3:52 AM PDT) + + + + + + | Component | Value | Ref Range | Performed | Pathologist | | | | | At | Signature | + + + + + + | WBC | 8.4 | 4.0 - 11.0 K/uL | [facility] | | | | | | [facility] | | | | | | MEDICAL | | | | | | CENTER - | | | | | | LABORATORY | | + + + + + + | RBC | 2.98 (L) | 3.70 - 5.20 | [facility] | | | | | M/uL | [facility] | | | | [...] [address] | [place] | [phone] | | [facility] | | [address] | | | - LABORATORY | | [...] [address] | [place] | [phone] | | [facility] | | [address] | | | - LABORATORY | | [...] + | [facility] | [address] | [place] | [phone] | | [facility] | | [address] | | | - LABORATORY | | [...] + | [facility] | [address] | [place] | [phone] | | [facility] | | [address] | | | - LABORATORY | | [...] ST. | [address] | [place], [place] | [phone] | | [facility] | | [address] | | | - LABORATORY | | [...] + | [facility] | [address] | [place] | [phone] | | [facility] | | [address] | | | - LABORATORY | | [...] [address] | [place] | [phone] | | [facility] | | [address] | | | - LABORATORY | | [...] | | A1c | | | [facility] | | | | | | MEDICAL | | | | | | CENTER - | | | | | | LABORATORY | | + +-------+ + + + | Estimated | 105 | mg/dL | [facility] | | | Average | | | [facility] | | | Glucose | | | [...] [address] | [place] | [phone] | | [facility] | | [address] | | | - LABORATORY | | [...] + | [facility] | [address] | [place] | [phone] | | [facility] | | [address] | | | - LABORATORY | | [...] VELIAE | | | | | | [facility] [...] ST. | [address] | [place], [place] | [phone] | | [facility] | | [address] | | | - LABORATORY | | | | + + + + + Vitamin B-12 10/06/2019 3:54 AM PDT) + + + + + + | Component | Value | Ref Range | Performed | Pathologist | | | | | At | Signature | + + + + + + | VITAMIN | 506Comment: DEFICIENT: | 156 - 672 pg/mL | [facility] | | | B-12 | <145 | | [facility] | | | | pg/mLINDETERMINATE: | | [...] [address] | [place] | [phone] | | [facility] | | [address] | | | - LABORATORY | | [...] | | | SATURATION | | | [facility] | | [...] [address] | [place] | [phone] | | [facility] | | [address] | | | - LABORATORY | | [...] + | [facility] | [address] | [place] | [phone] | | [facility] | | [address] | | | - LABORATORY | | [...] | | GLOMERULAR FILTRATION | mL/min/1.73m2 | [facility] | | | [place] | RATE,ESTIMATED | | MEDICAL | | | | mL/min/1.37b0Fspk than | | CENTER - | | [...] | | | | | mg/dL | [facility] | | | | | | MEDICAL | | | | | | CENTER - | | | | | | LABORATORY | | + + + + + + | BUN/Creatin | 14.3 | | [facility] | | | ine Ratio | | | [facility] | | | | [...] [address] | [place] | [phone] | | [facility] | | [address] | | | - LABORATORY | | [...] | | | | | BINH ESQUIVEL (219[address]) on | | | | | | [...] | | | POC | | | [facility] | | | | | MEDICAL [...] [address] | [place] | [phone] | | [facility] | | [address] | | | - LABORATORY | | [...] + | [facility] | [address] | [place] | [phone] | | [facility] | | [address] | | | - LABORATORY | | [...] | | | POC | | | [facility] | | | | [...] + | [facility] | [address] | [place] | [phone] | | [facility] | | [address] | | | - LABORATORY | | [...] medications administered | | | by the Zinc Chloride Operator nurse under my supervision. Patient tolerated [...] [address] | [place] | [phone] | | [facility] | | [address] | | | - LABORATORY | | [...] [address] | [place] | [phone] | | [facility] | | [address] | | | - LABORATORY | | [...] [address] | [place] | [phone] | | [facility] | | [address] | | | - LABORATORY | | [...] 27 | 20 - 31 mmol/L | [facility] | | | | | [...] | | GLOMERULAR FILTRATION | mL/min/1.73m2 | [facility] | | | [place] | RATE,ESTIMATED | | MEDICAL | | | | mL/min/1.79u0Ihwj than | | CENTER - | | [...] | | | | | mg/dL | [facility] | | | | [...] [address] | [place] | [phone] | | [facility] | | [address] | | | - LABORATORY | | [...] [address] | [place] | [phone] | | [facility] | | [address] | | | - LABORATORY | | [...] | | | | | | [employer] | | | | | [...] + | [facility] | [address] | [place] | [phone] | | [facility] | | [address] | | | - LABORATORY | | [...] | | | Eosinophils | | | [facility] | | [...] | Lymphocytes | | K/uL | [facility] | | | | | | MEDICAL | | | | | | CENTER - | | | | | | LABORATORY | | + + + + + + | Absolute | 1.01 (H) | 0.00 - 1.00 | [facility] | | | Monocytes | | K/uL | [facility] | | | | | | MEDICAL | | | | | | CENTER - | | | | | | LABORATORY | | + + + + + + | Absolute | 0.01 | 0.00 - 0.40 | [facility] | | | Eosinophils | | K/uL | [facility] | | | | | | MEDICAL | | | | | | CENTER - | | | | | | LABORATORY | | + + + + + + | Absolute | 0.02 | 0.00 - 0.10 | [facility] | | | Basophils | | K/uL | [facility] | | | | | | MEDICAL | | | | | | CENTER - | | | | | | LABORATORY | | + + + + + + | Absolute | 0.04 (H) | 0.00 - 0.03 | [facility] | | | Immature | | K/uL | [facility] | | | Granulocyte | | [...] + | [facility] | [address] | [place] | [phone] | | [facility] | | [address] | | | - LABORATORY | | [...] mL/min/1.73m2 | [facility] | | | [place] | RATE,ESTIMATED | | MEDICAL | | | | mL/min/1.56n9Xtaf than | | CENTER - | | [...] [address] | [place] | [phone] | | [facility] | | [address] | | | - LABORATORY | | [...] | | es | | | [facility] | | [...] LDL, | 125 | <=130 mg/dL | [facility] | | | Calculated | | | [...] [address] | [place] | [phone] | | [facility] | | [address] | | | - LABORATORY | | [...] + | [facility] | [address] | [place] | [phone] | | [facility] | | [address] | | | - LABORATORY | | [...] [address] | [place] | [phone] | | [facility] | | [address] | | | - LABORATORY | | [...] - 1.030 | [facility] | | | [place], | | | [facility] | | [...] + + | Performing | Address | City/State/Halie[place] | Phone Number | | Organization | | | | + + + + + | [facility] | [address] | [place] | [phone] | | [facility] | | [address] | | | - LABORATORY | | | | + + + + + Troponin I (10/04/2019 6:40 PM PDT) + + + + + + | Component | Value | Ref Range | Performed | Pathologist | | | | | At | Signature | + + + + + + | Troponin I | 24.64 ()Comment: | <0.06 ng/mL | [facility] | | | | Comment:Reference | | [facility] | | | | Ranges: 0.00-0.06 = [...] | | | | | | [employer] | | | | | [...] ST. | [address] | [place], [place] | [phone] | | [facility] | | [address] | | | - LABORATORY | | [...] [address] | [place] | [phone] | | [facility] | | [address] | | | - LABORATORY | | [...] | | | | | | [place] | | | | | + +--------+ [...] + | [facility] | [address] | [place] | [phone] | | [facility] | | [address] | | | - LABORATORY | | [...] ST. | [address] | [place] | [phone] | | [facility] | | [address] | | | - LABORATORY | | [...] | | | | BINH DIOP MD ([id number]) | | | | | | on [...] 45 | 40 - 60 mg/dL | [facility] | | | | | | [facility] | | | | | | MEDICAL | | | | | | CENTER - | | | | | | LABORATORY | | + +---------+ + + + | Chol/HDL | 4.4 | | [facility] | | | Ratio | | | [facility] | | | | | | MEDICAL | | | | | | CENTER - | | | | | | LABORATORY | | + +---------+ + + + | LDL, | 140 (H) | <=130 mg/dL | [facility] | | [...] [address] | [place] | [phone] | | [facility] | | [address] | | | - LABORATORY | | [...] | | | | | g/dL | . [facility] | | | | [...] [address] | [place] | [phone] | | [facility] | | [address] | | | - LABORATORY | | [...] 15 | 9 - 23 mg/dL | [facility] | | | | | | [facility] | | | | | | MEDICAL | | | | | | CENTER - | | | | | | LABORATORY | | + + + + + + | Creatinine | 1.03 (H) | 0.55 - 1.02 | [facility] | | | | | mg/dL | [facility] | | | | | | MEDICAL | | | | | | CENTER - | | | | | | LABORATORY | | + + + + + + | eGFR if not | 53 (L)Comment: | >=60 | [facility] | | | | GLOMERULAR FILTRATION | mL/min/1.73m2 | [facility] | | | [place] | RATE,ESTIMATED | | MEDICAL | | | | mL/min/1.15m5Jevt than | | CENTER - | | [...] + | [facility] | [address] | [place] | [phone] | | [facility] | | [address] | | | - LABORATORY | | | | + + + + + Troponin I (10/04/2019 4:09 AM PDT) + + + + + + | Component | Value | Ref Range | Performed | Pathologist | | | | | At | Signature | + + + + + + | Troponin I | 16.27 ()Comment: | <0.06 ng/mL | [facility] | | | | Comment:Reference | | [facility] | | | | Ranges: 0.00-0.06 = [...] | | | | | | [employer] | | | | | [...] [address] | [place] | [phone] | | [facility] | | [address] | | | - LABORATORY | | [...] were | | | [facility] on October 04, [...] of this study were reported by the [facility] | | Imagingradiologist on October 04, [...] called to and read back | | [facility] | | | (COVID-19) | by [...] ST. | [address] | [place] | [phone] | | [facility] | | [address] | | | - LABORATORY | | [...] | | | | BINH DIOP MD ([id number]) | | | | | | on [...] [address] | [place] | [phone] | | [facility] | | [address] | | | - LABORATORY | | [...] | | | | | | [employer] | | | | | [...] + | [facility] | [address] | [place], [place] | [phone] | | [facility] | | [address] | | | - LABORATORY | | [...] episode of care unspecified | + + | Hypertension, accelerated with heart disease, without CHF | + + documented in this encounter [...] | | | | 5 mg, Oral, FINISHING RANGE SUPERVISOR, Starting Wed | | 20 7:53 | [...] | | | | First dose on [facility] 10/06/19 at | | | | [...] | | | NIGHTLY, First dose on Tue | | | | | | [...] | | | | | | | 7626-5452 Use NIGHT DOSE for | | | | | | | doses scheduled: HS, | | | | | | | Nighttime 8502-2588 If the BG is | | | [...] | | | | | modification) on Thu10/05/19 at | | | | | | [...] | | | | | modification) on [facility] 10/06/19 at | | | | [...] 1 dose, Hellen, | | | Gail: cabinet override, | | + +---+ | | | [...] nitroglycerin in dextrose 200 | Rate/Dos | 10/05/19 | 50 | 15 mL/hr | | [...] +---+ | Rate/Dose Change | 10/05/19 | 60 | 18 mL/hr | | [...] 2 mg/mL | | | injection Starting Thu10/04/19 | | | at 0720, For 1 [...] | | | | Starting Thu10/04/19 at 0720 | | | | | [...] PDT | | | | | Starting [facility] 10/04/19 at 1241, For | | | [...] | | | | | dose on [facility] 10/06/19 at 0900 | | | [...] | | | | | | | Thu10/05/19 at 1130, For 1 dose, | | [...]
--- OUTSIDE RECORDS SUMMARY | ~2019-11-17 | XMS | Encounter Summary ---
Demographics + + + | Address | [address] | | | [place] [address] | + + + | Home Phone | | + + + | Preferred Language | Unknown | + + + | Marital Status | | + + + | Adventism Affiliation | [id number] | + + + | Race | Unknown | + + + | Ethnic Group | Unknown | + + + Author + + + | Author | [facility] | | | and Jasana | + + + | Organization | [facility] | | | and [place] | + [...] Team Providers + +------+ + | Care Nonprofit Fundraiser Name | Role | Phone | + +------+ + | Jacob Rodríguez DO | PCP | | + +------+ + Reason for Visit + + + | Reason | Comments | + + + | Hospital Follow-up | | + + + Evaluate & Treat (Routine) + +--------+ + + + + | Status | Reason | Specialty | Diagnoses / | Referred By | Referred To | | | | | Procedures | Contact | Contact | + +--------+ + + + + | Authorized | | Cardiology | Diagnoses | Alfredo, | Lj Barker | | | | | Non-ST | Manoj Liu MD | MD Miguel [address] | | | | | elevation | [address] | [address] | | | | | (NSTEMI) | [place] | [place], | | | | | myocardial | [place], [place] | [place] [address] | | | | | infarction | [address] | Phone: | | | | | ([facility]) | Phone: | [phone] | | | | | | [phone] | Fax: | | | | | | Fax: | [phone] | | | | | | [phone] | | + +--------+ + + + + Encounter Details +--------+---------+ + + + | Date | Type | Department | Care Team | Description | +--------+---------+ + + + | 11/07/ | Office | [facility] | VinayakAugust | Shortness of breath | | 2020 | Visit | [facility] [address] | MD Oren [address] | (Primary Dx); Cough | | | | [place], | [address] [place] | | | | | [place] [address] | [place] [address] | | | | | [phone] | [phone] | | | | | | | [...] + + + + | Temperature | - | - | | + + + + + | Respiratory Rate | 18 | 11/08/2019 10:21 AM | | | | | PDT | | + + + + + | Oxygen Saturation | - | - | | + + + + + [...] + + + documented in this encounter Patient Instructions Patient Instructions Lenora Friedman RN - 11/08/2019 10:30 AM PDT Restart amlodipine 5 mg one daily Blood test: Non-fasting, chest x-ray Date Due: today Where to go for labs: [facility] [address] [facility] Follow up appointment: 2 weeks Provider: Lj Barker MD Date: Check-In Time: documented in this encounter Progress Notes August Licea MD - 11/08/2019 10:30 AM PDT PATIENT NAME: Hyun Harper : 1950: AGE: 68 y.o. PRIMARY CARE: Jacob Rodríguez DO OUTPATIENT FOLLOW UP VISIT Date of Service: 11/08/19 PROBLEMS ADDRESSED AT THIS VISIT: Recent myocardial infarction with stenting of the circumflex and right coronary arteries Hypertension Cough Diabetes Renal dysfunction PRESENT ILLNESS: Hyun Harper is a 68 y.o. female admitted for a few days in September with chest discomfort. S he was also quite hypertensive. She had stenting of the mid circumflex and angioplasty of t he first obtuse marginal and a distal AV groove vessel. Stents were placed in the mid circu mflex and in the proximal right coronary. She had no complications from this procedure. Crystal liu was discharged on labetalol 300 mg twice a day. That evening she developed severe nausea and vomiting and went back to [facility] emergency department. Amlodipine was d iscontinued and her labetalol dose was decreased to 50 mg daily. Since then her blood press ure has been averaging about 145 systolic with a diastolic pressure around 60 something. Crystal liu has developed a cough which is mostly nonproductive. Cough is quite bothersome. It is no table that she does not take an blaise inhibitor. MEDICAL, SURGICAL, AND PERSONAL HISTORY Past Medical, Surgical, Family, and Social History details are found in EPIC and not reprod uced here. Changes since last visit: Cough CURRENT MEDICATIONS Current Outpatient Medications Medication Sig Dispense Refill aspirin 81 mg chewable tablet Chew and swallow 1 tablet Daily. 30 tablet atorvaSTATin (LIPITOR) 40 mg tablet Take 1 tablet by mouth nightly. 30 tablet 0 clopidogrel (PLAVIX) 75 mg tablet Take 1 tablet by mouth Daily. 90 tablet 0 labetalol (NORMODYNE) 100 mg tablet TAKE 1 2 (ONE HALF) TABLET BY MOUTH TWICE DAILY nitroglycerin (NITROSTAT) 0.[address] 1 tablet under the tongue every 5 nelson kandi as needed for Chest pain. 25 tablet 0 pantoprazole (PROTONIX) 40 mg tablet TAKE 1 TABLET BY MOUTH ONCE DAILY sodium chloride (OCEAN) 0.65% nasal spray 2 sprays by Each Nare route 4 times daily. 0 No current facility-administered medications for this visit. ALLERGIES Allergies Allergen Reactions Codeine Nausea And Vomiting Erythromycin Nausea And Vomiting Tape [Adhesive & Tape] Rash ROS Data found and reviewed in EPIC. Pertinent changes/review: Nothing not mentioned above OBJECTIVE: PHYSICAL EXAM BP 138/68 | Pulse 64 | Resp 18 | Ht 1.676 m (5' 6") | Wt 93.9 kg (207 lb) | BMI 33.41 kg/m General: No distress and not acutely ill. Coughing frequently HEENT: Ocular movements normal. No facial or cranial trauma. Chest: Normal respiratory effort and pattern. Clear to auscultation CV: No JVD. Rhythm regular. Ausculation: No murmur or gallop Abd: No hepatomegaly or tenderness. Benign Ext: Hands and feet are normal in color and temperature. No edema Neuro: No obvious motor or cranial nerve deficit. Oriented. NEW OR RECENT DATA: None ASSESSMENT: She has had some mild discomfort since stenting that has required nitroglycerin on a couple of occasions. Ischemic heart disease with stenting of the circumflex and right coronary artery following non-ST segment elevation myocardial infarction last month. Hypertension, not adequately managed, systolic. Cough, a new and worsening symptom. PLAN: Medication changes: Restart amlodipine 5 mg daily. No change in labetalol 50 mg twice a da y.. Testing ordered today: Chest x-ray ordered CBC and BNP were ordered. Return in [address] Barker. Electronically signed by: Lexy Licea MD [facility] 11/08/2019 Portions of this chart may have been created with [employer] voice recognition software. Occasi onal wrong-word or sound-alike substitutions may have occurred due to the inherent solitario itations of voice recognition software. Please read the chart carefully and recognize, using context, where these substitutions have occurred. documented in this encounter Miscellaneous Notes Addendum Note - Lenora Friedman RN - 11/08/2019 10:30 AM PDT Addended by: JAY FRIEDMAN on: 11/08/2019 12:11 PM Modules accepted: Orders documented in t his encounter Plan of Treatment +--------+---------+ + + + | Date | Type | Specialty | Care Team | Description | +--------+---------+ + + + | 11/30/ | Office | Cardiology | Lj Barker MD | | | 2019 | Visit | | [address] | | | | | | [place] | | | | | | [id number] | | | | | | | | +--------+---------+ + + + documented as of this encounter Results CBC with Differential (11/08/2019 11:53 AM PDT) + + + [...] + | [facility] | [address] | [place], [place] | [phone] | | [facility] | | [address] | | | - LABORATORY | | [...] 117 (H)Comment: New | <100 pg/mL | [facility] | | | | method in use as of | | [facility] | | | | July 14, [...] + | [facility] | [address] | [place] | [phone] | | [facility] | | [address] | | | - LABORATORY | | [...] | + + | Shortness of breath - Primary | + + | Cough | + + documented in this encounter
--- OUTSIDE RECORDS SUMMARY | ~2019-11-17 | XMS | Encounter Summary ---
Demographics + + + | Address | [address] | | | [place] [address] | + + + | Home Phone | | + + + | Preferred Language | Unknown | + + + | Marital Status | | + + + | Shinto Affiliation | 1077 | + + + | Race | Unknown | + + + | Ethnic Group | Unknown | + + + Author + + + | Author | [facility] | | | and [place] | + + + | Organization | [facility] | | | and [place] | [...] Team Providers + +------+ + | Care Senior Javascript Developer Name | Role | Phone | + +------+ + | Jacob Rodríguez DO | PCP | | + +------+ + Reason for Visit + +--------+ + | Reason | Onset | Comments | | | Date | | + +--------+ + | Follow-up | 10/17/ | | | | 2020 | | + +--------+ + Encounter Details +--------+ + + + + | Date | Type | Department | Care Team | Description | +--------+ + + + + | 10/17/ | Telephone | [facility] | Keely Grover RN | Follow-up | | 2019 | | [facility] | | | | | | [address] | | | | | | [place] | | | | | | [phone] | | | | | | [phone] | | | +--------+ + + + [...] Telephone Encounter - Keely Grover RN - 10/18/2019 3:19 PM PDTRN made follow up phone c all to patient post PCI. Call made to ensure cardiac rehab referral has been made, 30 day fo llow up appointment has been scheduled, as well as ensuring that the patient was able to ambika l prescription after discharge. RN answered all pertinent questions and concerns. Keely ashraf RN documented in this encounter Plan of Treatment +--------+---------+ + + + | Date | Type | Specialty | Care Team | Description | +--------+---------+ + + + | 11/30/ | Office | Cardiology | Lj Barker MD | | | 2019 | Visit | | [address] | | | | | | [place] | | | | | | [id number] | | | | | | | | +--------+---------+ + + + documented as of this encounter Visit Diagnoses Not on filedocumented in this encounter"
--- OUTSIDE RECORDS SUMMARY | ~2019-11-17 | XMS | Encounter Summary ---
Demographics + + + | Address | [address] | | | [place] [address] | + + + | Home Phone | | + + + | Preferred Language | Unknown | + + + | Marital Status | | + + + | Denominational Affiliation | [id number] | + + + | Race | Unknown | + + + | Ethnic Group | Unknown | + + + Author + + + | Author | [facility] | | | and Jasana | + + + | Organization | [facility] | | | and Jasana [...] Team Providers + +------+ + | Care Manager Access Name | Role | Phone | + [...] + + | 10/04/ | Surgery | [facility] | Lj Barker MD | CV COR ANGIO | 2019 | | MED CTR CV INTRA OP | [address] | | | | | [address] | [place] | | | | | [place] | [id number] | | | | | [address] | | | | | | [phone] | | | +--------+---------+ + + + [...] + + + | Blood Pressure | 143/59 | 10/05/2019 8:30 AM | | | | | PDT | | + + + + + | Pulse | 75 | 10/05/2019 8:30 AM | | | | | PDT | | + + + + + | Temperature | 36.4 C (97.5 F) | 10/05/2019 7:18 AM | | | | | PDT | | + + + + + | Respiratory Rate | 17 | 10/05/2019 8:30 AM | | | | | PDT | | + + + + + | Oxygen Saturation | 96% | 10/05/2019 8:30 AM | | | | | PDT | | + + + + + | Inhaled Oxygen | - | - | | | Concentration | | | | + + + + + | Weight | 102.5 kg (225 lb | 10/05/2019 4:14 AM | | | | 15.5 oz) | PDT | | + + [...] Fuentes MD - 10/07/2019 12:07 PM PDT [facility] DISCHARGE SUMMARY Pt. Name/Age/: Jaya Morton 68 [...] lesion 2. Hypertensive urgency on presentation to [facility] treated with a single do se of [...] Take 1 tablet by mouth Daily. aka: LILLIANVASC Start: October 08, 2019 aspirin 81 mg [...] Specialty: Medical Oncology Why: Main admitting at [facility], check in at 1045 Contact information: [address] [facility] [address] [place] [address] Lj Barker MD. Specialties: Interventional Cardiology, Cardiology Why: thursday, 11/07, at 11:30 am(check in 15 minutes early) Contact information: [address] [facility] [id number] RESULTS: TTE Conclusion Summary: 1. Ventricular size [...] I Latest Ref Range: <0.06 ng/mL 9.40 () 16.27 (HH) 24.64 () 26.41 () Results for JAYA MORTON ( ) as [...] 140 - 440 K/uL 206 Results for JAYA MORTON ( ) as [...] troponin elevation associated with severe hypertension at [facility] with a chronic h /o hypertension on [...] evidence of NSTEMI was taken to the maintenance shop laborer where multivessel disease was found and 2 vessel stenting and angioplasty performed. BP was treated with labetalol and amlodipine and diabetic education occurred with the patie nt thought most likely to have prediabetes vs very mild type 2 disease. She was also found to be anemic but hemoccult negative this admission with a negative ass essment thusfar(LDH elevated but possibly secondary to UT-no reticulocytosis or smear abnorm alities to suggest hemolysis). Outpatient assessment of her anemia by Dr Bailey at [facility] and follow up with Dr Barker has [...] by: Manoj Fuentes MD, 10/07/2019 12:22 PM Located within [facility] Portions of this chart may have been created with Holograam voice recognition software. Occasi onal wrong-word or [...] May call Dr Fuentes for questions at [phone] from 7 am to 7 pm until 10/09 at 7 pm fo r questions Medication Costs: Fill your medications at [facility], they have the lowest lance [place] if insurance does not co eleanor the medications. amLODIPine -- $9 for 30-day supply atorvaSTATin --$15 for 30-day supply clopidogrel --$15 for 30-day supply labetalol --$20.49 for 30-day supply (with GoodRx coupon) nitroglycerin --$10.95 for 25 tablets (with GoodRx coupon) Aspirin 81 mg-- available etvh-axf-dbckrjm; around $4 for 100 tablets Sodium chloride nasal spray--Equate (RaftOut-MetaFLO brand) available oxuk-cqb-hwkosft, around $4 for one bottle documented in [...] Kayla Regan, PharmD - 10/07/2019 2:31 PM PDTJaya Morton was admitted for NSTEMI and hypertensive emergency and discharged home today (10/07/2019) Taught AVS education to patient. Education was focused on new medications and/or changed me dications. I explained indication, how to take, possible side effects, when to contact physi shviam, and monitor parameters. The patient was reminded of follow-up appointment with waste machine operator and encouraged to make a follow-up [...] M D - 10/06/2019 8:38 AM PDT Located within [facility] PMG Hospitalist Progress Note Jaya [...] emergency room at [facility] she received 5 mg of IV metoprolol, 324 mg of aspirin, and a dose of Lovenox transferred here. On presentatio n she had a CTA which was negative for aortic dissection. Troponin has progressively risen and currently plateauing at 26. Patient was taken to the Diversified Crops Supervisor 10/04 with multivessel disease including RCA, [...] above. Manoj Fuentes MD 10/06/2019 8:38 AM [facility] Portions of this chart may have been created with Holograam voice recognition software. Occasi onal wrong-word or sound-alike substitutions may have occurred due to the inherent solitario itations of voice recognition software. Please read the chart carefully and recognize, using context, where these substitutions have occurred ParManoj lewis MD - 0 10/05/2019 7:34 AM PDT Located within [facility] PMG Hospitalist Progress Note Jaya [...] emergency room at [facility] she received 5 mg of IV metoprolol, [...] above. Manoj Fuentes MD 10/05/2019 7:34 AM [facility] Portions of this chart may have been created with Holograam voice recognition software. 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 Provider ibuprofen (ADVIL, MOTRIN) 200 mg tablet Take 200 mg by mouth every 6 hours as needed for P ain. Taking Differently Historical Provider, Medication review performed and electronically signed by Magda Lucia, It Sales Representative 2019 3:50 PM Reviewed by Kayla Regan, PharmD 10/04/2019 3:58 PM Manoj Wesley M D - 10/04/2019 7:28 AM PDT Located within [facility] PMG Hospitalist Progress Note Jaya [...] emergency room at [facility] she received 5 mg of IV metoprolol, [...] embolism or other acute process in the [facility] st. Signed by: Michel Raymond Robin Sign Date/Time: 10/04/2019 4:04 AM Total time of approximately 40 minutes was spent with the patient and/or patient's family, and/or on the patient's floor/unit, of which more than 50% was spent counseling and/or coord ination the patient's care as outlined above. Manoj Fuentes MD 10/04/2019 7:28 AM [facility] Portions of this chart may have been created with Holograam voice recognition software. Occasi onal wrong-word or sound-alike substitutions may have occurred due to the inherent solitario itations of voice recognition software. Please read the chart carefully and recognize, using context, where these substitutions have occurred documented in this enc ounter H&P Notes Tal Bailey MD - 10/03/2019 9:37 PM PDT [facility] HISTORY AND PHYSICAL Pt. [...] No pertinent surgical history. FAMILY HISTORY: Mother (apr) CAD Father (apr) cancer o flung SOCIAL HISTORY: + juliana No etoh REVIEW OF SYSTEMS: All systems were reviewed and were negative unless otherwise stated in HPI HOME MEDICATIONS: No current outpatient medications on file prior to encounter. Takes xgvb-imv-lkhbmxg Advil as necessary ALLERGIES: Allergies Allergen Reactions [...] by: Tal Bailey MD 10/04/2019 2:48 AM Located within [facility] documented in this enc ounter [...] are now upright in aVL Confirmed by JADON ESQUIVEL, BINH ([id number]) on 10/06/2019 7:46:56 AM Basic Metabolic Panel [...] DAPT Electronically Signed by: Lj Barker MD [facility] 10/06/2019 4:13 PM [facility] Kristina Stockton RN - 10/06/2019 9:44 AM [...] an outpatient I will request a referra lQuique Lj Vera MD - 10/04/2019 2:41 PM PDT PATIENT [...] with hypertensive crisis. Patient was sent fro m an outside hospital which with elevated blood [...] file Gets together: Not on file Attends holiness service: Not on file Active member of [...] Fuentes MD 40 mg at 10/04/19 0847 [facility] list of outpatient meds: No medications prior [...] associated with acute m yocardial infarction. The [place] [employer] (ACC) recommends a decision [...] associated with acute m yocardial infarction. The [place] [employer]iology (ACC) recommends a decision [...] ECG No previous ECGs available Confirmed by JADON ESQUIVEL, BINH ([id number]) on 10/04/2019 6:45:00 AM SARS coronavirus 2 [...] be regarded as investigational or for research. is laboratory is certified under the Clinical Laboratory [...] authorized for the duration of time the declaration at circumstances exist justifying the authorization of [...] 10/04/2019 6.26 cm/s In process MV Deceleration [place] 10/04/2019 251.9 cm/s2 In process MV Deceleration [...] of this study were reported by the [facility] Imaging radiologist on October 04, 2019 [...] care of this patient. Lj Barker MD, [facility], 10/04/2019 2:41 PM documented in this enco unter Miscellaneous Notes Plan of Care - Karla Heller RN - 10/07/2019 1:20 PM PDTProject Red teaching done b y pharmacists. Discharge instructions reviewed. Discharged to home with family.Electronica lly signed by Karla Heller RN at 10/07/2019 1:21 PM PDTPlan of Care - Janina Aguilar RN - 10/07/2019 10:17 AM PDT Problem: Discharge Planning Goal: Patient's discharge needs will be identified in a timely manner Outcome: Ongoing, progressing Goal: Patient will be discharged in a safe manner Outcome: Ongoing, progressing Dr. Funetes is planning to discharge Jaya this afternoon. She is in the process of estab lishing with Dr. Rodríguez. Their office will call and schedule her the first week of October. Dr. Fuentes requests that an appointment be made with Dr. Hall in [place] in 2-4 [facility] to follow-up her unexplained anemia. An appointment [...] Lashonda and they did not have her [employer] [place] [employer] supplement listed. They state her cost for Brilinta will be $461.00 per month. Checked on the Provider site for Husser of [employer] aha and her supplement does not have any drug coverage. Dr. Fuentes notified of the cost.Elec tronically signed by: Janina Aguilar RN 10/07/2019 10:52 AM lan of Care - Malorie Lozada Chaplain - 10/06/2019 2:59 PM PDT Spiritual Care Jaya Morton is a 68 y.o. female who is admitted for NSTEMI. Ceramic Designer visit was part of routine rounding. Spiritual [...] regret about past decisions. Spiritual Interventions: The dealmaker attended, witnessed patient's story, explored decision-making and meaning and offered prayer. Spiritual Outcomes: The patient has been reflective and has made the decision to receive counseling. She expre ssed feelings of loneliness. Spiritual Goals/Follow-up: Follow up as needed. 3:0 2 PM PDTPlan of [place], Kristina Almazan RN - 10/06/2019 10:40 AM PDTSee inpatient consult lan of [facility] on, Adilene Morrissey RN - 10/05/2019 3:13 PM PDTCynthia is A/Ox4. She had chest discomfort this m orning that she rated at a 0-1/10. She was on a nitro gtt at 50mcg prior to going to cath la b. She received 2 stents in the maintenance shop laborer. 1 in RCA and 1 in circumflex. [...] frequent PVCs post cath. Spoke with diabetes e ducator today--will be following up tomorrow. Family updated on patient status with slyom дмитрий morgan. Frequent rounding, needs addressed, no falls. eICU Note - Adilene Rose RN - 10/05/2019 11:04 AM PDTPt back to unit from maintenance shop laborer. R radial TR band in place. I discovered hematoma proximal to pu ncture site. Pressure held and TR band moved with maintenance shop laborer nurse. Area marked. CMS intact, s kin cool. Will continue to monitor site.Electronically signed by Adilene Rose RN at 11:06 AM PDTBrief Op Colleen - Lj Barker MD - 10/05/2019 11:01 AM PDT BRIEF OPERATIVE NOTE [facility] Pt. Name/Age/: Jaya Morton 68 y.o. 1950 [facility]. Record Number: [id number] Date of admission: 10/03/2019 Date of Operation/Procedure: 10/05/2019 Preoperative Diagnosis: Chest Pain Postoperative Diagnosis: Surgeon: Lj Barker MD Hair Rooting Machine Operator: None Anesthesia Provider(s): No anesthesia staff entered. [...] Implant Name Type Inv. Item Serial No. Poker Machine Attendant Lot No. LRB No. Used STENT JOHN SYNERGY MR 2.5 X 8 - [id number] Stent STENT JOHN SYNERGY MR 2.5 X 8 [employer] BSCI [id number] N/A 1 STENT JOHN SYNERGY MR 3.0 X 32 - [id number] Stent STENT JOHN SYNERGY MR 3.0 X 32 [employer] BSCI [id number] N/A 1 Counts: Instrument, sponge, and needle counts were correct prior to closure and at the con clusion of the case. Complications: None Disposition: The patient was taken to Critical Care Immediate Post-Operative Condition: Stable Electronically signed by: Lj Barker MD, 10/05/2019, 11:01 AM lan of [place] - Fabienne Aguilar RN - 10/05/2019 5:54 AM PDTCynthia progressed [...] air, will continue to monitor. lan of Care - Sujatha Vargas RN - 10/04/2019 6 :12 PM PDTA&O [...] Vargas RN at 6:17 PM PDTPlan of Care - Malorie Lozada Chaplain - 10/04/2019 3:52 PM PDT S piritual Care Jaya Morton is a 68 y.o. female who is admitted for NSTEMI. Ceramic Designer visit is in response to an advance [...] God background and is connected with the orthodox in on. She recognizes a need to submit this challenge to God and feels that she struggles with her human desire to control the outcome. Her son and daughter are supportive to her. Spiritual Interventions: The dealmaker attended, offered care, provided an Advance Directive [...] and emotional support. lan of Care - VanessaKeysha juarez RN - 10/04/2019 11: 29 AM PDT [...] Damion, her daughter, and her 2 gran eduardoldbrennan in [place]. Either her daughter or Damion will be transporting her back home at discharge. She reports that she was transported here via ground ambulance for her CP and NSTEMI care n eeds and was directly admitted to ICU unit. This senior underwriter gave admitting copy of her insurance cards [...] her MD retired, who worked at the [employer] office, and she has not seen one in a long time. She states that she had seen Dr. Armenta in [place] twice but that has been a long time a go as well. She states that she does not take any meds. She states that her spouse has been working with his PCP, Dr. Rodríguez, at the [facility] to g et her established there. This senior underwriter called and spoke with Hannah, intake office, and she stated that Dr. Rodríguez is taking new patient's but due to COVID rules, the soonest he could see her would be October 16. She requested that her med list be faxed there attn: Dr. Rodríguez. Faxed the info to the [facility], f# [phone], stating that patient does not take any me ds. Fax transmission confirmed and placed in ghost chart. Let patient know this above info which she appreciated. Jaya was told that they would get ahold of her once he reviewed the info faxed. Dispo: Home when medically stable possibly in a couple of days. Spouse or daughter will be transporting her back to [place]. CM to f/u with patient for any further potential needs after her heart cath completed. Electronically signed by: Keysha Vazquez RN 10/04/2019 11:46 AM lan of [place] - Diane Lozada Chaplain - 10/04/2019 8:44 AM PDT Spiritual Care Jaya Morton is a 68 y.o. female who is admitted for NSTEMI. Ceramic Designer visit was in response to a patient's spiritual care consult request. Spiritual Evaluation: The patient was resting in a bed in the ICU and welcomed a spiritual care visit. She appre ciates spiritual care when she is at a hospital and prefers to be at [facility] whe re all of the caregivers may pray with her. This is the first time she has an experienced a n episode like this. He and family are supportive and contact her by phone. She at tends an [employer] orthodox in [place] and welcomes prayer support. Spiritual Interventions: The dealmaker attended, offered care, witnessed patient's story, explored meaning and offere d prayer. Spiritual Outcomes: The patient appreciates and is comforted by spiritual care and takes comfort in prayer and the promise of the Holy Spirit with her. Spiritual Goals/Follow-up: Follow up with spiritual support as needed. lan of Care - Gail Macedo RN - 10/04/2019 4:55 AM PDTTr heike from [place], arrived to ICU at 2300 yesterday. C/o chest pressure. /10. Nitro g tt restarted. Nitro gtt currently [...] | Visit | | [address] | | | | | | [place] | | | | | | [id number] | | | | | | | [...] [address] | [place] | [phone] | | [facility] | | [address] | | | - LABORATORY | | [...] + | [facility] | [address] | [place] | [phone] | | [facility] | | [address] | | | - LABORATORY | | [...] collected: 07 Oct 2019 @ | | [facility] | | | | [...] [address] | [place] | [phone] | | [facility] | | [address] | | | - LABORATORY | | [...] [address] | [place] | [phone] | | [facility] | | [address] | | | - LABORATORY | | [...] New | 120 - 246 U/L | [facility] | | | | method in use [...] + | [facility] | [address] | [place] | [phone] | | [facility] | | [address] | | | - LABORATORY | | [...] | | GLOMERULAR FILTRATION | mL/min/1.73m2 | [facility] | | | [place] | RATE,ESTIMATED | | MEDICAL | | | | mL/min/1.78q3Jaqb than | | CENTER - | | [...] | | | | | mg/dL | [facility] | | | | | | MEDICAL | | | | | | CENTER - | | | | | | LABORATORY | | + + + + + + | BUN/Creatin | 14.8 | | [facility] | | | ine Ratio | | | . [facility] | | [...] [address] | [place] | [phone] | | [facility] | | [address] | | | - LABORATORY | | [...] [address] | [place] | [phone] | | [facility] | | [address] | | | - LABORATORY | | [...] [address] | [place] | [phone] | | [facility] | | [address] | | | - LABORATORY | | [...] [address] | [place] | [phone] | | [facility] | | [address] | | | - LABORATORY | | [...] + | [facility] | [address] | [place] | [phone] | | [facility] | | [address] | | | - LABORATORY | | [...] | | Blood in | | | [facility] | | | 1st [...] | [address] | [place] | [phone] | | [facility] | | [address] | | | - LABORATORY | | [...] ST. | [address] | [place] | [phone] | | [facility] | | [address] | | | - LABORATORY | | [...] [address] | [place] | [phone] | | [facility] | | [address] | | | - LABORATORY | | [...] | | | A1c | | | . [facility] | | [...] [address] | [place] | [phone] | | [facility] | | [address] | | | - LABORATORY | | [...] [address] | [place] | [phone] | | [facility] | | [address] | | | - LABORATORY | | [...] + | [facility] | [address] | [place] | [phone] | | [facility] | | [address] | | | - LABORATORY | | [...] | B-12 | <145 | | [facility] | | | | pg/mLINDETERMINATE: | | [...] [address] | [place] | [phone] | | [facility] | | [address] | | | - LABORATORY | | [...] [address] | [place] | [phone] | | [facility] | | [address] | | | - LABORATORY | | [...] + | [facility] | [address] | [place] | [phone] | | [facility] | | [address] | | | - LABORATORY | | [...] [facility] | | | | | | [facility] [place] | | | | | | [...] not | 49 (L)Comment: | >=60 | [facility] | | | | GLOMERULAR FILTRATION | mL/min/1.73m2 | [facility] | | | [place] | RATE,ESTIMATED | | MEDICAL | | | | mL/min/1.11c1Mvvs than | | CENTER - | | [...] [address] | [place] | [phone] | | [facility] | | [address] | | | - LABORATORY | | [...] | | | | | BINH ESQUIVEL ([id number]) on | | | | | | [...] [address] | [place] | [phone] | | [facility] | | [address] | | | - LABORATORY | | [...] | | | POC | | | [facility] | | | | | | MEDICAL | | | | | | CENTER - | | | | | | LABORATORY | | + +---------+ + + + + + | Specimen | + + | Blood | + + + + + + + | Performing | Address | City/State[facility] | Phone Number | | Organization | | | | + + + + + | [facility] | [address] | [place] | [phone] | | [facility] | | [address] | | | - LABORATORY | | [...] [address] | [place] | [phone] | | [facility] | | [address] | | | - LABORATORY | | [...] medications administered | | | by the Diversified Crops Supervisor nurse under my supervision. Patient tolerated [...] [address] | [place] | [phone] | | [facility] | | [address] | | | - LABORATORY | | [...] | Clotting | | second(s) | [facility] [place] | | | Time, POC | [...] [address] | [place] | [phone] | | [facility] | | [address] | | | - LABORATORY | | [...] [address] | [place] | [phone] | | [facility] | | [address] | | | - LABORATORY | | [...] | mL/min/1.73m2 | [facility] | | | [place] | RATE,ESTIMATED | | MEDICAL | | | | mL/min/1.72v7Avtb than | | CENTER - | | [...] | | | | | mg/dL | [facility] | | | | [...] [address] | [place] | [phone] | | [facility] | | [address] | | | - LABORATORY | | [...] + | [facility] | [address] | [place] | [phone] | | [facility] | | [address] | | | - LABORATORY | | | | + + + + + Troponin I (10/05/2019 4:09 AM PDT) + + + + + + | Component | Value | Ref Range | Performed | Pathologist | | | | | At | Signature | + + + + + + | Troponin I | 26.41 (HH)Comment: | <0.06 ng/mL | [facility] | | [...] [address] | [place] | [phone] | | [facility] | | [address] | | | - LABORATORY | | [...] | | | | | | [facility] | | [...] | Neutrophils | | K/uL | [facility] | | | | | | MEDICAL | | | | | | CENTER - | | | | | | LABORATORY | | + + + + + + | Absolute | 1.12 | 0.60 - 3.20 | [facility] | | | Lymphocytes | | K/uL | [facility] | [...] + | [facility] | [address] | [place] | [phone] | | [facility] | | [address] | | | - LABORATORY | | [...] | | | | mg/dL | [facility] | | | | | | MEDICAL | | | | | | CENTER - | | | | | | LABORATORY | | + + + + + + | eGFR if not | 49 (L)Comment: | >=60 | [facility] | | | | GLOMERULAR FILTRATION | mL/min/1.73m2 | [facility] | | | [place] | RATE,ESTIMATED | | MEDICAL | | | | mL/min/1.13m9Gndk than | | CENTER - | | [...] | | ine Ratio | | | [facility] | | | | | [...] [address] | [place] | [phone] | | [facility] | | [address] | | | - LABORATORY | | [...] | | Calculated | | | [facility] | | [...] [address] | [place] | [phone] | | [facility] | | [address] | | | - LABORATORY | | [...] + | [facility] | [address] | [place] | [phone] | | [facility] | | [address] | | | - LABORATORY | | [...] | | | Gram Positive | | [facility] | | | | FloraComment: Suggests | [...] [address] | [place] | [phone] | | [facility] | | [id number] | | | - LABORATORY | | [...] - 1.030 | [facility] | | | [place], | | | [facility] | | [...] | Urine Culture Set Up | | [facility] | | | Comment | | | [facility] | | [...] [address] | [place] | [phone] | | [facility] | | [address] | | | - LABORATORY | | [...] + + | Performing | Address | City/[facility] | Phone Number | | Organization | | | | + + + + + | [facility] | [address] | [place] | [phone] | | [facility] | | [address] | | | - LABORATORY | | [...] + | [facility] | [address] | [place] | [phone] | | [facility] | | [address] | | | - LABORATORY | | [...] | | | | | | n [place] | | | | | + +--------+ [...] + | [facility] | [address] | [place] | [phone] | | [facility] | | [address] | | | - LABORATORY | | [...] + | [facility] | [address] | [place] | [phone] | | [facility] | | [address] | | | - LABORATORY | | [...] | | | | BINH DIOP MD ([id number]) | | | | | | on [...] | 140 (H) | <=130 mg/dL | [facility] | | | Calculated | | | [...] + | [facility] | [address] | [place] | [phone] | | [facility] | | [address] | | | - LABORATORY | | [...] ST. | [address] | [place], [place] | [phone] | | [facility] | | [address] | | | - LABORATORY | | [...] | | GLOMERULAR FILTRATION | mL/min/1.73m2 | [facility] | | | [place] | RATE,ESTIMATED | | MEDICAL | | | | mL/min/1.81n3Frfa than | | CENTER - | | [...] + | [facility] | [address] | [place] | [phone] | | [facility] | | [address] | | | - LABORATORY | | | | + + + + + Troponin I (10/04/2019 4:09 AM PDT) + + + + + + | Component | Value | Ref Range | Performed | Pathologist | | | | | At | Signature | + + + + + + | Troponin I | 16.27 ()Comment: | <0.06 ng/mL | [facility] | | | | Comment:Reference | | [facility] | | | | Ranges: 0.00-0.06 = [...] + | [facility] | [address] | [place], [place] | [phone] | | [facility] | | [address] | | | - LABORATORY | | [...] were | | | reported by the [facility] radiologist on October 04, 2019 at [...] [address] | [place] | [phone] | | [facility] | | [address] | | | - LABORATORY | | [...] | | | | BINH DIOP MD ([id number]) | | | | | | on [...] | chromogenic agar method. | | [facility] | | | | | | [...] [address] | [place] | [phone] | | [facility] | | [address] | | | - LABORATORY | | [...] | | | | Comment:Reference | | [facility] | | | | [...] ST. | [address] | [place] | [phone] | | [facility] | | [address] | | | - LABORATORY | | [...] 20 8:38 | | | | | e 10/04/19 at 0900 | | AM PDT [...] | | | | First dose on [facility] 10/06/19 at | | | | [...] | | | | | | | [id number] Use NIGHT DOSE for | | | | | | | doses scheduled: HS, | | | | | | | Nighttime 7936-3661 If the BG is | | | [...] | | | | | modification) on [facility] 10/06/19 at | | | | [...] | lidocaine buffered 0.9% | Given | 10/05/19 | 1 mL | | | | injection ONCE PRN, Starting Wed | | 20 9:16 | | | | | 10/05/19 at 0916, Intra-op | | AM PDT | | | | + +-------+ +------+---+---+ +---+---+ | | | +---+---+ + +-------+ +--------+---+---+ | midazolam (VERSED) 1 mg/mL | Given | 10/05/19 | 0.5 mg | | | | injection ONCE PRN, Starting Wed | | 20 10:24 | | | | | 20 at 0904, Intra-op | | AM PDT [...] niCARdipine in saline (CARDENE) | Given | 10/05/19 | 3 mLs [...] | nitroglycerin 100 mcg/mL | Given | 05/20/20 | 300 mcg | | | | [...] | | | | | dose on [facility] 10/06/19 at 0900 | | | | [...]
[~2019-11-17 02:29] MED LIST: ASPIRIN81 MG PO; CLOPIDOGREL75 MG PO; LABETALOL HCL100 MG PO; LABETALOL HCL300 MG PO; LIPITOR40 MG PO; NITROGLYCERIN0.4 MG SL; NORVASC5 MG PO; PANTOPRAZOLE SO40 MG PO
[2019-11-17] MEDS ORDERED: NORVASC5 MG PO (02:39)
--- NOTE | 2019-11-17 13:36 | EKG ---
[facility] [address] [place], [place] [address] Signed Normal sinus rhythm T wave abnormality, consider lateral ischemia Abnormal ECG No previous ECGs available Confirmed by YANE TENORIO DO ([id number]) on 11/17/2019 1:35:44 PM Electronically Signed By: YANE TENORIO DO 11/17/19 1336 PATIENT NAME: JAYA MORTON IRAM Electrocardiogram DATE OF : 52 PHYSICIAN: YANE TENORIO DO REPORT #: [id number] REPORT IS CONFIDENTIAL AND NOT TO BE RELEASED WITHOUT AUTHORIZATION
== END 2019-11-17 06:03 | disposition home or self-care (01) ==
LOC: ED 02:29
DX: R07.89 Other chest pain (principal); I10 Essential (primary) hypertension; Z88.5 Allergy status to narcotic agent; Z88.1 Allergy status to other antibiotic agents; Z79.899 Other long term (current) drug therapy; Z79.02 Long term (current) use of antithrombotics/antiplatelets; Z79.82 Long term (current) use of aspirin
CPT/HCPCS: 71045; 80053; 83735; 84484; 85025; 93005; 93010; 99285-25

== ENCOUNTER 2020-04-15 10:37 | Emergency (ER) | payer MEDICARE, OTHER ==
[~2020-04-15] VITALS: Ht 167.6 cm; Wt 97.1 kg
--- NOTE | 2020-04-16 13:11 | EKG ---
[facility] [address] [facility] [place], [place] [address] Signed Normal sinus rhythm Normal ECG When compared with ECG of 17-NOV-2019 02:34, T wave inversion no longer evident in Lateral leads Confirmed by YANE TENORIO DO ([id number]) on 04/16/2020 1:10:44 PM Electronically Signed By: YANE TENORIO DO 04/16/20 1311 PATIENT NAME: MORTONJAYA Electrocardiogram DATE OF : 52 PHYSICIAN: YANE TENORIO DO REPORT #: [id number] REPORT IS CONFIDENTIAL AND NOT TO BE RELEASED WITHOUT AUTHORIZATION
== END 2020-04-15 14:47 | disposition home or self-care (01) ==
LOC: ED 10:37
DX: R07.89 Other chest pain (principal); R10.12 Left upper quadrant pain; I10 Essential (primary) hypertension; E78.00 Pure hypercholesterolemia, unspecified; Z88.5 Allergy status to narcotic agent; Z88.1 Allergy status to other antibiotic agents; Z79.899 Other long term (current) drug therapy; Z79.82 Long term (current) use of aspirin
CPT/HCPCS: 71045; 76705; 80053; 83690; 84484; 85025; 93005; 93010; 99285-25

== ENCOUNTER 2021-02-22 17:24 | Emergency (ER) | payer MEDICARE, OTHER ==
[~2021-02-22] VITALS: Ht 167.6 cm; Wt 89.9 kg
[2021-02-22] MEDS ORDERED: LISINOPRIL10 MG PO (17:45)
[2021-02-22] MEDS ORDERED: FOLIC ACID0.4 MG PO (17:46)
[2021-02-22] MEDS ORDERED: HYDROCODON-ACE1 EA10 PO (18:46)
[2021-02-22] MEDS ORDERED: CEPHALEXIN500 M1 PO (18:46)
[2021-02-22] MEDS ORDERED: ONDANSETRON ODT8 MG PO (18:46)
== END 2021-02-22 19:30 | disposition home or self-care (01) ==
LOC: ED 17:24
DX: S67.191A Crushing injury of left index finger, initial encounter (principal); S61.311A Laceration without foreign body of left index finger with damage to nail, initial encounter; Z23 Encounter for immunization; I10 Essential (primary) hypertension; E78.00 Pure hypercholesterolemia, unspecified; I25.2 Old myocardial infarction; W23.0XXA Caught, crushed, jammed, or pinched between moving objects, initial encounter; Z88.5 Allergy status to narcotic agent; Z88.0 Allergy status to penicillin; Z79.899 Other long term (current) drug therapy; Z79.82 Long term (current) use of aspirin
CPT/HCPCS: 11760; 90471; 90714; 99283-25

== ENCOUNTER 2023-02-23 05:55 | Emergency (ER) | payer MEDICARE, OTHER ==
[~2023-02-23] VITALS: Ht 167.6 cm; Wt 89.8 kg
[~2023-02-23 05:55] MED LIST changes: +CEPHALEXIN500 M1 PO; +FOLIC ACID0.4 MG PO; +HYDROCODON-ACE1 EA10 PO; +LISINOPRIL10 MG PO; +ONDANSETRON ODT8 MG PO
[2023-02-23 06:23] LABS: EOSINOPHILS 1.1 % (0-6); HEMATOCRIT 22.9 % (35.0-50.0); HEMOGLOBIN 7.6 g/dL (12.0-18.0); LYMPHOCYTES 21.5 % (24-44); MCH 35.8 (27-36); MCHC 33.2 g/dl (30-36); MCV 107.8 fl (81-99); MONOCYTES 7.4 % (0-12); PLATELET COUNT 230 K/uL (140-440); RBC 2.12 M/ul (4.3-5.7); RDW 16.2 (10.5-15.0)
[2023-02-23 06:35] LABS: INR 1.12 (0.80-1.30)
[2023-02-23 06:37] LABS: ALBUMIN 4.1 g/dL (3.4-5.0); ALBUMIN/GLOBULIN RATIO 1.24 (1.1-2.4); ANION GAP 14.3 (7-21); BILIRUBIN, TOTAL 2.5 ng/dL (0.2-1.0); BUN/CREATININE RATIO 12.87 (6.0-28.6); CALCIUM 9.1 mg/dL (8.5-10.1); CREATININE, SERUM 1.01 mg/dL (0.55-1.02); MAGNESIUM 1.9 mg/dL (1.8-2.4); POTASSIUM 4.3 mmol/L (3.5-5.1); PROTEIN, TOTAL 7.4 g/dL (6.4-8.2)
[2023-02-23 07:02] LABS: INFLUENZA B NAA NEGATIVE (NEGATIVE); RESPIRATORY SYNCYTIAL VIR NAA NEGATIVE (NEGATIVE)
[2023-02-23 07:16] LABS: BILIRUBIN, URINE NEGATIVE (negative); BLOOD/HGB, URINE NEGATIVE (Negative); KETONE, URINE NEGATIVE (Negative); LEUK ESTERASE, URINE SMALL (negative); NITRITE, URINE NEGATIVE (negative); PH, URINE 7.5 (5-7)
[2023-02-23 08:23] LABS: ABO A; RH POSITIVE
[2023-02-23 08:49] LABS: ABO A; ANTIBODY SCREEN POSITIVE; RH POSITIVE
[2023-02-23 09:42] LABS: ANTIBODY IDENTIFICATION INCLONCLUSIVE
[2023-02-23] MEDS ORDERED: PREDNISONE20 MG PO (09:43)
[2023-02-23 10:14] VITALS: BP 141/53
--- NOTE | 2023-02-23 17:40 | EKG ---
[facility] [address] [facility] [place] [address] Signed Normal sinus rhythm Low voltage QRS Borderline ECG When compared with ECG of 15-APR-2020 10:37, No significant change was found Confirmed by GEORGIA GUY MD ([id number]) on 02/23/2023 5:40:02 PM Electronically Signed By: GEORGIA GUY 02/23/23 1740 PATIENT NAME: RENE MORTONMarc WALDEN Electrocardiogram DATE OF : 52 PHYSICIAN: GEORGIA GUY REPORT #: [id number] REPORT IS CONFIDENTIAL AND NOT TO BE RELEASED WITHOUT AUTHORIZATION
== END 2023-02-23 10:15 | disposition home or self-care (01) ==
LOC: ED 05:55
PROVIDERS: Family Medicine
DX: R07.9 Chest pain, unspecified (principal); D59.11 Warm autoimmune hemolytic anemia; I25.2 Old myocardial infarction; I10 Essential (primary) hypertension; E78.00 Pure hypercholesterolemia, unspecified; Z88.5 Allergy status to narcotic agent; Z88.1 Allergy status to other antibiotic agents; Z79.899 Other long term (current) drug therapy; Z79.82 Long term (current) use of aspirin; Z20.822 Contact with and (suspected) exposure to COVID-19
CPT/HCPCS: 36415; 71045; 80053; 81003; 83735; 83880; 84484; 85025; 85379; 85610; 86850; 86870; 86900; 86901; 86922; 87502; 93005; 93010; A9270; C9803; J7512; U0002